=== PATIENT | male | born 1950 ===

== ENCOUNTER 2023-09-23 15:45 | Outpatient (REF) | payer MEDICARE, SELFPAY ==
--- NOTE | ~2023-09-23 | XR_ITS ---
EXAMINATION: XR ANKLE, LEFT CLINICAL INFORMATION: Deformity of left ankle joint. COMPARISON: None available. TECHNIQUE: AP, lateral, and mortise views of the left ankle. FINDINGS: Alignment is anatomic. There is infiltrative appearance of the marrow with irregular lucencies. Ankle mortise is maintained. The talar dome is intact. Small plantar calcaneal spur. XR/XR ankle LT min 3V IMPRESSION: Infiltrative appearance of the marrow with irregular lucencies and overlying cortical thinning. MRI is recommended for further characterization.
== END 2023-09-23 15:46 | disposition home or self-care (01) ==
LOC: HO.HHCX 15:45
PROVIDERS: Visit Provider General Practice
DX: M21.962 Unspecified acquired deformity of left lower leg (principal)
CPT/HCPCS: 73610

== ENCOUNTER 2023-09-23 16:13 | Outpatient (REF) | payer MEDICARE, SELFPAY ==
[2023-09-23 17:40] LABS: Anion Gap 15 (12-20); Blood Urea Nitrogen 37 mg/dL (9-16); Calcium 9.8 mg/dL (8.4-10.2); Carbon Dioxide 24 mmol/L (22-29); Chloride 105 mmol/L (96-108); Estimated Glomerular Filt Rate 40; Glucose Random 116 mg/dL (60-115); Potassium 4.9 mmol/L (3.3-5.1); Sodium 139 mmol/L (135-145)
[2023-09-23 18:06] LABS: Appearance Urine Clear; Color Urine Yellow; Glucose Urine UA Negative (Negative); Leukocyte Esterase Urine Trace (Negative); Nitrite Urine Negative (Negative); PH 5.5 (5.0-9.0); Specific Gravity - Urine 1.025 (1.005-1.025); UMIC TRIGGER UACC YES; Urine Blood Negative (Negative); Urine Ketones Negative (Negative); Urine Protein 30 (1+) mg/dL (Neg-Trace)
[2023-09-23 18:13] LABS: Bacteria Urine None Seen (None Seen); RBC Urine 0-2 /HPF (0-2); Squamous Epithelial Cell Urine 0-2 /HPF (0-2); WBC Urine 0-5 /HPF (0-5)
== END 2023-09-23 16:14 | disposition home or self-care (01) ==
LOC: HO.HHCL 16:13
PROVIDERS: Visit Provider General Practice
DX: E11.9 Type 2 diabetes mellitus without complications (principal); Z79.4 Long term (current) use of insulin
CPT/HCPCS: 36415; 80048; 81001

== ENCOUNTER 2023-09-29 09:21 | Outpatient (REF) | payer MEDICARE, SELFPAY ==
[2023-10-05 21:28] LABS: PES - Abn Protein Band 1 0.2 g/dL (NONE DETECTED); Prot Elec - Albumin 4.1 g/dL (3.8-4.8); Prot Elec - Alpha1 0.3 g/dL (0.2-0.3); Prot Elec - Alpha2 0.8 g/dL (0.5-0.9); Prot Elec - Beta 1 0.4 g/dL (0.4-0.6); Prot Elec - Beta 2 0.3 g/dL (0.2-0.5); Prot Elec - Gamma 0.6 g/dL (0.8-1.7); Prot Elec - Total Protein 6.5 g/dL (6.1-8.1)
== END 2023-09-29 09:22 | disposition home or self-care (01) ==
LOC: HO.LAB 09:21
PROVIDERS: PCP General Practice; Visit Provider General Practice
DX: R93.6 Abnormal findings on diagnostic imaging of limbs (principal)
CPT/HCPCS: 36415; 84165

== ENCOUNTER 2023-10-01 10:52 | Outpatient (REF) | payer MEDICARE, SELFPAY | END 2023-10-01 10:53 | disposition home or self-care (01) | LOC: HO.LNP 10:52 | PROVIDERS: Visit Provider General Practice | DX: R93.6 Abnormal findings on diagnostic imaging of limbs (principal) | CPT/HCPCS: 82570; 84156; 84166 ==

== ENCOUNTER 2023-10-06 16:25 | Outpatient (REF) | payer MEDICARE, OTHER, SELFPAY ==
--- NOTE | ~2023-10-06 | CT_ITS ---
CT HEAD WITHOUT IV CONTRAST INDICATION: Dizziness and presyncope with neck extension. COMPARISON: None available. TECHNIQUE: Multidetector CT acquisitions of the head was obtained without IV contrast. This CT examination was performed using dose optimization techniques as appropriate, variously including the following: *Automated exposure control *Adjustment of mA and/or kV according to patient size (this includes techniques or standardized protocols for targeted exams where dose is matched to indication/reason for exam; i.e. extremities or head) *Use of iterative reconstruction technique FINDINGS: There is no intracranial hemorrhage, hydrocephalus, extra-axial surface collection, midline shift, or other herniation pattern. Torres to white matter differentiation is diffusely maintained without evidence of an evolved acute territorial infarct. The basilar cisterns are preserved. Right parietal scalp swelling that can be clinically correlated. CT/CT head/brain wo IV con IMPRESSION: No acute intracranial abnormality. There is global cerebral volume loss and there is moderate chronic microangiopathy. Right parietal scalp swelling that can be clinically correlated.
== END 2023-10-06 16:26 | disposition home or self-care (01) ==
LOC: HO.CT 16:25
PROVIDERS: PCP General Practice; Visit Provider General Practice
DX: R42 Dizziness and giddiness (principal)
CPT/HCPCS: 70450

== ENCOUNTER 2023-10-14 13:33 | Outpatient (REF) | payer MEDICARE, OTHER, SELFPAY ==
--- NOTE | ~2023-10-14 | MR_ITS ---
EXAMINATION: MR ANKLE WITHOUT CONTRAST, LEFT CLINICAL INFORMATION: Left ankle lucencies on radiographs. COMPARISON: Radiographs 09/23/2023. TECHNIQUE: MRI of the ankle was performed using routine sequences on a high-field scanner. FINDINGS: There are no suspicious bone lesions. Lucencies demonstrated on prior radiographs likely reflect osteopenia. No ankle joint effusion. No talar OCD. Ankle ligaments appear intact. The Achilles tendon, posterior tibialis tendon, peroneal tendons, flexor and extensor tendons appear intact. Mild thickening of the proximal plantar fascia and a small heel spur. No tear. Mild diffuse muscle edema and atrophy. Nonspecific edema throughout Kager's fat pad. Mild midfoot osteoarthritis with small dorsal osteophytes. The sinus tarsi is normal. The Lisfranc ligament is intact. MR/MR ankle LT wo con IMPRESSION: 1. No suspicious bone lesions. The radiographic appearance is likely the result of osteopenia. 2. Mild midfoot osteoarthritis. No talar OCD. 3. Mild chronic plantar fasciitis with a small heel spur.
== END 2023-10-14 13:34 | disposition home or self-care (01) ==
LOC: HO.MRI 13:33
PROVIDERS: PCP General Practice; Visit Provider General Practice
DX: M21.962 Unspecified acquired deformity of left lower leg (principal)
CPT/HCPCS: 73721

== ENCOUNTER 2023-10-22 13:36 | Outpatient (REF) | payer MEDICARE, MEDICAID, SELFPAY ==
[2023-10-26 15:03] LABS: IgA 123 mg/dL (70-320); IgG 679 mg/dL (600-1540); IgM 57 mg/dL (50-300)
== END 2023-10-22 13:37 | disposition home or self-care (01) ==
LOC: HO.HHCL 13:36
PROVIDERS: Visit Provider General Practice
DX: R77.8 Other specified abnormalities of plasma proteins (principal); M21.962 Unspecified acquired deformity of left lower leg
CPT/HCPCS: 36415; 82784; 86334

== ENCOUNTER 2023-12-09 15:46 | Outpatient (REF) | payer MEDICARE, OTHER, SELFPAY ==
--- NOTE | ~2023-12-09 | MR_ITS ---
EXAMINATION: MR ANGIOGRAPHY BRAIN WITHOUT AND WITH CONTRAST CLINICAL INFORMATION: Posterolateral dizziness. COMPARISON: CT head 10/06/2023. TECHNIQUE: MR angiogram of the head was performed without and with contrast. 3D images were processed on an independent workstation under concurrent supervision. Arterial stenoses are measured in accordance with NASCET criteria or similar method if applicable. A total of 7 mL Gadavist was utilized for this examination. FINDINGS: Intracranial internal carotid arteries are patent. The intradural vertebral artery segments and basilar artery are patent. Visualized portions of the anterior, middle, and posterior cerebral artery complexes are normal. No intracranial large vessel occlusion. No identifiable aneurysm or high flow vascular lesion. MR/MR angio head wo/w con IMPRESSION: Normal MR angiogram of the head. Electronically signed by: Pool Spaulding MD 12/31/2023 02:53 PM EDT
[2023-12-09] MEDS: gadobutroL 7.5 ML VIAL IVPUSH (17:03)
== END 2023-12-09 15:47 | disposition home or self-care (01) ==
LOC: HO.MRI 15:46
PROVIDERS: PCP General Practice; Visit Provider General Practice
DX: R42 Dizziness and giddiness (principal); R55 Syncope and collapse
CPT/HCPCS: 70546; A9585

== ENCOUNTER 2024-03-08 14:25 | Outpatient (AMB) | payer MEDICARE, SELFPAY ==
--- OUTSIDE RECORDS SUMMARY | 2024-03-08 14:28 | XMS_ITS ---
Author Organization [facility] Address [address] [place] [address] Care Team Providers Care Environmental Systems Coordinator Name Role Phone Yohana Cifuentes Primary Care Provider Yg Thomson Unavailable [phone] Allergies No Known Allergies REASON FOR VISIT At Risk Footcare, Painful Nail(s) aggravated by shoes and causing difficulty standing/walking, Ingrown Nail, Skin problem(s) Medications Medication SIG (Take, Route, Frequency, Duration) Notes Start Date End Date Status Rosuvastatin Calcium 10 MG Oral for 90 Days Active Ammonium Lactate 12 % 1 application Exte rnally to feet except for between the toes Twice a day for 30 days Active Psyllium Active Vitamin D Active Multi Vitamin Active busPIRone HCl 10 MG 1 tablet Orally Twic e a day 01/27/2023 Active Sertraline HCl 200 MG 1 capsule Orally O nce a day for 30 day(s) 01/27/2023 Active Insulin Active Vitamin C Active Extra Depth Orthopedic Shoes, (1) Pair With (3) Pair Custom Heat Molded Multidensity Innersoles Dx: NIDDM/PVD(E11.51), Hammertoe Foot Deformity(M20.41,M20.42), Preulcerative Skin Lesion(s)(L85.1) Wear Daily for 365 days 03/03/2023 Active Aspirin 81 MG 1 tablet Orally Once a day for 30 day(s) 01/27/2023 Active metFORMIN HCl 1000 MG 1 tablet with a me al Orally Once a day for 90 days Active glipiZIDE 5 MG Oral for 90 Days Active Social History Tobacco Use: Social History Observation Description Date Details (start date - stop date) Current Smoker NA - NA Tobacco Use/Smoking Question Answer Notes Are you a: current smoker Tobacco use other than smoking: Question Answer Notes Are you an other tobacco user? Yes V ape Vital Signs Height 5ft11.5in in 11/17/2023 Weight 165 lbs 11/17/2023 BMI 22.69 kg/m2 11/17/2023 Procedures Procedure Date Ordered Date Performed Result Body Sit e 76684-UHQISUI NAIL, 6 OR MORE 11/17/2023 N/A 63524-Wreizqck Plate 11/17/2023 N/A 35200-ZMAF SKIN LESIONS, OVER 4 11/17/2023 N/A Encounters Encounter Location Date Provider Diagnosis [facility] [place] [address] [place] [address] 11/17/2023 Yg Soto Type 2 diabetes mellitus with diabetic peripheral angiopathy without gangrene E11.51 ; Tinea unguium B35.1 ; Pain in right toe(s) M79.674 ; Pain in left toe(s) M79.675 ; Ingrown nail L60.0 and Xerosis of skin L85.3 Assessments Encounter Date Diagnosis (ICD Code) Assessment Notes Treatment Notes Treatment Clinical Notes Section Notes 11/17/2023 Type 2 diabetes mellitus with diabetic peripheral angiopathy without gangrene (ICD-10 - E11.51) 11/17/2023 Tinea unguium (ICD-10 - B35.1) 11/17/2023 Pain in right toe(s) (ICD-10 - M79.674) 11/17/2023 Pain in left toe(s) (ICD-10 - M79.675) 11/17/2023 Ingrown nail (ICD-10 - L60.0) 11/17/2023 Xerosis of skin (ICD-10 - L85.3) Plan Of Treatment Medication Medication Name Sig Start Date Stop Date Notes Ammonium Lactate 12 % 1 application Exte rnally to feet except for between the toes Twice a day for 30 days Pending Test Test Name Order Date 84455-YALZQWT NAIL, 6 OR MORE 11/17/2023 24659-Vwtsftdn Plate 11/17/2023 30565-SICG SKIN LESIONS, OVER 4 11/17/19 24 Next Appt Details Follow Up: prn, Reason: Provider Name:Yg Soto , 03/11/2024 11:00:00 AM, [address] [place], [address], Procedure Notes * Category Sub-Category Detail Notes Nail Avulsion Procedure A fine sterile e levator was placed between the eponychium, nail fold, and nail plate to separate the structures. A sterile nail splitter, and/or sterile 316 blade, was then used to longitudinally section the nail along its entire length through the eponychium to the area under the nail fold. The offending portion of nail was from the nail bed with a rolling action and then removed with a hemostat. No underlying bone was identified. There was minimal bleeding as hemostasis was achieved through the temporary use of either a digital tourniquet or the aforementioned local with epinephrine. A bacitracin sterile dressing was applied. Local wound aftercare instructions were discussed and dispensed. The patient was informed of both conservative and future surgical procedures to prevent recurrence. Tylenol or Motrin was recommended for pain or discomfort (62375) , DIABETES: Pt was advised as to the risk of delayed or nonhealing due to diabetes. Pt is to call the office with any questions, concerns, or complications Anesthesia 2cc of 1 percent Lid ocaine Plain local anesthesic utilizing aseptic technique Location Lateral nail border , T5 Debride Nail 6-10 Nail debridement Performance o f this nail treatment by a nonprofessional would put this patients foot and overall health at risk. Therefore, nail debridement was performed extensively to reduce/remove overall nail length, girth, thickness, subungual debris, and necrotic tissue, by manual and/or electrical means through the use of a nail nipper and/or dremel-type grinder set up operator gear tool, to a more viable healthy nail plate or bed tissue 6-10. Silver nitrate used for any petechial bleeding as necessary. Definitive antifungal treatment options have been reviewed and discussed with the patient. The patient chooses, no pharmaceutical tx (92899) Keratoma Treatment Parring or Cutting o f Benign Hyperkeratotic Lesion(s) 09693 ( More than 4 Lesions ) - The Benign hyperkeratotic lesions, as described above were pared, and/or cut utilizing a sterile 15 blade, tissue nippers, and/or dremel , Q8 Progress Notes * Boone JAIME JrDOB:1950 (72 yo M)Acc No.[id number]:11/17/2023 Progress Note Patient:Boone Alvarez Provider:?Yg Soto DPM :1950???Age:72 Y???Sex:Male Juvenal e:11/17/2023 Address:[address] [place] [address] [address], [facility] Pcp:Yohana Cifuentes Subjective: * Chief Complaints: * ???At Risk FootcarePainful N ail(s) aggravated by shoes and causing difficulty standing/walkingIngrown NailSkin problem(s) * HPI: ???At Risk footcare:?Pt States Last PCP Visit:?Date?10/26/2023 ???Skin problems:?Nature:?dryness , scaling.?Location:?B/L .?Duration:?several days.?Course:?worse.? * ROS:?General/Constitutional:?Nausea?denies.?Vomiting?denies.?Hunger Thirst?denies.?Loss appetite?denies.?Chills?denies.?Fatigue?denies.?Fever?denies.?Night Sweats?denies.?Unexplained weight loss?denies.?Unexplained weight gain?denies.?HEENTM:?Dentures?denies.?Dizziness?denies.?Glasses/contacts?admits.?Retinopathy?de nies.?Blurred/double vision?denies.?TMJ?denies.?Discharge/drainage?denies.?Implants?denies.?Sore throat?denies.?Dental implants?denies.?Hard of hearing ?denies.?Difficulty chewing/swallowing/speaking?denies.?Nose bleeds?denies.?Sore mouth?denies.?Respiratory:?On Oxygen?denies.?Pneumonia/pleurisy?denies.?Bronchitis?denies.?Emphysema?admits.?C oughing?denies.?Cough blood?denies.?Shortness of breath?denies.?Wheezing?denies.?Cardiovascular:?Pacemaker?denies.?MVP?denies.?WPW?denies.?CHF?denies.?Heart attack?denies.?Septal defect?denies.?Rapid beat?denies.?Chest pain ?denies.?Atrial Fib.?denies.?Murmur/Palpitations?denies.?Gastrointestinal:?Hemorrhoids?denies.?Stomach/Abdominal pain?denies.?Dark blood stool?denies.?Irritable bowel ?denies.?Constipation?denies.?Diarrhea?admits.?Hematology:?Swelling?denies.?Clots?denies.?Varicose Veins?admits.?Bruising?denies.?Bleeding problem?denies.?Genitourinary:?Blood urine?denies.?Frequent/Painfu/urination/bladder control?admits.?Kidney stones?admits.?Infection (UTI)?denies.?Nephropathy?denies.?sex trans dis (STD)?denies.?Prostate?denies.?Musculoskeletal:?Hammertoes?admits.?Bunions?denies.?Back Pain?denies.?Muscle Cramps/ Resting?denies.?Muscle cramps / walking?denies.?Generalized aches and pains?denies.?Weakness?denies.?Integ.:?Gutierrez?denies.?Scars?admits.?Corns/calluses?admits.?Ingrown nails?admits.?Painful nails?admits.?Open Sores?denies.?Rashes?denies.?Neurologic:?Difficulty sleeping?admits.?Brain disorder?denies.?Numbness?denies.?Balance trouble?admits.?Confusion?denies.?Fainting/blackouts?admits.?Tingling?denies.?Tr emors?denies.? * Medical History:? * Surgical History:?hernia 201 3 * Hospitalization/Major Diagno stic Procedure:?Denies Past Hospitalization * Family History:?Mother: dece ased, diagnosed with Diabetic - NIDDM.?Father: , diagnosed with Other malignant neoplasm of unspecified site.?Paternal Grand Mother: unknown, diagnosed with Family history of arthritis.?Maternal aunt: unknown, diagnosed with Diabetic - NIDDM.?Siblings: unknown, diagnosed with Diabetic - NIDDM.? Uncle from Paternal Father had history of cancer. * Social History:?Tobacco Use:?Tobacco Use/Smoking?Are you a:?current smoker ?Tobacco use other than smoking?Are you an other tobacco user??Yes Vape ???Miscellaneous:?Caffeine: yes, 2 cups. ?Children: yes. ?no Exercise. ?Marital status: . ?Occupation: Retired [employer]. * Medications:?TakingVitamin C Insulin Vitamin D Psyllium Multi Vitamin Rosuvastatin Calcium 10 MG Tablet Oral Aspirin 81 MG Tablet Chewable 1 tablet Orally Once a dayglipiZIDE 5 MG Tablet Oral metFORMIN HCl 1000 MG Tablet 1 tablet with a meal Orally Once a daySertraline HCl 200 MG Capsule 1 capsule Orally Once a daybusPIRone HCl 10 MG Tablet 1 tablet Orally Twice a dayExtra Depth Orthopedic Shoes, (1) Pair With (3) Pair Custom Heat Molded Multidensity Innersoles . Dx: NIDDM/PVD(E11.51), Hammertoe Foot Deformity(M20.41,M20.42), Preulcerative Skin Lesion(s)(L85.1) Wear DailyMedication List reviewed and reconciled with the patientTaking Vitamin C Taking Insulin Taking Vitamin D Taking Psyllium Taking Multi Vitamin Taking Rosuvastatin Calcium 10 MG Tablet Oral Taking Aspirin 81 MG Tablet Chewable 1 tablet Orally Once a dayTaking glipiZIDE 5 MG Tablet Oral Taking metFORMIN HCl 1000 MG Tablet 1 tablet with a meal Orally Once a dayTaking Sertraline HCl 200 MG Capsule 1 capsule Orally Once a dayTaking busPIRone HCl 10 MG Tablet 1 tablet Orally Twice a dayTaking Extra Depth Orthopedic Shoes, (1) Pair With (3) Pair Custom Heat Molded Multidensity Innersoles . Dx: NIDDM/PVD(E11.51), Hammertoe Foot Deformity(M20.41,M20.42), Preulcerative Skin Lesion(s)(L85.1) Wear DailyMedication List reviewed and reconciled with the patient * Allergies:?N.K.D.A.yes[Aller gies Verified] Objective: * Vitals:?Ht: 5ft11.5in, Wt:16 5, BMI:22.69, Shoe size: 11, BS: not taken, Ht-cm: 181.61 cm, Wt-k.84 kg. * ???Past Orders: ???Lab:HEMOGLOBIN A1C (GLYCO HEMOGLOBIN) (Order Date - 03/03/2023) (Collection Date - 03/24/2022) ? Value Reference Range ?HEMOGLOBIN A1C (HH) 5.5 * Examination: ???Vascular: ?DP PULSES:? 0/4, B/L.?PT PULSES:?0/4 , LEFT , 1/4 , RIGHT.?CAPILLARY FILL TIME:? delayed, all digits, B/L.?SKIN TEMPERTURE GRADIENT OF THE LOWER EXTERMITIES:? decreased, cool to cool, proximal to distal, B/L.?HAIR GROWTH/TEXTURE/ELASTICITY/TURGOR:? decreased, B/L.?PIGMENTATION:?mottled, B/L.?EDEMA:?absent, B/L.?CLAUDICATION:?denies, B/L.?REST PAIN:?denies, B/L.?Nails: ?NAILS are:?Elongated, overgrown, dystrophic, lytic, greater than 3mm thick, discolored and friable with crumbly malodorous subungual debris, with pain on palpation , 1-5 B/L.?Dermatologic: ?SKIN FINDINGS:?Skin exam reveals Keratotic lesion(s) located at , Medial plantar , IPJ , TA , Medial plantar , IPJ , T5 , SUB MTH (s) , 1 , B/L , SUB MTH (s) , 5 , B/L , SUB 5th MTBase , B/L , Heel(s) , B/L , Skin shows sign(s) of, dryness, scaling, in a stocking fashion, no fissure(s) present, B/L.?Ingrown Nail: ?INSPECTION:?Reveals nail incurvation, pain on palpation, groove hypertrophy , Lateral nail border , T5.? Assessment: * Assessment: 1.?Type 2 diabetes mellitus with diabetic peripheral angiopathy without gangrene - E11.51?2.?Tinea unguium - B35.1?3.?Pain in right toe(s) - M79.674?4.?Pain in left toe(s) - M79.675?5.?Ingrown nail - L60.0, Lateral nail border , T5?6.?Xerosis of skin - L85.3, Acute problem, Uncomplicated (3),Rx Management (4)? Plan: * Treatment: 2.?Tinea unguium?Procedure: 90165-RTYTASS NAIL, 6 OR MORE 3.?Ingrown nail?Procedure: 78682-Kgmjtmzf Plate 4.?Xerosis of skin? Start Ammonium Lactate Cream, 12 %, 1 application, Externally to feet except for between the toes, Twice a day, 30 days, 60, Refills 2.?? * Procedures:?Debride Nail 6-10:?Nail debridement?Performance of this nail treatment by a nonprofessional would put this patients foot and overall health at risk. Therefore, nail debridement was performed extensively to reduce/remove overall nail length, girth, thickness, subungual debris, and necrotic tissue, by manual and/or electrical means through the use of a nail nipper and/or dremel-type grinder set up operator gear tool, to a more viable healthy nail plate or bed tissue 6-10. Silver nitrate used for any petechial bleeding as necessary. Definitive antifungal treatment options have been reviewed and discussed with the patient. The patient chooses, no pharmaceutical tx (85506).?Keratoma Treatment:?Parring or Cutting of Benign Hyperkeratotic Lesion(s)?86451 ( More than 4 Lesions ) - The Benign hyperkeratotic lesions, as described above were pared, and/or cut utilizing a sterile 15 blade, tissue nippers, and/or dremel , Q8.?Nail Avulsion:?Location?Lateral nail border?,?T5.?Anesthesia?2cc of 1 percent Lidocaine Plain local anesthesic utilizing aseptic technique.?Procedure?A fine sterile elevator was placed between the eponychium, nail fold, and nail plate to separate the structures. A sterile nail splitter, and/or sterile 316 blade, was then used to longitudinally section the nail along its entire length through the eponychium to the area under the nail fold. The offending portion of nail was from the nail bed with a rolling action and then removed with a hemostat. No underlying bone was identified. There was minimal bleeding as hemostasis was achieved through the temporary use of either a digital tourniquet or the aforementioned local with epinephrine. A bacitracin sterile dressing was applied. Local wound aftercare instructions were discussed and dispensed. The patient was informed of both conservative and future surgical procedures to prevent recurrence. Tylenol or Motrin was recommended for pain or discomfort (69372) , DIABETES: Pt was advised as to the risk of delayed or nonhealing due to diabetes. Pt is to call the office with any questions, concerns, or complications.? * Procedure Codes:?44910 DEBRI DE NAIL, 6 OR MORE, Modifiers: XS 09373 Avulsion Plate, Modifiers: XS , [id number] TRIM SKIN LESIONS, OVER 4, Modifiers: XS , Q8 * Preventive Medicine:? ??Counseling:?Discussion:?-13: Office or other outpatient visit for the evaluation and management of an established patient, which required a medically appropriate history and/or examination and LOW level of DECISION MAKING for: 1 STABLE ACUTE UNCOMPLICATED PROBLEM, 2 OR MORE MINOR PROBLEMS, OR 1 STABLE CHRONIC PROBLEM, THAT POSE(S) A LOW RISK FOR MORBIDITY/MORTALITY. The visit on the day of the encounter encompassed interpreting the data and educating the patient as to the nature of their condition, treatment options available according to their individual PMH, meds, allergies, and overall health/living conditions, as well as any potential risks or complications that may occur from a failure to adhere to, and participate in, the recommended course of therapy. The discussion included a complete verbal, and/or written explanation of the examination results, any x-rays taken, the proposed diagnosis, and outline of the treatment plan. A schedule for future care needs was also explained. The patient verbalized an understanding of the instructions at this time and agreed to be an active participant in their treatment. If the patient should think of any questions or concerns after the visit, I have encouraged the patient to call the office.?Xerosis:?The patient was counseled on the diagnosis, potential etiologies, and treatment options for their skin condition. We discussed the risks and benefits of each option from performing no treatment, to utilizing OTC topical skin creams/ointments, to utilizing prescription topical creams/ointments, to utilizing customized compounded topical medications and use of nocturnal occlusion with any/all previously detailed therapies. We discussed the advantages and disadvantages of each possible treatment and importance for adherence to all the recommended therapies for optimum success and avoid potential complications such as open sore/infection/possible hospitalization. We discussed the potential effectiveness of each topical preparation as well as each ones possible side effects and/or patient medication interactions. Patient questions re: use, dosage, successful outcomes, and application consistency were reviewed and the patient verbalized that all answers were clearly understood. The patient has decided to apply Rx skin creams to their feet save the interspaces while paying special attention to the heels. Such was sent to their pharmacy at the time of visit.? * Follow Up:?prn * Images: * Sign off status: Completed true * Provider:Braden Soto DPM Date:?2023 Generated for Brayan curtis/Regina/Mirella on:?03/08/2024 02:27 PM EST History and Physical Notes * HPI (History of Present Illness) Category Sub-Category Detail Notes Category Not es Skin problems Nature: dryness , scaling Location: B/L Duration: several days Course: worse At Risk footcare Pt States Last PCP Visit: Date: 4 Examination Category Sub-Category Detail Notes Category Not es Ingrown Nail INSPECTION: Reveals nail inc urvation, pain on palpation, groove hypertrophy , Lateral nail border , T5 Dermatologic SKIN FINDINGS: Skin exam reveal s Keratotic lesion(s) located at , Medial plantar , IPJ , TA , Medial plantar , IPJ , T5 , SUB MTH (s) , 1 , B/L , SUB MTH (s) , 5 , B/L , SUB 5th MTBase , B/L , Heel(s) , B/L , Skin shows sign(s) of, dryness, scaling, in a stocking fashion, no fissure(s) present, B/L Vascular DP PULSES(B): 0/4, B/L PT PULSES(B): 0/4 , LEFT , 1/4 , R IGHT CAPILLARY FILL TIME: delayed, all digits , B/L TEMPERTURE GRADIENT(C): decreased, cool to cool, proximal to distal, B/L TROPHIC CONDITION-TEXTURE/ELASTICITY/TURGOR/HAIR GROWTH(B): decreased, B/L EDEMA(C): absent, B/L CLAUDICATION(C): denies, B/L REST PAIN: denies, B/L PIGMENTATION: mottled, B/L Nails NAILS are: Elongated, overg rown, dystrophic, lytic, greater than 3mm thick, discolored and friable with crumbly malodorous subungual debris, with pain on palpation , 1-5 B/L
--- OUTSIDE RECORDS SUMMARY | 2024-03-08 14:28 | XMS_ITS ---
Author Organization [facility] Address [address] [place] [address] Care Team Providers Care Polishing Machine Tender Name Role Phone Yohana Cifuentes Primary Care Provider Yg Thomson Unavailable [phone] Allergies No Known Allergies REASON FOR VISIT At Risk Footcare, Painful Nail(s) aggrevated by shoes and causing difficulty standing/walking, Toe Irritation, Ingrown Nail Medications Medication SIG (Take, Route, Frequency, Duration) Notes Start Date End Date Status metFORMIN HCl 1000 MG 1 tablet with a me al Orally Once a day for 90 days Active glipiZIDE 5 MG Oral for 90 Days Active Sertraline HCl 200 MG 1 capsule Orally O nce a day for 30 day(s) 01/27/2023 Active Aspirin 81 MG 1 tablet Orally Once a day for 30 day(s) 01/27/2023 Active Rosuvastatin Calcium 10 MG Oral for 90 Days Active Insulin Active Vitamin C Active Psyllium Active Vitamin D Active Multi Vitamin Active busPIRone HCl 10 MG 1 tablet Orally Twic e a day 01/27/2023 Active Extra Depth Orthopedic Shoes, (1) Pair With (3) Pair Custom Heat Molded Multidensity Innersoles Dx: NIDDM/PVD(E11.51), Hammertoe Foot Deformity(M20.41,M20.42), Preulcerative Skin Lesion(s)(L85.1) Wear Daily for 365 days 03/03/2023 Active Social History Tobacco Use: Social History Observation Description Date Details (start date - stop date) Current Smoker NA - NA Tobacco Use/Smoking Question Answer Notes Are you a: current smoker Alcohol Screen Question Answer Notes Did you have a drink containing alcohol in the p ast year? No Points 0 Interpretation Negative Tobacco use other than smoking: Question Answer Notes Are you an other tobacco user? Yes V ape Vital Signs Height 6ft 1in in 07/21/2023 Weight 165 lbs 07/21/2023 BMI 21.77 kg/m2 07/21/2023 Procedures Procedure Date Ordered Date Performed Result Body Sit e 54337-RWTTGPI NAIL, 6 OR MORE 07/21/2023 N/A 68019-Ttwvilaz Plate 07/21/2023 N/A 01448-KIVB SKIN LESIONS, OVER 4 07/21/2023 N/A Encounters Encounter Location Date Provider Diagnosis [facility] [place] [address] [place] [address] 07/21/2023 Yg Soto Type 2 diabetes mellitus with diabetic peripheral angiopathy without gangrene E11.51 ; Tinea unguium B35.1 ; Pain in right toe(s) M79.674 ; Pain in left toe(s) M79.675 ; Other hammer toe(s) (acquired), right foot M20.41 ; Other hammer toe(s) (acquired), left foot M20.42 and Ingrown nail L60.0 Assessments Encounter Date Diagnosis (ICD Code) Assessment Notes Treatment Notes Treatment Clinical Notes Section Notes 07/21/2023 Type 2 diabetes mellitus with diabetic peripheral angiopathy without gangrene (ICD-10 - E11.51) 07/21/2023 Tinea unguium (ICD-10 - B35.1) 07/21/2023 Pain in right toe(s) (ICD-10 - M79.674) 07/21/2023 Pain in left toe(s) (ICD-10 - M79.675) 07/21/2023 Other hammer toe(s) (acquired), right foot (ICD-10 - M20.41) Response to treatment,Impro vement 07/21/2023 Other hammer toe(s) (acquired), left foot (ICD-10 - M20.42) Response to treatment,Impro vement 07/21/2023 Ingrown nail (ICD-10 - L60.0) Plan Of Treatment Pending Test Test Name Order Date 16968-BZCKDHU NAIL, 6 OR MORE 07/21/2023 92629-Bfafyrxi Plate 07/21/2023 40184-VHWB SKIN LESIONS, OVER 4 07/21/19 24 Next Appt Details Follow Up: prn, Reason: Provider Name:Yg Soto , 03/11/2024 11:00:00 AM, [address] [place] [address], [id number], Procedure Notes * Category Sub-Category Detail Notes [...] Motrin was recommended for pain or discomfort (04887) , DIABETES: Pt was advised as to the risk of delayed or nonhealing due to diabetes. Pt is to call the office with any questions, concerns, or complications Anesthesia 2cc of 1 percent Lid ocaine Plain local anesthesic utilizing aseptic technique Location Lateral nail border , TA Debride Nail 6-10 Nail debridement Nail debridem ent performed extensively to reduce/remove overall nail length, girth, thickness, subungual debris, and necrotic tissue, by manual and electrical means through the use of a nail nipper and/or dremel, to more viable healthy nail plate or bed tissue 1-5. Silver nitrate used for any petechial bleeding as necessary. Patient chooses, no pharmaceutical tx (20937) Keratoma Treatment Parring or Cutting o f Benign Hyperkeratotic Lesion(s) 54236 ( More than 4 Lesions ) - The Benign hyperkeratotic lesions, as described above were pared, and/or cut utilizing a sterile 15 blade, tissue nippers, and/or audrey , Q8 Progress Notes * Boone JAIME JrDOB:1950 (72 yo M)Acc No.[id number]:07/21/2023 Progress Note Patient:Boone Alvarez Provider:?Yg Soto DPM :1950???Age:72 Y???Sex:Male Juvenal e:07/21/2023 Address:[address] [place] [address] [address], [facility] Pcp:Aida Fabian Subjective: * Chief Complaints: * ???At Risk FootcarePainful N ail(s) aggrevated by shoes and causing difficulty standing/walkingToe IrritationIngrown Nail * HPI: ???At Risk footcare:?Pt States Last PCP Visit:?Date?03/09/2023 ???Toe pain:?Treatments:?Rx shoes .? * ROS:?General/Constitutional:?Nausea?denies.?Vomiting?denies.?Hunger Thirst?denies.?Loss appetite?denies.?Chills?denies.?Fatigue?denies.?Fever?denies.?Night Sweats?denies.?Unexplained weight loss?denies.?Unexplained [...] smoking?Are you an other tobacco user??Yes Vape ???Drugs/Alcohol:?Drugs?Have you used drugs other than those for medical reasons in the past 12 months??Yes ?Alcohol Screen?Did you have a drink containing alcohol in the past year??No ?Points?0 ?Interpretation?Negative ???Miscellaneous:?Caffeine: yes, 2 cups. ?Marital status: . ?Occupation: Retired [employer]. * Medications:?TakingVitamin C Insulin Vitamin D Psyllium [...] * Allergies:?N.K.D.A.yes[Aller gies Verified] Objective: * Vitals:?Ht: 6ft 1in, Wt:165, BMI:21.77, Shoe size:11. * ???Past Orders: ???Lab:HEMOGLOBIN A1C (GLYCO HEMOGLOBIN) [...] 5th MTBase , B/L , Heel(s) , B/L.?Orthopedic: ?DIGITAL DEFORMITIES:?Digital contracture, PIPJ, 2-5 B/L, incompl-reducible to push-up test, no over, nor underlapping.?FOOTWEAR:?good condition, exhibit proper fit and accommodation for pedal deformities. OT were inspected and noted to be worn, but in good condition giving proper support at the present time.?Ingrown Nail: ?INSPECTION:?Reveals nail incurvation, pain on palpation, groove hypertrophy , Lateral nail border , TA.? Assessment: * Assessment: 1.?Type 2 diabetes mellitus with diabetic peripheral angiopathy without gangrene - E11.51?2.?Tinea unguium - B35.1?3.?Pain in right toe(s) - M79.674?4.?Pain in left toe(s) - M79.675?5.?Other hammer toe(s) (acquired), right foot - M20.41, Chronic problem, Stable (1=3,2=4), Response to treatment,Improvement?6.?Other hammer toe(s) (acquired), left foot - M20.42, Chronic problem, Stable (1=3,2=4), Response to treatment,Improvement?7.?Ingrown nail - L60.0, Lateral nail border , TA? Plan: * Treatment: 2.?Tinea unguium?Procedure: 48566-FUBIWXH NAIL, 6 OR MORE 3.?Ingrown nail?Procedure: 16704-Nyfylwgj Plate * Procedures:?Debride Nail 6-10:?Nail debridement?Nail debridement performed extensively to reduce/remove overall nail length, girth, thickness, subungual debris, and necrotic tissue, by manual and electrical means through the use of a nail nipper and/or dremel, to more viable healthy nail plate or bed tissue 1-5. Silver nitrate used for any petechial bleeding as necessary. Patient chooses, no pharmaceutical tx (53682).?Keratoma Treatment:?Parring or Cutting of Benign Hyperkeratotic Lesion(s)?68782 ( More than 4 Lesions ) - The Benign hyperkeratotic lesions, as described above were pared, and/or cut utilizing a sterile 15 blade, tissue nippers, and/or dremel , Q8.?Nail Avulsion:?Location?Lateral nail border?,?TA.?Anesthesia?2cc of 1 percent Lidocaine Plain local anesthesic [...] Motrin was recommended for pain or discomfort (36038) , DIABETES: Pt was advised as to the risk of delayed or nonhealing due to diabetes. Pt is to call the office with any questions, concerns, or complications.? * Procedure Codes:?80099 Avuls ion Plate, Modifiers: XS , [id number] DEBRIDE NAIL, 6 OR MORE, Modifiers: XS 92865 TRIM SKIN LESIONS, OVER 4, Modifiers: XS [...] have encouraged the patient to call the office.?Shoe Gear Counseling:?A thorough inspection of the patients Rxed shoegear and inserts was performed and findings communicated. We reviewed the many important medical advantages for adhering to regularly wearing these shoe and insert accomidative devices daily as well as reviewed the fact that a failure in accepting these recommedations may be deleterious, unable to prevent, and disadvantagely result in, many pedal complications such as skin irritation, skin ulceration, infection, and even loss of toe/foot/leg/or even their life. Time was also spent reviewing the proper footcare techniques including daily skin moisturization, daily foot inspection for any interruption in skin integrity, open lesions, or sign of infection such as redness/malodor/drainage/swelling as well as daily shoe inspection for the presence of internal foreign bodies and shoe as well as insert wear. Patient questions re: shoes, inserts, and self foot inspections were answered to their satisfaction as the patient verbally confirmed a full understanding of the above information.? * Follow Up:?prn * Images: * Sign off status: Completed Addendum: * ? true * Provider:?Yg Soto DPM Date:?2023 Generated for Brayan curtis/Regina/Brittnyitting on:?03/08/2024 02:27 PM EST History and Physical Notes * HPI (History of Present Illness) Category Sub-Category Detail Notes Category Not es Toe pain Treatments: Rx shoes At Risk footcare Pt States Last PCP Visit: Date: 3 Examination Category Sub-Category Detail Notes Category Not es Ingrown Nail INSPECTION: Reveals nail inc urvation, pain on palpation, groove hypertrophy , Lateral nail border , TA Dermatologic SKIN FINDINGS: Skin exam reveal s Keratotic lesion(s) located at , Medial plantar , IPJ , TA , Medial plantar , IPJ , T5 , SUB MTH (s) , 1 , B/L , SUB MTH (s) , 5 , B/L , SUB 5th MTBase , B/L , Heel(s) , B/L Orthopedic FOOTWEAR: good condition, exhibit proper fit and accommodation for pedal deformities. OT were inspected and noted to be worn, but in good condition giving proper support at the present time DIGITAL DEFORMITIES: Digital contracture , PIPJ, 2-5 B/L, incompl-reducible to push-up test, no over, nor underlapping Vascular DP PULSES(B): 0/4, B/L PT PULSES(B): [...]
--- OUTSIDE RECORDS SUMMARY | 2024-03-08 14:28 | XMS_ITS | Patient Health Record ---
Author Organization [facility] Address [address] [facility] [address] Care Team Providers Care Mold Dumper Name Role Phone Yohana Cifuentes Primary Care Provider Yg Thomson Unavailable [phone] Allergies No Known Allergies Reason For Referral No Information Medications Medication SIG (Take, Route, Frequency, Duration) Notes Start Date End Date Status Psyllium Active Vitamin D Active Aspirin 81 MG 1 tablet Orally Once a day for 30 day(s) 01/27/2023 Active Rosuvastatin Calcium 10 MG Oral for 90 Days Active metFORMIN HCl 1000 MG 1 tablet with a me al Orally Once a day for 90 days Active glipiZIDE 5 MG Oral for 90 Days Active busPIRone HCl 10 MG 1 tablet Orally Twic e a day 01/27/2023 Active Ammonium Lactate 12 % 1 application Exte rnally to feet except for between the toes Twice a day for 30 days Active Sertraline HCl 200 MG 1 capsule Orally O nce a day for 30 day(s) 01/27/2023 Active Insulin Active Vitamin C Active Extra Depth Orthopedic Shoes, (1) Pair With (3) Pair Custom Heat Molded Multidensity Innersoles Dx: NIDDM/PVD(E11.51), Hammertoe Foot Deformity(M20.41,M20.42), Preulcerative Skin Lesion(s)(L85.1) Wear Daily for 365 days 03/03/2023 Active Multi Vitamin Active Immunizations Vaccine Route Administration Date Status Comme nts Influenza Unknown 11/21/2022 Administered Social History Tobacco Use: Social History Observation [...] an other tobacco user? Yes V ape Problems Problem Type SNOMED Code ICD Code Onset Dates Problem Status W/U Status Risk Notes Problem Acquired hammer toe of right foot (9181182135382 105) Other hammer toe(s) (acquired), right foot (M20.41) Active confirmed Response to treatment,I mprovement Problem Type 2 diabetes mellitus with peripheral angiopathy (731267655) Type 2 diabetes mellitus with diabetic peripheral angiopathy without gangrene (E11.51) Active confirmed Problem Acquired hammer toe of left foot (7449745753093 103) Other hammer toe(s) (acquired), left foot (M20.42) Active confirmed Response to treatment,I mprovement Vital Signs Height 5ft11.5in in 11/17/2023 Weight 165 lbs 11/17/2023 BMI 22.69 kg/m2 11/17/2023 Procedures Procedure Date Ordered Date Performed Result Body Sit e 37012-FFPHRJW NAIL, 6 OR MORE 07/21/2023 N/A 62693-Pvdixrzk Plate 07/21/2023 N/A 04318-IVMX SKIN LESIONS, OVER 4 07/21/2023 N/A 45985-PUULSZV NAIL, 6 OR MORE 11/17/2023 N/A 73809-Gulqfnhy Plate 11/17/2023 N/A 95032-NUYA SKIN LESIONS, OVER 4 11/17/2023 N/A Encounters Encounter Location Date Provider Diagnosis [facility] [place] [address] [place] [address] 07/21/2023 Yg Soto Type 2 diabetes mellitus with diabetic peripheral angiopathy without gangrene E11.51 ; Tinea unguium B35.1 ; Pain in right toe(s) M79.674 ; Pain in left toe(s) M79.675 ; Other hammer toe(s) (acquired), right foot M20.41 ; Other hammer toe(s) (acquired), left foot M20.42 and Ingrown nail L60.[address] [address] 11/17/2023 Yg Mossunier Type 2 diabetes mellitus with diabetic peripheral angiopathy without gangrene E11.51 ; Tinea unguium B35.1 ; Pain in right toe(s) M79.674 ; Pain in left toe(s) M79.675 ; Ingrown nail L60.0 and Xerosis of skin L85.[address] [address] 05/13/2023 Yg Soto Assessments Encounter Date Diagnosis (ICD Code) Assessment Notes Treatment Notes Treatment Clinical Notes Section Notes 07/21/2023 Type 2 diabetes mellitus with diabetic peripheral angiopathy without gangrene (ICD-10 - E11.51) 07/21/2023 Tinea unguium (ICD-10 - B35.1) 11/17/2023 Type 2 diabetes mellitus with diabetic peripheral angiopathy without gangrene (ICD-10 - E11.51) 11/17/2023 Tinea unguium (ICD-10 - B35.1) 11/17/2023 Pain in right toe(s) (ICD-10 - M79.674) 07/21/2023 Pain in right toe(s) (ICD-10 - M79.674) 07/21/2023 Pain in left toe(s) (ICD-10 - M79.675) 11/17/2023 Pain in left toe(s) (ICD-10 - M79.675) 11/17/2023 Ingrown nail (ICD-10 - L60.0) 07/21/2023 Other hammer toe(s) (acquired), right foot (ICD-10 - M20.41) Response to treatment,Impro vement 07/21/2023 Other hammer toe(s) (acquired), left foot (ICD-10 - M20.42) Response to treatment,Impro vement 11/17/2023 Xerosis of skin (ICD-10 - L85.3) 07/21/2023 Ingrown nail (ICD-10 - L60.0) Plan Of Treatment Pending Test Test Name Order Date NAIL, 6 OR MORE 03/03/2023 92462-UFBTDPO NAIL, 6 OR MORE 07/21/2023 53873-HIFIREZ NAIL, 6 OR MORE 11/17/2023 46127-Hwqnbysh Plate 07/21/2023 28296-Ctzlebiw Plate 11/17/2023 73016-AURU SKIN LESIONS, OVER 4 11/17/19 24 70577-OHAT SKIN LESIONS, OVER 4 07/21/19 24 53426-PCWS SKIN LESIONS, OVER 4 03/03/20 23 Next Appt Details Provider Name:Yg Soto , 03/11/2024 11:00:00 AM, [address] [facility], [place], [address], Insurance Providers Payer Name Payer Address Payer Phone Subscriber Number Group Number Insured Name Patient Relationship to Insured Coverage Start Date Coverage End Date [employer] Medicare Complete [address] [address] [place] [address] [id number] Boone Newby Self - patient is the insured Medical (General) History Medical History History ICD Code Back,Hip,and Knee pain Broken bones CAD (Cholesterol) Diabetic High blood pressure Lung disease Surgical History Surgery Date(Month/Year) hernia 2013
--- OUTSIDE RECORDS SUMMARY | 2024-03-08 14:28 | XMS_ITS ---
Author Organization [facility] Address [address] [place] [address] Care Team Providers Care Clinical Research Analyst Name Role Phone Yohana Cifuentes Primary Care Provider UnavailYg Lopez Unavailable [phone] Encounters Encounter Location Date Provider Diagnosis [address] [address] 05/26/2023 Yg Soto Plan Of Treatment Next Appt Details Provider Name:Yg Soto , 03/11/2024 11:00:00 AM, [address] [place] [address], [phone], Progress Notes * ADDISON Boone JrDOB:1950 (73 yo M)Acc No.[id number]:05/26/2023 Progress Note Patient:?Boone JAIME Provider:?Yg Soto DPM :1950???Age:72 Y???Sex:Male Juvenal e:05/26/2023 Address:[address] [place] [address], [facility] [address], [place], [place] Pcp:Yohana Cifuentes Subjective: * Chief Complaints: * ??? * Medical History:? Objective: * Vitals:? Assessment: Plan: * Treatment: * Images: * The named appointment provid er may or may not be the originator of this progress note, and it is not deemed complete until electronically signed by the appointment provider. Sign off status: Pending * Provider:Braden Soto DPM Date:?2023 Generated for Brayan curtis/Regina/Mirella on:?03/08/2024 02:28 PM EST
--- NOTE | 2024-03-08 14:29 | MHC.OFFVIS ---
Vital Signs 03/08/24 14:33 Height 5 ft 11.5 in Weight 160 lb BMI 22.0 Intake Visit Reasons: [employer]/C faxed for carotid stenosis Intake Note: [employer] referred for carotid stenosis w/ hx of testing and dizziness. Pt states he gets dizziness when looking up while standing. Was being seen in [place], [place] by . Pt had last carotid US 02/11/2022 @ [facility] Accompanied by: Daughter Allergies No Known Allergies Allergy (Verified 03/08/24 14:37) HPI HPI [employer]/[facility] faxed for carotid stenosis: Details: Pleasant 73-year-old gentleman presents for evaluation regarding carotid stenosis. He was originally seen back in 2021 where there was concerns about his is carotids. He noted that he had difficulty when he got up from a sitting position or raised his neck and had a dizzy spell. He was subsequently worked up and underwent a carotid ultrasound at [facility] on 02/11/2022. This demonstrated bilateral less than 50% carotid stenosis. The concern was that they had an incidental finding of left IJ vein filling defect. He was seen and worked up at that time and it was found to be essentially negative. He was subsequently moved over and now presents to us for vascular evaluation. Upon discussion with him he smokes about a half a pack per day and has been a diabetic for over 10 years. He presents with daughter at bedside. He is being maintained on aspirin and statin. [facility] Medical History (Updated 03/08/24 @ 15:06 by Marcin Hendrickson MD) Diabetes Social History (Updated 03/08/24 @ 14:40 by Kalie Rowe [facility]) Cigarettes Per Day: 5 Years Smoked: 63 Review of Systems Const All systems reviewed & are unremarkable except as noted in HPI and below Reports no additional complaints ENT Reports Normal hearing present Card Denies chest pain, Denies chest pain at rest, Denies chest pain with activity and Denies pedal edema Resp Denies cough GI Denies abdominal pain Musc Denies abnormal gait, Denies muscle cramps and Denies radiating pain into limb Skin/Breast Denies skin ulcer and Denies wounds Neuro Reports Normal hearing present and Denies abnormal gait Psych Reports no additional complaints Physical Exam Vital Signs: BMI result Body Mass Index 22.0 Const General: cooperative, healthy appearing and comfortable Orientation/consciousness: oriented to person, oriented to place and oriented to time HEENT Head: Yes normal to inspection Neck Neck: Yes normal visual inspection Carotids: no bruits Chest Chest palpation & inspection: normal inspection of the chest Resp Effort & Inspection: normal respiratory effort and able to speak in complete sentences Auscultation: clear to auscultation bilaterally, no crackles, no rales, no rhonchi and no wheezes Cardio Other: Palpable radial and ulnar pulses bilaterally. In addition no carotid bruits appreciated. No evidence of jugular venous distention Jugular venous distension: no JVD Rate: regular rate Rhythm: regular rhythm Heart sounds: S1 normal heart sound present and S2 normal heart sound present Bruits: no carotid bruits Peripheral pulses: Peripheral pulses 2+ throughout GI Inspection: Yes normal to inspection Skin Wounds: no wounds Hair: normal Neuro General: oriented to person, oriented to place and oriented to time Cranial nerves: Yes CN's II-XII intact bilaterally and Yes Normal hearing present Cognition (Neuro): normal cognition Motor exam (neuro): 5/5 motor strength present throughout Extrem Other: venous exam: No significant superficial varicosities or spider telangiectasias, minimal edema General: No clubbing, No cyanosis and No edema Psych Appearance: grossly normal Mental Status: mental status grossly normal Speech and movement: Normal speech and movement present Results Reviewed Results Reviewed: Written report from carotid ultrasound dated 03/13/2022 demonstrates bilateral less than 50% stenosis. This was done at [facility]. Assessment & Plan Assessment & Plan (1) Bilateral carotid artery stenosis: Code(s): I65.23 - Occlusion and stenosis of bilateral carotid arteries Category: Medical Plan: In short patient has questionable filling defect of the left internal jugular carotid. I did do a fair amount of education regarding this. I do not think this may be a true finding. I did differentiate between artery and vein issues. Since it has been over 2 years I have taken the liberty of ordering repeat carotid ultrasound to better elucidate the degree of stenosis and if any jugular vein findings are seen. In addition we did discuss routine risk factor modification in particular smoking cessation and diabetes control. Patient will follow up with us after testing. Thank you for allowing us to participate in his care. If there are any questions or concerns please do not hesitate to contact us. Orders: Orders US carotid duplex BI 1 Week I65.23 - Occlusion and stenosis of bilateral carotid arteries Coding Level of Care Code New Pt Level 4 (39524) Complex EM visit Add On G2211 Diagnoses Bilateral carotid artery stenosis I65.23
[2024-03-08 14:33] VITALS: BMI 22.0
== END 2024-03-08 14:52 | disposition home or self-care (01) ==
PROVIDERS: PCP General Practice; Visit Provider Surgery Vascular Surgery
DX: I65.23 Occlusion and stenosis of bilateral carotid arteries (principal)
CPT/HCPCS: 99204; G2211

== ENCOUNTER → 2024-03-08 14:25 | Outpatient (BNVA) | payer MEDICARE, OTHER, SELFPAY | PROVIDERS: PCP General Practice; Visit Provider Surgery Vascular Surgery | DX: I65.23 Occlusion and stenosis of bilateral carotid arteries (principal) | CPT/HCPCS: 99202 ==

== ENCOUNTER 2024-03-30 12:35 | Outpatient (AMB) | payer MEDICARE, MEDICAID, SELFPAY ==
--- OUTSIDE RECORDS SUMMARY | 2024-03-30 12:37 | XMS_ITS ---
[facility] Organization [facility] Address [address] [place] [address] Care Team Providers Care Cardiac Cath Technologist Name Role Phone Yohana Cifuentes Primary Care Provider Yg Thomson Unavailable [phone] Allergies No Known Allergies REASON FOR VISIT [...] Ordered Date Performed Result Body Sit e 86866-WJPSAIV NAIL, 6 OR MORE 11/17/2023 N/A 65857-Rdcpqyia Plate 11/17/2023 N/A 79607-ZBZF SKIN LESIONS, OVER 4 11/17/2023 N/A Encounters Encounter Location Date Provider Diagnosis [facility] [place] [address] [place] [address] 11/17/2023 Yg Soto Type 2 diabetes mellitus [...] days Pending Test Test Name Order Date 06308-LMJKEIL NAIL, 6 OR MORE 11/17/2023 98998-Dcgcjrct Plate 11/17/2023 54819-BUVX SKIN LESIONS, OVER 4 11/17/19 24 Next Appt Details Follow Up: prn, Reason: Provider Name:Yg Soto , 07/12/2024 01:00:00 PM, [address] [place], [address], Procedure Notes * Category Sub-Category Detail Notes [...] Motrin was recommended for pain or discomfort (39391) , DIABETES: Pt was advised as to [...] use of a nail nipper and/or dremel-type eyeglass lens grinder, to a more viable healthy nail plate or bed tissue 6-10. Silver nitrate used for any petechial bleeding as necessary. Definitive antifungal treatment options have been reviewed and discussed with the patient. The patient chooses, no pharmaceutical tx (30541) Keratoma Treatment Parring or Cutting o f Benign Hyperkeratotic Lesion(s) 02044 ( More than 4 Lesions ) - The Benign hyperkeratotic lesions, as described above were pared, and/or cut utilizing a sterile 15 blade, tissue nippers, and/or dremel , Q8 Progress Notes * Boone JAIME JrDOB:1950 (73 yo M)Acc No.[id number]:11/17/2023 Progress Note Patient:?Boone JAIME Jr Provider:?Yg Soto DPM :1950???Age:72 Y???Sex:Male Juvenal e:11/17/2023 Address:[address] [place] [address] [address], [facility] Pcp:Yohana Cifuentes Subjective: * Chief Complaints: * ???At Risk FootcarePainful N ail(s) aggravated by shoes and causing difficulty standing/walkingIngrown NailSkin problem(s) * HPI: ???At Risk footcare:?Pt States Last PCP Visit:?Date?10/26/2023 ???Skin problems:?Nature:?dryness , scaling.?Location:?B/L .?Duration:?several days.?Course:?worse.? * ROS:?General/Constitutional:?Nausea?denies.?Vomiting?denies.?Hunger Thirst?denies.?Loss appetite?denies.?Chills?denies.?Fatigue?denies.?Fever?denies.?Night Sweats?denies.?Unexplained weight loss?denies.?Unexplained weight gain?denies.?HEENTM:?Dentures?denies.?Dizziness?denies.?Glasses/contacts?admits.?Retinopathy?den ies.?Blurred/double vision?denies.?TMJ?denies.?Discharge/drainage?denies.?Implants?denies.?Sore throat?denies.?Dental implants?denies.?Hard of hearing ?denies.?Difficulty chewing/swallowing/speaking?denies.?Nose bleeds?denies.?Sore mouth?denies.?Respiratory:?On O xygen?denies.?Pneumonia/pleurisy?denies.?Bronchitis?denies.?Emphysema?admits.?Co ughing?denies.?Cough blood?denies.?Shortness of breath?denies.?Wheezing?denies.?Cardiovascular:?Pacemaker?denies.?MVP?denies.?WPW?denies.?CHF?denies.?Heart attack?denies.?Septal defect?denies.?Rapid beat?denies.?Chest pain ?denies.?Atrial Fib.?denies.?Murmur/Palpitations?denies.?Gastrointestinal:?Hemorrhoids?denies.?Stomach/Abdominal pain?denies.?Dark blood stool?denies.?Irritable bowel ?denies.?Constipation?denies.?Diarrhea?admits.?Hematology:?Swelling?denies.?Clots?denies.?Varicose Veins?admits.?Bruising?denies.?Bleeding problem?denies.?Genitourinary:?Blood urine?denies.?Frequent/Painfu/urination/bladder control?admits.?Kidney stones?admits.?Infection (UTI)?denies.?Nephropathy?denies.?sex trans dis (STD)?denies.?Prostate?denies.?Musculoskeletal:?Hammertoes?admits.?Bunions?denies.?Back Pain?denies.?Muscle Cramps/ Resting?denies.?Muscle cramps / walking?denies.?Generalized aches and pains?denies.?Weakness?denies.?Integ.:?Gutierrez?denies.?Scars?admits.?Corns/calluses?admits.?Ingrown nails?admits.?Painful nails?admits.?Open Sores?denies.?Rashes?denies.?Neurologic:?Difficulty sleeping?admits.?Brain disorder?denies.?Numbness?denies.?Balance t rouble?admits.?Confusion?denies.?Fainting/blackouts?admits.?Tingling?denies.?Albino mors?denies.? * Medical History:? * Surgical History:?hernia 201 [...] Vape ???Miscellaneous:?Caffeine: yes, 2 cups. ?Children: yes. ?Exercise: no. ?Marital status: . ?Occupation: Retired [employer]. * Medications:?TakingVitamin C Insulin Vitamin D Psyllium Multi Vitamin Rosuvastatin Calcium 10 MG Tablet Oral Aspirin 81 MG Tablet Chewable 1 tablet Orally Once a day glipiZIDE 5 MG Tablet Oral metFORMIN HCl 1000 MG Tablet 1 tablet with a meal Orally Once a day Sertraline HCl 200 MG Capsule 1 capsule Orally Once a day busPIRone HCl 10 MG Tablet 1 tablet Orally Twice a day Extra Depth Orthopedic Shoes, (1) Pair With (3) Pair Custom Heat Molded Multidensity Innersoles . Dx: NIDDM/PVD(E11.51), Hammertoe Foot Deformity(M20.41,M20.42), Preulcerative Skin Lesion(s)(L85.1) Wear Daily Medication List reviewed and reconciled with the patientTaking Vitamin C Taking Insulin Taking Vitamin D Taking Psyllium Taking Multi Vitamin Taking Rosuvastatin Calcium 10 MG Tablet Oral Taking Aspirin 81 MG Tablet Chewable 1 tablet Orally Once a day Taking glipiZIDE 5 MG Tablet Oral Taking metFORMIN HCl 1000 MG Tablet 1 tablet with a meal Orally Once a day Taking Sertraline HCl 200 MG Capsule 1 capsule Orally Once a day Taking busPIRone HCl 10 MG Tablet 1 tablet Orally Twice a day Taking Extra Depth Orthopedic Shoes, (1) Pair With (3) Pair Custom Heat Molded Multidensity Innersoles . Dx: NIDDM/PVD(E11.51), Hammertoe Foot Deformity(M20.41,M20.42), Preulcerative Skin Lesion(s)(L85.1) Wear Daily Medication List reviewed and reconciled with the patient * Allergies:?N.K.D.A.yes[Aller kalia Verified] Objective: * Vitals:?Ht: 5ft11.5in, Wt:16 5, BMI:22.69, Shoe size: 11, BS: not taken, Ht-cm: 181.61 cm, Wt-k.84 kg. * ???Past Orders: ???Lab:HEMOGLOBIN A1C (GLYCO HEMOGLOBIN) (Order Date - 03/03/2023) (Collection Date & Time - 03/24/2022) ? Value Reference Range ?HEMOGLOBIN A1C (HH) 5.5 * Examination: ???Ophthalmology Referral: ?DIABETES EYE EXAM?Vascular: ?DP PULSES (B):? 0/4, B/L.?PT PULSES (B):?0/4 , LEFT , 1/4 , RIGHT.?CAPILLARY FILL TIME:? delayed, all digits, B/L.?TROPHIC CONDITION-TEXTURE/ELASTICITY/TURGOR/HAIR GROWTH (B):? decreased, B/L.?TEMPERTURE GRADIENT (C):? decreased, cool to cool, proximal to distal, B/L.?PIGMENTATION:?mottled, B/L.?EDEMA (C):?absent, B/L.?CLAUDICATION (C):?denies, B/L.?REST PAIN:?denies, B/L.?Nails: ?NAILS are:?Elongated, overgrown, dystrophic, [...] with diabetic peripheral angiopathy without gangrene - E11.51???2.?Tinea unguium - B35.1???3.?Pain in right toe(s) - M79.674???4.?Pain in left toe(s) - M79.675???5.?Ingrown nail - L60.0???Specify :Lateral nail border , T5???6.?Xerosis of skin - L85.3???Specify :Acute problem, Uncomplicated (3),Rx Management (4)??? Plan: * Treatment: 2.?Tinea unguium?Procedure: 34355-SCGEVYK NAIL, 6 OR MORE 3.?Ingrown nail?Procedure: 88194-Ttnemafa Plate 4.?Xerosis of skin? Start Ammonium Lactate [...] use of a nail nipper and/or dremel-type eyeglass lens grinder, to a more viable healthy nail plate or bed tissue 6-10. Silver nitrate used for any petechial bleeding as necessary. Definitive antifungal treatment options have been reviewed and discussed with the patient. The patient chooses, no pharmaceutical tx (73888).?Keratoma Treatment:?Parring or Cutting of Benign Hyperkeratotic Lesion(s)?17434 ( More than 4 Lesions ) - [...] Motrin was recommended for pain or discomfort (73108) , DIABETES: Pt was advised as to the risk of delayed or nonhealing due to diabetes. Pt is to call the office with any questions, concerns, or complications.? * Procedure Codes:?40776 DEBRI DE NAIL, 6 OR MORE, Modifiers: XS 33812 Avulsion Plate, Modifiers: XS , [id number] TRIM SKIN LESIONS, OVER 4, Modifiers: XS , Q8 * Preventive Medicine:? ??Counseling:?Tobacco use:?Type of Tobacco Use Cessation Counseling provided?Smoking effects education ?Patient counseled on the dangers of smoking and urged to quit:?11/17/2023 ?Discussion:?-13: Office or other outpatient visit for the [...] their pharmacy at the time of visit.? ??Screening/Special Tests:?Fall Risk?Screening:?No falls in the past year ?FALLS: Screening for Future Fall Risk?Have you had any falls with injury in the past year??No * Follow Up:?prn * Images: * Sign off status: Completed true * Provider:?Yg Soto DPM Date:?2023 Generated for Brayan curtis/Regina/Mirella on:?03/30/2024 12:37 PM EST History and Physical Notes * HPI (History of Present Illness) Category Sub-Category Detail Notes Category Not es Skin problems Nature: dryness , scaling Location: B/L Duration: several days Course: worse At Risk footcare Pt States Last PCP Visit: Date: Examination Category Sub-Category Detail Notes Category Not [...] a stocking fashion, no fissure(s) present, B/L Ophthalmology Referral DIABETES EYE EXAM Procedu re Performed:: Yes ?Date of Exam Performed: 04/02/2023 Vascular DP PULSES (B): 0/4, B/L PT PULSES (B): 0/4 , LEFT , 1/4 , R IGHT CAPILLARY FILL TIME: delayed, all digits , B/L TEMPERTURE GRADIENT (C): decreased, cool to cool, proximal to distal, B/L TROPHIC CONDITION-TEXTURE/ELASTICITY/TURGOR/HAIR GROWTH (B): decreased, B/L EDEMA (C): absent, B/L CLAUDICATION (C): denies, B/L REST PAIN: denies, B/L PIGMENTATION: mottled, B/L Nails NAILS are: Elongated, overg rown, dystrophic, lytic, greater than 3mm thick, discolored and friable with crumbly malodorous subungual debris, with pain on palpation , 1-5 B/L
--- OUTSIDE RECORDS SUMMARY | 2024-03-30 12:37 | XMS_ITS | Patient Health Record ---
[facility] Address [address] [place] [address] Care Team Providers Care Machine Puller And Laster Name Role Phone Yohana Cifuentes Primary Care Provider Yg Thomson Unavailable [phone] Allergies No Known Allergies Reason For Referral No Information Medications Medication SIG (Take, Route, Frequency, Duration) Notes Start Date End Date Status Aspirin 81 MG 1 tablet Orally Once a day for 30 day(s) 01/27/2023 Active Rosuvastatin Calcium 10 MG Oral for 90 Days Active metFORMIN HCl 1000 MG 1 tablet with a me al Orally Once a day for 90 days Active glipiZIDE 5 MG Oral for 90 Days Active Ammonium Lactate 12 % 1 application Exte rnally to feet except for between the toes Twice a day for 30 days Active Vitamin D Active Insulin Active Multi Vitamin Active Psyllium Active Sertraline HCl 200 MG 1 capsule Orally O nce a day for 30 day(s) 01/27/2023 Active Vitamin C Active Extra Depth Orthopedic Shoes, (1) Pair With (3) Pair Custom Heat Molded Multidensity Innersoles Dx: NIDDM/PVD(E11.51), Hammertoe Foot Deformity(M20.41,M20.42), Preulcerative Skin Lesion(s)(L85.1) Wear Daily for 365 days 03/03/2023 Active busPIRone HCl 10 MG 1 tablet Orally Twic e a day 01/27/2023 Active Immunizations Vaccine Route Administration Date Status [...] Problem Acquired hammer toe of right foot (82228524675562 05) Other hammer toe(s) (acquired), right foot (M20.41) Active confirmed Response to treatment,I mprovement Problem Type 2 diabetes mellitus with peripheral angiopathy (819430665) Type 2 diabetes mellitus with diabetic peripheral angiopathy without gangrene (E11.51) Active confirmed Problem Acquired hammer toe of left foot (65597888607372 03) Other hammer toe(s) (acquired), left foot (M20.42) Active confirmed Response to treatment,I mprovement Problem Essential hypertension (64360631) Essential hypertension (I10) Active confirmed Vital Signs Blood pressure diastolic 80 mm Hg 03/11/2024 Height 5ft11.5in in 03/11/2024 Blood pressure systolic 120 mm Hg 03/11/2024 Weight 165 lbs 03/11/2024 BMI 22.69 kg/m2 03/11/2024 Procedures Procedure Date Ordered Date Performed Result Body Sit e 25329-QNPGSYH NAIL, 6 OR MORE 07/21/2023 N/A 92765-Wckkpdkt Plate 07/21/2023 N/A 57276-YIWL SKIN LESIONS, OVER 4 07/21/2023 N/A 97478-NBWEAAI NAIL, 6 OR MORE 11/17/2023 N/A 92455-Birwvscp Plate 11/17/2023 N/A 98408-MTHS SKIN LESIONS, OVER 4 11/17/2023 N/A 89711-ALRUNGV NAIL, 6 OR MORE 03/11/2024 N/A 29659-JBMK SKIN LESIONS, OVER 4 03/11/2024 N/A Encounters Encounter Location Date [facility] [address] [place] [address] 07/21/2023 Yg Soto Type 2 diabetes mellitus with diabetic peripheral angiopathy without gangrene E11.51 ; Tinea unguium B35.1 ; Pain in right toe(s) M79.674 ; Pain in left toe(s) M79.675 ; Other hammer toe(s) (acquired), right foot M20.41 ; Other hammer toe(s) (acquired), left foot M20.42 and [facility] L60.[facility] [address] 11/17/2023 Yg Soto Type 2 diabetes mellitus with diabetic peripheral angiopathy without gangrene E11.51 ; Tinea unguium B35.1 ; Pain in right toe(s) M79.674 ; Pain in left toe(s) M79.675 ; Ingrown nail L60.0 and Xerosis of skin L85.[address] [address] 03/11/2024 Yg Soto Type 2 diabetes mellitus with diabetic peripheral angiopathy without gangrene E11.51 ; Tinea unguium B35.1 ; Pain in right toe(s) M79.674 ; Pain in left toe(s) M79.675 and Xerosis of skin L85.[address] [address] 05/13/2023 Yg Soto Assessments Encounter Date Diagnosis (ICD Code) Assessment Notes Treatment Notes Treatment Clinical Notes Section Notes 07/21/2023 Type 2 diabetes mellitus with diabetic peripheral angiopathy without gangrene (ICD-10 - E11.51) 07/21/2023 Tinea unguium (ICD-10 - B35.1) 11/17/2023 Type 2 diabetes mellitus with diabetic peripheral angiopathy without gangrene (ICD-10 - E11.51) 11/17/2023 Tinea unguium (ICD-10 - B35.1) 03/11/2024 Type 2 diabetes mellitus with diabetic peripheral angiopathy without gangrene (ICD-10 - E11.51) 03/11/2024 Tinea unguium (ICD-10 - B35.1) 03/11/2024 Pain in right toe(s) (ICD-10 - M79.674) 11/17/2023 Pain in right toe(s) (ICD-10 - M79.674) 07/21/2023 Pain in right toe(s) (ICD-10 - M79.674) 07/21/2023 Pain in left toe(s) (ICD-10 - M79.675) 11/17/2023 Pain in left toe(s) (ICD-10 - M79.675) 03/11/2024 Pain in left toe(s) (ICD-10 - M79.675) 03/11/2024 Xerosis of skin (ICD-10 - L85.3) 11/17/2023 Ingrown nail (ICD-10 - L60.0) 07/21/2023 Other hammer toe(s) (acquired), right foot (ICD-10 - M20.41) Response to treatment,Impro vement 07/21/2023 Other hammer toe(s) (acquired), left foot (ICD-10 - M20.42) Response to treatment,Impro vement 11/17/2023 Xerosis of skin (ICD-10 - L85.3) 07/21/2023 Ingrown nail (ICD-10 - L60.0) Plan Of Treatment Pending Test Test Name Order Date 52554-MXYPTRF NAIL, 6 OR MORE 03/03/2023 37276-MWIUHQW NAIL, 6 OR MORE 07/21/2023 71690-SHAJCFU NAIL, 6 OR MORE 11/17/2023 88787-DEEJENS NAIL, 6 OR MORE 03/11/2024 14664-Npnmsazm Plate 07/21/2023 09223-Vpyplepc Plate 11/17/2023 49446-KALR SKIN LESIONS, OVER 4 11/17/19 24 18691-OTST SKIN LESIONS, OVER 4 07/21/19 24 32270-UPKQ SKIN LESIONS, OVER 4 03/03/20 23 62700-SQYB SKIN LESIONS, OVER 4 03/11/20 24 Next Appt Details Provider Name:Yg Soto , 07/12/2024 01:00:00 PM, [address] [place] [address], [place], [address], Insurance Providers Payer Name Payer Address Payer Phone Subscriber Number Group Number Insured Name Patient Relationship to Insured Coverage Start Date Coverage End Date [employer] Medicare Complete [address] [address] [place] [address] [phone] [id number] Boone Newby Self - patient is the insured Medical (General) History Medical History History ICD Code Back,Hip,and Knee pain Broken bones CAD (Cholesterol) Diabetic High blood pressure Lung disease Surgical History Surgery Date(Month/Year) hernia 2013
--- OUTSIDE RECORDS SUMMARY | 2024-03-30 12:37 | XMS_ITS ---
Author Organization [facility] Address [address] [place] [address] Care Team Providers Care Sterilization Tech Name Role Phone Yohana Cifuentes Primary Care Provider Yg Thomson Unavailable [phone] Allergies No Known Allergies REASON FOR VISIT [...] Ordered Date Performed Result Body Sit e 73142-BQBWIUK NAIL, 6 OR MORE 07/21/2023 N/A 98475-Smaxzcio Plate 07/21/2023 N/A 51520-OVSP SKIN LESIONS, OVER 4 07/21/2023 N/A Encounters Encounter Location Date Provider Diagnosis [facility] [place] [address] [place] [address] 07/21/2023 Yg Soto Type 2 diabetes mellitus [...] Treatment Pending Test Test Name Order Date 00965-FIHLEBZ NAIL, 6 OR MORE 07/21/2023 51279-Yzuskxag Plate 07/21/2023 16131-SSOU SKIN LESIONS, OVER 4 07/21/19 24 Next Appt Details Follow Up: prn, Reason: Provider Name:Yg Soto , 07/12/2024 01:00:00 PM, [address] [place] [address], [phone], Procedure Notes * Category Sub-Category Detail Notes [...] Motrin was recommended for pain or discomfort (90891) , DIABETES: Pt was advised as to [...] as necessary. Patient chooses, no pharmaceutical tx (86200) Keratoma Treatment Parring or Cutting o f Benign Hyperkeratotic Lesion(s) 34036 ( More than 4 Lesions ) - The Benign hyperkeratotic lesions, as described above were pared, and/or cut utilizing a sterile 15 blade, tissue nippers, and/or clarencemel , Q8 Progress Notes * Boone JAIME JrDOB:1950 (73 yo M)Acc No.[id number]:07/21/2023 Progress Note Patient:?Boone JAIME Jr Provider:?Yg Soto DPM :1950???Age:72 Y???Sex:Male Juvenal e:07/21/2023 Address:[address] [place] [address] [address], [facility] Pcp:Yohana Cifuentes Subjective: * Chief Complaints: * [...] 2 cups. ?Marital status: . ?Occupation: Retired [employer]. * Medications:?TakingVitamin C Insulin Vitamin D Psyllium [...] toe(s) - M79.674???4.?Pain in left toe(s) - M79.675???5.?Other hammer toe(s) (acquired), right foot - M20.41???Specify :Chronic problem, Stable (1=3,2=4)???Notes :Response to treatment,Improvement???6.?Other hammer toe(s) (acquired), left foot - M20.42???Specify :Chronic problem, Stable (1=3,2=4)???Notes :Response to treatment,Improvement???7.?Ingrown nail - L60.0???Specify :Lateral nail border , TA??? Plan: * Treatment: 2.?Tinea unguium?Procedure: 00728-UAUMYHS NAIL, 6 OR MORE 3.?Ingrown nail?Procedure: 88697-Gcvwlivc Plate * Procedures:?Debride Nail 6-10:?Nail debridement?Nail debridement performed extensively to reduce/remove overall nail length, girth, thickness, subungual debris, and necrotic tissue, by manual and electrical means through the use of a nail nipper and/or dremel, to more viable healthy nail plate or bed tissue 1-5. Silver nitrate used for any petechial bleeding as necessary. Patient chooses, no pharmaceutical tx (16385).?Keratoma Treatment:?Parring or Cutting of Benign Hyperkeratotic Lesion(s)?72013 ( More than 4 Lesions ) - [...] Motrin was recommended for pain or discomfort (95986) , DIABETES: Pt was advised as to the risk of delayed or nonhealing due to diabetes. Pt is to call the office with any questions, concerns, or complications.? * Procedure Codes:?78821 Avuls ion Plate, Modifiers: XS , BS13567 DEBRIDE NAIL, 6 OR MORE, Modifiers: XS 21439 TRIM SKIN LESIONS, OVER 4, Modifiers: XS , Q8 * Preventive Medicine:? ??Counseling:?Tobacco use:?Type of Tobacco Use Cessation Counseling provided?Smoking effects education ?Patient counseled on the dangers of smoking and urged to quit:?07/21/2023 ?Discussion:?-13: Office or other outpatient visit for [...] a full understanding of the above information.? ??Screening/Special Tests:?Fall Risk?Screening:?No falls in the past [...] to push-up test, no over, nor underlapping Ophthalmology Referral DIABETES EYE EXAM Procedure Perform ed:: Yes ?Date of Exam Performed: 04/02/2023 Vascular [...]
[2024-03-30 12:39] VITALS: BP 125/65; PULSE 78; BMI 23.5
--- NOTE | 2024-03-30 12:39 | MHC.OFFVIS ---
Vital Signs 03/30/24 12:39 Height 5 ft 11.5 in Weight 171 lb BMI 23.5 BP 125/65 Blood Pressure Location Lt brachial Position Sitting Pulse 78 Intake Visit Reasons: colonoscopy screening & Iron Deficiency Intake Note: New patient in office today for colonoscopy screening. CC: Patient had his last colonoscopy about 5 years ago. Patient reports diarrhea his whole life . Denies other GI symptoms today. Fish Trapper Required: No Accompanied by: Daughter Allergies codeine Adverse Reaction (Unknown, Verified 03/30/24 12:46) upset stomach HPI HPI colonoscopy screening & Iron Deficiency: Details: 73-year-old male here for initial evaluation of iron-deficiency anemia and for screening colonoscopy. He is referred by [facility]. PMX COPD Monoclonal gammopathy Smoker Presyncope Carotid stenosis Diabetes Hypertension - pt denies High cholesterol Depression with anxiety/insomnia Anemia Varicose veins Hard of hearing internal hemorrhoids chronic kidney disease stage 3 * SURGICAL HISTORY INtestina surgery in infancy Rx rt elbow with correction Inguinal hernia repair * ALLERGIES: NKDA * [email or web address] LABS: 02/2024 labs from [facility] CBC is unremarkable, renal panel shows a decreased GFR 53, hepatic panel is unremarkable. TODAY'S VISIT He is here today with a female family member He says he had a colonoscopy about 5-8 years ago in [facility] and he had polyps. He clears better with PEG than with Miralax prep - the Miralax did not clear him. He says he had recent labs at [facility] and they want to order this. His COPD is controlled and he denies cardiac problems. NO anes or sed problems. NO ID poblems He has a HX of TA. [facility] Medical History Diabetes Surgical History History of intestinal surgery H/O colonoscopy Social History Alcohol intake: former Cigarettes Per Day: 3 Years Smoked: 63 Use of substances other than those prescribed or required for medical reasons: No Review of Systems Const Denies fatigue, Denies fever(s), Denies night sweats, Denies poor appetite and Denies weight loss Eyes Reports requires corrective lenses ENT Reports Normal hearing present, Denies dental pain, Denies dysphagia, Denies hearing loss, Denies mouth pain, Denies odynophagia, Denies throat swelling, Denies tongue swelling and Reports other (Dentition adequate) Card Reports no additional complaints Resp Reports no additional complaints GI Details: Denies abdominal pain, Denies melena, Denies bloating, Denies hematochezia, Denies constipation, Denies GI cramping, Denies dysphagia, Denies excessive flatus, Denies early satiety, Denies heartburn, Denies diarrhea, Denies nausea, Denies odynophagia, Denies vomiting and Denies hematemesis Skin/Breast Denies pruritus, Denies lesions, Denies rash and Denies jaundice Neuro Reports Normal hearing present and Denies Abnormal speech present Endo Denies fatigue Aller/Immun Denies throat swelling and Denies tongue swelling Physical Exam Vital Signs: Last Vital Signs Pulse 78 03/30/24 12:39 BP 125/65 03/30/24 12:39 BMI result Body Mass Index 23.5 Const General: cooperative, no acute distress, well developed and well groomed Nutritional Appearance: average body habitus and well nourished Orientation/consciousness: oriented to person, oriented to place and oriented to time Limitations: No language barrier HEENT Head: Yes normocephalic and Yes atraumatic Eyes General: appearance normal, both eyes and all related structures Pupils: Equal, round and reactive pupils present Neck Neck: Yes normal visual inspection and Yes no lymphadenopathy Thyroid: Thyroid normal Resp Effort & Inspection: normal respiratory effort and able to speak in complete sentences Auscultation: clear to auscultation bilaterally Cardio Rate: regular rate Rhythm: regular rhythm Heart sounds: Normal, physiologic split S2 sound present Peripheral pulses: radial pulses present and posterior tibial pulses present GI Inspection: No distended and No Abdominal panniculus present Palpation (GI): Soft to palpation, nontender, no guarding, not rigid and No hepatosplenomegaly present Percussion: Yes normal to percussion Auscultation: normal bowel sounds Rectal Exam - Male: Yes deferred Abdomen image: 1. surgical scar Skin General skin exam: no rashes or lesions noted, turgor normal, skin not dry, no jaundice, No spider nevi and no striae Rashes: no rashes Nails: normal Neuro General: oriented to person, oriented to place and oriented to time Cranial nerves: Yes Equal, round and reactive pupils present and Yes Normal hearing present Speech: No Abnormal speech present Extrem General: Yes normal to inspection, No clubbing, No cyanosis and No edema Psych Appearance: grossly normal and well kempt Mental Status: mental status grossly normal Speech and movement: Normal speech and movement present Affect: normal affect Attitude: cooperative Thought process: Normal thought process present and not confabulating Thought content: Normal thought content present Insight: Fair insight present (Psych) Judgement: Fair judgement present (Psych) Assessment & Plan Assessment & Plan (1) Pre-op examination: Code(s): Z01.818 - Encounter for other preprocedural examination Category: Medical (2) Tubular adenoma of colon: Comment: 5-8 yrs ago in [place], [place] Code(s): D12.6 - Benign neoplasm of colon, unspecified Category: Medical (3) COPD (chronic obstructive pulmonary disease): Code(s): J44.9 - Chronic obstructive pulmonary disease, unspecified Category: Medical (4) Chronic kidney disease, stage III (moderate): Code(s): N18.30 - Chronic kidney disease, stage 3 unspecified Category: Medical (5) Anemia: Code(s): D64.9 - Anemia, unspecified Category: Medical Plan He is here today with a female family member He says he had a colonoscopy about 5-8 years ago in [facility] and he had polyps. He clears better with PEG than with Miralax prep - the Miralax did not clear him. He says he had recent labs at [facility] and they want to order this. His COPD is controlled and he denies cardiac problems. NO anes or sed problems. NO ID poblems He has a HX of TA. Orders: Orders Comprehensive Met. Panel Today Z01.818 - Encounter for other preprocedural examination EGD/[place] Combo - GI Use Only Today Z01.818 - Encounter for other preprocedural examination Complete Blood Count Auto Diff Today D64.9 - Anemia, unspecified, Z01.818 - Encounter for other preprocedural examination Medications: New bisacodyl (Dulcolax (bisacodyl)) 10 mg (2 x 5 mg) PO BEDTIME 4 tabs 0RF 2 days peg 3350-electrolytes 236-22.74-6.74 -5.86 gram (Golytely) until fecal effluent is clear; do not exceed a total volume of 2,000 mL 240 mL PO Q10M 4,000 mL 0RF 1 day Z12.11 - Encounter for screening for malignant neoplasm of colon Coding Level of Care Code New Pt Level 3 (55036) Diagnoses Pre-op examination Z01.818 Tubular adenoma of colon D12.6 COPD (chronic obstructive pulmonary disease) J44.9 Chronic kidney disease, stage III (moderate) N18.30 Anemia D64.9
== END 2024-03-30 13:38 | disposition home or self-care (01) ==
PROVIDERS: PCP General Practice; Visit Provider Nurse Practitioner
DX: Z01.818 Encounter for other preprocedural examination (principal); Z12.11 Encounter for screening for malignant neoplasm of colon; Z86.0100 Personal history of colon polyps, unspecified; D64.9 Anemia, unspecified; N18.30 Chronic kidney disease, stage 3 unspecified
CPT/HCPCS: 99024

== ENCOUNTER → 2024-03-30 12:35 | Outpatient (BNVA) | payer MEDICARE, SELFPAY | PROVIDERS: PCP General Practice; Visit Provider Nurse Practitioner | DX: Z01.818 Encounter for other preprocedural examination (principal); D12.6 Benign neoplasm of colon, unspecified; D50.9 Iron deficiency anemia, unspecified; J44.9 Chronic obstructive pulmonary disease, unspecified; N18.30 Chronic kidney disease, stage 3 unspecified | CPT/HCPCS: 99212 ==

== ENCOUNTER 2024-04-05 10:19 | Outpatient (REF) | payer MEDICARE, MEDICAID, SELFPAY ==
--- NOTE | ~2024-04-05 | US_ITS ---
CLINICAL HISTORY: I65.23 - Occlusion and stenosis of bilateral carotid arteries US bilateral carotid duplex Comparison: None Findings: No significant plaque within the common carotid arteries. No significant plaque within the carotid bulbs. No significant plaque within the internal carotid arteries . Waveforms are normal morphology. Peak systolic and end-diastolic velocities: Right CCA: 76.4 cm/s Right ICA: 77.0 cm/s Right ICA EDV: 17.4 cm/sec Right systolic ICA/CCA ratio: 1.0 Right ECA: Unremarkable Right vertebral artery flow antegrade. Left CCA: 77.7 cm/s Left ICA: 118.0 cm/s Left ICA EDV: 27.3 cm/sec Left systolic ICA/CCA ratio: 1.5 Left ECA: Unremarkable Left vertebral artery flow antegrade. Criteria for grading carotid stenosis Stenosis % ICA PSV cm/s ICA/CCA PSV ratio ICA EDV 0-50% <125 <2.0 <40 50-69% 125-230 2.0-4.0 40-100 70% + > 230 >4.0 >100 Impression: 1. Normal carotid velocities, no significant stenosis (0-49% stenosis) This document has been electronically signed by: Vance Coles MD on 04/06/2024 11:31:01
--- OUTSIDE RECORDS SUMMARY | 2024-04-05 11:52 | XMS_ITS ---
Author Organization [facility] Address [address] [place] [address] Care Team Providers Care Prospecting Observer Name Role Phone Yohana Cifuentes Primary Care Provider Yg Thomson Unavailable [phone] Allergies No Known Allergies REASON FOR VISIT [...] Ordered Date Performed Result Body Sit e 90958-YGXIGIS NAIL, 6 OR MORE 07/21/2023 N/A 82079-Qsiyoexm Plate 07/21/2023 N/A 10958-ABIE SKIN LESIONS, OVER 4 07/21/2023 N/A Encounters Encounter Location Date Provider Diagnosis [facility] [address] [place] [address] 07/21/2023 Yg Soto Type 2 diabetes mellitus [...] Treatment Pending Test Test Name Order Date 71045-TAJNVAO NAIL, 6 OR MORE 07/21/2023 98857-Alymhtqi Plate 07/21/2023 48225-VXZP SKIN LESIONS, OVER 4 07/21/19 24 Next Appt Details Follow Up: prn, Reason: Provider Name:Yg Soto , 07/12/2024 01:00:00 PM, [address] [place] [address], [address], Procedure Notes * Category Sub-Category Detail Notes [...] Motrin was recommended for pain or discomfort (34031) , DIABETES: Pt was advised as to [...] as necessary. Patient chooses, no pharmaceutical tx (10439) Keratoma Treatment Parring or Cutting o f Benign Hyperkeratotic Lesion(s) 06761 ( More than 4 Lesions ) - The Benign hyperkeratotic lesions, as described above were pared, and/or cut utilizing a sterile 15 blade, tissue nippers, and/or clarencemel , Q8 Progress Notes * Boone JAIME JrDOB:1950 (73 yo M)Acc No.[id number]:07/21/2023 Progress Note Patient:?Boone JAIME Jr Provider:?Yg Soto DPM :1950???Age:72 Y???Sex:Male Juvenal e:07/21/2023 Address:[address] [place] [address] [address], [facility] Pcp:Yohana Cifuentes Subjective: * Chief Complaints: * [...] 2 cups. ?Marital status: . ?Occupation: Retired [employer]. * Medications:?TakingVitamin C Insulin Vitamin D Psyllium [...] , TA??? Plan: * Treatment: 2.?Tinea unguium?Procedure: 16171-KMCFBKR NAIL, 6 OR MORE 3.?Ingrown nail?Procedure: 61721-Cvirddgn Plate * Procedures:?Debride Nail 6-10:?Nail debridement?Nail debridement performed extensively to reduce/remove overall nail length, girth, thickness, subungual debris, and necrotic tissue, by manual and electrical means through the use of a nail nipper and/or dremel, to more viable healthy nail plate or bed tissue 1-5. Silver nitrate used for any petechial bleeding as necessary. Patient chooses, no pharmaceutical tx (38976).?Keratoma Treatment:?Parring or Cutting of Benign Hyperkeratotic Lesion(s)?24494 ( More than 4 Lesions ) - [...] Motrin was recommended for pain or discomfort (88318) , DIABETES: Pt was advised as to the risk of delayed or nonhealing due to diabetes. Pt is to call the office with any questions, concerns, or complications.? * Procedure Codes:?03556 Avuls ion Plate, Modifiers: XS , VI86353 DEBRIDE NAIL, 6 OR MORE, Modifiers: XS 94033 TRIM SKIN LESIONS, OVER 4, Modifiers: XS [...] Soto DPM Date:?2023 Generated for Brayan curtis/Regina/Mirella on:?04/05/2024 09:03 AM EST History and Physical Notes * HPI [...]
--- OUTSIDE RECORDS SUMMARY | 2024-04-05 11:52 | XMS_ITS | Patient Health Record ---
Author Organization [facility] Address [address] [facility] [place] [address] Care Team Providers Care Logging Operations Inspector Name Role Phone Yohana Cifuentes Primary Care Provider Yg Thomson Unavailable [phone] Allergies No Known Allergies Reason For Referral [...] Problem Acquired hammer toe of right foot (61646652832932 05) Other hammer toe(s) (acquired), right foot (M20.41) Active confirmed Response to treatment,I mprovement Problem Type 2 diabetes mellitus with peripheral angiopathy (256183148) Type 2 diabetes mellitus with diabetic peripheral angiopathy without gangrene (E11.51) Active confirmed Problem Acquired hammer toe of left foot (87262499571363 03) Other hammer toe(s) (acquired), left foot (M20.42) Active confirmed Response to treatment,I mprovement Problem Essential hypertension (21606765) Essential hypertension (I10) Active confirmed Vital Signs Blood pressure diastolic 80 mm Hg 03/11/2024 Height 5ft11.5in in 03/11/2024 Blood pressure systolic 120 mm Hg 03/11/2024 Weight 165 lbs 03/11/2024 BMI 22.69 kg/m2 03/11/2024 Procedures Procedure Date Ordered Date Performed Result Body Sit e 69779-OWEALFV NAIL, 6 OR MORE 11/17/2023 N/A 33450-Lbscwojj Plate 11/17/2023 N/A 14065-FHLP SKIN LESIONS, OVER 4 11/17/2023 N/A 32376-AHBNDLR NAIL, 6 OR MORE 03/11/2024 N/A 76301-IUVV SKIN LESIONS, OVER 4 03/11/2024 N/A 04856-XIAU SKIN LESIONS, OVER 4 07/21/2023 N/A 45526-Bvnnbiii Plate 07/21/2023 N/A 98194-IJRCQTY NAIL, 6 OR MORE 07/21/2023 N/A Encounters Encounter Location Date Provider [facility] [address] [place] [address] 07/21/2023 Yg Soto Type 2 diabetes mellitus with diabetic peripheral angiopathy without gangrene E11.51 ; Tinea unguium B35.1 ; Pain in right toe(s) M79.674 ; Pain in left toe(s) M79.675 ; Other hammer toe(s) (acquired), right foot M20.41 ; Other hammer toe(s) (acquired), left foot M20.42 and [facility] L60.[facility] [address] 11/17/2023 Yg Soto Type 2 diabetes mellitus with diabetic peripheral angiopathy without gangrene E11.51 ; Tinea unguium B35.1 ; Pain in right toe(s) M79.674 ; Pain in left toe(s) M79.675 ; Ingrown nail L60.0 and Xerosis of skin L85.[address] [address] 03/11/2024 Yg Soto Type 2 diabetes mellitus with diabetic peripheral angiopathy without gangrene E11.51 ; Tinea unguium B35.1 ; Pain in right toe(s) M79.674 ; Pain in left toe(s) M79.675 and Xerosis of skin L85.[address] [address] 05/13/2023 Yg Soto Assessments Encounter Date Diagnosis [...] Treatment Pending Test Test Name Order Date 08810-MUCKIWN NAIL, 6 OR MORE 03/03/2023 33439-STTNXXA NAIL, 6 OR MORE 07/21/2023 02545-GWJFTPY NAIL, 6 OR MORE 11/17/2023 15501-HLGRJBC NAIL, 6 OR MORE 03/11/2024 36131-Tepkhomj Plate 07/21/2023 50221-Keepwxsn Plate 11/17/2023 27358-HOXL SKIN LESIONS, OVER 4 11/17/19 24 97551-VTNQ SKIN LESIONS, OVER 4 07/21/19 24 02268-RBYG SKIN LESIONS, OVER 4 03/03/20 23 95806-KLNO SKIN LESIONS, OVER 4 03/11/20 24 Next Appt Details Provider Name:Yg Soto , 07/12/2024 01:00:00 PM, [address] [place] [address], [place], [address], Insurance Providers Payer Name Payer Address Payer Phone Subscriber Number Group Number Insured Name Patient Relationship to Insured Coverage Start Date Coverage End Date A[employer] Medicare Complete [address] [address] [place] [address] [id number] Boone Newby Self - patient is the insured Medical (General) History Medical History History ICD Code Back,Hip,and Knee pain Broken bones CAD (Cholesterol) Diabetic High blood pressure Lung disease Surgical History Surgery Date(Month/Year) hernia 2013
--- OUTSIDE RECORDS SUMMARY | 2024-04-05 11:52 | XMS_ITS ---
Author Organization [facility] Address [address] [place] [address] Care Team Providers Care Biofuels Plant Construction Worker Name Role Phone Yohana Cifuentes Primary Care Provider Yg Thomson Unavailable [phone] Allergies No Known Allergies REASON FOR VISIT [...] Ordered Date Performed Result Body Sit e 40596-PCCMQCE NAIL, 6 OR MORE 11/17/2023 N/A 75389-Fjzrzfwk Plate 11/17/2023 N/A 33604-BCIE SKIN LESIONS, OVER 4 11/17/2023 N/A Encounters Encounter Location Date Provider Diagnosis [facility] [address] [place] [address] 11/17/2023 Yg Soto Type 2 diabetes mellitus [...] days Pending Test Test Name Order Date 29737-OMGBYJV NAIL, 6 OR MORE 11/17/2023 08610-Ekuijbcb Plate 11/17/2023 34031-JNYW SKIN LESIONS, OVER 4 11/17/19 24 Next Appt Details Follow Up: prn, Reason: Provider Name:Yg Soto , 07/12/2024 01:00:00 PM, [address] [place], [address], Procedure Notes * Category Sub-Category Detail Notes [...] Motrin was recommended for pain or discomfort (56330) , DIABETES: Pt was advised as to [...] use of a nail nipper and/or dremel-type feed grinder, to a more viable healthy nail plate or bed tissue 6-10. Silver nitrate used for any petechial bleeding as necessary. Definitive antifungal treatment options have been reviewed and discussed with the patient. The patient chooses, no pharmaceutical tx (72683) Keratoma Treatment Parring or Cutting o f Benign Hyperkeratotic Lesion(s) 72434 ( More than 4 Lesions ) - The Benign hyperkeratotic lesions, as described above were pared, and/or cut utilizing a sterile 15 blade, tissue nippers, and/or dremel , Q8 Progress Notes * Boone JAIME JrDOB:1950 (73 yo M)Acc No.[id number]:11/17/2023 Progress Note Patient:?Boone JAIME Jr Provider:?Yg Soto DPM :1950???Age:72 Y???Sex:Male Juvenal e:11/17/2023 Address:[address] [place] [address] [address], [facility] Pcp:Yohana Cifuentes Subjective: * Chief Complaints: * [...] Management (4)??? Plan: * Treatment: 2.?Tinea unguium?Procedure: 29206-UPHGIVB NAIL, 6 OR MORE 3.?Ingrown nail?Procedure: 95006-Ofxmrdkf Plate 4.?Xerosis of skin? Start Ammonium Lactate [...] use of a nail nipper and/or dremel-type feed grinder, to a more viable healthy nail plate or bed tissue 6-10. Silver nitrate used for any petechial bleeding as necessary. Definitive antifungal treatment options have been reviewed and discussed with the patient. The patient chooses, no pharmaceutical tx (39425).?Keratoma Treatment:?Parring or Cutting of Benign Hyperkeratotic Lesion(s)?88777 ( More than 4 Lesions ) - [...] Motrin was recommended for pain or discomfort (94850) , DIABETES: Pt was advised as to the risk of delayed or nonhealing due to diabetes. Pt is to call the office with any questions, concerns, or complications.? * Procedure Codes:?48912 DEBRI DE NAIL, 6 OR MORE, Modifiers: XS 15910 Avulsion Plate, Modifiers: XS , [id number] TRIM SKIN LESIONS, OVER 4, Modifiers: XS [...]
== END 2024-04-05 10:20 | disposition home or self-care (01) ==
LOC: HO.US 10:19
PROVIDERS: PCP General Practice; Visit Provider Surgery Vascular Surgery
DX: I65.23 Occlusion and stenosis of bilateral carotid arteries (principal)
CPT/HCPCS: 93880

== ENCOUNTER → 2024-04-05 10:22 | Outpatient (BNV) | payer MEDICARE, MEDICAID, SELFPAY | PROVIDERS: PCP General Practice; Visit Provider Radiology Diagnostic Radiology | DX: I65.23 Occlusion and stenosis of bilateral carotid arteries (principal) | CPT/HCPCS: 93880 ==

== ENCOUNTER → 2024-04-23 10:45 | Outpatient (BNV) | payer MEDICARE, MEDICAID, SELFPAY | PROVIDERS: PCP General Practice; Visit Provider Radiology Diagnostic Radiology | DX: J44.9 Chronic obstructive pulmonary disease, unspecified (principal) | CPT/HCPCS: 71046 ==

== ENCOUNTER 2024-05-03 18:35 | Inpatient (IN) | payer MEDICARE, MEDICAID, SELFPAY ==
--- NOTE | ~2024-05-03 | XR_ITS ---
EXAMINATION: XR BILATERAL HIPS WITH AP PELVIS CLINICAL INFORMATION: Fall at home, r/o hip fracture COMPARISON: None available. TECHNIQUE: AP and frog-leg lateral views of each hip and an AP view of the pelvis. FINDINGS: There are no fractures of the pelvis or hips. The sacrum appears intact. Moderate degenerative arthrosis of both SI joints with partial fusion suspected. Mild degenerative changes in both hip joints. Soft tissues appear normal aside from vascular calcification. XR/XR hip BI w PEL1V IMPRESSION: No definite evidence of acute fracture or dislocation of the pelvis or bilateral hips. Electronically signed by: Simeon Pollock MD 05/04/2024 01:25 PM [facility]
--- NOTE | ~2024-05-03 | CT_ITS ---
CLINICAL HISTORY: fall, +HS, pain CT cervical spine without contrast Comparison: None Findings: The visualized portions of the bilateral lung apices appear clear. There is minimal grade 1 anterolisthesis of C6 on C7. Mild degenerative endplate changes are present at C5-C6 with moderate to severe loss of intervertebral disc space height at this level. Multilevel bilateral degenerative facet arthropathy present at the cervical spine. No acute fractures or dislocations. Impression: 1. No acute fracture or dislocation injury identified at the cervical spine. This document has been electronically signed by: Josesito Rogers MD on 05/03/2024 22:24:56
--- NOTE | ~2024-05-03 | CT_ITS ---
CLINICAL HISTORY: L orbital lafteration, pain CT maxillofacial without contrast Comparison: None Findings: Subtle fracture identified of the anterior wall of the right maxillary sinus on axial image number 35 of series 21. This finding is age indeterminate. No other acute fracture or dislocation injuries of the facial bones are identified. The bilateral temporomandibular joints appear intact. Minimal mucosal thickening identified at the left frontal sinus and right anterior ethmoid air cells. The remainder of the paranasal sinuses and bilateral mastoid air cells appear clear. The patient is edentulous. Mild right periorbital soft tissue swelling present. The bilateral globes appear intact. No retrobulbar hematoma or edema. Impression: 1. Age-indeterminate fracture present at the anterior wall of the right maxillary sinus. No other fracture or dislocation injuries of the facial bones are identified. 2. Mild right periorbital soft tissue swelling. This document has been electronically signed by: Josesito Rogers MD on 05/03/2024 22:18:30
--- NOTE | ~2024-05-03 | CT_ITS ---
CLINICAL HISTORY: fall, +HS CT head without contrast Comparison: CT/SR - CT HEAD/BRAIN WO IV CON - 10/06/23 16:48 EDT Findings: No intracranial mass, midline shift, hydrocephalus, or acute hemorrhage. There is generalized cerebral volume loss. [id number] nonspecific periventricular and subcortical white matter changes are identified, which may be seen in the setting of chronic small vessel ischemic disease. Minimal mucosal thickening identified within the ethmoid air cells and left frontal sinus. The bilateral mastoid air cells appear clear. No acute skull fracture. Mild right periorbital soft tissue swelling. Small right parietal scalp hematoma. Impression: 1. No acute intracranial abnormality. No acute intracranial hemorrhage. 2. Mild right periorbital soft tissue swelling with a small right posterior parietal scalp hematoma. No acute calvarial fracture. This document has been electronically signed by: Josesito Rogers MD on 05/03/2024 22:22:33
--- NOTE | ~2024-05-03 | XR_ITS ---
CLINICAL HISTORY: weakness, fall 1 view chest x-ray. Comparison: CR/SR - XR CHEST 2V - 04/23/24 11:17 EST Findings: Minimal linear opacities are present at the left lung base. No focal consolidation identified within the right lung. No pneumothorax or pleural effusion. The lungs are hyperexpanded with flattening of the bilateral hemidiaphragms. Heart size normal. Impression: 1. Findings suggesting pulmonary emphysema with minimal linear subsegmental atelectasis versus scarring at the left lung base. This document has been electronically signed by: Josesito Rogers MD on 05/03/2024 23:20:53
--- NOTE | ~2024-05-03 | XR_ITS ---
CLINICAL HISTORY: fall, pain 4 view left knee Comparison: None Findings: Nondisplaced fracture of the left patella present. Small suprapatellar enthesophyte at the site of the quadriceps tendon insertion. Moderate right suprapatellar effusion. Vascular calcifications are present. No radiopaque foreign body. IMPRESSION: 1. Nondisplaced fracture present at the left patella. 2. Moderate left suprapatellar effusion. This document has been electronically signed by: Josesito Rogers MD on 05/04/2024 03:35:16
--- NOTE | ~2024-05-03 | XR_ITS ---
CLINICAL HISTORY: fall, pain 3 view right shoulder Comparison: None Findings: Nondisplaced fracture present at the proximal right humerus with extension of the fracture line into the greater tuberosity. The right humeral head is appropriately positioned with respect to the right glenoid. The right acromioclavicular and coracoclavicular distances are within normal limits for appearance. The visualized portion of the right lung appears clear. No radiopaque foreign body. IMPRESSION: 1. Nondisplaced fracture present at the proximal right humerus with involvement of the greater tuberosity This document has been electronically signed by: Josesito Rogers MD on 05/03/2024 23:23:25
--- NOTE | 2024-05-03 18:47 | ED_ITS ---
HPI - Fall General Chief Complaint: Fall Stated Complaint: [facility] fall, -HS, -LOC, r shoulder pain, sm lac Time Seen by Provider: 05/03/24 18:38 Source: patient and EMS Mode of arrival: EMS Limitations: no limitations History of Present Illness ED Provider: pj vela NP HPI Narrative: Patient is a 73-year-old male past medical history of COPD, monoclonal gammopathy, carotid stenosis, diabetes, hypertension, hypercholesterolemia, depression, anxiety, anemia, varicose veins, CKD stage 3 who presents emergency department for evaluation after an unwitnessed fall. He arrives via EMS. He states that he was outside of his home, suddenly his legs began to feel weak and he felt himself leaning forward unintentionally, He fell forward, He endorses head strike no loss of consciousness. Adamant that there was no dizziness or lightheadedness prior to this. Reports a low-dose aspirin daily otherwise denies anticoagulants. He sustained a laceration to his right lower eye in the right naris without bleeding. His primary concern is pain to his right shoulder since the fall. EMS placed him in a hard cervical spine collar. Daughter is present at bedside he states that he has been having issues with ?ongoing lightheadedness? of unknown etiology for which he has been followed by his primary care doctor at [facility] as well as vascular here at [facility]. Currently he denies headache, dizziness, lightheadedness, vision changes, numbness or tingling of the extremities, bladder bowel dysfunction. Denies any recent ill like symptoms. Related Data Home Medications ?Medication ?Instructions ?Recorded ?Confirmed buspirone 10 mg tablet 10 mg PO TID 03/08/24 05/04/24 ferrous sulfate 325 mg (65 mg 325 mg PO QAM 03/08/24 05/04/24 iron) tablet (FeroSul) glipizide 5 mg tablet 5 mg PO BID 03/08/24 05/04/24 lisinopril 2.5 mg tablet 2.5 mg PO DAILY 03/08/24 05/04/24 metformin 500 mg tablet 1,000 mg PO BID 03/08/24 05/04/24 rosuvastatin 20 mg tablet 20 mg PO BEDTIME 03/08/24 05/04/24 sertraline 100 mg tablet 100 mg PO BID 03/08/24 05/04/24 aspirin 81 mg tablet,delayed 81 mg PO DAILY 03/30/24 05/04/24 release insulin glargine 100 unit/mL (3 16 unit subcut DAILY 03/30/24 05/04/24 mL) subcutaneous pen (Lantus Solostar U-100 Insulin) Allergies Allergy/AdvReac Type Severity Reaction Status Date / Time codeine AdvReac Unknown upset Verified 05/03/24 18:51 stomach Review of Systems 2 Review of Systems: Yes all other systems are reviewed and are negative REPLACED BY [facility] Past Medical History Attestation statement: The following information was validated with the patient. Source: old records reviewed Medical History Diabetes Surgical History History of intestinal surgery H/O colonoscopy Social History Social History Household Members: None Housing: Apartment Do you presently have visiting nurse or other home services: No Alcohol intake: former Comment: nwb left leg, 2 max assist with transfer Patient Tobacco Use Status: Current everyday Tobacco user Tobacco use type: Cigarette Cigarette Packs Per Day: 0.5 Cigarettes Per Day: 10.0 Years Smoked: 63 Second Hand Smoke Exposure: No Advance Directives Date on File: 05/05/24 service: No Physical Exam 2 Vital Signs: Vital Signs: Last Vital Signs Temp 98.1 F 05/06/24 07:16 Pulse 76 05/06/24 11:14 Resp 16 05/06/24 07:16 BP 134/62 05/06/24 11:14 Pulse Ox 93 05/06/24 07:16 O2 Del Method Room Air 05/06/24 07:16 BMI result Body Mass Index 26.1 Appearance: Alert.?Oriented to person, place and time. No acute distress.?Normal affect. Head: Normocephalic atraumatic. Eyes: Pupils equal, round and reactive to light. EOMI. Conjunctiva and sclera normal? No Zhong sign noted. No raccoon eyes noted ENT: No septal hematoma, nares patent bilaterally. External auditory canal normal tympanic membrane pearly bajwa and intact bilaterally. Dentition normal, no fractured teeth. No lesions or lacerations of oropharynx. Uvula midline. Moist mucous membranes. Neck: Normal inspection.? Neck supple.? Palpable midline tenderness along C3-C5, no palpable step-off or deformities. Hard cervical spine collar intact CVS: Heart sounds normal. Normal heart rate and rhythm.? Pulses normal.?? Respiratory: No respiratory distress.? Lung sounds clear to auscultation bilaterally?? Abdomen: Soft and non-tender. Normoactive bowel sounds. ?? Skin: Skin warm and dry.? Normal skin color.?? Extremities: Diffuse pain upon palpation of the right anterior shoulder and proximal humerus no apparent deformity. 2+ radial. Able to move the wrist and digits without complication. Neuro: Moves all extremities spontaneously. Sensation intact bilaterally. CN II- XII intact. No focal neuro deficits. Course Reevaluation(s) Reevaluation #1: After lying flat for CT scan pain to the right shoulder was increasingly more severe, amenable to trialing tramadol at this time. CT head cervical spine are pending at this time, my interpretation no evidence of ICH. Serum labs revealing a mild leukocytosis 12,500, normocytic anemia not meeting transfusion criteria, no thrombocytopenia. Renal function consistent with baseline, no NEVILLE. Non-anion gap hyperglycemia 404, for which he will receive insulin lispro 5 units subQ. Mild hypokalemia 5.5, provide dose of Lokelma, EKG with peaked T- waves no ST elevation or T-wave inversion, high sensitive troponin within normal range. Reevaluation #2: 00:39 05/04/2024 - CT head and cervical spine without acute pathology. Hard cervical spine collar was cleared. CT facial bones revealing age indeterminate fracture of the anterior wall of the right maxillary sinus, acute tenderness upon palpation, suspect this is likely secondary to the injury today, for which he will require antibiotic coverage, outpatient maxillofacial follow-up. There is a nondisplaced proximal humerus fracture, otherwise no acute pathology on shoulder XR or CXR. He has been placed in a sling, reviewed outpatient follow- up with orthopedics. Orthostatic vital signs are positive, he will receive 1 L normal saline IV fluid, I suspect orthostatic hypotension as well as hyperkalemia secondary to his lisinopril. He would like to try to be discharged home today if possible. At this time he will be placed in physician observation pending IVF, re-evaluation, and ambulation trial. Reevaluation #3: Remains orthostatic after receiving 1 L normal saline IV fluid, symptomatic with lightheadedness dizziness. I placed orders for an additional L at this time. No signs of fluid volume overload. No anemia. No rales. He states that this time that he is noticing increasing pain to the left knee with a repetitive motion standing. No obvious deformity. Mild localized swelling, will obtain XR. Patient signed out to Dr. Morris Additional Reevaluation(s): 91105/04/24 --ROSA Crockett Physician observation continued, left knee xray notable for nondisplaced fracture of left patella. CM spoke with his daughter who reports that he was recently treated for a COPD exacerbation on 04/23 with prednisone, which could possibly explain his leukocytosis. Repeat orthostatic VS this am still notable for orthostatic intolerance despite IV fluids and midodrine. Will discussed admission with hospitalist. Dr. Salguero accepts admission to medicine. Medications Administered Generic Name Dose Route Start Last Admin Trade Name Freq PRN Reason Stop Dose Admin Acetaminophen 650 mg 05/04/24 12:32 05/05/24 20:54 Acetaminophen 325 Mg Tablet PO 650 mg Q6H PRN Administration Pain, Mild 1-3,fever,headache Aspirin 81 mg 05/04/24 09:30 05/06/24 09:00 Aspirin Enteric Coated 81 Mg Tablet. PO 81 mg DAILY PHIL Administration Atorvastatin Calcium 80 mg 05/04/24 10:00 05/06/24 09:00 Atorvastatin Calcium 80 Mg Tablet PO 80 mg DAILY PHIL Administration Buspirone HCl 10 mg 05/04/24 09:30 05/06/24 09:00 Buspirone Hcl 10 Mg Tablet PO 10 mg TID PHIL Administration Enoxaparin Sodium 40 mg 05/04/24 12:45 05/05/24 12:49 Enoxaparin Sodium 40 Mg/0.4 Ml Syringe SUBCUT 40 mg Q24H PHIL Administration Ferrous Sulfate 324 mg 05/04/24 10:00 05/06/24 09:00 Ferrous Sulfate 324 Mg Tablet. PO 324 mg DAILY PHIL Administration Glipizide 5 mg 05/04/24 09:30 05/06/24 09:00 Glipizide 5 Mg Tablet PO 5 mg BID PHIL Administration Insulin Glargine 16 unit 05/05/24 09:00 05/06/24 08:59 Insulin Glargine,Hum.Rec.Anlog 100 Unit/Ml 10 Ml Vial SUBCUT 16 unit DAILY PHIL Administration Insulin Human Lispro 0 unit 05/04/24 16:30 05/06/24 08:22 Insulin Lispro 100 Unit/Ml 3 Ml Vial SUBCUT Not Given QIDACHS [facility] Protocol Sertraline HCl 100 mg 05/04/24 09:30 05/06/24 09:00 Sertraline Hcl 100 Mg Tablet PO 100 mg BID PHIL Administration Sodium Chloride 3 ml 05/04/24 16:00 05/06/24 09:00 0.9 % Sodium Chloride Flush 3 Ml Syringe IVFLUSH 3 ml QSHIFT PHIL Administration Discontinued Medications Generic Name Dose Route Start Last Admin Trade Name Freq PRN Reason Stop Dose Admin Acetaminophen 975 mg 05/03/24 19:26 05/03/24 20:30 Acetaminophen 325 Mg Tablet PO 05/03/24 19:27 975 mg ONCE ONE Administration Sodium Chloride 1,000 mls @ 999 mls/hr 05/04/24 00:45 05/04/24 01:40 Ns IV 05/04/24 01:45 Infused .Q1H1M PHIL Infusion Sodium Chloride 1,000 mls @ 999 mls/hr 05/04/24 02:15 05/04/24 03:30 Ns IV 05/04/24 03:15 Infused .Q1H1M PHIL Infusion Sodium Chloride 1,000 mls @ 999 mls/hr 05/04/24 12:45 05/04/24 17:27 Ns IV 05/04/24 13:45 Infused .Q1H1M PHIL Infusion Insulin Human Lispro 5 unit 05/03/24 20:32 05/03/24 21:10 Insulin Lispro 100 Unit/Ml 3 Ml Vial SUBCUT 05/03/24 20:33 5 unit ONCE ONE Administration Insulin Human Lispro 10 unit 05/04/24 12:31 05/04/24 12:42 Insulin Lispro 100 Unit/Ml 3 Ml Vial SUBCUT 05/04/24 12:32 10 unit ONCE ONE Administration Lisinopril 2.5 mg 05/04/24 09:30 05/04/24 11:49 Lisinopril 2.5 Mg Tablet PO 2.5 mg DAILY PHIL Administration Protocol Metformin HCl 1,000 mg 05/04/24 09:30 05/04/24 20:42 Metformin Hcl 1,000 Mg Tablet PO 1,000 mg BID PHIL Administration Midodrine 5 mg 05/04/24 04:39 05/04/24 05:47 Midodrine Hcl 5 Mg Tablet PO 05/04/24 04:40 5 mg ONCE ONE Administration Sodium Zirconium Cyclosilicate 10 gm 05/03/24 22:21 05/03/24 23:18 Sodium Zirconium Cyclosilicate 10 Gm Powd.Pack PO 05/03/24 22:22 10 gm ONCE ONE Administration Tramadol HCl 50 mg 05/03/24 21:03 05/03/24 21:10 Tramadol Hcl 50 Mg Tablet PO 05/03/24 21:04 50 mg ONCE ONE Administration Tramadol HCl 50 mg 05/04/24 11:30 05/04/24 11:50 Tramadol Hcl 50 Mg Tablet PO 05/04/24 11:31 50 mg ONCE ONE Administration Tramadol HCl 50 mg 05/04/24 12:32 05/06/24 09:05 Tramadol Hcl 50 Mg Tablet PO 50 mg Q4H PRN Administration Pain, Moderate(Pain Scale 4-6) Medical Decision Making Medical Decision Making MDM Narrative: Patient is a 73-year-old male past medical history of COPD, monoclonal gammopathy, carotid stenosis, diabetes, hypertension, hypercholesterolemia, depression, anxiety, anemia, varicose veins, CKD stage 3 who presents emergency department for evaluation after an unwitnessed fall with head strike, preceding weakness of the bilateral lower extremities feeling off balanced. On evaluation he has no focal neurological deficits. Has superficial abrasion to the right inferior periorbital region without active bleeding EOMI, no nystagmus, without signs of entrapment/globe rupture, superficial abrasion to the right nostril externally without active bleeding, No septal hematoma. Given age and mechanism of injury obtaining CT of the head and cervical spine to exclude ICH, SDH skull fracture, cervical spine fracture subluxation. XR of the right shoulder to be obtained to exclude fracture/dislocation. With preceding symptoms Will obtain CBC to evaluate for leukocytosis/ anemia, CMP and lipase to evaluate for abnormal electrolytes /abnormal renal function/ abnormal hepatic/biliary function, EKG and troponin to evaluate for ischemia/ACS. Chest x-ray to evaluate for consolidation/ infiltrate/ mass/ pulmonary congestion and Urinalysis. He is amenable to trialing acetaminophen for analgesia Patient's right knee x-ray showed patellar fracture will apply knee brace plan for placement in rehab Differential Diagnosis Differential Diagnoses: The differential diagnosis associated with the presentation includes (See narrative above) Admission/Observation Consideration of admission/observation: Escalation of care including admission/observation considered (See narrative above) Lab Data 05/06/24 10:47 05/05/24 05:30 Labs: Lab Results 05/03/24 05/03/24 05/04/24 Range/Units 19:35 22:16 00:51 WBC 12.5 H (4.8-10.8) X10*3/uL RBC 3.98 L (4.60-5.80) X10*6/uL Hgb 12.9 L (14.0-18.0) g/dl Hct 38.8 L (42.0-52.0) % MCV 97.5 (80.0-98.0) fL MCH 32.4 (27.0-33.0) pg MCHC 33.2 (31.0-36.0) g/dl RDW 11.8 (11.0-16.0) % Plt Count 215 (160-400) X10*3/uL MPV 11.9 (9.4-12.4) fL Immature Gran % (Auto) 0.8 H (0.0-0.4) % Neut % (Auto) 76.7 H (45-73) % Lymph % (Auto) 12.3 L (20-40) % [place] % (Auto) 7.5 (2-11) % Eos % (Auto) 2.3 (0-4) % Baso % (Auto) 0.4 (0-2) % Lymph # (Auto) 1.5 (1.2-4.9) X10*3/uL [place] # (Auto) 0.9 (0.1-1.2) X10*3/uL Eos # (Auto) 0.3 (0.0-0.4) X10*3/uL Baso # (Auto) 0.1 (0.0-0.2) X10*3/uL Abs Immat Gran (auto) 0.10 H (0.00-0.03) X10*3/uL Absolute Neuts (auto) 9.6 H (2.0-8.3) x10*3/uL Absolute Nucleated RBC 0.000 (0.0-0.012) X10*3/uL Nucleated RBC % (auto) 0.0 (0.0-0.2) /100WBC PT 10.4 L (10.9-12.4) SEC INR 0.9 (0.9-1.1) Sodium 137 (135-145) mmol/L Potassium 5.5 H 4.8 (3.3-5.1) mmol/L Chloride 101 (96-108) mmol/L Carbon Dioxide 24 (22-29) mmol/L Anion Gap 18 (12-20) BUN 54 H (9-16) mg/dL Creatinine 1.56 H (0.5-1.4) mg/dL Estim Creat Clear Calc 44.9 Estimated GFR 44 POC Glucose 332 H (60-115) mg/dL Random Glucose 404 H* (60-115) mg/dL Calcium 9.0 D (8.4-10.2) mg/dL Magnesium 2.3 (1.6-2.6) mg/dL Total Bilirubin 0.4 (0.0-1.0) mg/dL Direct Bilirubin 0.1 (0.0-0.5) mg/dL AST 36 (5-37) U/L ALT 48 H (0-40) U/L Alkaline Phosphatase 57 (39-117) U/L Troponin I High Sens 3.4 (<3.5-35.0) ng/L Total Protein 6.9 (6.5-8.0) g/dL Albumin 3.9 (3.5-5.0) g/dL Urine Color Urine Appearance Urine pH (5.0-9.0) Ur Specific [place] (1.005-1.025) Urine Protein (Neg-Trace) mg/dL Urine Glucose (UA) (Negative) mg/dL Urine Ketones (Negative) mg/dL Urine Blood (Negative) Urine Nitrite (Negative) Ur Leukocyte Esterase (Negative) Influenza Type A (PCR) (Negative) Influenza Type B (PCR) (Negative) RSV RNA Qual (PCR) (Negative) SARS-CoV-2 RNA (RT-PCR) (Negative) 05/04/24 05/04/24 05/04/24 Range/Units 09:07 09:25 12:20 WBC (4.8-10.8) X10*3/uL RBC (4.60-5.80) X10*6/uL Hgb (14.0-18.0) g/dl Hct (42.0-52.0) % MCV (80.0-98.0) fL MCH (27.0-33.0) pg MCHC (31.0-36.0) g/dl RDW (11.0-16.0) % Plt Count (160-400) X10*3/uL MPV (9.4-12.4) fL Immature Gran % (Auto) (0.0-0.4) % Neut % (Auto) (45-73) % Lymph % (Auto) (20-40) % [place] % (Auto) (2-11) % Eos % (Auto) (0-4) % Baso % (Auto) (0-2) % Lymph # (Auto) (1.2-4.9) X10*3/uL [place] # (Auto) (0.1-1.2) X10*3/uL Eos # (Auto) (0.0-0.4) X10*3/uL Baso # (Auto) (0.0-0.2) X10*3/uL Abs Immat Gran (auto) (0.00-0.03) X10*3/uL Absolute Neuts (auto) (2.0-8.3) x10*3/uL Absolute Nucleated RBC (0.0-0.012) X10*3/uL Nucleated RBC % (auto) (0.0-0.2) /100WBC PT (10.9-12.4) SEC INR (0.9-1.1) Sodium (135-145) mmol/L Potassium (3.3-5.1) mmol/L Chloride (96-108) mmol/L Carbon Dioxide (22-29) mmol/L Anion Gap (12-20) BUN (9-16) mg/dL Creatinine (0.5-1.4) mg/dL Estim Creat Clear Calc Estimated GFR POC Glucose 398 H* (60-115) mg/dL Random Glucose (60-115) mg/dL Calcium (8.4-10.2) mg/dL Magnesium (1.6-2.6) mg/dL Total Bilirubin (0.0-1.0) mg/dL Direct Bilirubin (0.0-0.5) mg/dL AST (5-37) U/L ALT (0-40) U/L Alkaline Phosphatase (39-117) U/L Troponin I High Sens (<3.5-35.0) ng/L Total Protein (6.5-8.0) g/dL Albumin (3.5-5.0) g/dL Urine Color Yellow Urine Appearance Clear Urine pH 5.5 (5.0-9.0) Ur Specific [place] 1.020 (1.005-1.025) Urine Protein Trace (Neg-Trace) mg/dL Urine Glucose (UA) 500 H (Negative) mg/dL Urine Ketones Negative (Negative) mg/dL Urine Blood Negative (Negative) Urine Nitrite Negative (Negative) Ur Leukocyte Esterase Negative (Negative) Influenza Type A (PCR) NEGATIVE (Negative) Influenza Type B (PCR) NEGATIVE (Negative) RSV RNA Qual (PCR) NEGATIVE (Negative) SARS-CoV-2 RNA (RT-PCR) NEGATIVE (Negative) Independent Interpretation I performed an independent interpretation of an: Plain X-Ray (Proximal humerus fracture) Radiology Impression Discussion of test interpretation with radiology: I have reviewed the radiologist's reading. Radiologist Impression: Impression: CT head 1. No acute intracranial abnormality. No acute intracranial hemorrhage. 2. Mild right periorbital soft tissue swelling with a small right posterior parietal scalp hematoma. No acute calvarial fracture. Impression: CT facial bones 1. Age-indeterminate fracture present at the anterior wall of the right maxillary sinus. No other fracture or dislocation injuries of the facial bones are identified. 2. Mild right periorbital soft tissue swelling. Impression: CT cervical spine 1. No acute fracture or dislocation injury identified at the cervical spine. Impression: CXR 1V 1. Findings suggesting pulmonary emphysema with minimal linear subsegmental atelectasis versus scarring at the left lung base. IMPRESSION: XR 3 view shoulder 1. Nondisplaced fracture present at the proximal right humerus with involvement of the greater tuberosity Discharge Plan Discharge Clinical Impression: Orthostatic hypotension, Fracture of proximal humerus, Hyperkalemia, Maxillary sinus fracture, Closed patellar sleeve fracture of right knee Patient Disposition: Admitted As Inpatient Interventions: Admission Worksheet (ED) Last Done: 05/05/24 12:12 Discharge Date/Time: 05/05/24 14:16
[2024-05-03 18:51] VITALS: BP 131/73; PULSE 72; O2SAT 95; BMI 26.1
--- NOTE | 2024-05-03 19:10 | ECG_ITS ---
Test Reason : FALL Blood Pressure : */* mmHG Vent. Rate : 73 BPM Atrial Rate : 73 BPM P-R Int : 178 ms QRS Dur : 78 ms QT Int : 362 ms P-R-T Axes : 70 57 65 degrees QTcB Int : 398 ms Normal sinus rhythm Normal ECG No previous ECGs available Referred By: Niru Campa Electronically Signed By: MASSIMO HERNANDEZ MD
[2024-05-03 19:38] VITALS: BP 128/61; PULSE 70; RESP 20; TEMP 36.9; O2SAT 97
[2024-05-03 19:39] LABS: MANUAL DIFF FLAG NO
[2024-05-03 19:40] LABS: Basophils Absolute Auto 0.1 X10*3/uL (0.0-0.2); Basophils Percent Auto 0.4 % (0-2); Eosinophils Absolute Auto 0.3 X10*3/uL (0.0-0.4); Eosinophils Percent Auto 2.3 % (0-4); Hematocrit 38.8 % (42.0-52.0); Hemoglobin 12.9 g/dl (14.0-18.0); Imm Gran Pct Auto 0.8 % (0.0-0.4); Lymphocytes Absolute Auto 1.5 X10*3/uL (1.2-4.9); Lymphocytes Percent Auto 12.3 % (20-40); Mean Corpuscular HGB Conc 33.2 g/dl (31.0-36.0); Mean Corpuscular Hemoglobin 32.4 pg (27.0-33.0); Mean Corpuscular Volume 97.5 fL (80.0-98.0); Mean Platelet Volume 11.9 fL (9.4-12.4); Monocytes Absolute Auto 0.9 X10*3/uL (0.1-1.2); Monocytes Percent Auto 7.5 % (2-11); Neutrophils Absolute Auto 9.6 x10*3/uL (2.0-8.3); Neutrophils Percent Auto 76.7 % (45-73); Platelet Count 215 X10*3/uL (160-400); Red Blood Count 3.98 X10*6/uL (4.60-5.80); Red Cell Distribution Width 11.8 % (11.0-16.0); White Blood Count 12.5 X10*3/uL (4.8-10.8)
[2024-05-03 19:45] LABS: INTERNATIONAL NORM RATIO 0.9 (0.9-1.1); Prothrombin Time 10.4 SEC (10.9-12.4)
[2024-05-03 20:01] LABS: Alanine Aminotransferase 48 U/L (0-40); Albumin Level 3.9 g/dL (3.5-5.0); Alkaline Phosphatase 57 U/L (39-117); Anion Gap 18 (12-20); Aspartate Amino Transferase 36 U/L (5-37); Bilirubin Total 0.4 mg/dL (0.0-1.0); Blood Urea Nitrogen 54 mg/dL (9-16); Carbon Dioxide 24 mmol/L (22-29); Chloride 101 mmol/L (96-108); Creatinine Clr Calc Pharmacy 44.9; Estimated Glomerular Filt Rate 44; Glucose Random 404 mg/dL (60-115); Magnesium 2.3 mg/dL (1.6-2.6); Potassium 5.5 mmol/L (3.3-5.1); Sodium 137 mmol/L (135-145); Total Protein 6.9 g/dL (6.5-8.0)
[2024-05-03 20:04] LABS: Troponin-I High Sensitivity 3.4 ng/L (<3.5-35.0)
[2024-05-03] MEDS: Acetaminophen 325 MG TABLET 975 MG PO (20:30)
--- NOTE | 2024-05-03 21:04 | PC.NURSE ---
pt reports after being moved onto the ct scan bed/back to stretcher, pain aggravated reporting 8/10 R. shoulder pain. refused repositioning/support with pillow. icepack placed on shoulder per request. Tino Horne made aware of pain level.
[2024-05-03] MEDS: traMADoL HCL 50 MG TABLET PO (21:10)
[2024-05-03] MEDS: Insulin Lispro 100 UNIT/ML 3 ML VIAL SUBCUT (21:10)
[2024-05-03 22:12] VITALS: BP 136/50; PULSE 76; RESP 16; TEMP 36.7; O2SAT 97
[2024-05-03 22:20] LABS: Glucose, Whole Blood 332 mg/dL (60-115)
--- NOTE | 2024-05-03 22:20 | PC.NURSE ---
Tino DERAS aware of poc.
[2024-05-03] MEDS: Sodium Zirconium Cyclosilicate 10 GM POWD.PACK PO (23:18)
[2024-05-04] VITALS (16 sets, daily range): BP systolic 69–130; BP diastolic 39–61; PULSE 61–117; RESP 12–18; TEMP 36.8–37.2; O2SAT 95–98
--- NOTE | 2024-05-04 00:50 | PC.NURSE ---
orthostatic vitals obtained and positive. pt states felt lightheaded upon standing. Tino DERAS notified. IV established. fluids infusing per mar. call cintron within reach.
[2024-05-04] MEDS: 0.9 % Sodium Chloride 1,000 ML 999 ML IV ×3 (00:51→14:32)
[2024-05-04 01:04] LABS: Potassium 4.8 mmol/L (3.3-5.1)
[2024-05-04 01:34] LABS: Bilirubin Direct 0.1 mg/dL (0.0-0.5)
--- NOTE | 2024-05-04 04:21 | PC.NURSE ---
MD altamirano aware of orthos.
--- NOTE | 2024-05-04 05:09 | PC.NURSE ---
MD azeb archuleta rec completed with pt and daughter.
[2024-05-04] MEDS: Midodrine HCl 5 MG TABLET PO (05:47)
--- NOTE | 2024-05-04 07:29 | PC.NURSE ---
Dietary called for meal tray.
[2024-05-04 09:17] LABS: Appearance Urine Clear; Color Urine Yellow; Glucose Urine UA 500 mg/dL (Negative); Leukocyte Esterase Urine Negative (Negative); Nitrite Urine Negative (Negative); PH 5.5 (5.0-9.0); Urine Blood Negative (Negative); Urine Ketones Negative (Negative); Urine Protein Trace mg/dL (Neg-Trace)
--- NOTE | 2024-05-04 09:24 | PC.NURSE ---
Kitchen called again for pt's missing breakfast tray.
--- NOTE | 2024-05-04 09:33 | MHC.CM.ED ---
Addendum entered by Maida Elmore 05/04/24 10:18: Copy of HCP reqeusted from [facility]. Waiting for it to be faxed. Received notification from Kristy LEE that patient will be admitted to the hospital. Patient's daughter, Leonardo, made aware via telephone at [phone]. Original Note: Received case management consult from Dr Morris. Patient came to the ER due to a fall. Work up indicated humerus and petellar frecture. Patient was orthostatic overnight. IVF was given was orthos weren't rechecked. Physical therapy eval is ordered and pending. Kristy LEE aware and ordered labs and repeat orthos. Received telephone call from patient's daughter, Leonardo. Leonardo can be reached via telephone at [phone]. Leonardo reports patient has a history of COPD and was treated for COPD exacerbation on 04/23 with a 5 day course of prednisone and is still on Doxycycline. Leonardo believe's PCP's office has a copy of his HCP. T/W will update Leonardo and patient about d/c plan once work up is completed. Continue to monitor for d//c needs.
--- NOTE | 2024-05-04 09:54 | PHA.MEDREC ---
Pharmacy Consult ? Medication Reconciliation Pharmacy has reviewed the medication reconciliation completed by nursing. Claims match.
[2024-05-04 10:29] LABS: Influenza A PCR NEGATIVE (Negative); Influenza B PCR NEGATIVE (Negative); Resp Syncy Virus RNA Qual PCR NEGATIVE (Negative); SARS COV2 PCR INHOUSE NEGATIVE (Negative)
--- NOTE | 2024-05-04 10:48 | PC.NURSE ---
Pt requesting something for pain, Kristy CARMONA made aware.
--- NOTE | 2024-05-04 11:21 | PM.IMHP ---
History of Present Illness Date of Service: 05/04/24 Attending physician on admission: [facility] Chief Complaint: Fall at home The pt is a 73-year-old male with a PMH significant for COPD, insulin-dependent type 2 diabetes, HTN, HLD, monoclonal gammopathy carotid stenosis CKD 3, depression anxiety who initially presented to the emergency department yesterday on 05/03 after unwitnessed fall while walking in the streets. Pt reports he was walking outside of his home when his legs felt weak and he fell forward, striking head, right shoulder, and left knee on the ground, but without LOC. Denied lightheadedness or dizziness prior to fall. No recent illness. Pt reports has chronic diarrhea since childhood with 1 episode of liquid/loose stool each morning, at baseline. States has been eating and drinking normally. Does report has had lightheadedness and dizziness for the past few months especially at the grocery store when he looks up to the top shelf. Workup for this has so far been negative. Currently, pt reports pain is well-controlled on current analgesic regimen. Today, workup in the ED was significant for right maxillary sinus fracture, nondisplaced proximal right humerus fracture, and nondisplaced left patella fracture, as well as hyperglycemia of random glucose 404, and mild hyperkalemia of 5.5. Pt also noted to be orthostatic and given 2 L of IVF as well as midodrine. Was initially placed in physician observation and seen by both case management and physical therapy with plan for short-term rehab placement. However, pt continued to be orthostatic this morning and will be admitted to the hospital for treatment and further evaluation of persistent orthostatic hypotension in the setting of fall at home with multiple fractures. Review of Systems Review of Systems: Negative except for that which is stated in the HPI. [facility] Medical History Diabetes Surgical History History of intestinal surgery H/O colonoscopy Social History Alcohol intake: former Cigarettes Per Day: 3 Years Smoked: 63 Smoked in Last 30 Days: No Use of substances other than those prescribed or required for medical reasons: No Advance Directives: No Advance Directives Information Provided: No Do you have a plan to hurt others: No Plan Meds Allergies Allergy/AdvReac Type Severity Reaction Status Date / Time codeine AdvReac Unknown upset Verified 05/03/24 18:51 stomach Active Medications: Current Medications Aspirin (Aspirin Enteric Coated 81 Mg Tablet.) 81 mg PO DAILY [facility] Atorvastatin Calcium (Atorvastatin Calcium 80 Mg Tablet) 80 mg PO DAILY [facility] Buspirone HCl (Buspirone Hcl 10 Mg Tablet) 10 mg PO TID [facility] Ferrous Sulfate (Ferrous Sulfate 324 Mg Tablet.) 324 mg PO DAILY [facility] Glipizide (Glipizide 5 Mg Tablet) 5 mg PO BID [facility] Insulin Glargine (Insulin Glargine,Hum.Rec.Anlog 100 Unit/Ml 10 Ml Vial) 16 unit SUBCUT DAILY [facility] Lisinopril (Lisinopril 2.5 Mg Tablet) 2.5 mg PO DAILY [facility]; Protocol Metformin HCl (Metformin Hcl 1,000 Mg Tablet) 1,000 mg PO BID [facility] Sertraline HCl (Sertraline Hcl 100 Mg Tablet) 100 mg PO BID [facility] Home Medications ?Medication ?Instructions ?Recorded ?Confirmed ?Last Taken ?Type buspirone 10 mg tablet 10 mg PO TID 03/08/24 05/04/24 05/02/24 21:00 History ferrous sulfate 325 mg (65 mg 325 mg PO QAM 03/08/24 05/04/24 05/02/24 21:00 History iron) tablet (FeroSul) glipizide 5 mg tablet 5 mg PO BID 03/08/24 05/04/24 05/02/24 21:00 History lisinopril 2.5 mg tablet 2.5 mg PO DAILY 03/08/24 05/04/24 05/02/24 21:00 History metformin 500 mg tablet 1,000 mg PO BID 03/08/24 05/04/24 05/02/24 21:00 History rosuvastatin 20 mg tablet 20 mg PO BEDTIME 03/08/24 05/04/24 05/02/24 21:00 History sertraline 100 mg tablet 100 mg PO BID 03/08/24 05/04/24 05/02/24 21:00 History aspirin 81 mg tablet,delayed 81 mg PO DAILY 03/30/24 05/04/24 05/02/24 21:00 History release insulin glargine 100 unit/mL (3 16 unit subcut DAILY 03/30/24 05/04/24 05/02/24 21:00 History mL) subcutaneous pen (Lantus Solostar U-100 Insulin) Physical Exam Vital Signs and Narrative: Vital Signs: Last Vital Signs Temp 98.7 F 05/04/24 09:05 Pulse 117 H 05/04/24 09:11 Resp 16 05/04/24 09:05 BP 101/59 L 05/04/24 09:11 Pulse Ox 96 05/04/24 09:05 O2 Del Method Room Air 05/04/24 07:06 BMI result Body Mass Index 26.1 General: AOx3, no acute distress Face: Right maxillary contusion, tender to the touch Resp: Mild expiratory wheezing especially in left upper lobe CVS: S1, S2, RRR GI: +BS, NT, no distention Skin: Warm, dry Neuro: Cranial nerves II-XII grossly intact bilaterally. Motor grossly intact bilaterally Extremities: Right shoulder tenderness, shoulder in sling. Left knee in brace, patella with tenderness. Psych: Appropriate affect Results Labs 05/05/24 05:30 05/05/24 05:30 Labs: Laboratory Results - last 24 hr 05/03/24 05/03/24 05/04/24 19:35 22:16 09:07 MCV 97.5 MCH 32.4 MCHC 33.2 RDW 11.8 Plt Count 215 MPV 11.9 Immature Gran % (Auto) 0.8 H Neut % (Auto) 76.7 H Lymph % (Auto) 12.3 L [place] % (Auto) 7.5 Eos % (Auto) 2.3 Baso % (Auto) 0.4 Lymph # (Auto) 1.5 [place] # (Auto) 0.9 Eos # (Auto) 0.3 Baso # (Auto) 0.1 Abs Immat Gran (auto) 0.10 H Absolute Neuts (auto) 9.6 H Absolute Nucleated RBC 0.000 Nucleated RBC % (auto) 0.0 PT 10.4 L INR 0.9 Anion Gap 18 Estim Creat Clear Calc 44.9 Estimated GFR 44 POC Glucose 332 H Random Glucose 404 H* Calcium 9.0 D Magnesium 2.3 Total Bilirubin 0.4 Direct Bilirubin 0.1 AST 36 ALT 48 H Alkaline Phosphatase 57 Total Protein 6.9 Albumin 3.9 Urine Color Yellow Urine Appearance Clear Urine pH 5.5 Ur Specific [place] 1.020 Urine Protein Trace Urine Glucose (UA) 500 H Urine Ketones Negative Urine Blood Negative Urine Nitrite Negative Ur Leukocyte Esterase Negative Influenza Type A (PCR) Influenza Type B (PCR) RSV RNA Qual (PCR) SARS-CoV-2 RNA (RT-PCR) 05/04/24 09:25 MCV MCH MCHC RDW Plt Count MPV Immature Gran % (Auto) Neut % (Auto) Lymph % (Auto) [place] % (Auto) Eos % (Auto) Baso % (Auto) Lymph # (Auto) [place] # (Auto) Eos # (Auto) Baso # (Auto) Abs Immat Gran (auto) Absolute Neuts (auto) Absolute Nucleated RBC Nucleated RBC % (auto) PT INR Anion Gap Estim Creat Clear Calc Estimated GFR POC Glucose Random Glucose Calcium Magnesium Total Bilirubin Direct Bilirubin AST ALT Alkaline Phosphatase Total Protein Albumin Urine Color Urine Appearance Urine pH Ur Specific [place] Urine Protein Urine Glucose (UA) Urine Ketones Urine Blood Urine Nitrite Ur Leukocyte Esterase Influenza Type A (PCR) NEGATIVE Influenza Type B (PCR) NEGATIVE RSV RNA Qual (PCR) NEGATIVE SARS-CoV-2 RNA (RT-PCR) NEGATIVE Assessment and Plan (1) Orthostatic hypotension: Status: Acute Plan The pt is a 73-year-old male with a PMH significant for COPD, insulin-dependent type 2 diabetes, HTN, HLD, monoclonal gammopathy carotid stenosis CKD 3, depression anxiety who initially presented to the emergency department yesterday on 05/03 after unwitnessed fall while walking in the streets. However, pt continued to be orthostatic this morning and will be admitted to the hospital for treatment and further evaluation of persistent orthostatic hypotension in the setting of fall at home with multiple fractures. Orthostatic hypotension Pt with positive orthostatics x2 Received 2 L IVF and midodrine in the ED We will give additional 1 L IVF Recheck orthostatics Fall at home Pt with right maxillary, right humerus, and left patellar fractures Right arm in sling, left knee in brace, pt nonweightbearing Pt denies lightheadedness/dizziness prior to fall, but endorses chronic lightheadedness for the past few months with negative workup by PCP Treat as above Analgesics for pain management Will check bilateral hip x-ray PT consult Pt waning STR Hyperkalemia, resolved Initial potassium 5.5 Pt given Lokelma in the ED, repeat 4.8 Follow up potassium Insulin-dependent type 2 diabetes Pt hyperglycemic with random glucose 404 at time of presentation Will place on sliding scale insulin, Lantus Diabetic diet CKD 3 Initial creatinine 1.68 with repeat 1.56 after IVF Baseline unknown Follow up BNP Insulin-dependent type 2 diabetes Sliding-scale insulin, Lantus Continue glipizide Hold metformin Diabetic diet HLD Continue statin HTN BP has been soft, pt orthostatic Hold lisinopril Mood disorder Continue sertraline Full Code Attending:?Dr. Gaxiola DVT Prophylaxis: Lovenox Pt will require a hospitalization of at least two nights for treatment of?persistent orthostatic hypotension in the setting of fall at home with multiple fractures. Pt will require hospital level care for administration of IVF, close monitoring of vitals and labs, and STR placement. Quality Stroke Does the patient have a stroke diagnosis?: No VTE Prior VTE?: No VTE Risk Level:: Medical - moderate - high VTE Device Contraindication: Treatment Not Indicated VTE Drug Contraindication: N/A - Med Ordered
[2024-05-04] MEDS: Ferrous Sulfate 324 MG TABLET.DR PO (11:49)
[2024-05-04] MEDS: Atorvastatin Calcium 80 MG TABLET PO (11:49)
[2024-05-04] MEDS: Sertraline HCL 100 MG TABLET PO ×2 (11:49→20:43)
[2024-05-04] MEDS: lisinopriL 2.5 MG TABLET PO (11:49)
[2024-05-04] MEDS: Aspirin Enteric Coated 81 MG TABLET.DR PO (11:49)
[2024-05-04] MEDS: metFORMIN HCl 1,000 MG TABLET 1000 MG PO ×2 (11:49→20:42)
[2024-05-04] MEDS: glipiZIDE 5 MG TABLET PO ×2 (11:50→20:43)
[2024-05-04] MEDS: traMADoL HCL 50 MG TABLET PO ×3 (11:50→22:24)
[2024-05-04] MEDS: busPIRone HCl 10 MG TABLET PO ×3 (11:51→20:43)
--- NOTE | 2024-05-04 11:55 | PC.NURSE ---
Assumed care of this patient at 1100, home meds ordered and given. Patient complaining of pain in L knee, pain meds requested to provider and given. Patient changed in hospital attire by MARQUIS Escalante, resting quietly on stretcher at this time.
[2024-05-04 12:28] LABS: Glucose, Whole Blood 398 mg/dL (60-115)
[2024-05-04] MEDS: Insulin Lispro 100 UNIT/ML 3 ML VIAL 10 UNIT SUBCUT (12:42)
[2024-05-04] MEDS: Enoxaparin Sodium 40 MG/0.4 ML SYRINGE SUBCUT (14:32)
--- NOTE | 2024-05-04 14:54 | PC.NURSE ---
Patient and daughter requesting to review code status w/ provider. Mehreen DERAS made aware, will stop by to speak w/ patient shortly.
[2024-05-04 17:09] LABS: Glucose, Whole Blood 298 mg/dL (60-115)
[2024-05-04] MEDS: Insulin Lispro 100 UNIT/ML 3 ML VIAL SUBCUT ×2 (17:21→20:39)
[2024-05-04] MEDS: 0.9 % Sodium Chloride Flush 3 ML SYRINGE IVFLUSH (17:22)
--- NOTE | 2024-05-04 19:32 | MHC.EDTECH ---
checked patients vitals. Patient stated he was comfortable and not in pain at this time. Patient asked for the lights to be dim.
[2024-05-04 20:33] LABS: Glucose, Whole Blood 242 mg/dL (60-115)
[2024-05-04] MEDS: Acetaminophen 325 MG TABLET 650 MG PO (20:43)
[2024-05-05] VITALS (7 sets, daily range): BP systolic 113–123; BP diastolic 54–65; PULSE 67–85; RESP 15–20; TEMP 36.3–36.9; O2SAT 92–96
[2024-05-05] MEDS: 0.9 % Sodium Chloride Flush 3 ML SYRINGE IVFLUSH ×4 (01:38→20:39)
[2024-05-05] MEDS: traMADoL HCL 50 MG TABLET PO ×5 (04:25→23:59)
[2024-05-05 06:01] LABS: Anion Gap 13 (12-20); Blood Urea Nitrogen 41 mg/dL (9-16); Calcium 8.3 mg/dL (8.4-10.2); Carbon Dioxide 19 mmol/L (22-29); Chloride 110 mmol/L (96-108); Creatinine Clr Calc Pharmacy 54.7; Estimated Glomerular Filt Rate 55; Glucose Random 170 mg/dL (60-115); Potassium 4.1 mmol/L (3.3-5.1); Sodium 138 mmol/L (135-145)
[2024-05-05 06:20] LABS: Hematocrit 28.8 % (42.0-52.0); Hemoglobin 9.6 g/dl (14.0-18.0); Mean Corpuscular HGB Conc 33.3 g/dl (31.0-36.0); Mean Corpuscular Hemoglobin 32.5 pg (27.0-33.0); Mean Corpuscular Volume 97.6 fL (80.0-98.0); Mean Platelet Volume 12.2 fL (9.4-12.4); Platelet Count 161 X10*3/uL (160-400); Red Blood Count 2.95 X10*6/uL (4.60-5.80); White Blood Count 10.3 X10*3/uL (4.8-10.8)
[2024-05-05 07:27] LABS: Glucose, Whole Blood 206 mg/dL (60-115)
[2024-05-05] MEDS: Insulin Lispro 100 UNIT/ML 3 ML VIAL SUBCUT ×3 (07:31→20:38)
--- NOTE | 2024-05-05 07:40 | PC.NURSE ---
pt is alert and oriented, skin pwd, respirations even and unlabored. pt is currently in a right arm sling and left knee immobilizer, pt is reporting that his pain is 7/10 at this time, pt has abrasions to his nose and the right eye. pt states he fell over outside on the street while bending over. vs stable and breakfast daryn set up
--- NOTE | 2024-05-05 07:59 | HO.PM.IMPN ---
Subjective Subjective Date of Service: 05/05/24 Interval History: f/u on weknesss, fall and orthostatic hypotension no new complaint Physical Exam Vital Signs: Vital Signs: Last Vital Signs Temp 97.9 F 05/05/24 07:22 Pulse 78 05/05/24 07:22 Resp 20 05/05/24 07:22 BP 119/54 L 05/05/24 07:22 Pulse Ox 95 05/05/24 07:22 O2 Del Method Room Air 05/05/24 07:22 BMI result Body Mass Index 26.1 Const: Other: General: AO X 3, no acute distress Resp: CTA bilateral CVS: S1,S2,RRR GI: +BS, NT, no distention Skin: No rash msk: right arm sling, and left leg imobilizer Neuro: motor grossly intact Psych: appropriate affect Objective Data Active Medications Acetaminophen (Acetaminophen 325 Mg Tablet) 650 mg PO Q6H PRN PRN Reason: Pain, Mild 1-3,fever,headache Last Admin: 05/04/24 20:43 Dose: 650 mg Documented By: REBA Aspirin (Aspirin Enteric Coated 81 Mg Tablet.) 81 mg PO DAILY [facility] Last Admin: 05/04/24 11:49 Dose: 81 mg Documented By: ACE Atorvastatin Calcium (Atorvastatin Calcium 80 Mg Tablet) 80 mg PO DAILY [facility] Last Admin: 05/04/24 11:49 Dose: 80 mg Documented By: ACE Buspirone HCl (Buspirone Hcl 10 Mg Tablet) 10 mg PO TID [facility] Last Admin: 05/04/24 20:43 Dose: 10 mg Documented By: REBA Calcium Carbonate (Calcium Carbonate 750 Mg Tab.Chew) 750 mg PO Q4H PRN PRN Reason: Heartburn Dextrose (Dextrose 50 % 25 Gm/50 Ml Syringe) 25 gm IVPUSH Q15M PRN; Protocol PRN Reason: per Hypoglycemia Standing Ord. Enoxaparin Sodium (Enoxaparin Sodium 40 Mg/0.4 Ml Syringe) 40 mg SUBCUT Q24H [facility] Last Admin: 05/04/24 14:32 Dose: 40 mg Documented By: ACE Ferrous Sulfate (Ferrous Sulfate 324 Mg Tablet.) 324 mg PO DAILY [facility] Last Admin: 05/04/24 11:49 Dose: 324 mg Documented By: ACE Glipizide (Glipizide 5 Mg Tablet) 5 mg PO BID [facility] Last Admin: 05/04/24 20:43 Dose: 5 mg Documented By: REBA Glucose (Glucose Gel 15 Gm Gel..Gram.) 15 gm PO Q15M PRN; Protocol PRN Reason: per Hypoglycemia Standing Ord. Insulin Glargine (Insulin Glargine,Hum.Rec.Anlog 100 Unit/Ml 10 Ml Vial) 16 unit SUBCUT DAILY [facility] Insulin Human Lispro (Insulin Lispro 100 Unit/Ml 3 Ml Vial) 0 unit SUBCUT QIDACHS [facility]; Protocol Last Admin: 05/05/24 07:31 Dose: 4 unit Documented By: AGATHA Lisinopril (Lisinopril 2.5 Mg Tablet) 2.5 mg PO DAILY [facility]; Protocol Last Admin: 05/04/24 11:49 Dose: 2.5 mg Documented By: ACE Magnesium Hydroxide (Milk Of Magnesia 30 Ml Oral.Susp) 30 ml PO DAILY PRN PRN Reason: Constipation Melatonin (Melatonin 3 Mg Tablet) 6 mg PO BEDTIME PRN PRN Reason: Insomnia Metformin HCl (Metformin Hcl 1,000 Mg Tablet) 1,000 mg PO BID [facility] Last Admin: 05/04/24 20:42 Dose: 1,000 mg Documented By: REBA Ondansetron HCl (Ondansetron Hcl 4 Mg/2 Ml Vial) 4 mg IVPUSH Q8H PRN PRN Reason: Nausea and Vomiting Sertraline HCl (Sertraline Hcl 100 Mg Tablet) 100 mg PO BID [facility] Last Admin: 05/04/24 20:43 Dose: 100 mg Documented By: REBA Sodium Chloride (0.9 % Sodium Chloride Flush 3 Ml Syringe) 3 ml IVFLUSH QSHIFT [facility] Last Admin: 05/05/24 07:31 Dose: 3 ml Documented By: AGATHA Tramadol HCl (Tramadol Hcl 50 Mg Tablet) 50 mg PO Q4H PRN PRN Reason: Pain, Moderate(Pain Scale 4-6) Last Admin: 05/05/24 04:25 Dose: 50 mg Documented By: REBA Labs 05/05/24 05:30 05/05/24 05:30 Labs: Laboratory Results - last 24 hr 05/04/24 05/04/24 05/04/24 09:07 09:25 12:20 MCV MCH MCHC RDW Plt Count MPV Absolute Nucleated RBC Nucleated RBC % (auto) Anion Gap Estim Creat Clear Calc Estimated GFR POC Glucose 398 H* Random Glucose Calcium Urine Color Yellow Urine Appearance Clear Urine pH 5.5 Ur Specific [place] 1.020 Urine Protein Trace Urine Glucose (UA) 500 H Urine Ketones Negative Urine Blood Negative Urine Nitrite Negative Ur Leukocyte Esterase Negative Influenza Type A (PCR) NEGATIVE Influenza Type B (PCR) NEGATIVE RSV RNA Qual (PCR) NEGATIVE SARS-CoV-2 RNA (RT-PCR) NEGATIVE 05/04/24 05/04/24 05/05/24 17:01 20:27 05:30 MCV 97.6 MCH 32.5 MCHC 33.3 RDW 12.0 Plt Count 161 D MPV 12.2 Absolute Nucleated RBC 0.000 Nucleated RBC % (auto) 0.0 Anion Gap 13 Estim Creat Clear Calc 54.7 Estimated GFR 55 POC Glucose 298 H 242 H Random Glucose 170 H Calcium 8.3 L D Urine Color Urine Appearance Urine pH Ur Specific [place] Urine Protein Urine Glucose (UA) Urine Ketones Urine Blood Urine Nitrite Ur Leukocyte Esterase Influenza Type A (PCR) Influenza Type B (PCR) RSV RNA Qual (PCR) SARS-CoV-2 RNA (RT-PCR) 05/05/24 07:19 MCV MCH MCHC RDW Plt Count MPV Absolute Nucleated RBC Nucleated RBC % (auto) Anion Gap Estim Creat Clear Calc Estimated GFR POC Glucose 206 H Random Glucose Calcium Urine Color Urine Appearance Urine pH Ur Specific [place] Urine Protein Urine Glucose (UA) Urine Ketones Urine Blood Urine Nitrite Ur Leukocyte Esterase Influenza Type A (PCR) Influenza Type B (PCR) RSV RNA Qual (PCR) SARS-CoV-2 RNA (RT-PCR) Assessment and Plan (1) Orthostatic hypotension: Status: Acute (2) Fall: Status: Acute Plan The pt is a 73-year-old male with a PMH significant for COPD, insulin-dependent type 2 diabetes, HTN, HLD, monoclonal gammopathy carotid stenosis CKD 3, depression anxiety who initially presented to the emergency department yesterday on 05/03 after unwitnessed fall while walking in the streets. However, pt continued to be orthostatic this morning and will be admitted to the hospital for treatment and further evaluation of persistent orthostatic hypotension resulting in falls with multiple fractures. Orthostatic hypotension IVF, midodrine and recheck dc lisinopril Fall at home resulting in right maxillary, right humerus, and left patellar fractures, no hip fx Right arm in sling, left knee in brace, pt nonweightbearing Pt denies lightheadedness/dizziness prior to fall, but endorses chronic lightheadedness for the past few months with negative workup by PCP Analgesics for pain management PT rec STR Hyperkalemia, resolved after lokelma Insulin-dependent type 2 diabetes, with hyperglycemia continue Lantus, glipizide, SSI and diabetic diet. hold metformin for renal failure CKD 3, stable HLD Continue statin HTN, soft bp, dc lisinopril BP has been soft, pt orthostatic Mood disorder Continue sertraline Full Code DVT Prophylaxis: Lovenox need for inpatient: awaiting placement Quality Stroke Does the patient have a stroke diagnosis?: No VTE Prior VTE?: No VTE Risk Level:: Medical - moderate - high VTE Device Contraindication: Treatment Not Indicated VTE Drug Contraindication: N/A - Med Ordered
[2024-05-05] MEDS: Sertraline HCL 100 MG TABLET PO ×2 (08:46→20:37)
[2024-05-05] MEDS: Aspirin Enteric Coated 81 MG TABLET.DR PO (08:46)
[2024-05-05] MEDS: glipiZIDE 5 MG TABLET PO ×2 (08:46→20:37)
[2024-05-05] MEDS: Atorvastatin Calcium 80 MG TABLET PO (08:46)
[2024-05-05] MEDS: busPIRone HCl 10 MG TABLET PO ×3 (08:46→20:37)
[2024-05-05] MEDS: Insulin Glargine,Hum.rec.anlog 100 UNIT/ML 10 ML VIAL 16 UNIT SUBCUT (08:47)
[2024-05-05] MEDS: Ferrous Sulfate 324 MG TABLET.DR PO (08:47)
[2024-05-05 08:48] LABS: Glucose, Whole Blood 280 mg/dL (60-115)
[2024-05-05] MEDS: Enoxaparin Sodium 40 MG/0.4 ML SYRINGE SUBCUT (12:49)
[2024-05-05 13:39] LABS: Glucose, Whole Blood 207 mg/dL (60-115)
--- NOTE | 2024-05-05 14:28 | MHC.CM.PN ---
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 BUT DOES NOT USE THEM AT BASELINE HCP ON FILE PCP: ZAIRA WHITE [facility]MM DELIVERED DCP: PT WILL NEED STR PER PTS DAUGHTER/HCP, THEY WOULD PREFER SOMETHING NEARBY SO SHE CAN VISIT PER DISCUSSION, BROAD REFERRAL MADE TO CONTRACTED SNFS AND SHE AND PT WILL DISCUSS BED OFFERS ONCE RECEIVED PT WILL NEED BLS TRANSPORT
[2024-05-05 15:52] LABS: Glucose, Whole Blood 130 mg/dL (60-115)
[2024-05-05 20:21] LABS: Glucose, Whole Blood 233 mg/dL (60-115)
[2024-05-05] MEDS: Acetaminophen 325 MG TABLET 650 MG PO (20:54)
[2024-05-06] VITALS (10 sets, daily range): BP systolic 96–152; BP diastolic 56–71; PULSE 76–142; RESP 16–18; TEMP 36–36.7; O2SAT 93–95
[2024-05-06] MEDS: traMADoL HCL 50 MG TABLET PO ×2 (03:59→09:05)
[2024-05-06 07:03] LABS: Glucose, Whole Blood 147 mg/dL (60-115)
[2024-05-06] MEDS: Insulin Glargine,Hum.rec.anlog 100 UNIT/ML 10 ML VIAL 16 UNIT SUBCUT (08:59)
[2024-05-06] MEDS: Ferrous Sulfate 324 MG TABLET.DR PO (09:00)
[2024-05-06] MEDS: busPIRone HCl 10 MG TABLET PO ×3 (09:00→21:08)
[2024-05-06] MEDS: Atorvastatin Calcium 80 MG TABLET PO (09:00)
[2024-05-06] MEDS: Sertraline HCL 100 MG TABLET PO ×2 (09:00→21:08)
[2024-05-06] MEDS: glipiZIDE 5 MG TABLET PO ×2 (09:00→21:08)
[2024-05-06] MEDS: Aspirin Enteric Coated 81 MG TABLET.DR PO (09:00)
[2024-05-06] MEDS: 0.9 % Sodium Chloride Flush 3 ML SYRINGE IVFLUSH (09:00)
--- NOTE | 2024-05-06 09:24 | P.PNIM_ITS ---
Subjective Subjective Date of Service: 05/06/24 Interval History: No new issues, feels well Physical Exam 2 Vital Signs: Vital Signs: Last Vital Signs Temp 98.1 F 05/06/24 07:16 Pulse 78 05/06/24 07:16 Resp 16 05/06/24 07:16 BP 132/62 05/06/24 07:16 Pulse Ox 93 05/06/24 07:16 O2 Del Method Room Air 05/06/24 07:16 BMI result Body Mass Index 26.1 Const: Other: General: AO X 3, no acute distress Resp: CTA bilateral CVS: S1,S2,RRR GI: +BS, NT, no distention Skin: No rash msk: right arm sling, and left leg imobilizer Neuro: motor grossly intact Psych: appropriate affect Objective Data Active Medications Acetaminophen (Acetaminophen 325 Mg Tablet) 650 mg PO Q6H PRN PRN Reason: Pain, Mild 1-3,fever,headache Last Admin: 05/05/24 20:54 Dose: 650 mg Documented By: CHANDU Aspirin (Aspirin Enteric Coated 81 Mg Tablet.) 81 mg PO DAILY [facility] Last Admin: 05/06/24 09:00 Dose: 81 mg Documented By: RIK Atorvastatin Calcium (Atorvastatin Calcium 80 Mg Tablet) 80 mg PO DAILY [facility] Last Admin: 05/06/24 09:00 Dose: 80 mg Documented By: RIK Buspirone HCl (Buspirone Hcl 10 Mg Tablet) 10 mg PO TID [facility] Last Admin: 05/06/24 09:00 Dose: 10 mg Documented By: RIK Calcium Carbonate (Calcium Carbonate 750 Mg Tab.Chew) 750 mg PO Q4H PRN PRN Reason: Heartburn Dextrose (Dextrose 50 % 25 Gm/50 Ml Syringe) 25 gm IVPUSH Q15M PRN; Protocol PRN Reason: per Hypoglycemia Standing Ord. Enoxaparin Sodium (Enoxaparin Sodium 40 Mg/0.4 Ml Syringe) 40 mg SUBCUT Q24H [facility] Last Admin: 05/05/24 12:49 Dose: 40 mg Documented By: AGATHA Ferrous Sulfate (Ferrous Sulfate 324 Mg Tablet.) 324 mg PO DAILY [facility] Last Admin: 05/06/24 09:00 Dose: 324 mg Documented By: RIK Glipizide (Glipizide 5 Mg Tablet) 5 mg PO BID [facility] Last Admin: 05/06/24 09:00 Dose: 5 mg Documented By: RIK Glucose (Glucose Gel 15 Gm Gel..Gram.) 15 gm PO Q15M PRN; Protocol PRN Reason: per Hypoglycemia Standing Ord. Insulin Glargine (Insulin Glargine,Hum.Rec.Anlog 100 Unit/Ml 10 Ml Vial) 16 unit SUBCUT DAILY [facility] Last Admin: 05/06/24 08:59 Dose: 16 unit Documented By: RIK Insulin Human Lispro (Insulin Lispro 100 Unit/Ml 3 Ml Vial) 0 unit SUBCUT QIDACHS [facility]; Protocol Last Admin: 05/06/24 08:22 Dose: Not Given Documented By: RIK Non-Admin Reason: No Insulin Coverage Magnesium Hydroxide (Milk Of Magnesia 30 Ml Oral.Susp) 30 ml PO DAILY PRN PRN Reason: Constipation Melatonin (Melatonin 3 Mg Tablet) 6 mg PO BEDTIME PRN PRN Reason: Insomnia Ondansetron HCl (Ondansetron Hcl 4 Mg/2 Ml Vial) 4 mg IVPUSH Q8H PRN PRN Reason: Nausea and Vomiting Sertraline HCl (Sertraline Hcl 100 Mg Tablet) 100 mg PO BID [facility] Last Admin: 05/06/24 09:00 Dose: 100 mg Documented By: RIK Sodium Chloride (0.9 % Sodium Chloride Flush 3 Ml Syringe) [facility] Last Admin: 05/06/24 09:00 Dose: 3 ml Documented By: RIK Tramadol HCl (Tramadol Hcl 50 Mg Tablet) 50 mg PO Q4H PRN PRN Reason: Pain, Moderate(Pain Scale 4-6) Last Admin: 05/06/24 09:05 Dose: 50 mg Documented By: RIK Labs 05/05/24 05:30 05/05/24 05:30 Labs: Laboratory Results - last 24 hr 05/05/24 05/05/24 05/05/24 13:34 15:44 20:09 POC Glucose 207 H 130 H 233 H 05/06/24 06:56 POC Glucose 147 H Assessment and Plan (1) Closed patellar sleeve fracture of right knee: Status: Acute (2) Fall: Status: Acute Plan The patient is a 73-year-old male with a PMH significant for COPD, insulin- dependent type 2 diabetes, HTN, HLD, monoclonal gammopathy, carotid stenosis, CKD 3, depression, and anxiety. He initially presented to the emergency department yesterday, 05/03, after an unwitnessed fall while walking in the street. He was found to have orthostatic hypotension. Imaging showed a right maxillary sinus fracture, a nondisplaced proximal right humerus fracture, and a nondisplaced left patella fracture. He was initially considered for discharge to rehab from the ED; however, due to persistent orthostatic hypotension and hyperglycemia, he was admitted for further management. Orthostatic hypotension is likely related to dehydration, as evidenced by NEVILLE, and his BP medications. He was given midodrine and IVF. Lisinopril has been stopped, and he is clinically doing much better at this point. I will encourage oral fluid intake and stopping all BP meds. The fall resulted in right maxillary, right humerus, and left patellar fractures (no hip fracture). This is related to the above. The right arm is in a sling, and the left knee is in a brace; the patient is non-weightbearing. The patient denies lightheadedness/dizziness prior to the fall but endorses chronic lightheadedness for the past few months with a negative workup by his PCP. PT recommends STR. Hyperkalemia, resolved after Lokelma; lisinopril was stopped. CKD3/ NEVILLE: Prerenal due to dehydration, resolved with IVF. Insulin-dependent type 2 diabetes, with hyperglycemia, now resolved. He was restarted on Lantus and Glipizide and a diabetic diet. Metformin has been on hold due to renal failure. HLD: Continue statin. Anemia--Hgb 12 gio dmission dropped to 8, no evidence of acute loss, ? dilutional vs fracture related loss. Recheck today HTN: Soft BP; lisinopril discontinued. BP has been soft, and the patient is orthostatic. Mood disorder: Continue sertraline. dvt prophylaxis: lovenox diet: diabetic diet DNR/DNI--confirmed with daughter, and patient. STR rec by PT Quality Stroke Does the patient have a stroke diagnosis?: No VTE Prior VTE?: No VTE Risk Level:: Medical - moderate - high VTE Device Contraindication: Treatment Not Indicated VTE Drug Contraindication: N/A - Med Ordered
[2024-05-06 11:10] LABS: Hematocrit 28.2 % (42.0-52.0); Hemoglobin 9.5 g/dl (14.0-18.0); Mean Corpuscular HGB Conc 33.7 g/dl (31.0-36.0); Mean Corpuscular Hemoglobin 32.9 pg (27.0-33.0); Mean Corpuscular Volume 97.6 fL (80.0-98.0); Mean Platelet Volume 12.2 fL (9.4-12.4); Platelet Count 170 X10*3/uL (160-400); Red Blood Count 2.89 X10*6/uL (4.60-5.80); Red Cell Distribution Width 12.1 % (11.0-16.0); White Blood Count 8.9 X10*3/uL (4.8-10.8)
[2024-05-06 11:14] LABS: Glucose, Whole Blood 323 mg/dL (60-115)
[2024-05-06 11:28] LABS: Anion Gap 11 (12-20); Blood Urea Nitrogen 32 mg/dL (9-16); Carbon Dioxide 22 mmol/L (22-29); Chloride 105 mmol/L (96-108); Creatinine Clr Calc Pharmacy 47.6; Estimated Glomerular Filt Rate 47; Potassium 4.4 mmol/L (3.3-5.1); Sodium 134 mmol/L (135-145)
[2024-05-06 11:30] LABS: Glucose Random 350 mg/dL (60-115)
[2024-05-06] MEDS: oxyCODONE HCl Immed Release 5 MG TABLET PO ×2 (11:30→18:11)
[2024-05-06] MEDS: Enoxaparin Sodium 40 MG/0.4 ML SYRINGE SUBCUT (11:31)
[2024-05-06] MEDS: Insulin Lispro 100 UNIT/ML 3 ML VIAL SUBCUT ×3 (12:01→21:08)
[2024-05-06] MEDS: Nicotine Polacrilex 2 MG GUM BUCCAL ×2 (13:28→17:12)
--- NOTE | 2024-05-06 13:58 | P.PNIM_ITS ---
Subjective Subjective Date of Service: 05/06/24 Interval History: generalized pain from fractures Physical Exam 2 Vital Signs: Vital Signs: Last Vital Signs Temp 98.1 F 05/06/24 07:16 Pulse 142 H 05/06/24 11:20 Resp 16 05/06/24 07:16 BP 96/62 05/06/24 11:20 Pulse Ox 93 05/06/24 07:16 O2 Del Method Room Air 05/06/24 07:16 BMI result Body Mass Index 26.1 Const: Other: General: AO X 3, no acute distress Resp: CTA bilateral CVS: S1,S2,RRR GI: +BS, NT, no distention Skin: No rash msk: right arm sling, and left leg imobilizer Neuro: motor grossly intact Psych: appropriate affect Objective Data Active Medications Acetaminophen (Acetaminophen 325 Mg Tablet) 650 mg PO Q6H PRN PRN Reason: Pain, Mild 1-3,fever,headache Last Admin: 05/05/24 20:54 Dose: 650 mg Documented By: CHANDU Aspirin (Aspirin Enteric Coated 81 Mg Tablet.) 81 mg PO DAILY [facility] Last Admin: 05/06/24 09:00 Dose: 81 mg Documented By: RIK Atorvastatin Calcium (Atorvastatin Calcium 80 Mg Tablet) 80 mg PO DAILY [facility] Last Admin: 05/06/24 09:00 Dose: 80 mg Documented By: RIK Buspirone HCl (Buspirone Hcl 10 Mg Tablet) 10 mg PO TID [facility] Last Admin: 05/06/24 09:00 Dose: 10 mg Documented By: RIK Calcium Carbonate (Calcium Carbonate 750 Mg Tab.Chew) 750 mg PO Q4H PRN PRN Reason: Heartburn Dextrose (Dextrose 50 % 25 Gm/50 Ml Syringe) 25 gm IVPUSH Q15M PRN; Protocol PRN Reason: per Hypoglycemia Standing Ord. Enoxaparin Sodium (Enoxaparin Sodium 40 Mg/0.4 Ml Syringe) 40 mg SUBCUT Q24H [facility] Last Admin: 05/06/24 11:31 Dose: 40 mg Documented By: RIK Ferrous Sulfate (Ferrous Sulfate 324 Mg Tablet.) 324 mg PO DAILY [facility] Last Admin: 05/06/24 09:00 Dose: 324 mg Documented By: RIK Glipizide (Glipizide 5 Mg Tablet) 5 mg PO BID [facility] Last Admin: 05/06/24 09:00 Dose: 5 mg Documented By: RIK Glucose (Glucose Gel 15 Gm Gel..Gram.) 15 gm PO Q15M PRN; Protocol PRN Reason: per Hypoglycemia Standing Ord. Insulin Glargine (Insulin Glargine,Hum.Rec.Anlog 100 Unit/Ml 10 Ml Vial) 16 unit SUBCUT DAILY [facility] Last Admin: 05/06/24 08:59 Dose: 16 unit Documented By: RIK Insulin Human Lispro (Insulin Lispro 100 Unit/Ml 3 Ml Vial) 0 unit SUBCUT QIDACHS [facility]; Protocol Last Admin: 05/06/24 12:01 Dose: 8 unit Documented By: RIK Magnesium Hydroxide (Milk Of Magnesia 30 Ml Oral.Susp) 30 ml PO DAILY PRN PRN Reason: Constipation Melatonin (Melatonin 3 Mg Tablet) 6 mg PO BEDTIME PRN PRN Reason: Insomnia Nicotine Polacrilex (Nicotine Polacrilex 2 Mg Gum) 2 mg BUCCAL Q2H PRN PRN Reason: Nicotine Cravings Last Admin: 05/06/24 13:28 Dose: 2 mg Documented By: TK Ondansetron HCl (Ondansetron Hcl 4 Mg/2 Ml Vial) 4 mg IVPUSH Q8H PRN PRN Reason: Nausea and Vomiting Oxycodone HCl (Oxycodone Hcl Immed Release 5 Mg Tablet) 5 mg PO Q6H PRN PRN Reason: Pain, Severe (Pain Scale 7-10) Last Admin: 05/06/24 11:30 Dose: 5 mg Documented By: RIK Sertraline HCl (Sertraline Hcl 100 Mg Tablet) 100 mg PO BID [facility] Last Admin: 05/06/24 09:00 Dose: 100 mg Documented By: RIK Sodium Chloride (0.9 % Sodium Chloride Flush 3 Ml Syringe) [facility] Last Admin: 05/06/24 09:00 Dose: 3 ml Documented By: RIK Labs 05/06/24 10:47 05/06/24 10:47 Labs: Laboratory Results - last 24 hr 05/05/24 05/05/24 05/06/24 15:44 20:09 06:56 MCV MCH MCHC RDW Plt Count MPV Absolute Nucleated RBC Nucleated RBC % (auto) Anion Gap Estim Creat Clear Calc Estimated GFR POC Glucose 130 H 233 H 147 H Random Glucose Calcium 05/06/24 05/06/24 10:47 11:10 MCV 97.6 MCH 32.9 MCHC 33.7 RDW 12.1 Plt Count 170 MPV 12.2 Absolute Nucleated RBC 0.000 Nucleated RBC % (auto) 0.0 Anion Gap 11 L Estim Creat Clear Calc 47.6 Estimated GFR 47 POC Glucose 323 H Random Glucose 350 H* Calcium 9.0 D Assessment and Plan (1) Orthostatic hypotension: Status: Acute Plan The patient is a 73-year-old male with a PMH significant for COPD, insulin- dependent type 2 diabetes, HTN, HLD, monoclonal gammopathy, carotid stenosis, CKD 3, depression, and anxiety. He initially presented to the emergency department yesterday, 05/03, after an unwitnessed fall while walking in the street. He was found to have orthostatic hypotension. Imaging showed a right maxillary sinus fracture, a nondisplaced proximal right humerus fracture, and a nondisplaced left patella fracture. He was initially considered for discharge to rehab from the ED; however, due to persistent orthostatic hypotension and hyperglycemia, he was admitted for further management. Orthostatic hypotension is likely related to dehydration, as evidenced by NEVILLE, and his BP medications. He was given midodrine and IVF. Lisinopril has been stopped, and he is clinically doing much better at this point. I will encourage oral fluid intake and stopping all BP meds. The fall resulted in right maxillary, right humerus, and left patellar fractures (no hip fracture). This is related to the above. The right arm is in a sling, and the left knee is in a brace; the patient is non-weightbearing. The patient denies lightheadedness/dizziness prior to the fall but endorses chronic lightheadedness for the past few months with a negative workup by his PCP. PT recommends STR. Hyperkalemia, resolved after Lokelma; lisinopril was stopped. NEVILLE: Prerenal due to dehydration, resolved with IVF. Insulin-dependent type 2 diabetes, with hyperglycemia, now resolved. He was restarted on Lantus and Glipizide and a diabetic diet. Metformin has been on hold due to renal failure. CKD 3: Stable. HLD: Continue statin. HTN: Soft BP; lisinopril discontinued. BP has been soft, and the patient is orthostatic. Mood disorder: Continue sertraline. Quality Stroke Does the patient have a stroke diagnosis?: No VTE Prior VTE?: No VTE Risk Level:: Medical - moderate - high VTE Device Contraindication: Treatment Not Indicated VTE Drug Contraindication: N/A - Med Ordered
--- NOTE | 2024-05-06 14:02 | PC.NURSE ---
Orthostatic vitals : lying - 90, 120/59 Sitting - 94, 127/62 standing - 127, 107/58
[2024-05-06] MEDS: Lactated Ringers 1,000 ML 100 ML IVCONT ×2 (14:58→23:37)
[2024-05-06 16:09] LABS: Glucose, Whole Blood 166 mg/dL (60-115)
[2024-05-06 19:48] LABS: Glucose, Whole Blood 253 mg/dL (60-115)
[2024-05-07] VITALS (10 sets, daily range): BP systolic 134–162; BP diastolic 63–73; PULSE 72–130; RESP 16–18; TEMP 36.4–37; O2SAT 95–97
[2024-05-07] MEDS: oxyCODONE HCl Immed Release 5 MG TABLET PO ×4 (00:04→21:57)
[2024-05-07 07:25] LABS: Glucose, Whole Blood 171 mg/dL (60-115)
[2024-05-07] MEDS: busPIRone HCl 10 MG TABLET PO ×3 (08:14→21:17)
[2024-05-07] MEDS: Insulin Lispro 100 UNIT/ML 3 ML VIAL SUBCUT ×4 (08:14→21:17)
[2024-05-07] MEDS: Insulin Glargine,Hum.rec.anlog 100 UNIT/ML 10 ML VIAL 16 UNIT SUBCUT (08:14)
[2024-05-07] MEDS: Sertraline HCL 100 MG TABLET PO ×2 (08:14→21:17)
[2024-05-07] MEDS: Ferrous Sulfate 324 MG TABLET.DR PO (08:14)
[2024-05-07] MEDS: Aspirin Enteric Coated 81 MG TABLET.DR PO (08:14)
[2024-05-07] MEDS: glipiZIDE 5 MG TABLET PO ×2 (08:14→21:17)
[2024-05-07] MEDS: Atorvastatin Calcium 80 MG TABLET PO (08:14)
--- NOTE | 2024-05-07 08:31 | HO.PM.IMPN ---
Subjective Subjective Date of Service: 05/07/24 Interval History: No new issues, pain and aches from the fractures. Remains orthostatic but better Physical Exam Vital Signs: Vital Signs: Last Vital Signs Temp 98.6 F 05/07/24 07:43 Pulse 74 05/07/24 07:43 Resp 17 05/07/24 07:43 BP 160/73 H 05/07/24 07:43 Pulse Ox 96 05/07/24 07:43 O2 Del Method Room Air 05/07/24 07:43 BMI result Body Mass Index 26.1 Const: Other: General: AO X 3, no acute distress Resp: CTA bilateral CVS: S1,S2,RRR GI: +BS, NT, no distention Skin: No rash msk: right arm sling, and left leg imobilizer Neuro: motor grossly intact Psych: appropriate affect Objective Data Active Medications Acetaminophen (Acetaminophen 325 Mg Tablet) 650 mg PO Q6H PRN PRN Reason: Pain, Mild 1-3,fever,headache Last Admin: 05/05/24 20:54 Dose: 650 mg Documented By: CHANDU Aspirin (Aspirin Enteric Coated 81 Mg Tablet.) 81 mg PO DAILY [facility] Last Admin: 05/07/24 08:14 Dose: 81 mg Documented By: ANTONIO Atorvastatin Calcium (Atorvastatin Calcium 80 Mg Tablet) 80 mg PO DAILY [facility] Last Admin: 05/07/24 08:14 Dose: 80 mg Documented By: ANTONIO Buspirone HCl (Buspirone Hcl 10 Mg Tablet) 10 mg PO TID [facility] Last Admin: 05/07/24 08:14 Dose: 10 mg Documented By: ANTONIO Calcium Carbonate (Calcium Carbonate 750 Mg Tab.Chew) 750 mg PO Q4H PRN PRN Reason: Heartburn Dextrose (Dextrose 50 % 25 Gm/50 Ml Syringe) 25 gm IVPUSH Q15M PRN; Protocol PRN Reason: per Hypoglycemia Standing Ord. Enoxaparin Sodium (Enoxaparin Sodium 40 Mg/0.4 Ml Syringe) 40 mg SUBCUT Q24H [facility] Last Admin: 05/06/24 11:31 Dose: 40 mg Documented By: RIK Ferrous Sulfate (Ferrous Sulfate 324 Mg Tablet.) 324 mg PO DAILY [facility] Last Admin: 05/07/24 08:14 Dose: 324 mg Documented By: ANTONIO Glipizide (Glipizide 5 Mg Tablet) 5 mg PO BID [facility] Last Admin: 05/07/24 08:14 Dose: 5 mg Documented By: ANTONIO Glucose (Glucose Gel 15 Gm Gel..Gram.) 15 gm PO Q15M PRN; Protocol PRN Reason: per Hypoglycemia Standing Ord. Lactated Ringer's (Lr) 1,000 mls @ 100 mls/hr IVCONT .Q10H [facility] Last Admin: 05/06/24 23:37 Dose: 100 mls/hr Documented By: SHIRLEY Insulin Glargine (Insulin Glargine,Hum.Rec.Anlog 100 Unit/Ml 10 Ml Vial) 16 unit SUBCUT DAILY [facility] Last Admin: 05/07/24 08:14 Dose: 16 unit Documented By: ANTONIO Insulin Human Lispro (Insulin Lispro 100 Unit/Ml 3 Ml Vial) 0 unit SUBCUT QIDACHS [facility]; Protocol Last Admin: 05/07/24 08:14 Dose: 2 unit Documented By: ANTONIO Magnesium Hydroxide (Milk Of Magnesia 30 Ml Oral.Susp) 30 ml PO DAILY PRN PRN Reason: Constipation Melatonin (Melatonin 3 Mg Tablet) 6 mg PO BEDTIME PRN PRN Reason: Insomnia Nicotine Polacrilex (Nicotine Polacrilex 2 Mg Gum) 2 mg BUCCAL Q2H PRN PRN Reason: Nicotine Cravings Last Admin: 05/06/24 17:12 Dose: 2 mg Documented By: RIK Ondansetron HCl (Ondansetron Hcl 4 Mg/2 Ml Vial) 4 mg IVPUSH Q8H PRN PRN Reason: Nausea and Vomiting Oxycodone HCl (Oxycodone Hcl Immed Release 5 Mg Tablet) 5 mg PO Q6H PRN PRN Reason: Pain, Severe (Pain Scale 7-10) Last Admin: 05/07/24 00:04 Dose: 5 mg Documented By: SHIRLEY Sertraline HCl (Sertraline Hcl 100 Mg Tablet) 100 mg PO BID [facility] Last Admin: 05/07/24 08:14 Dose: 100 mg Documented By: ANTONIO Sodium Chloride (0.9 % Sodium Chloride Flush 3 Ml Syringe) 3 ml IVFLUSH QSHIFT [facility] Last Admin: 05/07/24 08:16 Dose: Not Given Documented By: ANTONIO Non-Admin Reason: IV Running Labs 05/06/24 10:47 05/06/24 10:47 Labs: Laboratory Results - last 24 hr 05/06/24 05/06/24 05/06/24 10:47 11:10 16:06 MCV 97.6 MCH 32.9 MCHC 33.7 RDW 12.1 Plt Count 170 MPV 12.2 Absolute Nucleated RBC 0.000 Nucleated RBC % (auto) 0.0 Anion Gap 11 L Estim Creat Clear Calc 47.6 Estimated GFR 47 POC Glucose 323 H 166 H Random Glucose 350 H* Calcium 9.0 D 05/06/24 05/07/24 19:45 07:21 MCV MCH MCHC RDW Plt Count MPV Absolute Nucleated RBC Nucleated RBC % (auto) Anion Gap Estim Creat Clear Calc Estimated GFR POC Glucose 253 H 171 H Random Glucose Calcium Assessment and Plan (1) Closed patellar sleeve fracture of right knee: Status: Acute (2) Fall: Status: Acute Plan The patient is a 73-year-old male with a PMH significant for COPD, insulin-dependent type 2 diabetes, HTN, HLD, monoclonal gammopathy, carotid stenosis, CKD 3, depression, and anxiety. He initially presented to the emergency department yesterday, 05/03, after an unwitnessed fall while walking in the street. He was found to have orthostatic hypotension. Imaging showed a right maxillary sinus fracture, a nondisplaced proximal right humerus fracture, and a nondisplaced left patella fracture. He was initially considered for discharge to rehab from the ED; however, due to persistent orthostatic hypotension and hyperglycemia, he was admitted for further management. Orthostatic hypotension is likely related to dehydration, as evidenced by NEVILLE, and his BP medications. He was given midodrine and IVF. Lisinopril has been stopped, and he is clinically doing much better at this point. I will encourage oral fluid intake and stopping all BP meds. Repeat orthostatic bp The fall resulted in right maxillary, right humerus, and left patellar fractures (no hip fracture). This is related to the above. The right arm is in a sling, and the left knee is in a brace; the patient is non-weightbearing. The patient denies lightheadedness/dizziness prior to the fall but endorses chronic lightheadedness for the past few months with a negative workup by his PCP. PT recommends STR. Hyperkalemia, resolved after Lokelma; lisinopril was stopped. CKD3/ NEVILLE: Prerenal due to dehydration, resolved with IVF. Insulin-dependent type 2 diabetes, with hyperglycemia, now resolved. He was restarted on Lantus and Glipizide and a diabetic diet. Metformin has been on hold due to renal failure. HLD: Continue statin. Anemia--Hgb 12 gio dmission dropped to 8, no evidence of acute loss, ? dilutional vs fracture related loss. most recent HTN: Soft BP; lisinopril discontinued. BP has been soft, and the patient is orthostatic. Mood disorder: Continue sertraline. dvt prophylaxis: lovenox diet: diabetic diet DNR/DNI--confirmed with daughter, and patient. STR rec by PT Quality Stroke Does the patient have a stroke diagnosis?: No VTE Prior VTE?: No VTE Risk Level:: Medical - moderate - high VTE Device Contraindication: Treatment Not Indicated VTE Drug Contraindication: N/A - Med Ordered
[2024-05-07] MEDS: Lactated Ringers 1,000 ML 100 ML IVCONT ×2 (09:38→19:15)
[2024-05-07 11:16] LABS: Glucose, Whole Blood 291 mg/dL (60-115)
[2024-05-07] MEDS: Enoxaparin Sodium 40 MG/0.4 ML SYRINGE SUBCUT (12:10)
[2024-05-07 12:42] LABS: Anion Gap 13 (12-20); Blood Urea Nitrogen 29 mg/dL (9-16); Calcium 8.9 mg/dL (8.4-10.2); Carbon Dioxide 23 mmol/L (22-29); Chloride 106 mmol/L (96-108); Creatinine Clr Calc Pharmacy 48.6; Estimated Glomerular Filt Rate 48; Glucose Random 257 mg/dL (60-115); Potassium 4.4 mmol/L (3.3-5.1); Sodium 138 mmol/L (135-145)
[2024-05-07 16:13] LABS: Glucose, Whole Blood 234 mg/dL (60-115)
[2024-05-07 19:57] LABS: Glucose, Whole Blood 234 mg/dL (60-115)
[2024-05-08 01:58] VITALS: BP 170/74; PULSE 84; RESP 17; TEMP 36.4; O2SAT 96
[2024-05-08] MEDS: Acetaminophen 325 MG TABLET 650 MG PO ×2 (02:06→23:38)
[2024-05-08] MEDS: oxyCODONE HCl Immed Release 5 MG TABLET PO ×3 (04:04→19:23)
[2024-05-08] MEDS: Lactated Ringers 1,000 ML 100 ML IVCONT (04:09)
[2024-05-08 07:42] LABS: Glucose, Whole Blood 131 mg/dL (60-115)
[2024-05-08 08:00] VITALS: BP 134/60; PULSE 71; RESP 17; TEMP 36.7; O2SAT 94
[2024-05-08] MEDS: Sertraline HCL 100 MG TABLET PO ×2 (09:17→20:26)
[2024-05-08] MEDS: Aspirin Enteric Coated 81 MG TABLET.DR PO (09:17)
[2024-05-08] MEDS: glipiZIDE 5 MG TABLET PO ×2 (09:17→20:26)
[2024-05-08] MEDS: Atorvastatin Calcium 80 MG TABLET PO (09:17)
[2024-05-08] MEDS: busPIRone HCl 10 MG TABLET PO ×3 (09:17→20:26)
[2024-05-08] MEDS: Ferrous Sulfate 324 MG TABLET.DR PO (09:17)
[2024-05-08] MEDS: Insulin Glargine,Hum.rec.anlog 100 UNIT/ML 10 ML VIAL 16 UNIT SUBCUT (09:17)
[2024-05-08 11:05] LABS: Glucose, Whole Blood 349 mg/dL (60-115)
[2024-05-08 11:08] VITALS: BP 143/70; PULSE 69
[2024-05-08 11:54] VITALS: BP 127/66; BP 137/73; PULSE 114; PULSE 81
[2024-05-08] MEDS: Insulin Lispro 100 UNIT/ML 3 ML VIAL SUBCUT ×3 (12:05→20:26)
[2024-05-08] MEDS: Enoxaparin Sodium 40 MG/0.4 ML SYRINGE SUBCUT (12:05)
--- NOTE | 2024-05-08 12:15 | HO.PM.IMPN ---
Subjective Subjective Date of Service: 05/08/24 Interval History: No new issues, pain and aches from the fractures. Orthosatic bp is better Physical Exam Vital Signs: Vital Signs: Last Vital Signs Temp 98.1 F 05/08/24 08:00 Pulse 114 H 05/08/24 11:54 Resp 17 05/08/24 08:00 BP 137/73 05/08/24 11:54 Pulse Ox 94 05/08/24 08:00 O2 Del Method Room Air 05/08/24 08:00 BMI result Body Mass Index 26.1 Const: Other: General: AO X 3, no acute distress Resp: CTA bilateral CVS: S1,S2,RRR GI: +BS, NT, no distention Skin: No rash msk: right arm sling, and left leg imobilizer Neuro: motor grossly intact Psych: appropriate affect Objective Data Active Medications Acetaminophen (Acetaminophen 325 Mg Tablet) 650 mg PO Q6H PRN PRN Reason: Pain, Mild 1-3,fever,headache Last Admin: 05/08/24 02:06 Dose: 650 mg Documented By: SHIRLEY Aspirin (Aspirin Enteric Coated 81 Mg Tablet.) 81 mg PO DAILY [facility] Last Admin: 05/08/24 09:17 Dose: 81 mg Documented By: ANTONIO Atorvastatin Calcium (Atorvastatin Calcium 80 Mg Tablet) 80 mg PO DAILY [facility] Last Admin: 05/08/24 09:17 Dose: 80 mg Documented By: ANTONIO Buspirone HCl (Buspirone Hcl 10 Mg Tablet) 10 mg PO TID [facility] Last Admin: 05/08/24 09:17 Dose: 10 mg Documented By: ANTONIO Calcium Carbonate (Calcium Carbonate 750 Mg Tab.Chew) 750 mg PO Q4H PRN PRN Reason: Heartburn Dextrose (Dextrose 50 % 25 Gm/50 Ml Syringe) 25 gm IVPUSH Q15M PRN; Protocol PRN Reason: per Hypoglycemia Standing Ord. Enoxaparin Sodium (Enoxaparin Sodium 40 Mg/0.4 Ml Syringe) 40 mg SUBCUT Q24H [facility] Last Admin: 05/08/24 12:05 Dose: 40 mg Documented By: ANTONIO Ferrous Sulfate (Ferrous Sulfate 324 Mg Tablet.) 324 mg PO DAILY [facility] Last Admin: 05/08/24 09:17 Dose: 324 mg Documented By: ANTONIO Glipizide (Glipizide 5 Mg Tablet) 5 mg PO BID [facility] Last Admin: 05/08/24 09:17 Dose: 5 mg Documented By: ANTONIO Glucose (Glucose Gel 15 Gm Gel..Gram.) 15 gm PO Q15M PRN; Protocol PRN Reason: per Hypoglycemia Standing Ord. Insulin Glargine (Insulin Glargine,Hum.Rec.Anlog 100 Unit/Ml 10 Ml Vial) 16 unit SUBCUT DAILY [facility] Last Admin: 05/08/24 09:17 Dose: 16 unit Documented By: ANTONIO Insulin Human Lispro (Insulin Lispro 100 Unit/Ml 3 Ml Vial) 0 unit SUBCUT QIDACHS [facility]; Protocol Last Admin: 05/08/24 12:05 Dose: 8 unit Documented By: ANTONIO Magnesium Hydroxide (Milk Of Magnesia 30 Ml Oral.Susp) 30 ml PO DAILY PRN PRN Reason: Constipation Melatonin (Melatonin 3 Mg Tablet) 6 mg PO BEDTIME PRN PRN Reason: Insomnia Nicotine Polacrilex (Nicotine Polacrilex 2 Mg Gum) 2 mg BUCCAL Q2H PRN PRN Reason: Nicotine Cravings Last Admin: 05/06/24 17:12 Dose: 2 mg Documented By: RIK Ondansetron HCl (Ondansetron Hcl 4 Mg/2 Ml Vial) 4 mg IVPUSH Q8H PRN PRN Reason: Nausea and Vomiting Oxycodone HCl (Oxycodone Hcl Immed Release 5 Mg Tablet) 5 mg PO Q6H PRN PRN Reason: Pain, Severe (Pain Scale 7-10) Last Admin: 05/08/24 11:05 Dose: 5 mg Documented By: ANTONIO Sertraline HCl (Sertraline Hcl 100 Mg Tablet) 100 mg PO BID [facility] Last Admin: 05/08/24 09:17 Dose: 100 mg Documented By: ANTONIO Sodium Chloride (0.9 % Sodium Chloride Flush 3 Ml Syringe) [facility] Last Admin: 05/08/24 09:17 Dose: Not Given Documented By: ANTONIO Non-Admin Reason: IV Running Labs 05/06/24 10:47 05/07/24 12:24 Labs: Laboratory Results - last 24 hr 05/07/24 05/07/24 05/07/24 12:24 16:10 19:52 Anion Gap 13 Estim Creat Clear Calc 48.6 Estimated GFR 48 POC Glucose 234 H 234 H Random Glucose 257 H Calcium 8.9 05/08/24 05/08/24 07:39 11:00 Anion Gap Estim Creat Clear Calc Estimated GFR POC Glucose 131 H 349 H Random Glucose Calcium Assessment and Plan (1) Closed patellar sleeve fracture of right knee: Status: Acute (2) Fall: Status: Acute Plan The patient is a 73-year-old male with a PMH significant for COPD, insulin-dependent type 2 diabetes, HTN, HLD, monoclonal gammopathy, carotid stenosis, CKD 3, depression, and anxiety. He initially presented to the emergency department yesterday, 05/03, after an unwitnessed fall while walking in the street. He was found to have orthostatic hypotension. Imaging showed a right maxillary sinus fracture, a nondisplaced proximal right humerus fracture, and a nondisplaced left patella fracture. He was initially considered for discharge to rehab from the ED; however, due to persistent orthostatic hypotension and hyperglycemia, he was admitted for further management. Orthostatic hypotension is likely related to dehydration, as evidenced by NEVILLE, and his BP medications. He was given midodrine and IVF. Lisinopril has been stopped, and he is clinically doing much better at this point. I will encourage oral fluid intake and stopping all BP meds. Repeat orthostatic bp The fall resulted in right maxillary, right humerus, and left patellar fractures (no hip fracture). This is related to the above. The right arm is in a sling, and the left knee is in a brace; the patient is non-weightbearing. The patient denies lightheadedness/dizziness prior to the fall but endorses chronic lightheadedness for the past few months with a negative workup by his PCP. PT recommends STR. Hyperkalemia, resolved after Lokelma; lisinopril was stopped. CKD3/ NEVILLE: Prerenal due to dehydration, resolved with IVF. Insulin-dependent type 2 diabetes, with hyperglycemia, now resolved. He was restarted on Lantus and Glipizide and a diabetic diet. Metformin has been on hold due to renal failure. HLD: Continue statin. Anemia--Hgb 12 gio dmission dropped to 8, no evidence of acute loss, ? dilutional vs fracture related loss. most recent HTN: Soft BP; lisinopril discontinued. BP has been soft, and the patient is orthostatic. Mood disorder: Continue sertraline. dvt prophylaxis: lovenox diet: diabetic diet DNR/DNI--confirmed with daughter, and patient. STR rec by PT Quality Stroke Does the patient have a stroke diagnosis?: No VTE Prior VTE?: No VTE Risk Level:: Medical - moderate - high VTE Device Contraindication: Treatment Not Indicated VTE Drug Contraindication: N/A - Med Ordered
[2024-05-08 15:26] VITALS: BP 130/61; PULSE 71; RESP 17; TEMP 36.9; O2SAT 94
--- NOTE | 2024-05-08 15:51 | PM.EVENT ---
Event Note Date of Service: 05/08/24 Event Note: 73 yo male admitted to medical service after fall resulting in left patella sleeve fx and right prox hum fx -spoke with dr garcia patient is in sling and brace -continue brace PWB LLE-f/u with orthopedics in 4 weeks for xrays -continue sling RUE-may come out for elbow and wrist ROM-f/u ortho 4 weeks for xrays Time Spent With Patient Time: Total time managing care of this patient today ____ minutes.
[2024-05-08 16:14] LABS: Glucose, Whole Blood 210 mg/dL (60-115)
[2024-05-08] MEDS: 0.9 % Sodium Chloride Flush 3 ML SYRINGE IVFLUSH ×2 (17:17→20:26)
[2024-05-08 19:51] VITALS: BP 172/75; PULSE 78; RESP 17; TEMP 36.4; O2SAT 96
[2024-05-08 20:17] LABS: Glucose, Whole Blood 214 mg/dL (60-115)
[2024-05-09 04:00] VITALS: BP 156/70; PULSE 75; RESP 16; TEMP 36.3; O2SAT 93
[2024-05-09] MEDS: oxyCODONE HCl Immed Release 5 MG TABLET PO ×4 (04:10→21:50)
[2024-05-09 07:38] LABS: Glucose, Whole Blood 152 mg/dL (60-115)
[2024-05-09 08:00] VITALS: BP 151/66; PULSE 77; RESP 17; TEMP 36.3; O2SAT 95
[2024-05-09] MEDS: Insulin Lispro 100 UNIT/ML 3 ML VIAL SUBCUT ×4 (08:19→20:36)
[2024-05-09] MEDS: Insulin Glargine,Hum.rec.anlog 100 UNIT/ML 10 ML VIAL 16 UNIT SUBCUT (08:19)
[2024-05-09] MEDS: busPIRone HCl 10 MG TABLET PO ×3 (08:20→20:36)
[2024-05-09] MEDS: Ferrous Sulfate 324 MG TABLET.DR PO (08:20)
[2024-05-09] MEDS: glipiZIDE 5 MG TABLET PO ×2 (08:20→20:36)
[2024-05-09] MEDS: Atorvastatin Calcium 80 MG TABLET PO (08:20)
[2024-05-09] MEDS: Aspirin Enteric Coated 81 MG TABLET.DR PO (08:20)
[2024-05-09] MEDS: Sertraline HCL 100 MG TABLET PO ×2 (08:20→20:35)
[2024-05-09] MEDS: 0.9 % Sodium Chloride Flush 3 ML SYRINGE IVFLUSH ×3 (08:30→20:35)
[2024-05-09 08:43] LABS: Anion Gap 12 (12-20); Blood Urea Nitrogen 26 mg/dL (9-16); Calcium 9.1 mg/dL (8.4-10.2); Carbon Dioxide 27 mmol/L (22-29); Chloride 105 mmol/L (96-108); Estimated Glomerular Filt Rate 48; Glucose Random 156 mg/dL (60-115); Potassium 4.8 mmol/L (3.3-5.1); Sodium 139 mmol/L (135-145)
--- NOTE | 2024-05-09 09:13 | HO.PM.IMPN ---
Subjective Subjective Date of Service: 05/09/24 Interval History: No new issues, pain and aches from the fractures. Orthosatic bp is better Physical Exam Vital Signs: Vital Signs: Last Vital Signs Temp 97.4 F 05/09/24 08:00 Pulse 77 05/09/24 08:00 Resp 17 05/09/24 08:00 BP 151/66 H 05/09/24 08:00 Pulse Ox 95 05/09/24 08:00 O2 Del Method Room Air 05/09/24 08:00 BMI result Body Mass Index 26.1 Const: Other: General: AO X 3, no acute distress Resp: CTA bilateral CVS: S1,S2,RRR GI: +BS, NT, no distention Skin: No rash msk: right arm sling, and left leg imobilizer Neuro: motor grossly intact Psych: appropriate affect Objective Data Active Medications Acetaminophen (Acetaminophen 325 Mg Tablet) 650 mg PO Q6H PRN PRN Reason: Pain, Mild 1-3,fever,headache Last Admin: 05/08/24 23:38 Dose: 650 mg Documented By: SHIRLEY Aspirin (Aspirin Enteric Coated 81 Mg Tablet.) 81 mg PO DAILY [facility] Last Admin: 05/09/24 08:20 Dose: 81 mg Documented By: SHRUTHI Atorvastatin Calcium (Atorvastatin Calcium 80 Mg Tablet) 80 mg PO DAILY [facility] Last Admin: 05/09/24 08:20 Dose: 80 mg Documented By: SHRUTHI Buspirone HCl (Buspirone Hcl 10 Mg Tablet) 10 mg PO TID [facility] Last Admin: 05/09/24 08:20 Dose: 10 mg Documented By: SHRUTHI Calcium Carbonate (Calcium Carbonate 750 Mg Tab.Chew) 750 mg PO Q4H PRN PRN Reason: Heartburn Dextrose (Dextrose 50 % 25 Gm/50 Ml Syringe) 25 gm IVPUSH Q15M PRN; Protocol PRN Reason: per Hypoglycemia Standing Ord. Enoxaparin Sodium (Enoxaparin Sodium 40 Mg/0.4 Ml Syringe) 40 mg SUBCUT Q24H [facility] Last Admin: 05/08/24 12:05 Dose: 40 mg Documented By: ANTONIO Ferrous Sulfate (Ferrous Sulfate 324 Mg Tablet.) 324 mg PO DAILY [facility] Last Admin: 05/09/24 08:20 Dose: 324 mg Documented By: SHRUTHI Glipizide (Glipizide 5 Mg Tablet) 5 mg PO BID [facility] Last Admin: 05/09/24 08:20 Dose: 5 mg Documented By: SHRUTHI Glucose (Glucose Gel 15 Gm Gel..Gram.) 15 gm PO Q15M PRN; Protocol PRN Reason: per Hypoglycemia Standing Ord. Insulin Glargine (Insulin Glargine,Hum.Rec.Anlog 100 Unit/Ml 10 Ml Vial) 16 unit SUBCUT DAILY [facility] Last Admin: 05/09/24 08:19 Dose: 16 unit Documented By: SHRUTHI Insulin Human Lispro (Insulin Lispro 100 Unit/Ml 3 Ml Vial) 0 unit SUBCUT QIDACHS [facility]; Protocol Last Admin: 05/09/24 08:19 Dose: 2 unit Documented By: SHRUTHI Comments: Magnesium Hydroxide (Milk Of Magnesia 30 Ml Oral.Susp) 30 ml PO DAILY PRN PRN Reason: Constipation Melatonin (Melatonin 3 Mg Tablet) 6 mg PO BEDTIME PRN PRN Reason: Insomnia Nicotine Polacrilex (Nicotine Polacrilex 2 Mg Gum) 2 mg BUCCAL Q2H PRN PRN Reason: Nicotine Cravings Last Admin: 05/06/24 17:12 Dose: 2 mg Documented By: RIK Ondansetron HCl (Ondansetron Hcl 4 Mg/2 Ml Vial) 4 mg IVPUSH Q8H PRN PRN Reason: Nausea and Vomiting Oxycodone HCl (Oxycodone Hcl Immed Release 5 Mg Tablet) 5 mg PO Q6H PRN PRN Reason: Pain, Severe (Pain Scale 7-10) Last Admin: 05/09/24 04:10 Dose: 5 mg Documented By: SHIRLEY Sertraline HCl (Sertraline Hcl 100 Mg Tablet) 100 mg PO BID [facility] Last Admin: 05/09/24 08:20 Dose: 100 mg Documented By: SHRTUHI Sodium Chloride (0.9 % Sodium Chloride Flush 3 Ml Syringe) [facility] Last Admin: 05/09/24 08:30 Dose: 3 ml Documented By: SHRUTHI Labs 05/06/24 10:47 05/09/24 08:15 Labs: Laboratory Results - last 24 hr 05/08/24 05/08/24 05/08/24 11:00 16:10 20:05 Anion Gap Estim Creat Clear Calc Estimated GFR POC Glucose 349 H 210 H 214 H Random Glucose Calcium 05/09/24 05/09/24 07:34 08:15 Anion Gap 12 Estim Creat Clear Calc 49.0 Estimated GFR 48 POC Glucose 152 H Random Glucose 156 H Calcium 9.1 Assessment and Plan (1) Closed patellar sleeve fracture of right knee: Status: Acute (2) Fall: Status: Acute Plan The patient is a 73-year-old male with a PMH significant for COPD, insulin-dependent type 2 diabetes, HTN, HLD, monoclonal gammopathy, carotid stenosis, CKD 3, depression, and anxiety. He initially presented to the emergency department yesterday, 05/03, after an unwitnessed fall while walking in the street. He was found to have orthostatic hypotension. Imaging showed a right maxillary sinus fracture, a nondisplaced proximal right humerus fracture, and a nondisplaced left patella fracture. He was initially considered for discharge to rehab from the ED; however, due to persistent orthostatic hypotension and hyperglycemia, he was admitted for further management. Orthostatic hypotension is likely related to dehydration, as evidenced by NEVILLE, and his BP medications. He was given midodrine and IVF. Lisinopril has been stopped, and he is clinically doing much better at this point. The fall resulted in right maxillary, right humerus, and left patellar fractures (no hip fracture). This is related to the above. The right arm is in a sling, and the left knee is in a brace; the patient is non-weightbearing. The patient denies lightheadedness/dizziness prior to the fall but endorses chronic lightheadedness for the past few months with a negative workup by his PCP. PT recommends STR. Ortho recommend outpatient follow up Hyperkalemia, resolved after Lokelma; lisinopril was stopped. CKD3/ NEVILLE: Prerenal due to dehydration, resolved with IVF. Insulin-dependent type 2 diabetes, with hyperglycemia, now resolved. He was restarted on Lantus and Glipizide and a diabetic diet. Metformin has been on hold due to renal failure. HLD: Continue statin. Anemia--Hgb 12 gio dmission dropped to 8, no evidence of acute loss, ? dilutional vs fracture related loss. most recent HTN: Soft BP; lisinopril discontinued. BP has been soft, and the patient is orthostatic. Mood disorder: Continue sertraline. dvt prophylaxis: lovenox diet: diabetic diet DNR/DNI--confirmed with daughter, and patient. STR rec by PT Quality Stroke Does the patient have a stroke diagnosis?: No VTE Prior VTE?: No VTE Risk Level:: Medical - moderate - high VTE Device Contraindication: Treatment Not Indicated VTE Drug Contraindication: N/A - Med Ordered
[2024-05-09 11:02] LABS: Glucose, Whole Blood 295 mg/dL (60-115)
[2024-05-09 11:51] VITALS: BP 133/67; BP 134/52; PULSE 75; PULSE 82
[2024-05-09 11:52] VITALS: BP 128/66; PULSE 102
[2024-05-09] MEDS: Enoxaparin Sodium 40 MG/0.4 ML SYRINGE SUBCUT (12:00)
[2024-05-09 15:25] VITALS: BP 138/69; PULSE 81; RESP 17; TEMP 36.6; O2SAT 95
[2024-05-09 16:08] LABS: Glucose, Whole Blood 228 mg/dL (60-115)
[2024-05-09 19:17] VITALS: BP 140/65; PULSE 77; RESP 18; TEMP 36.6; O2SAT 96
[2024-05-09 19:31] LABS: Glucose, Whole Blood 245 mg/dL (60-115)
[2024-05-10] MEDS: oxyCODONE HCl Immed Release 5 MG TABLET PO ×3 (04:43→16:46)
[2024-05-10 07:07] VITALS: BP 136/66; PULSE 87; RESP 16; TEMP 36.8; O2SAT 92
[2024-05-10 07:11] LABS: Glucose, Whole Blood 161 mg/dL (60-115)
[2024-05-10] MEDS: Insulin Lispro 100 UNIT/ML 3 ML VIAL SUBCUT ×3 (08:08→16:46)
[2024-05-10] MEDS: Insulin Glargine,Hum.rec.anlog 100 UNIT/ML 10 ML VIAL 16 UNIT SUBCUT (08:09)
[2024-05-10] MEDS: Atorvastatin Calcium 80 MG TABLET PO (08:09)
[2024-05-10] MEDS: Aspirin Enteric Coated 81 MG TABLET.DR PO (08:09)
[2024-05-10] MEDS: Ferrous Sulfate 324 MG TABLET.DR PO (08:10)
[2024-05-10] MEDS: busPIRone HCl 10 MG TABLET PO ×2 (08:10→15:07)
[2024-05-10] MEDS: glipiZIDE 5 MG TABLET PO (08:10)
[2024-05-10] MEDS: 0.9 % Sodium Chloride Flush 3 ML SYRINGE IVFLUSH (08:10)
[2024-05-10] MEDS: Sertraline HCL 100 MG TABLET PO (08:10)
--- NOTE | 2024-05-10 08:34 | HO.PM.IMPN ---
Subjective Subjective Date of Service: 05/10/24 Interval History: Overall feels better Physical Exam Vital Signs: Vital Signs: Last Vital Signs Temp 98.2 F 05/10/24 07:07 Pulse 87 05/10/24 07:07 Resp 16 05/10/24 07:07 BP 136/66 05/10/24 07:07 Pulse Ox 92 05/10/24 07:07 O2 Del Method Room Air 05/10/24 07:07 BMI result Body Mass Index 26.1 Const: Other: General: AO X 3, no acute distress Resp: CTA bilateral CVS: S1,S2,RRR GI: +BS, NT, no distention Skin: No rash msk: right arm sling, and left leg imobilizer Neuro: motor grossly intact Psych: appropriate affect Objective Data Active Medications Acetaminophen (Acetaminophen 325 Mg Tablet) 650 mg PO Q6H PRN PRN Reason: Pain, Mild 1-3,fever,headache Last Admin: 05/08/24 23:38 Dose: 650 mg Documented By: SHIRLEY Aspirin (Aspirin Enteric Coated 81 Mg Tablet.) 81 mg PO DAILY [facility] Last Admin: 05/10/24 08:09 Dose: 81 mg Documented By: SHRUTHI Atorvastatin Calcium (Atorvastatin Calcium 80 Mg Tablet) 80 mg PO DAILY [facility] Last Admin: 05/10/24 08:09 Dose: 80 mg Documented By: SHRUTHI Buspirone HCl (Buspirone Hcl 10 Mg Tablet) 10 mg PO TID [facility] Last Admin: 05/10/24 08:10 Dose: 10 mg Documented By: SHRUTHI Calcium Carbonate (Calcium Carbonate 750 Mg Tab.Chew) 750 mg PO Q4H PRN PRN Reason: Heartburn Dextrose (Dextrose 50 % 25 Gm/50 Ml Syringe) 25 gm IVPUSH Q15M PRN; Protocol PRN Reason: per Hypoglycemia Standing Ord. Enoxaparin Sodium (Enoxaparin Sodium 40 Mg/0.4 Ml Syringe) 40 mg SUBCUT Q24H [facility] Last Admin: 05/09/24 12:00 Dose: 40 mg Documented By: SHRUTHI Ferrous Sulfate (Ferrous Sulfate 324 Mg Tablet.) 324 mg PO DAILY [facility] Last Admin: 05/10/24 08:10 Dose: 324 mg Documented By: SHRUTHI Glipizide (Glipizide 5 Mg Tablet) 5 mg PO BID [facility] Last Admin: 05/10/24 08:10 Dose: 5 mg Documented By: SHRUTHI Glucose (Glucose Gel 15 Gm Gel..Gram.) 15 gm PO Q15M PRN; Protocol PRN Reason: per Hypoglycemia Standing Ord. Insulin Glargine (Insulin Glargine,Hum.Rec.Anlog 100 Unit/Ml 10 Ml Vial) 16 unit SUBCUT DAILY [facility] Last Admin: 05/10/24 08:09 Dose: 16 unit Documented By: SHRUTHI Insulin Human Lispro (Insulin Lispro 100 Unit/Ml 3 Ml Vial) 0 unit SUBCUT QIDACHS [facility]; Protocol Last Admin: 05/10/24 08:08 Dose: 2 unit Documented By: SHRUTHI Magnesium Hydroxide (Milk Of Magnesia 30 Ml Oral.Susp) 30 ml PO DAILY PRN PRN Reason: Constipation Melatonin (Melatonin 3 Mg Tablet) 6 mg PO BEDTIME PRN PRN Reason: Insomnia Nicotine Polacrilex (Nicotine Polacrilex 2 Mg Gum) 2 mg BUCCAL Q2H PRN PRN Reason: Nicotine Cravings Last Admin: 05/06/24 17:12 Dose: 2 mg Documented By: RIK Ondansetron HCl (Ondansetron Hcl 4 Mg/2 Ml Vial) 4 mg IVPUSH Q8H PRN PRN Reason: Nausea and Vomiting Oxycodone HCl (Oxycodone Hcl Immed Release 5 Mg Tablet) 5 mg PO Q6H PRN PRN Reason: Pain, Severe (Pain Scale 7-10) Last Admin: 05/10/24 04:43 Dose: 5 mg Documented By: MARINA Sertraline HCl (Sertraline Hcl 100 Mg Tablet) 100 mg PO BID [facility] Last Admin: 05/10/24 08:10 Dose: 100 mg Documented By: SHRUTHI Sodium Chloride (0.9 % Sodium Chloride Flush 3 Ml Syringe) [facility] Last Admin: 05/10/24 08:10 Dose: 3 ml Documented By: SHRUTHI Labs 05/06/24 10:47 05/09/24 08:15 Labs: Laboratory Results - last 24 hr 05/09/24 05/09/24 05/09/24 08:15 10:58 16:03 Anion Gap 12 Estim Creat Clear Calc 49.0 Estimated GFR 48 POC Glucose 295 H 228 H Random Glucose 156 H Calcium 9.1 05/09/24 05/10/24 19:20 07:05 Anion Gap Estim Creat Clear Calc Estimated GFR POC Glucose 245 H 161 H Random Glucose Calcium Assessment and Plan (1) Closed patellar sleeve fracture of right knee: Status: Acute (2) Fall: Status: Acute Plan The patient is a 73-year-old male with a PMH significant for COPD, insulin-dependent type 2 diabetes, HTN, HLD, monoclonal gammopathy, carotid stenosis, CKD 3, depression, and anxiety. He initially presented to the emergency department yesterday, 05/03, after an unwitnessed fall while walking in the street. He was found to have orthostatic hypotension. Imaging showed a right maxillary sinus fracture, a nondisplaced proximal right humerus fracture, and a nondisplaced left patella fracture. He was initially considered for discharge to rehab from the ED; however, due to persistent orthostatic hypotension and hyperglycemia, he was admitted for further management. Orthostatic hypotension is likely related to dehydration, as evidenced by NEVILLE, and his BP medications. He was given midodrine and IVF. Lisinopril has been stopped, and he is clinically doing much better at this point. The fall resulted in right maxillary, right humerus, and left patellar fractures (no hip fracture). This is related to the above. The right arm is in a sling, and the left knee is in a brace; the patient is non-weightbearing. The patient denies lightheadedness/dizziness prior to the fall but endorses chronic lightheadedness for the past few months with a negative workup by his PCP. PT recommends STR. Ortho recommend outpatient follow up Hyperkalemia, resolved after Lokelma; lisinopril was stopped and resolved CKD3/ NEVILLE: Prerenal due to dehydration, resolved with IVF. Insulin-dependent type 2 diabetes, with hyperglycemia, now resolved. He was restarted on Lantus and Glipizide and a diabetic diet. Metformin has been on hold due to renal failure. HLD: Continue statin. Anemia--Hgb 12 gio dmission dropped to 8, no evidence of acute loss, ? dilutional vs fracture related loss. most recent HTN: Soft BP; lisinopril discontinued. BP has been soft, and the patient is orthostatic. Mood disorder: Continue sertraline. dvt prophylaxis: lovenox diet: diabetic diet DNR/DNI--confirmed with daughter, and patient. STR rec by PT Quality Stroke Does the patient have a stroke diagnosis?: No VTE Prior VTE?: No VTE Risk Level:: Medical - moderate - high VTE Device Contraindication: Treatment Not Indicated VTE Drug Contraindication: N/A - Med Ordered
--- NOTE | 2024-05-10 08:46 | P.DS_ITS ---
DS: Providers Provider Date of Service: 05/10/24 Date of admission: 05/04/24 12:32 Date of discharge: 05/10/24 Primary care physician: Kath Bose MD DS: Diagnosis Discharge Diagnosis (1) Orthostatic hypotension: Status: Acute (2) Fall: Status: Acute DS: Summary Hospital Course Hospital Course: admission hpi Chief Complaint: Fall at home The pt is a 73-year-old male with a PMH significant for COPD, insulin-dependent type 2 diabetes, HTN, HLD, monoclonal gammopathy carotid stenosis CKD 3, depression anxiety who initially presented to the emergency department yesterday on 05/03 after unwitnessed fall while walking in the streets. Pt reports he was walking outside of his home when his legs felt weak and he fell forward, striking head, right shoulder, and left knee on the ground, but without LOC. Denied lightheadedness or dizziness prior to fall. No recent illness. Pt reports has chronic diarrhea since childhood with 1 episode of liquid/loose stool each morning, at baseline. States has been eating and drinking normally. Does report has had lightheadedness and dizziness for the past few months especially at the grocery store when he looks up to the top shelf. Workup for this has so far been negative. Currently, pt reports pain is well-controlled on current analgesic regimen. Today, workup in the ED was significant for right maxillary sinus fracture, nondisplaced proximal right humerus fracture, and nondisplaced left patella fracture, as well as hyperglycemia of random glucose 404, and mild hyperkalemia of 5.5. Pt also noted to be orthostatic and given 2 L of IVF as well as midodrine. Was initially placed in physician observation and seen by both case management and physical therapy with plan for short-term rehab placement. However, pt continued to be orthostatic this morning and will be admitted to the hospital for treatment and further evaluation of persistent orthostatic hypotension in the setting of fall at home with multiple fractures. Hospital course: The patient is a 73-year-old male with a PMH significant for COPD, insulin- dependent type 2 diabetes, HTN, HLD, monoclonal gammopathy, carotid stenosis, CKD 3, depression, and anxiety. He initially presented to the emergency department yesterday, 05/03, after an unwitnessed fall while walking in the street. He was found to have orthostatic hypotension. Imaging showed a right maxillary sinus fracture, a nondisplaced proximal right humerus fracture, and a nondisplaced left patella fracture. He was initially considered for discharge to rehab from the ED; however, due to persistent orthostatic hypotension and hyperglycemia, he was admitted for further management. Orthostatic hypotension is likely related to dehydration, as evidenced by NEVILLE, and his BP medications. He was given midodrine and IVF. Lisinopril has been stopped, and he is clinically doing much better at this point. I will encourage oral fluid intake and stopping all BP meds. The fall resulted in right maxillary, right humerus, and left patellar fractures (no hip fracture). This is related to the above. The right arm is in a sling, and the left knee is in a brace; the patient is non-weightbearing. The patient denies lightheadedness/dizziness prior to the fall but endorses chronic lightheadedness for the past few months with a negative workup by his PCP. PT recommends STR. Hyperkalemia, resolved after Lokelma; lisinopril was stopped. NEVILLE: Prerenal due to dehydration, resolved with IVF. Insulin-dependent type 2 diabetes, with hyperglycemia, now resolved. He was restarted on Lantus and Glipizide and a diabetic diet. Metformin has been on hold due to renal failure. CKD 3: Stable. HLD: Continue statin. HTN: Soft BP; lisinopril discontinued. BP has been soft, and the patient is orthostatic. Mood disorder: Continue sertraline. To short term rehab for less than 30 days Time Attestation Discharge Coordination Time (in mins): 45 Quality: Safe Use of Opioids Does Pt have an Active Cancer Diagnosis on the Problem List?: No Quality: Stroke Does the patient have a stroke diagnosis?: No Physical Exam Vital Signs: Vital Signs: Selected Entries 05/10/24 07:07 Temperature 98.2 F Pulse Rate 87 Respiratory Rate 16 Blood Pressure 136/66 Pulse Oximetry 92 Oxygen Delivery Me thod Room Air Const: Other: General: AO X 3, no acute distress Resp: CTA bilateral CVS: S1,S2,RRR GI: +BS, NT, no distention Skin: No rash msk: right arm sling, and left leg imobilizer Neuro: motor grossly intact Psych: appropriate affect DS: Data Data Completed and Pending Labs on day of discharge: Laboratory Results - last 24 hr 05/05/24 05/05/24 05/05/24 13:34 15:44 20:09 POC Glucose 207 H 130 H 233 H 05/06/24 06:56 POC Glucose 147 H Discharge Plan Discharge Anticipated Discharge Date/Time: 05/10/24 10:40 Patient Disposition: Xfer SNF Discharge Diagnosis: Fall, multiple fractures, orthostatic Hypotension, [facility]Other] - 1 Week Kath Bose MD [Primary Care Provider] - 1 Week Discharge Medications: New magnesium hydroxide [Milk of Magnesia] 400 mg/5 mL Suspension 30 ml PO DAILY PRN (Reason: Constipation) Qty: 355 0RF oxycodone 5 mg Tablet 5 mg PO Q6H PRN (Reason: Pain, Severe (Pain Scale 7-10)) Qty: 20 0RF Rx Instructions: Partial Fill upon patient request. insulin lispro [Admelog U-100 Insulin lispro] 100 unit/mL Solution See Protocol subcut QIDACHS Qty: 10 0RF Protocol: Insulin Correction Scale Less than or equal to 110 ---- Give (units): 0 111 to 150 Give (units): 0 151 to 200 Give (units): 2 201 to 250 Give (units): 4 251 to 300 Give (units): 6 301 to 350 Give (units): 8 Greater than 350 Give (units): 10 Call if Blood Glucose > : 350 melatonin 3 mg Tablet 6 mg PO BEDTIME PRN (Reason: Insomnia) Qty: 30 0RF Spiriva Respimat 1.25 mcg/actuation mist 2 inh inhalation DAILY Qty: 4 0RF Continued aspirin 81 mg tablet,delayed release (DR/EC) 81 mg PO DAILY ferrous sulfate [FeroSul] 325 mg (65 mg iron) tablet 325 mg PO QAM rosuvastatin 20 mg tablet 20 mg PO BEDTIME buspirone 10 mg tablet 10 mg PO TID glipizide 5 mg tablet 5 mg PO BID sertraline 100 mg tablet 100 mg PO BID insulin glargine [Lantus Solostar U-100 Insulin] 100 unit/mL (3 mL) insulin pen 16 unit subcut DAILY Discontinued metformin 500 mg tablet 1,000 mg PO BID lisinopril 2.5 mg tablet 2.5 mg PO DAILY Discharge Orders: Discharge Order (Routine); Ordered 05/10/24 Ordered By: Gian Gaxiola Diet: Diabetic diet Activity on Discharge: As tolerated Stand Alone Forms: Patient Portal Discharge page Print Language: Czech Care Plan Goals: recovery fromfall and multiple fractures Health Concerns: falls, orthostatic hypotension Plan of Treatment: To short term rehab for less than 30 days stop taking lisinopril and metformin Assessment: see above
[2024-05-10 11:26] LABS: Glucose, Whole Blood 282 mg/dL (60-115)
[2024-05-10 11:57] VITALS: BP 129/84; PULSE 88; RESP 16; TEMP 36.7; O2SAT 94
[2024-05-10] MEDS: Enoxaparin Sodium 40 MG/0.4 ML SYRINGE SUBCUT (12:02)
--- NOTE | 2024-05-10 13:28 | MHC.CM.PN ---
pt will be dcd shani to [facility] at 3;30 DGTER NOTIFIED
[2024-05-10] MEDS: Acetaminophen 325 MG TABLET 650 MG PO (15:07)
[2024-05-10 15:08] VITALS: BP 125/66; PULSE 75; RESP 20; TEMP 36.2; O2SAT 95
[2024-05-10 16:38] LABS: Glucose, Whole Blood 205 mg/dL (60-115)
== END 2024-05-10 17:42 | disposition skilled nursing facility (03) | DRG 312 ==
LOC: HO.ED 05-04 10:01 → HO.EDOVER 05-04 12:42 → HO.S3 05-05 11:44
PROVIDERS: Internal Medicine; Nurse Practitioner Family; Registered Nurse Emergency; Admitting Provider Student in an Organized Health Care Education/Training Program; Emergency Provider Emergency Medicine Emergency Medical Services; PCP General Practice; Visit Provider Internal Medicine
DX: I95.1 Orthostatic hypotension (principal); S02.40CA Maxillary fracture, right side, initial encounter for closed fracture; S42.201A Unspecified fracture of upper end of right humerus, initial encounter for closed fracture; S82.002A Unspecified fracture of left patella, initial encounter for closed fracture; N17.9 Acute kidney failure, unspecified; F17.210 Nicotine dependence, cigarettes, uncomplicated; D47.2 Monoclonal gammopathy; Z71.6 Tobacco abuse counseling; E78.5 Hyperlipidemia, unspecified; N18.30 Chronic kidney disease, stage 3 unspecified; Z66 Do not resuscitate; E11.65 Type 2 diabetes mellitus with hyperglycemia; E11.22 Type 2 diabetes mellitus with diabetic chronic kidney disease; D63.1 Anemia in chronic kidney disease; I12.9 Hypertensive chronic kidney disease with stage 1 through stage 4 chronic kidney disease, or unspecified chronic kidney disease; E87.5 Hyperkalemia; J44.9 Chronic obstructive pulmonary disease, unspecified; W19.XXXA Unspecified fall, initial encounter; D50.0 Iron deficiency anemia secondary to blood loss (chronic); Z20.822 Contact with and (suspected) exposure to COVID-19; Z79.82 Long term (current) use of aspirin; Z79.85 Long-term (current) use of injectable non-insulin antidiabetic drugs; Z79.899 Other long term (current) drug therapy
CPT/HCPCS: 0241U; 36415; 70450; 70486; 71045; 72125; 73030; 73521; 73564; 80048; 80053; 81003; 82248; 82947; 83735; 84132; 84484; 85025; 85027; 85610; 93005; 97110; 97162; 97530; 97535; 99285; J1650; J7120

== ENCOUNTER → 2024-05-03 19:09 | Outpatient (BNV) | payer MEDICARE, MEDICAID, SELFPAY | PROVIDERS: Emergency Provider Emergency Medicine Emergency Medical Services; Visit Provider Radiology Diagnostic Radiology | DX: M25.511 Pain in right shoulder (principal); J43.9 Emphysema, unspecified | CPT/HCPCS: 70450; 70486; 71045; 72125; 73030 ==

== ENCOUNTER → 2024-05-03 19:10 | Outpatient (BNV) | payer MEDICARE, MEDICAID, SELFPAY | PROVIDERS: Emergency Provider Emergency Medicine Emergency Medical Services; Visit Provider Internal Medicine Cardiovascular Disease | DX: I95.1 Orthostatic hypotension (principal); I10 Essential (primary) hypertension; E78.00 Pure hypercholesterolemia, unspecified | CPT/HCPCS: 93010 ==

== ENCOUNTER → 2024-05-04 02:32 | Outpatient (BNV) | payer MEDICARE, MEDICAID, SELFPAY | PROVIDERS: Emergency Provider Emergency Medicine Emergency Medical Services; Visit Provider Radiology Diagnostic Radiology | DX: S82.092A Other fracture of left patella, initial encounter for closed fracture (principal); M16.0 Bilateral primary osteoarthritis of hip | CPT/HCPCS: 73521; 73564 ==

== ENCOUNTER → 2024-05-04 12:32 | Outpatient (BNV) | payer MEDICARE, MEDICAID, SELFPAY | PROVIDERS: Admitting Provider Student in an Organized Health Care Education/Training Program; Emergency Provider Emergency Medicine Emergency Medical Services; PCP General Practice; Visit Provider Student in an Organized Health Care Education/Training Program | DX: I95.1 Orthostatic hypotension (principal); E11.65 Type 2 diabetes mellitus with hyperglycemia; W19.XXXA Unspecified fall, initial encounter | CPT/HCPCS: 99222; 99232 ==

== ENCOUNTER 2024-05-20 07:06 | Outpatient (REF) | payer MEDICARE, MEDICAID, SELFPAY ==
--- NOTE | ~2024-05-20 | XR_ITS ---
EXAMINATION: XR SHOULDER, RIGHT CLINICAL INFORMATION: M25.519 - Pain in unspecified shoulder COMPARISON: May 03, 2024. TECHNIQUE: Two views of the right shoulder. FINDINGS: There is no periosteal bone reaction or callus formation in the comminuted fracture right humeral neck. There is worsening malalignment. Degenerative changes in the acromioclavicular joint. Osteopenia versus osteoporosis. XR/XR shoulder RT min 2V IMPRESSION: No healing comminuted displaced fracture, right humeral neck. Electronically signed by: Steven Hurley MD 05/20/2024 10:57 AM [facility]
--- NOTE | ~2024-05-20 | XR_ITS ---
EXAMINATION: XR KNEE, LEFT CLINICAL INFORMATION: M25.569 - Pain in unspecified knee COMPARISON: May 04, 2024. TECHNIQUE: Two views of the left knee. FINDINGS: There is no callus formation in the patella fracture. No gross malalignment. Osteopenia versus osteoporosis. No suprapatellar bursa joint effusion. Vascular calcifications. XR/XR knee LT 2V IMPRESSION: No healing patella fracture. Electronically signed by: Steven Hurley MD 05/20/2024 10:55 AM [facility]
--- OUTSIDE RECORDS SUMMARY | 2024-05-21 07:09 | XMS_ITS | Encounter Summary ---
Author Organization [employer] Address [address] [place] [address] Care Team Providers Care Drafter Refrigeration Name Role Phone Kath Bose MD Primary Care Provider Encounter Details Date Type Department Care Team ([facility] Contact Info) Description 04/25/2024 Telephone [facility] MEDICINE [address] [place] [address] Yessenia Ramirez, LIAM Social History Tobacco Use [...] understanding, reports they sent a message through [employer] requesting a follow up appointment within the [...] documented in this encounter Plan of Treatment Not on file documented as of this encounter Visit Diagnoses Not on filedocumented in this encounter Additional Health Concerns Assessment Noted Time PHQ-9 Depression Total Score: 12 024 2:19 PM EDT documented as of this encounter Care Teams Drafter Refrigeration Relationship Specialty Start Date End Date Kath Bose MD [address] [place] [address] PCP - General Family Medicine 09/23/23 documented as of this encounter
--- OUTSIDE RECORDS SUMMARY | 2024-05-21 07:09 | XMS_ITS ---
Author Organization [facility] Address Unknown Allergies, Adverse Reactions, Alerts Substance Reaction Status Noted Date Resolved Date Codeine active 05/10/2024 Medications Medication Dose Frequency Directions Start Date End Juvenal e Magnesium Hydroxide Oral Suspension 400 MG/5ML 30 mL 24 h Give 30 ml by mouth one time a day for constipation 05/11/2024 05/16/2024 Spiriva Respimat Inhalation Aerosol Solution 1.25 MCG/ACT 2 24 h 2 inhalation inhal e orally one time a day for SOB 05/11/2024 Insulin Lispro Injection Solution 100 UNIT/ML Inject as per letty g scale: if 151 - 200 = 2; 201 - 250 = 4; 251 - 300 = 6; 301 - 350 = 8; 351 - 400 = 10 > 350 call MD if blood sugar is > 350, subcutaneously before meals for diabetes Mellitus type 2 05/11/2024 glipiZIDE Oral Tablet 5 MG 5 mg 12 h Give 5 mg by mouth t wo times a day for DM 05/11/2024 Rosuvastatin Calcium Oral Tablet 20 MG 1 {tbl} Give 1 tablet by monisha th at bedtime for Treat cholesterol and triglyceride 05/11/2024 Melatonin Oral Tablet 1 {tbl} Give 1 tablet by mouth every 24 hours as needed for insomnia 05/10/2024 05/10/2024 busPIRone HCl Oral Tablet 10 MG 10 mg 8 h Give 10 mg by mouth three times a day for mood 05/11/2024 oxyCODONE HCl Oral Tablet 5 MG 1 {tbl} Give 1 tablet by monisha th every 06 hours as needed for pain 05/10/2024 Sertraline HCl Oral Tablet 100 MG 100 mg 12 h Give 100 mg by mouth two times a day for depression 05/11/2024 Aspirin Oral Tablet Delayed Release 81 MG 1 {tbl} 24 h Give 1 tablet by m out one time a day for pain 05/11/2024 Insulin Glargine Max SoloStar Subcutaneous Solution Pen-injector 300 UNIT/ML 16 24 h Inject 16 unit subcutaneously one time a day for DM 05/11/2024 05/11/2024 Ferrous Sulfate Oral Tablet 325 mg Give 325 mg by mouth in the morning for anemia 05/11/2024 Melatonin Oral Tablet 6 mg Give 6 mg by mouth every 24 hours as needed for insomnia 05/11/2024 Fleet Enema Enema 7-19 GM/118ML 1 {Dose} Insert 1 dose rectal ly as needed for Constipation (Step 3) as needed if no bowel movement for 8 hours after bisacodyl suppository. 05/11/2024 Milk of Magnesia Suspension 400 MG/5ML 30 mL Give 30 ml by mout h as needed for Constipation (Step 1) As needed if no bowel movement for three days. (Do not use for Hemodialysis patients). 05/11/2024 Acetaminophen Tablet 325 MG 2 {tbl} Give 2 tablet by monisha th every 6 hours as needed for Pain Pain Total dosage for acetaminophen and medications that contain acetaminophen should not exceed 3 grams / 24 hours. 05/11/2024 Acetaminophen Tablet 325 MG 2 {tbl} Give 2 tablet by monisha th every 6 hours as needed for Fever greater than 100.0F Total dosage for acetaminophen and medications that contain acetaminophen should not exceed 3 grams / 24 hours. 05/11/2024 Bisacodyl Suppository 10 MG 1 Insert 1 suppository rectally as needed for If no bowel movement for 8 hours after Milk of Magnesia 05/11/2024 Insulin Glargine Subcutaneous Solution 100 UNIT/ML 16 Inject 16 unit subcutaneously in the morning related to TYPE 2 DIABETES MELLITUS WITH HYPERGLYCEMIA (E11.65) 05/12/2024 Lovenox Injection Solution Prefilled Syringe 40 MG/0.4ML 40 mg Inject 40 mg subcutaneously in the morning related to UNSPECIFIED FRACTURE OF LEFT PATELLA, SUBSEQUENT ENCOUNTER FOR CLOSED FRACTURE WITH ROUTINE HEALING (S82.002D) 05/12/2024 Nicotine Transdermal Patch 24 Hour 14 MG/24HR 14 mg Apply 14 mg transdermally one time only for nicotine sensation until 05/11/2024 16:59 05/11/2024 05/11/2024 Nicotine Step 2 Transdermal Patch 24 Hour 14 MG/24HR 14 mg Apply 14 mg transdermally in the morning for smoking sensation and remove per schedule 05/12/2024 Glutose 45 Gel 40 % 1 {Dose} Give 1 d ose by mouth as needed for hypoglycemic protocol Give one tube PO/SL if FSBS <50 and able to swallow PRN. Recheck FSBS 10 minutes after administration and call provider. 05/12/2024 GlucaGen HypoKit Solution Reconstituted 1 MG 1 mg Inject 1 mg subcutaneously as needed for hypoglycemic protocol Special instructions: Glucagen 1 mg hypokit subcutaneous if FSBS below 60 and unable to swallow.Recheck FSBS in 10 minutes and update provider. 05/12/2024 Insulin Lispro Injection Solution 100 UNIT/ML 4 Inject 4 unit subcutaneously one time only for x 1 with additional 10 units for a total of 14 units for 1 Day for blood sugar of 512 05/15/2024 05/16/2024 Medications Administered Medication Dose Frequency Status Start Date End Date Magnesium Hydroxide Oral Suspension 400 MG/5ML 30 mL 24 h Drug Refused 05/16/2024 Spiriva Respimat Inhalation Aerosol Solution 1.25 MCG/ACT 2 24 h 05/20/2024 Insulin Lispro Injection Solution 100 UNIT/ML Other / See Progres s Notes?? 05/20/2024 glipiZIDE Oral Tablet 5 MG 5 mg 12 h O ther / See Progress Notes?? 05/20/2024 Rosuvastatin Calcium Oral Tablet 20 MG 1 {tbl} 05/20/2024 Melatonin Oral Tablet 1 {tbl} 05/10/19 25 busPIRone HCl Oral Tablet 10 MG 10 mg 8 h Other / See Progress Notes?? 05/20/2024 oxyCODONE HCl Oral Tablet 5 MG 1 {tbl} 05/20/2024 Sertraline HCl Oral Tablet 100 MG 100 mg 12 h 05/20/2024 Aspirin Oral Tablet Delayed Release 81 MG 1 {tbl} 24 h 05/20/2024 Insulin Glargine Max SoloStar Subcutaneous Solution Pen-injector 300 UNIT/ML 16 24 h 05/11/2024 Ferrous Sulfate Oral Tablet 325 mg 05/20/2024 Melatonin Oral Tablet 6 mg 05/11/19 25 Fleet Enema Enema 7-19 GM/118ML 1 {Dose} 05/11/2024 Milk of Magnesia Suspension 400 MG/5ML 30 mL 05/11/2024 Acetaminophen Tablet 325 MG 2 {tbl} 05/14/2024 Acetaminophen Tablet 325 MG 2 {tbl} 05/11/2024 Bisacodyl Suppository 10 MG 1 05/11/2024 Insulin Glargine Subcutaneous Solution 100 UNIT/ML 16 05/20/2024 Lovenox Injection Solution Prefilled Syringe 40 MG/0.4ML 40 mg 05/20/2024 Nicotine Transdermal Patch 24 Hour 14 MG/24HR 14 mg 05/11/2024 Nicotine Step 2 Transdermal Patch 24 Hour 14 MG/24HR 14 mg 05/20/2024 Glutose 45 Gel 40 % 1 {Dose} 05/12/2024 GlucaGen HypoKit Solution Reconstituted 1 MG 1 mg 05/12/2024 Insulin Lispro Injection Solution 100 UNIT/ML 4 05/15/2024 Problems Problem Status Start Date End Date ORTHOSTATIC HYPOTENSION (Primary) (I95.1 - ICD-10-CM) ACTIVE 05/10/2024 TYPE 2 DIABETES MELLITUS WIT H HYPERGLYCEMIA (E11.65 - ICD-10-CM) ACTIVE 05/10/2024 UNSPECIFIED FRACTURE OF LEFT PATELLA, SUBSEQUENT ENCOUNTER FOR CLOSED FRACTURE WITH ROUTINE HEALING (S82.002D - ICD-10-CM) ACTIVE 05/10/2024 UNSPECIFIED FRACTURE OF SHAF T OF HUMERUS, RIGHT ARM, SUBSEQUENT ENCOUNTER FOR FRACTURE WITH ROUTINE HEALING (S42.301D - ICD-10-CM) ACTIVE 05/10/2024 MAXILLARY FRACTURE, RIGHT SI DE, SUBSEQUENT ENCOUNTER FOR FRACTURE WITH ROUTINE HEALING (S02.40CD - ICD-10-CM) ACTIVE 05/10/2024 UNSPECIFIED FALL, SUBSEQUENT ENCOUNTER (W19.XXXD - ICD-10-CM) ACTIVE 05/10/2024 CHRONIC OBSTRUCTIVE PULMONAR Y DISEASE, UNSPECIFIED (J44.9 - ICD-10-CM) ACTIVE 05/10/2024 OTHER ABNORMALITIES OF GAIT AND MOBILITY (R26.89 - ICD-10-CM) ACTIVE 05/10/2024 MUSCLE WEAKNESS (GENERALIZED) (M62.81 - ICD-10-CM) ACT MARKEL 05/10/2024 UNSTEADINESS ON FEET (R26.81 - ICD-10-CM) ACTIVE 05/10/2024 ABNORMAL POSTURE (R29.3 - ICD-10-CM) ACTIVE 04/23 DYSPHAGIA, ORAL PHASE (R13.11 - ICD-10-CM) ACTIVE 05/10/2024 HISTORY OF FALLING (Z91.81 - ICD-10-CM) ACTIVE 0 05/10/2024 PRISON (CURRENT) USE OF INSULIN (Z79.4 - ICD-10-CM) ACTIVE 05/10/2024 HYPERLIPIDEMIA, UNSPECIFIED (E78.5 - ICD-10-CM) ACTIVE 05/10/2024 MONOCLONAL GAMMOPATHY (D47.2 - ICD-10-CM) ACTIVE 05/10/2024 OCCLUSION AND STENOSIS OF UN SPECIFIED CAROTID ARTERY (I65.29 - ICD-10-CM) ACTIVE 05/10/2024 CHRONIC KIDNEY DISEASE, STAG E 3 UNSPECIFIED (N18.30 - ICD-10-CM) ACTIVE 05/10/2024 HYPERTENSIVE HEART AND CHRON IC KIDNEY DISEASE WITH HEART FAILURE AND STAGE 1 THROUGH STAGE 4 CHRONIC KIDNEY DISEASE, OR UNSPECIFIED CHRONIC KIDNEY DISEASE (I13.0 - ICD-10-CM) ACTIVE 05/10/2024 DEPRESSION, UNSPECIFIED (F32.A - ICD-10-CM) ACTIVE 05/10/2024 ANXIETY DISORDER, UNSPECIFIED (F41.9 - ICD-10-CM) ACTI VE 05/10/2024 ESSENTIAL (PRIMARY) HYPERTENSION (I10 - ICD-10-CM) RES OLVED 05/10/2024 05/11/2024 TYPE 2 DIABETES MELLITUS WIT HOUT COMPLICATIONS (E11.9 - ICD-10-CM) RESOLVED 05/10/2024 05/11/2024 ANEMIA, UNSPECIFIED (D64.9 - ICD-10-CM) ACTIVE 0 05/10/2024 UNSPECIFIED MOOD [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 - ICD-10-CM) ACTIVE 05/10/2024 Encounters Encounter Performer Performer Role Encounter Diagnoses Location Date Discharge - [facility] 05/10/2024 06:06 pm EST - 05/20/2024 12:00 pm EST Immunizations Vaccine Date PVC20 12/25/2023 12:00 am EDT Pneumococcal conjugate PCV 13 05/27/2016 12:00 am EST Social History Vital Signs Vital Sign Reading Time Taken painLevel 0 {score} 05/20/2024 04:59 pm EST painLevel 6 {score} 05/20/2024 07:14 am EST painLevel 0 {score} 05/20/2024 07:09 am EST painLevel 0 {score} 05/19/2024 11:44 pm EST painLevel 0 {score} 05/19/2024 03:50 pm EST painLevel 1 {score} 05/19/2024 01:43 pm EST painLevel 0 {score} 05/19/2024 12:00 am EST painLevel 0 {score} 05/18/2024 03:53 pm EST painLevel 1 {score} 05/18/2024 10:11 am EST painLevel 2 {score} 05/18/2024 06:10 am EST painLevel 6 {score} 05/18/2024 03:28 am EST painLevel 1 {score} 05/17/2024 11:43 pm EST painLevel 0 {score} 05/17/2024 03:57 pm EST painLevel 0 {score} 05/17/2024 11:39 am EST painLevel 1 {score} 05/17/2024 06:13 am EST painLevel 6 {score} 05/17/2024 05:41 am EST painLevel 1 {score} 05/16/2024 11:13 pm EST painLevel 3 {score} 05/16/2024 08:29 pm EST painLevel 7 {score} 05/16/2024 07:46 pm EST bloodSugar 192 mg/dL 05/20/2024 07:16 am EST bloodSugar 192 mg/dL 05/20/2024 07:15 am EST bloodSugar 190 mg/dL 05/19/2024 04:34 pm EST bloodSugar 381 mg/dL 05/19/2024 11:57 am EST bloodSugar 251 mg/dL 05/19/2024 08:42 am EST bloodSugar 251 mg/dL 05/19/2024 07:46 am EST bloodSugar 274 mg/dL 05/18/2024 05:11 pm EST bloodSugar 400 mg/dL 05/18/2024 12:20 pm EST bloodSugar 283 mg/dL 05/18/2024 08:39 am EST bloodSugar 283 mg/dL 05/18/2024 08:37 am EST bloodSugar 345 mg/dL 05/17/2024 05:27 pm EST bloodSugar 363 mg/dL 05/17/2024 11:39 am EST bloodSugar 246 mg/dL 05/17/2024 08:34 am EST bloodSugar 246 mg/dL 05/17/2024 08:26 am EST oxygenSaturation 95 % 05/17/2024 02:1 7 pm EST heartrate 88 /min 05/17/2024 02:17 pm EST temperature 97.6 [degF] 05/17/2024 02:17 pm EST systolicValue 135 mm[Hg] 05/17/2024 02:17 pm EST diastolicValue 78 mm[Hg] 05/17/2024 02:17 pm EST respirations 16 /min 05/17/2024 02:17 pm EST
--- OUTSIDE RECORDS SUMMARY | 2024-05-21 07:09 | XMS_ITS | Patient Health Record ---
Author Organization [facility] Address [address] [facility] [place] [address] Care Team Providers Care Manager Women Name Role Phone Yohana Cifuentes Primary Care Provider Yg Thomson Unavailable [phone] Allergies No Known Allergies Reason For Referral [...] Problem Acquired hammer toe of right foot (35398788854353 05) Other hammer toe(s) (acquired), right foot (M20.41) Active confirmed Response to treatment,I mprovement Problem Type 2 diabetes mellitus with peripheral angiopathy (567970416) Type 2 diabetes mellitus with diabetic peripheral angiopathy without gangrene (E11.51) Active confirmed Problem Acquired hammer toe of left foot (79914699004391 03) Other hammer toe(s) (acquired), left foot (M20.42) Active confirmed Response to treatment,I mprovement Problem Essential hypertension (73694779) Essential hypertension (I10) Active confirmed Vital Signs Blood pressure diastolic 80 mm Hg 03/11/2024 Height 5ft11.5in in 03/11/2024 Blood pressure systolic 120 mm Hg 03/11/2024 Weight 165 lbs 03/11/2024 BMI 22.69 kg/m2 03/11/2024 Procedures Procedure Date Ordered Date Performed Result Body Sit e 47378-ZJKFZPD NAIL, 6 OR MORE 07/21/2023 N/A 22638-Frxmyajl Plate 07/21/2023 N/A 62903-JWRX SKIN LESIONS, OVER 4 07/21/2023 N/A 06959-CFEDLZL NAIL, 6 OR MORE 11/17/2023 N/A 97009-Fbvwoblv Plate 11/17/2023 N/A 29541-WKBW SKIN LESIONS, OVER 4 11/17/2023 N/A 03918-YKVGHNW NAIL, 6 OR MORE 03/11/2024 N/A 87454-LYBL SKIN LESIONS, OVER 4 03/11/2024 N/A Encounters Encounter Location Date Provider Diagnosis [facility] [address] [place] [address] 07/21/2023 Yg Soto Type 2 diabetes mellitus with diabetic peripheral angiopathy without gangrene E11.51 ; Tinea unguium B35.1 ; Pain in right toe(s) M79.674 ; Pain in left toe(s) M79.675 ; Other hammer toe(s) (acquired), right foot M20.41 ; Other hammer toe(s) (acquired), left foot M20.42 and Ingrown nail L60.[address] [address] 11/17/2023 Yg Soto Type 2 diabetes mellitus with diabetic peripheral angiopathy without gangrene E11.51 ; Tinea unguium B35.1 ; Pain in right toe(s) M79.674 ; Pain in left toe(s) M79.675 ; Ingrown nail L60.0 and Xerosis of skin L85.[address] [address] 03/11/2024 Yg Soto Type 2 diabetes mellitus [...] Treatment Pending Test Test Name Order Date 87579-ZIYWDQJ NAIL, 6 OR MORE 03/03/2023 43271-CLHXCPI NAIL, 6 OR MORE 07/21/2023 78086-ZYBLHHC NAIL, 6 OR MORE 11/17/2023 14735-DFYEWHK NAIL, 6 OR MORE 03/11/2024 49467-Kdmrtqbu Plate 07/21/2023 67396-Kjpowswl Plate 11/17/2023 44511-TGCO SKIN LESIONS, OVER 4 11/17/19 24 25884-TFXX SKIN LESIONS, OVER 4 07/21/19 24 09179-EKNC SKIN LESIONS, OVER 4 03/03/20 23 11317-EMXW SKIN LESIONS, OVER 4 03/11/20 24 Next Appt Details Provider Name:Yg Soto , 07/12/2024 01:00:00 PM, [address] [place], [address], Insurance Providers Payer Name Payer Address Payer Phone Subscriber Number Group Number Insured Name Patient Relationship to Insured Coverage Start Date Coverage End Date A[employer] Medicare Complete [address] [address] [place] [address] [id number] Boone Newby Self - patient is the insured Medical (General) History Medical History History ICD Code Back,Hip,and Knee pain Broken bones CAD (Cholesterol) Diabetic High blood pressure Lung disease Surgical History Surgery Date(Month/Year) hernia 2013
--- OUTSIDE RECORDS SUMMARY | 2024-05-21 07:09 | XMS_ITS | Encounter Summary ---
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 EFFECTIVE SINCE 11/05/2022 documented in this encounter Plan of Treatment Not on file documented as of this encounter Visit Diagnoses Not on filedocumented in this encounter Care Teams Manufacturing Systems Engineer Relationship Specialty Start Date End Date Kath Bose MD [address] [place] [address] PCP - General Family Medicine 09/23/23 documented as of this encounter
--- OUTSIDE RECORDS SUMMARY | 2024-05-21 07:09 | XMS_ITS | Encounter Summary ---
Author Organization [employer] Address [address] [facility] [address]t [place] [address] Care Team Providers Care Hand Candy Molder Name Role Phone Kath Bose MD Primary Care Provider [phone] Encounter Details Date Type Department Care Team [...] as of this encounter Plan of Treatment Not on file documented as of this encounter Visit Diagnoses Not on filedocumented in this encounter Additional Health Concerns Assessment Noted Time PHQ-9 Depression Total Score: 12 024 2:19 PM EDT documented as of this encounter Care Teams Hand Candy Molder Relationship Specialty Start Date End Date Kath Bose MD [address] [place] [address] PCP - General Family Medicine 09/23/23 documented as of this encounter
--- OUTSIDE RECORDS SUMMARY | 2024-05-21 07:09 | XMS_ITS | Encounter Summary ---
Author Organization [employer] Address [address] [facility] [address], [place] [address] Care Team Providers Care Adzing And Boring Machine Helper Name Role Phone Kath Bose MD Primary Care Provider [phone] Reason for Referral * Consultation (Routine) - Closed Specialty Diagnoses / Procedures Referred By [employer] chase Referred To Contact Hematology and Oncology Diagnoses Deformity of left ankle joint Kath Bose MD [address] [place] [address] Phone: tel: fax: [facility] [address] [place], [place] Phone: tel: fax: Referral ID Status Reason Start Date Expiration Date V isits Requested Visits Authorized [id number] Closed Specialty Services Required 10/14/2023 10/13/2024 1 1 Encounter Details Date Type Department Care Team (Late st Contact Info) Description 10/14/2023 Orders Only [facility] MEDICINE [address] [place] [address] Kath Bose MD [address] [place] [address] Abnormal serum protein electrophoresis (Primary Dx); Deformity [...] as of this encounter Plan of Treatment Scheduled Referrals Name Type Priority Associated Diagnoses [...] Serum (10/22/2023 1:38 PM EDT) IMMUNOGLOBULIN G 596 563 - 7120 mg/dL [facility] IMMUNOGLOBULIN A 123 70 - 320 mg/dL [facility] Immunoglobulin M 57 50 - 300 mg/dL [facility] Comment:THIS TEST WAS PERFOR MED AT:[employer] [place] [phone] CAVAZOS MD Immunofixation Result SEE NOTE [facility] Comment:Faint IgG kappa mono clonal band present. Blood Venous blood specimen / Unknown 10/22/2023 1:38 PM EDT 10/22/2023 3:55 PM EDT us Kath Bose MD LAB BLOOD ORDERABLES Final Res ult [facility] [address] [place] [address] [phone] documented in this encounter Visit Diagnoses Diagnosis Abnormal serum protein electrophoresis- Primary Deformity of left ankle joint documented in this encounter Additional Health Concerns Assessment Noted Time PHQ-9 Depression Total Score: 12 024 2:19 PM EDT documented as of this encounter Care Teams Adzing And Boring Machine Helper Relationship Specialty Start Date End Date Kath Bose MD [address] [place] [address] PCP - General Family Medicine 09/23/23 documented as of this encounter
--- OUTSIDE RECORDS SUMMARY | 2024-05-21 07:09 | XMS_ITS ---
Author Organization [facility] Address [address] [place] [address] Care Team Providers Care Auto Mechanic Name Role Phone Yohana Cifuentes Primary Care Provider Yg Thomson Unavailable [phone] Allergies No Known Allergies REASON FOR VISIT [...] Ordered Date Performed Result Body Sit e 83472-ZTIAFIS NAIL, 6 OR MORE 07/21/2023 N/A 52003-Ypuciyky Plate 07/21/2023 N/A 68589-QJGS SKIN LESIONS, OVER 4 07/21/2023 N/A Encounters Encounter Location Date Provider Diagnosis [facility] [address] [place] [address] 07/21/2023 Yg Soto Type 2 diabetes mellitus [...] Treatment Pending Test Test Name Order Date 87880-CVSZVXF NAIL, 6 OR MORE 07/21/2023 97218-Qcsrzhaz Plate 07/21/2023 73349-HDNZ SKIN LESIONS, OVER 4 07/21/19 24 Next Appt Details Follow Up: prn, Reason: Provider Name:Yg Soto , 07/12/2024 01:00:00 PM, [address] [place] [address], [address], Procedure Notes * Category Sub-Category Detail Notes [...] Motrin was recommended for pain or discomfort (90293) , DIABETES: Pt was advised as to [...] as necessary. Patient chooses, no pharmaceutical tx (42692) Keratoma Treatment Parring or Cutting o f Benign Hyperkeratotic Lesion(s) 71044 ( More than 4 Lesions ) - The Benign hyperkeratotic lesions, as described above were pared, and/or cut utilizing a sterile 15 blade, tissue nippers, and/or clarencemel , Q8 Progress Notes * Boone JAIME JrDOB:1950 (73 yo M)Acc No.[id number]:07/21/2023 Progress Note Patient:?Boone JAIME Jr Provider:?Yg Soto DPM :1950???Age:72 Y???Sex:Male Juvenal e:07/21/2023 Address:[address] [place] [address] [address], [facility] Pcp:Yohana Cifuentes Subjective: * Chief Complaints: * [...] 2 cups. ?Marital status: . ?Occupation: Retired [employer]. * Medications:?TakingVitamin C Insulin Vitamin D Psyllium [...] , TA??? Plan: * Treatment: 2.?Tinea unguium?Procedure: 56189-JYMESYY NAIL, 6 OR MORE 3.?Ingrown nail?Procedure: 04850-Hidsabfi Plate * Procedures:?Debride Nail 6-10:?Nail debridement?Nail debridement performed extensively to reduce/remove overall nail length, girth, thickness, subungual debris, and necrotic tissue, by manual and electrical means through the use of a nail nipper and/or dremel, to more viable healthy nail plate or bed tissue 1-5. Silver nitrate used for any petechial bleeding as necessary. Patient chooses, no pharmaceutical tx (03937).?Keratoma Treatment:?Parring or Cutting of Benign Hyperkeratotic Lesion(s)?30629 ( More than 4 Lesions ) - [...] Motrin was recommended for pain or discomfort (37444) , DIABETES: Pt was advised as to the risk of delayed or nonhealing due to diabetes. Pt is to call the office with any questions, concerns, or complications.? * Procedure Codes:?96154 Avuls ion Plate, Modifiers: XS , [id number] DEBRIDE NAIL, 6 OR MORE, Modifiers: XS 55861 TRIM SKIN LESIONS, OVER 4, Modifiers: XS [...] Soto DPM Date:?2023 Generated for Brayan curtis/Regina/Mirella on:?05/21/2024 07:09 AM EST History and Physical Notes * [...]
--- OUTSIDE RECORDS SUMMARY | 2024-05-21 07:09 | XMS_ITS | Encounter Summary ---
Author Organization [employer] Address [address] [facility] 7t [place] [address] Care Team Providers Care Crtts Name Role Phone Kath Bose MD Primary Care Provider [phone] Reason for Visit * Reason Comments Cough Encounter Details Date Type Department Care Team ([facility] Contact Info) Description 04/23/2024 9:40 AM EST Office Visit [facility] [address] [place] [address] Name, MD Kwasi [address] [place] [address] Cough, unspecified type (Primary Dx); Wheezing; COPD [...] Negative, Indeterminate Negative QC Media Lot # [id number] Rapid COVID Ag Negative Assessment/Plan Diagnoses and [...] 0.083% nebulizer solution 2.5 mg COPD exacerbation ([facility]) - albuterol 108 (90 Base) MCG/ACT [...] on file documented as of this encounter Procedures Procedure [...] EST Narrative 04/25/2024 7:38 AM EST ? [facility] ?[address] ?[place] [address] ?XRay Report ? Signed ? Patient: Keyonna,Boone ?MR#: [id number] ?? 76 ? : 1950 ?Acct:[id number] ? Age/Sex: 73 / M ?ADM Date: 02/01/25 ? Loc: HO.XRAY ? Attending Dr: Kwasi Gu MD ? Ordering Physician: Kwasi Gu MD ?? Date of Service: 04/23/24 ?? Procedure(s): XR chest 2V ?? Accession Number(s): [id number] ? cc: Kath Bose; Kwasi Gu MD [...] DD/ 1115 ? TD/TT: 04/23/24 1120 ? Manager User Experience: MSM ? Procedure Note Donotuseinterpreter, Image - 04/25/2024 [place] [address] XRay Report Signed Patient: Boone NewbyMR#: [id number] 76 : 1950cct:[id number] Age/Sex: 73 / MADM Date: 04/23/24 Loc: [facility]BEY Attending Dr: Kwasi Gu MD Ordering Physician: Kwasi Gu MD Date of Service: 04/23/24 Procedure(s): XR chest 2V Accession Number(s): [id number] cc: Kath Bose; Kwasi Gu MD EXAMINATION: [...] 04/25/24 0735 DD/ 1115 TD/TT: 04/23/24 1120 Manager User Experience: MARTÍN us Kwasi Gu MD IMG XR PROCEDURES Final Result * POCT Rapid Influenza B SAENZ ID NOW (04/23/2024 9:56 AM EST) Influenza B Negative Negative, Indeterminate [facility] QC Media Lot # [id number] [facility] Lot# Expiration Date [facility] Swab 04/23/2024 9:56 AM EST us Kwasi Gu MD POINT OF CARE TEST ENTER/EDIT OR DERABLES Final Result Performing Organization Address [facility] Co de Phone Number [facility] [address] [place] [phone] * POCT Rapid Influenza A SAENZ ID NOW (04/23/2024 9:56 AM EST) Influenza A Negative Negative, Indeterminate [facility] QC Media Lot # [id number] [facility] Lot# Expiration Date [facility] Swab 04/23/2024 9:56 AM EST us Kwasi Gu MD POINT OF CARE TEST ENTER/EDIT OR DERABLES Final Result Performing Organization Address [facility]/ZIP Co de Phone Number [facility] [address] [place] [phone] * POCT Rapid Strep A SAENZ ID NOW (04/23/2024 9:55 AM EST) Rapid Strep A Screen Negative Negative, None Detected QC Media Lot # [id number] Lot# Expiration Date Swab 04/23/2024 9:55 AM EST us Kwasi Gu MD POINT OF CARE TEST ENTER/EDIT OR DERABLES Final Result * POCT Rapid Covid-19 BinaxNOW (04/23/2024 9:55 AM EST) Rapid COVID Ag Negative QC Media Lot # [id number] Lot# Expiration Date [id number] Swab 04/23/2024 9:55 AM EST us Kwasi Name POINT OF CARE TEST ENTER/EDIT OR [...] documented as of this encounter Care Teams Crtts Relationship Specialty Start Date End Date Kath Bose MD [address] [place] [address] PCP - General Family Medicine 09/23/23 documented as of this encounter
--- OUTSIDE RECORDS SUMMARY | 2024-05-21 07:09 | XMS_ITS ---
Author Organization [facility] Address [address] [place] [address] Care Team Providers Care Sole Polisher Name Role Phone Yohana Cifuentes Primary Care Provider Yg Thomson Unavailable [phone] Allergies No Known Allergies REASON FOR VISIT [...] W/U Status Risk Notes Problem Essential hypertension (78086051) Essential hypertension (I10) Active confirmed Vital Signs Height 5ft11.5in in 03/11/2024 Weight 165 lbs 03/11/2024 BMI 22.69 kg/m2 03/11/2024 Blood pressure systolic 120 mm Hg 03/11/20 24 Blood pressure diastolic 80 mm Hg 024 Procedures Procedure Date Ordered Date Performed Result Body Sit e 47138-PFGOFZC NAIL, 6 OR MORE 03/11/2024 N/A 58397-ANFO SKIN LESIONS, OVER 4 03/11/2024 N/A Encounters Encounter Location Date [facility] [address] [place] [address] 03/11/2024 Yg Soto Type 2 diabetes mellitus [...] days Pending Test Test Name Order Date 79783-FWGFTJI NAIL, 6 OR MORE 03/11/2024 67152-CZQQ SKIN LESIONS, OVER 4 03/11/20 24 Next Appt Details Follow Up: prn, Reason: Provider Name:Yg Soto , 07/12/2024 01:00:00 PM, [address] [place] [address], [address], Procedure Notes * Category Sub-Category Detail Notes [...] use of a nail nipper and/or dremel-type glaze grinder, to a more viable healthy nail [...] to maintain effectiveness in symptomatic relief - 71804 Keratoma Treatment Parring or Cutting o f [...] instrumentation by the physician of record - 19970, Q8 Progress Notes * Boone JAIME JrDOB:1950 (73 yo M)Acc No.[id number]:03/11/2024 Progress Note Patient:?Boone JAIME Jr Provider:?Yg Soto DPM :1950???Age:73 Y???Sex:Male Juvenal e:03/11/2024 Address:[address] [place] [address] [address], [facility] Pcp:Yohana Cifuentes Subjective: * Chief Complaints: * [...] to recommendations??? Plan: * Treatment: 2.?Tinea unguium?Procedure: 87077-UXFZKDZ NAIL, 6 OR MORE 3.?Xerosis of skin? [...] use of a nail nipper and/or dremel-type glaze grinder, to a more viable healthy nail [...] to maintain effectiveness in symptomatic relief - 01779.?Keratoma Treatment:?Parring or Cutting of Benign Hyperkeratotic Lesion(s)?(-57) [...] instrumentation by the physician of record - 20278, Q8.? * Procedure Codes:?20404 DEBRI DE NAIL, 6 OR MORE, Modifiers: XS 46556 TRIM SKIN LESIONS, OVER 4, Modifiers: XS [...] DPM Date:?2023 Generated for Brayan curtis/Regina/Mirella on:?05/21/2024 07:08 AM EST History and Physical Notes * [...]
--- OUTSIDE RECORDS SUMMARY | 2024-05-21 07:09 | XMS_ITS ---
Author Organization [facility] Address [address] [place] [address] Care Team Providers Care Napping Machine Operator Name Role Phone Yohana Cifuentes Primary Care Provider Yg Thomson Unavailable [phone] Allergies No Known Allergies REASON FOR VISIT [...] Ordered Date Performed Result Body Sit e 94668-WRGOEHG NAIL, 6 OR MORE 11/17/2023 N/A 97224-Uddrwygm Plate 11/17/2023 N/A 21375-GJRC SKIN LESIONS, OVER 4 11/17/2023 N/A Encounters Encounter Location Date Provider Diagnosis [facility] [place] [address] [place] [address] 11/17/2023 Yg Soto Type 2 diabetes mellitus [...] days Pending Test Test Name Order Date 45314-RBFORFA NAIL, 6 OR MORE 11/17/2023 68002-Jhgefgch Plate 11/17/2023 17002-JCDP SKIN LESIONS, OVER 4 11/17/19 24 Next Appt Details Follow Up: prn, Reason: Provider Name:Yg Soto , 07/12/2024 01:00:00 PM, [address] [place], [address], Procedure Notes * Category Sub-Category Detail Notes [...] Motrin was recommended for pain or discomfort (05579) , DIABETES: Pt was advised as to [...] use of a nail nipper and/or dremel-type graphite grinder, to a more viable healthy nail plate or bed tissue 6-10. Silver nitrate used for any petechial bleeding as necessary. Definitive antifungal treatment options have been reviewed and discussed with the patient. The patient chooses, no pharmaceutical tx (83236) Keratoma Treatment Parring or Cutting o f Benign Hyperkeratotic Lesion(s) 87270 ( More than 4 Lesions ) - The Benign hyperkeratotic lesions, as described above were pared, and/or cut utilizing a sterile 15 blade, tissue nippers, and/or dremel , Q8 Progress Notes * Boone JAIME JrDOB:1950 (73 yo M)Acc No.[id number]:11/17/2023 Progress Note Patient:?Boone JAIME Jr Provider:?Yg Soto DPM :1950???Age:72 Y???Sex:Male Juvenal e:11/17/2023 Address:[address] [place] [address] [address], [facility] Pcp:Yohana Cifuentes Subjective: * Chief Complaints: * [...] Management (4)??? Plan: * Treatment: 2.?Tinea unguium?Procedure: 68141-DOUIUBP NAIL, 6 OR MORE 3.?Ingrown nail?Procedure: 81378-Mjdbwawb Plate 4.?Xerosis of skin? Start Ammonium Lactate [...] use of a nail nipper and/or dremel-type graphite grinder, to a more viable healthy nail plate or bed tissue 6-10. Silver nitrate used for any petechial bleeding as necessary. Definitive antifungal treatment options have been reviewed and discussed with the patient. The patient chooses, no pharmaceutical tx (39909).?Keratoma Treatment:?Parring or Cutting of Benign Hyperkeratotic Lesion(s)?44033 ( More than 4 Lesions ) - [...] Motrin was recommended for pain or discomfort (61863) , DIABETES: Pt was advised as to the risk of delayed or nonhealing due to diabetes. Pt is to call the office with any questions, concerns, or complications.? * Procedure Codes:?16931 DEBRI DE NAIL, 6 OR MORE, Modifiers: XS 66417 Avulsion Plate, Modifiers: XS , [id number] TRIM SKIN LESIONS, OVER 4, Modifiers: XS [...]
--- OUTSIDE RECORDS SUMMARY | 2024-05-21 07:09 | XMS_ITS | Encounter Summary ---
Author Organization [employer] Address [address] [facility] 7t [place] [address] Care Team Providers Care Informatica Mdm Architect Name Role Phone Kath Bose MD Primary Care Provider [phone] Encounter Details Date Type Department Care Team ([facility] Contact Info) Description 05/09/2024 Orders Only [facility] MEDICINE [address] [place], [place] [phone] Kath Bose MD [address] [place] [address] Social History Tobacco Use Types Packs/Day Years [...] documented as of this encounter Care Teams Informatica Mdm Architect Relationship Specialty Start Date End Date Kath Bose MD [address] [place] [address] PCP - General Family Medicine 09/23/23 documented as of this encounter
--- OUTSIDE RECORDS SUMMARY | 2024-05-21 07:09 | XMS_ITS | Clinical Summary ---
Author Organization [employer] Address [address] [facility] 7[address] [place] [address] Care Team Providers Care Jack Tamp Operator Name Role Phone Kath Bose MD Primary Care Provider [phone] Allergies No known active allergies Medications acetaminophen [...] test strip Use to check blood sugars. 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 F/u every 6 months with [facility] oncology CKD (chronic kidney disease) stage 3, [...] Department Care Team Description 05/09/2024 Orders Only [facility] [address] [place] [address] Kath Bose MD 04/25/2024 Telephone [facility] [address] [place] [phone] Yessenia Ramirez RN 04/23/2024 9:40 AM EST Office Visit [facility] [address] [place] [address] Name, MD Kwasi Cough, unspecified type (Primary Dx); Wheezing; COPD exacerbation ([facility]) 04/23/2024 Travel 04/05/2024 Orders Only [facility] External Provider, [facility] 04/05/2024 Refill [facility] [address] [place] [address] Kath Bose MD 04/05/2024 Refill [facility] [address] [place] [address] Kath Bose MD from Last 3 Months [...] 12/25/2023 11:07 AM EDT Plan of Treatment Health Maintenance Due Date Last Done Comments [...] Type 2 diabetes mellitus treated with insulin ([facility]) from Last 3 Months or Most Recently Relevant to Health Maintenance Results * XR Chest 2 Views (04/23/2024 11:15 AM EST) Anatomical Region Laterality Modality Chest Radiographic Terri ging 04/23/2024 11:1 5 AM EST Narrative 04/25/2024 7:38 AM EST ? [facility] ?[address] ?[place] [address] ?XRay Report ? Signed ? Patient: Boone Newby ?MR#: [id number] ?? 76 ? : 1950 ?Acct:[id number] ? Age/Sex: 73 / M ?ADM Date: 04/23/24 ? Loc: HO.XRAY ? Attending Dr: Kwasi Gu MD ? Ordering Physician: Kwasi Gu MD ?? Date of Service: 04/23/24 ?? Procedure(s): XR chest 2V ?? Accession Number(s): [id number] ? cc: Kath Bose; Kwasi Gu MD [...] 07:35 AM EST RP ? Dictated By: ?Yessi,Hero S MD ? Signed By: ?<Electronically signed by Hero S MD Yessi in OV> ?04/25/24 0735 ? DD/ 1115 ? TD/TT: 04/23/24 1120 ? Front Office Attendant: MSM ? Procedure Note Donlesia, Image - 04/25/[address] [address] XRay Report Signed Patient: Boone NewbyMR#: [id number] 76 : 1950cct:[id number] Age/Sex: 73 / MADM Date: 04/23/24 Loc: HO.XRAY Attending Dr: Kwasi Gu MD Ordering Physician: Kwasi Gu MD Date of Service: 04/23/24 Procedure(s): XR chest 2V Accession Number(s): [id number] cc: Kath Bose; Name,Kwasi ROGERS EXAMINATION: XR CHEST CLINICAL INFORMATION: COPD. One [...] 04/25/24 0735 DD/ 1115 TD/TT: 04/23/24 1120 Front Office Attendant: [facility] us Kwasi Gu MD IMG XR PROCEDURES Final Result * POCT Rapid Influenza B SAENZ ID NOW (04/23/2024 9:56 AM EST) Influenza B Negative Negative, Indeterminate [facility] QC Media Lot # [id number] [facility] Lot# Expiration Date [id number] [facility] Swab 04/23/2024 9:56 AM EST us Kwasi Gu MD POINT OF CARE TEST ENTER/EDIT OR DERABLES Final Result Performing Organization Address City/[facility]/ZIP Co de Phone Number [facility] [address] [place] [phone] * POCT Rapid Influenza A SAENZ ID NOW (04/23/2024 9:56 AM EST) Influenza A Negative Negative, Indeterminate [facility] QC Media Lot # [id number] [facility] Lot# Expiration Date [facility] Swab 04/23/2024 9:56 AM EST Kwasi Gu MD POINT OF CARE TEST ENTER/EDIT OR DERABLES Final Result Performing Organization Address [facility] Co de Phone Number [facility] [address] [place] [phone] * POCT Rapid Strep A SAENZ ID NOW (04/23/2024 9:55 AM EST) Rapid Strep A Screen Negative Negative, None Detected QC Media Lot # [id number] Lot# Expiration Date 4,026 Swab 04/23/2024 9:55 AM EST Kwasi Gu MD POINT OF CARE TEST ENTER/EDIT OR DERABLES Final Result * POCT Rapid Covid-19 BinaxNOW (04/23/2024 9:55 AM EST) Rapid COVID Ag Negative QC Media Lot # [id number] Lot# Expiration Date 7,026 Swab 04/23/2024 9:55 AM EST Kwasi Gu MD POINT OF CARE TEST ENTER/EDIT OR DERABLES Final Result * VASC US Carotid Artery Duplex Bilateral (04/06/2024 11:31 AM EST) 04/06/2024 11:3 1 AM EST Narrative [facility] - 04/06/2024 11:32 AM EST ? [facility] ?[address] ?[place] [address] ? Ultrasound Report ? Signed ? Patient: Keyonna,Boone ?MR#: [id number] ?? 76 ? : 1950 ?Acct:[id number] ? Age/Sex: 73 / M ?ADM Date: 04/05/24 ? Loc: HO.US ? Attending Dr: Marcin Hendrickson MD ? Ordering Physician: Marcin Hendrickson MD ?? Date of Service: 04/05/24 ?? Procedure(s): US carotid duplex BI ?? Accession Number(s): [id number] ? cc: Kath Bose; Marcin Hendrickson MD [...] signed by Vance Coles MD in OV> ?04/06/241131 ? DD/ 30 ? TD/TT: 04/06/24 1131 ? Front Office Attendant: ? Procedure Note Donotalexater, Image - 04/06/2024 [place] [address] Ultrasound Report Signed Patient: Boone NewbyMR#: [id number] 76 : 1950cct:[id number] Age/Sex: 73 / MADM Date: 04/05/24 Loc: HO.US Attending Dr: Marcin Hendrickson MD Ordering Physician: Marcin Hendrickson MD Date of Service: 04/05/24 Procedure(s): US carotid duplex BI Accession Number(s): [id number] cc: Kath Bose; Marcin Hendrickson MD CLINICAL [...] 04/06/24 1132 DD/ 1131 TD/TT: 04/06/24 1131 Front Office Attendant: [facility] External Provider CV VASC ULAR PROCEDURES Final Result [facility] [address] [place] [phone] * (ABNORMAL) POCT glycosylated hemoglobin (Hgb A1c) (12/25/2023 11:10 AM EDT) Hemoglobin A1C 6.8(A) 4.0 - 6.0 % QC Media Lot # [id number] Lot# Expiration Date 70,426 Blood Capillary blood specimen / Unknown 12/25/2023 11:10 AM EDT Kath Bose MD POINT OF CARE TEST ENTER/EDIT ORDERABLES Final Result from Last 3 Months or Most Recently Relevant to Health Maintenance Insurance [facility] MEDICARE REPLACEMENT Advance Directives Documents on File Type Date Recorded Patient Inward Toll Operator Expl anation Advance Directives and Living Will 09/23/2023 Health Care Proxy 09/23/23 HealthCare Proxy 09/23/2023 Care Teams Jack Tamp Operator Relationship Specialty Start Date End Date Kath Bose MD [address] [place] [phone] PCP - General Family Medicine 09/23/23
== END 2024-05-20 07:07 | disposition home or self-care (01) ==
LOC: HO.HOSX 07:06
PROVIDERS: Visit Provider Physician Assistant
DX: M25.562 Pain in left knee (principal); M25.511 Pain in right shoulder; S82.092A Other fracture of left patella, initial encounter for closed fracture; S42.201A Unspecified fracture of upper end of right humerus, initial encounter for closed fracture
CPT/HCPCS: 73030; 73560; 99202

== ENCOUNTER 2024-05-20 08:31 | Outpatient (AMB) | payer MEDICARE, MEDICAID, SELFPAY ==
--- OUTSIDE RECORDS SUMMARY | 2024-05-20 08:43 | XMS_ITS ---
Author Organization [facility] Address [address] [place] [address] Care Team Providers Care Embossograph Operator Name Role Phone Yohana Cifuentes Primary Care Provider Yg Thomson Unavailable [phone] Allergies No Known Allergies REASON FOR VISIT At Risk Footcare, Painful Nail(s) aggravated by shoes and causing difficulty standing/walking, Skinproblem(s) Medications Medication SIG (Take, Route, Frequency, Duration) Notes Start Date End Date Status metFORMIN HCl 1000 MG 1 tablet with a me al Orally Once a day for 90 days Active glipiZIDE 5 MG Oral for 90 Days Active Sertraline HCl 200 MG 1 capsule Orally O nce a day for 30 day(s) 01/27/2023 Active Extra Depth Orthopedic Shoes, (1) Pair With (3) Pair Custom Heat Molded Multidensity Innersoles Dx: NIDDM/PVD(E11.51), Hammertoe Foot Deformity(M20.41,M20.42), Preulcerative Skin Lesion(s)(L85.1) Wear Daily for 365 days 03/03/2023 Active busPIRone HCl 10 MG 1 tablet Orally Twic e a day 01/27/2023 Active Aspirin 81 MG 1 tablet Orally Once a day for 30 day(s) 01/27/2023 Active Rosuvastatin Calcium 10 MG Oral for 90 Days Active Ammonium Lactate 12 % 1 application Exte rnally to feet except for between the toes Twice a day for 30 days Active Multi Vitamin Active Psyllium Active Vitamin D Active Insulin Active Vitamin C Active Social History Tobacco Use: Social History [...] Problem Status W/U Status Risk Notes Problem Essential hypertension (24613460) Essential hypertension (I10) Active confirmed Vital Signs Height 5ft11.5in in 03/11/2024 Weight 165 lbs 03/11/2024 BMI 22.69 kg/m2 03/11/2024 Blood pressure systolic 120 mm Hg 03/11/20 24 Blood pressure diastolic 80 mm Hg 024 Procedures Procedure Date Ordered Date Performed Result Body Sit e 28736-FUTIHBP NAIL, 6 OR MORE 03/11/2024 N/A 79504-NGEG SKIN LESIONS, OVER 4 03/11/2024 N/A Encounters Encounter Location Date Provider [facility] [address] [place] [address] 03/11/2024 Yg Soto Type 2 diabetes mellitus with diabetic peripheral angiopathy without gangrene E11.51 ; Tinea unguium B35.1 ; Pain in right toe(s) M79.674 ; Pain in left toe(s) M79.675 and Xerosis of skin L85.3 Assessments Encounter Date Diagnosis (ICD Code) Assessment Notes Treatment Notes Treatment Clinical Notes Section Notes 03/11/2024 Type 2 diabetes mellitus with diabetic peripheral angiopathy without gangrene (ICD-10 - E11.51) 03/11/2024 Tinea unguium (ICD-10 - B35.1) 03/11/2024 Pain in right toe(s) (ICD-10 - M79.674) 03/11/2024 Pain in left toe(s) (ICD-10 - M79.675) 03/11/2024 Xerosis of skin (ICD-10 - L85.3) Plan Of Treatment Medication Medication Name Sig Start Date Stop Date Notes Ammonium Lactate 12 % 1 application Exte rnally to feet except for between the toes Twice a day for 30 days Pending Test Test Name Order Date 83550-DHNDRZS NAIL, 6 OR MORE 03/11/2024 47114-HZBX SKIN LESIONS, OVER 4 03/11/20 24 Next Appt Details Follow Up: prn, Reason: Provider Name:Yg Soto , 07/12/2024 01:00:00 PM, [address] [place] [address], [phone], Procedure Notes * Category Sub-Category Detail Notes Debride Nail 6-10 Nail debridement Due to the cl inical pathology outlined in the exam findings, performance of this nail treatment is medically necessary as its management by an unskilled/untrained nonprofessional would put this patients foot and overall health at risk. Therefore, debridement to affected nail(s), as described in exam ( TA, T1, T2, T3, T4, T5, T6, T7, T8, T9), was performed exclusively by the physician of record to reduce/remove overall nail length, girth, thickness, subungual debris, and necrotic tissue, by manual and/or electrical means through the use of a nail nipper and/or dremel-type lens shaper grinder, to a more viable healthy nail plate or bed tissue 6-10 nails in total. Silver nitrate was used for any petechial bleeding as necessary. Definitive antifungal treatment options, both pharmaceutical and surgical, have been reviewed and discussed with the patient. The patient solely prefers the use of intermittent/as needed professional debridement services for their nail condition and understands the need for additional periodic treatments to maintain effectiveness in symptomatic relief - 84124 Keratoma Treatment Parring or Cutting o f Benign Hyperkeratotic Lesion(s) (-57) More than 4 Lesions - Due to the at risk nature of the patients medical condition as documented in the exam findings, performance of this keratoderma treatment is medically necessary as its management by an unskilled/untrained nonprofessional would put this patients foot and overall health at risk. Therefore, the benign hyperkeratotic lesions, ( 10) in total, locations as stated and described in the exam ( Medial plantar , IPJ , TA , Medial plantar , IPJ , T5 , SUB MTH (s) , 1 , B/L , SUB MTH (s) , 5 , B/L , SUB 5th MTBase , B/L , Plantar, Heel(s) , B/L), were pared, and/or cut utilizing a sterile 15 blade, tissue nippers, and/or power dremel instrumentation by the physician of record - 69307, Q8 Progress Notes * Boone JAIME JrDOB:1950 (73 yo M)Acc No.[id number]:03/11/2024 Progress Note Patient:?Boone JAIME Jr Provider:?Yg Soto DPM :1950???Age:73 Y???Sex:Male Juvenal e:03/11/2024 Address:[address] [place] [address] [address], [facility] Pcp:Yohana Cifuentes Subjective: * Chief Complaints: * ???At Risk FootcarePainful N ail(s) aggravated by shoes and causing difficulty standing/walkingSkin problem(s) * HPI: ???At Risk footcare:?Pt States Last PCP Visit:?Date?10/26/2023 ???Skin problems:?Nature:?dryness , scaling.?Location:?B/L .?Treatments:?medication ( AM Lactin ), admits intermittent adherence to recommended application for no reason.? * ROS:?General/Constitutional:?Nausea?denies.?Vomiting?denies.?Hunger Thirst?denies.?Loss appetite?denies.?Chills?denies.?Fatigue?denies.?Fever?denies.?Night Sweats?denies.?Unexplained weight loss?denies.?Unexplained [...] year??No ?Points?0 ?Interpretation?Negative ???Miscellaneous:?Caffeine: yes, 2 cups. ?Children: yes. ?Exercise: [...] Foot Deformity(M20.41,M20.42), Preulcerative Skin Lesion(s)(L85.1) Wear Daily Ammonium Lactate 12 % Cream 1 application Externally to feet except for between the toes Twice a day Medication List reviewed and reconciled with the [...] Foot Deformity(M20.41,M20.42), Preulcerative Skin Lesion(s)(L85.1) Wear Daily Taking Ammonium Lactate 12 % Cream 1 application Externally to feet except for between the toes Twice a day Medication List reviewed and reconciled with the patient * Allergies:?N.K.D.A.yes[Makayla motta Verified] Objective: * Vitals:?Ht:5ft11.5in, Wt:165 , BMI:22.69, Shoe size:11, BP:120/80mm Hg, BS:not taken, Ht-cm: 181.61 cm, Wt-k.84 kg. * ???Past Orders: ???Lab:HEMOGLOBIN A1C (GLYCO HEMOGLOBIN) (Order Date - 03/03/2023) (Collection Date & Time - 03/24/2022) ? Value Reference Range ?HEMOGLOBIN A1C (HH) 5.5 * Examination: ???Ophthalmology Referral: ?DIABETES EYE EXAM?Procedure Performed:?Yes ?Date of Exam Performed?04/02/2023?Vascular: ?DP PULSES (B):? 0/4, B/L.?PT PULSES (B):?0/4 , LEFT , 1/4 , RIGHT.?CAPILLARY FILL TIME:? delayed, all digits, B/L.?TROPHIC CONDITION-TEXTURE/ELASTICITY/TURGOR/HAIR GROWTH (B):? decreased,?with sparse to absent hair growth, B/L.?TEMPERTURE GRADIENT (C):? decreased, cool to cool, proximal to distal, B/L.?PIGMENTATION:?mottled, B/L.?EDEMA (C):?absent, B/L.?CLAUDICATION (C):?denies, B/L.?REST PAIN:?denies, B/L.?Nails: ?NAILS are:?Elongated, overgrown, dystrophic, lytic, greater than 3mm thick, discolored and friable with crumbly malodorous subungual debris, with pain on palpation, TA, T1, T2, T3, T4, T5, T6, T7, T8, T9.?Dermatologic: ?SKIN FINDINGS:?Skin exam reveals Keratotic lesion(s) located at , Medial plantar , IPJ , TA , Medial plantar , IPJ , T5 , SUB MTH (s) , 1 , B/L , SUB MTH (s) , 5 , B/L , SUB 5th MTBase , B/L , Plantar, Heel(s) , B/L , Skin STILL, shows sign(s) of, dryness, scaling, in a stocking fashion, no fissure(s) present, B/L.? Assessment: * Assessment: 1.?Type 2 diabetes mellitus with diabetic peripheral angiopathy without gangrene - E11.51 (Primary)???2.?Tinea unguium - B35.1???3.?Pain in right toe(s) - M79.674???4.?Pain in left toe(s) - M79.675???5.?Xerosis of skin - L85.3???Specify :Acute problem, Uncomplicated (3),Rx Management (4) Response to treatment - Unchanged Nonadherent to recommendations??? Plan: * Treatment: 2.?Tinea unguium?Procedure: 10731-ZSILZPI NAIL, 6 OR MORE 3.?Xerosis of skin? Start Ammonium Lactate Cream, 12 %, 1 application, Externally to feet except for between the toes, Twice a day, 30 days, 60, Refills 2.?? * Procedures:?Debride Nail 6-10:?Nail debridement?Due to the clinical pathology outlined in the exam findings, performance of this nail treatment is medically necessary as its management by an unskilled/untrained nonprofessional would put this patients foot and overall health at risk. Therefore, debridement to affected nail(s), as described in exam ( TA, T1, T2, T3, T4, T5, T6, T7, T8, T9), was performed exclusively by the physician of record to reduce/remove overall nail length, girth, thickness, subungual debris, and necrotic tissue, by manual and/or electrical means through the use of a nail nipper and/or dremel-type lens shaper grinder, to a more viable healthy nail plate or bed tissue 6- 10 nails in total. Silver nitrate was used for any petechial bleeding as necessary. Definitive antifungal treatment options, both pharmaceutical and surgical, have been reviewed and discussed with the patient. The patient solely prefers the use of intermittent/as needed professional debridement services for their nail condition and understands the need for additional periodic treatments to maintain effectiveness in symptomatic relief - 34867.?Keratoma Treatment:?Parring or Cutting of Benign Hyperkeratotic Lesion(s)?(-57) More than 4 Lesions - Due to the at risk nature of the patients medical condition as documented in the exam findings, performance of this keratoderma treatment is medically necessary as its management by an unskilled/untrained nonprofessional would put this patients foot and overall health at risk. Therefore, the benign hyperkeratotic lesions, ( 10) in total, locations as stated and described in the exam (?Medial plantar?,?IPJ?,?TA?,?Medial plantar?,?IPJ?,?T5?,?SUB MTH (s)?,?1?,?B/L?,?SUB MTH (s)?,?5?,?B/L?,?SUB 5th MTBase?,?B/L?,?Plantar,?Heel(s)?,?B/L), were pared, and/or cut utilizing a sterile 15 blade, tissue nippers, and/or power dremel instrumentation by the physician of record - 92595, Q8.? * Procedure Codes:?10927 DEBRI DE NAIL, 6 OR MORE, Modifiers: XS 94935 TRIM SKIN LESIONS, OVER 4, Modifiers: XS , Q8 * Preventive Medicine:? ??Counseling:?Tobacco use:?Type of Tobacco Use Cessation Counseling provided?Smoking effects education ?Patient counseled on the dangers of smoking and urged to quit:?03/11/2024 ?Discussion:?-13: Office or other outpatient visit for [...] patient to call the office.?Xerosis:?The patient was again counseled on the diagnosis, potential etiologies, and [...] Soto DPM Date:?2023 Generated for Brayan curtis/Regina/Mirella on:?05/20/2024 08:43 AM EST History and Physical Notes * HPI (History of Present Illness) Category Sub-Category Detail Notes Category Not es Skin problems Nature: dryness , scaling Location: B/L Treatments: medication ( AM Lact in ), admits intermittent adherence to recommended application for no reason At Risk footcare Pt States Last PCP Visit: Date: Examination Category Sub-Category Detail Notes Category Not es Dermatologic SKIN FINDINGS: Skin exam reveal s Keratotic lesion(s) located at , Medial plantar , IPJ , TA , Medial plantar , IPJ , T5 , SUB MTH (s) , 1 , B/L , SUB MTH (s) , 5 , B/L , SUB 5th MTBase , B/L , Plantar, Heel(s) , B/L , Skin STILL, shows sign(s) of, dryness, scaling, in a [...] distal, B/L TROPHIC CONDITION-TEXTURE/ELASTICITY/TURGOR/HAIR GROWTH (B): decreased, with sparse to absent hair gr owth, B/L EDEMA (C): absent, B/L CLAUDICATION (C): denies, B/L REST PAIN: denies, B/L PIGMENTATION: mottled, B/L Nails NAILS are: Elongated, overg rown, dystrophic, lytic, greater than 3mm thick, discolored and friable with crumbly malodorous subungual debris, with pain on palpation, TA, T1, T2, T3, T4, T5, T6, T7, T8, T9
--- OUTSIDE RECORDS SUMMARY | 2024-05-20 08:43 | XMS_ITS | Encounter Summary ---
Author Organization [employer] Address [address] [place] [address] Care Team Providers Care Coupler Name Role Phone Kath Bose MD Primary Care Provider [phone] Encounter Details Date Type Department Care Team ([facility] Contact Info) Description 04/25/2024 Telephone [facility] [address] [place] [address] Yessenia Ramirez, LIAM Social History Tobacco Use Types Packs/Day Years Used Date Smoking Tobacco: Every Day Cigarettes Smokeless Tobacco: Never Alcohol Use Standard Drinks/Week Comments Never 0 (1 standard drink = 0.6 oz pur e alcohol) Depression Answer Date Recorded Patient Health Questionnaire-9 Score 12 09/23/2023 Patient Health Questionnaire-9 Score 12 09/23/2023 Last PHQ-9: Questionnaire Data Not on file 0 09/23/2023 Housing Stability Answer Date Recorded What is your housing situation today? I have halle belle 09/14/[address] you li ve. Do you have problems with any of the following? None of the above 09/14/2023 Food Insecurity Answer Date Recorded Within the past 12 months, y ou worried that your food would run out before you got money to buy more: Never True 09/14/2023 Within the past 12 months,th e food you bought just didn't last and you didn't have enough money to get more: Never True Transportation Answer Date Recorded In the past 12 months, has l ack of transportation kept you from medical appts, meetings, work or from getting things needed for daily living? Yes, it has kept me from medical appointments or getting medications. 09/23/2023 Utilities Answer Date Recorded In the past 12 months, has t he electric, gas, oil or water company threatened to shut off services in your home? No 09/14/2023 Depression Answer Date Recorded Patient Health Questionnaire-2 Score 6 09/23/2023 Internet Access Answer Date Recorded Internet Access Q1 Yes 11/20/2023 Internet Access Q2 Not on file 11/20/2023 Sex and Gender Information Value Date Recorded Sex Assigned at Male 09/23/2023 1:47 PM EDT Legal Sex Male 4:00 PM EDT Gender Identity Male 09/23/2023 1:47 PM EDT Sexual Orientation Don't know 09/23/2023 1: 47 PM EDT documented as of this encounter Miscellaneous Notes * Telephone Encounter - Yessenia Ramirez RN - 04/25/2024 9:26 AM EST Tc to pt via bls id: to le them know per covering provider Please call the patient or his daughter and let them know the X-ray of the chest is normal, there is no pneumonia . Daughter verbalized understanding, reports they sent a message through [employer] requesting a follow up appointment within the next two weeks to make sure pt does not have pneumonia and lungs are free of any abnormalities. Daughter informed there is no follow up a appointment available in the next two weeks, offered wi hours to dtr and encouraged to bring pt to be evaluated by another provider if pt becomes symptomatic.Daughter verbalized understanding and follow up appt on 05/27/24 scheduled with PCP. * Telephone Encounter - Yessenia Ramirez RN - 04/25/2024 9:20 AM EST ----- Message from Kwasi Gu MD sent at 04/25/2024 8:50 AM EST ----- Please call the patient or his daughter and let them know the X-ray of the chest is normal, there is no pneumonia documented in this encounter Plan of Treatment Upcoming Encounters Date Type Department Care Team (Late st Contact Info) Description 05/27/2024 2:15 PM EST Office Visit [facility] [address] [place] [address] Kath Bose MD [address] [place] [address] documented as of this encounter Visit Diagnoses Not on filedocumented in this encounter Additional Health Concerns Assessment Noted Time PHQ-9 Depression Total Score: 12 024 2:19 PM EDT documented as of this encounter Care Teams Coupler Relationship Specialty Start Date End Date Kath Bose MD [address] [place] [address] PCP - General Family Medicine 09/23/23 documented as of this encounter
--- OUTSIDE RECORDS SUMMARY | 2024-05-20 08:43 | XMS_ITS | Encounter Summary ---
Author Organization [employer] Address [address] [facility] 7t [place] [address] Care Team Providers Care Pull Over Machine Operator Name Role Phone Kath Bose MD Primary Care Provider [phone] Encounter Details Date Type Department Care Team ([facility] Contact Info) Description 05/09/2024 Orders Only [facility] [address] [place], [place] [phone] Kath Bose MD [address] [place] [address] Social History Tobacco Use Types Packs/Day Years [...] PM EDT documented as of this encounter Plan of Treatment Upcoming Encounters Date Type Department Care Team (Late st Contact Info) Description 05/27/2024 2:15 PM EST Office Visit [facility] [address] [place] [address] Kath Bose MD [address] [place] [address] documented as of this encounter Visit Diagnoses Not on filedocumented in this encounter Additional Health Concerns Assessment Noted Time PHQ-9 Depression Total Score: 12 024 2:19 PM EDT documented as of this encounter Care Teams Pull Over Machine Operator Relationship Specialty Start Date End Date Kath Bose MD [address] [place] [address] [phone] PCP - General Family Medicine 09/23/23 documented as of this encounter
--- OUTSIDE RECORDS SUMMARY | 2024-05-20 08:43 | XMS_ITS ---
Author Organization [facility] Address [address] [place] [address] Care Team Providers Care Hammer Runner Name Role Phone Yohana Cifuentes Primary Care Provider Yg Thomson Unavailable [phone] Allergies No Known Allergies REASON FOR VISIT [...] Ordered Date Performed Result Body Sit e 05632-NUICDYT NAIL, 6 OR MORE 11/17/2023 N/A 39394-Zygjkyuy Plate 11/17/2023 N/A 98433-LFPQ SKIN LESIONS, OVER 4 11/17/2023 N/A Encounters Encounter Location Date Provider Diagnosis [facility] [address] [place] [address] 11/17/2023 Yg Soto Type 2 diabetes mellitus [...] days Pending Test Test Name Order Date 89954-CFNPKOP NAIL, 6 OR MORE 11/17/2023 34694-Afiyhaog Plate 11/17/2023 61979-MEVN SKIN LESIONS, OVER 4 11/17/19 24 Next Appt Details Follow Up: prn, Reason: Provider Name:Yg Soto , 07/12/2024 01:00:00 PM, [address] [place], [address], Procedure Notes * Category Sub-Category Detail Notes [...] Motrin was recommended for pain or discomfort (44127) , DIABETES: Pt was advised as to [...] use of a nail nipper and/or dremel-type double end production grinder, to a more viable healthy nail plate or bed tissue 6-10. Silver nitrate used for any petechial bleeding as necessary. Definitive antifungal treatment options have been reviewed and discussed with the patient. The patient chooses, no pharmaceutical tx (71086) Keratoma Treatment Parring or Cutting o f Benign Hyperkeratotic Lesion(s) 28597 ( More than 4 Lesions ) - The Benign hyperkeratotic lesions, as described above were pared, and/or cut utilizing a sterile 15 blade, tissue nippers, and/or dremel , Q8 Progress Notes * Boone JAIME JrDOB:1950 (73 yo M)Acc No.[id number]:11/17/2023 Progress Note Patient:?Boone JAIME Jr Provider:?Yg Soto DPM :1950???Age:72 Y???Sex:Male Juvenal e:11/17/2023 Address:[address] [place] [address] [address], [facility] Pcp:Yohana Cifuentes Subjective: * Chief Complaints: * [...] patient * Allergies:?N.K.D.A.yes[Makayla motta Verified] Objective: * Vitals:?Ht: 5ft11.5in, Wt:16 5, [...] Management (4)??? Plan: * Treatment: 2.?Tinea unguium?Procedure: 71195-JHDBIBI NAIL, 6 OR MORE 3.?Ingrown nail?Procedure: 58350-Ipxgodgl Plate 4.?Xerosis of skin? Start Ammonium Lactate [...] use of a nail nipper and/or dremel-type double end production grinder, to a more viable healthy nail plate or bed tissue 6-10. Silver nitrate used for any petechial bleeding as necessary. Definitive antifungal treatment options have been reviewed and discussed with the patient. The patient chooses, no pharmaceutical tx (52752).?Keratoma Treatment:?Parring or Cutting of Benign Hyperkeratotic Lesion(s)?99063 ( More than 4 Lesions ) - [...] Motrin was recommended for pain or discomfort (06600) , DIABETES: Pt was advised as to the risk of delayed or nonhealing due to diabetes. Pt is to call the office with any questions, concerns, or complications.? * Procedure Codes:?95095 DEBRI DE NAIL, 6 OR MORE, Modifiers: XS 70802 Avulsion Plate, Modifiers: XS , [id number] TRIM SKIN LESIONS, OVER 4, Modifiers: XS [...]
--- OUTSIDE RECORDS SUMMARY | 2024-05-20 08:43 | XMS_ITS | Encounter Summary ---
Author Organization [employer] Address [address] [facility] 7[address] [place] [address] Care Team Providers Care Debug Technician Name Role Phone Kath Bose MD Primary Care Provider [phone] Reason for Visit * Reason Comments Cough Encounter Details Date Type Department Care Team ([facility] Contact Info) Description 04/23/2024 9:40 AM EST Office Visit [facility] [address] [place] [address] Name, MD Kwasi [address] [place] [address] Cough, unspecified type (Primary Dx); Wheezing; COPD exacerbation (CMS/HCC) Social History Tobacco Use Types Packs/Day Years [...] PM EDT documented as of this encounter Last Filed Vital Signs Vital Sign Reading Time Taken Comments Blood Pressure 144/87 04/23/2024 9:31 AM EST Pulse 97 04/23/2024 9:31 AM EST Temperature 36.9 ??C (98.4 ??F) 04/23/2024 9:31 AM ES T Respiratory Rate 20 04/23/2024 9:31 AM EST Oxygen Saturation 97% 04/23/2024 9:31 AM EST Inhaled Oxygen Concentration - - Weight 77.6 kg (171 lb) 04/23/2024 9:31 AM EST Height - - Body Mass Index 23.52 12/25/2023 11:07 AM EDT documented in this encounter Progress Notes * Kwasi Gu MD - 04/23/2024 9:40 AM EST Subjective Patient ID: Boone Newby is a 73 y.o. male who presents for Cough. Patient comes with his daughter for a week of cough, wheezing and SOB. No fevers or chills. He has chest discomfort associated with the cough. Patient is a smoker with COPD. He has inhalers at home that are . He does not use inhalers often. Review of Systems Constitutional: Negative for chills and fatigue. HENT: Negative for sore throat. Respiratory: Positive for cough, shortness of breath and wheezing. Cardiovascular: Negative for palpitations and leg swelling. Visit Vitals BP (!) 144/87 Pulse 97 Temp 98.4 ??F (36.9 ??C) (Oral) Resp 20 Wt 171 lb (77.6 kg) SpO2 97% BMI 23.52 kg/m?? Smoking Status Every Day BSA 1.98 m?? Objective Physical Exam Constitutional: General: He is not in acute distress. Cardiovascular: Rate and Rhythm: Normal rate and regular rhythm. Heart sounds: No murmur heard. Pulmonary: Effort: Pulmonary effort is normal. Breath sounds: Wheezing and rhonchi present. Latest Reference Range & Units 04/23/24 09:55 04/23/24 09:56 Rapid Strep A Screen Negative, None Detected Negative Influenza A Negative, Indeterminate Negative Influenza B Negative, Indeterminate Negative QC Media Lot # [id number] Rapid COVID Ag Negative Assessment/Plan Diagnoses and all orders for this visit: Cough, unspecified type Comments: Patient had one updraft treatment and felt better but he was still wheezing a lot. I prescribed himalbuterol, prednisone and course of doxy for home use. I will send him for chest X-ray. He is recommended to call or come back if not better by next week. I will contact him with the results of the X-ray. Orders: - POCT Rapid Covid-19 BinaxNOW - POCT Rapid Influenza A SAENZ ID NOW - POCT Rapid Influenza B SAENZ ID NOW - POCT Rapid Strep A SAENZ ID NOW - XR Chest 2 Views; Future - albuterol (2.5 MG/3ML) 0.083% nebulizer solution 2.5 mg Wheezing - XR Chest 2 Views; Future - albuterol (2.5 MG/3ML) 0.083% nebulizer solution 2.5 mg COPD exacerbation ([facility]) - albuterol 108 (90 Base) MCG/ACT inhaler; Inhale 2 puffs every 6 (six) hours if needed for wheezing. - predniSONE (Deltasone) 20 MG tablet; Take 2 tablets (40 mg) by mouth Once per day for 5 days. - doxycycline (Vibra-Tabs) 100 MG tablet; Take 1 tablet (100 mg) by mouth 2 times daily for 10 days. Take with a full glass of water and do not lie down for at least 30 minutes after. - albuterol (2.5 MG/3ML) 0.083% nebulizer solution 2.5 mg documented in this encounter Plan of Treatment Upcoming Encounters Date Type Department Care Team (Late st Contact Info) Description 05/27/2024 2:15 PM EST Office Visit [facility] MEDICINE [address] [place] [address] Kath oBse MD [address] [place] [address] documented as of this encounter Procedures Procedure Name Priority Date/Time Associated Diagnosis Comments XR CHEST 2 VIEWS Routine 04/23/2024 11:1 5 AM EST Cough, unspecified type Wheezing POCT INFLUENZA B (ID NOW RAPID MOLECULAR) Routine 04/23/2024 9:56 AM EST Cough, unspecified type POCT INFLUENZA A (ID NOW RAPID MOLECULAR) Routine 04/23/2024 9:56 AM EST Cough, unspecified type POC SAENZ ID NOW STREP A Routine 04/23/2024 9:55 AM EST Cough, unspecified type POCT RAPID COVID ANTIGEN Routine 04/23/2024 9:55 AM EST Cough, unspecified type documented in this encounter Results * XR Chest 2 Views (04/23/2024 11:15 AM EST) Anatomical Region Laterality Modality Chest Radiographic Terri ging 04/23/2024 11:1 5 AM EST Narrative 04/25/2024 7:38 AM EST ? [facility] ?[address] ?[place] [address] ?XRay Report ? Signed ? Patient: Keyonna,Boone ?MR#: [id number] ?? 76 ? : 1950 ?Acct:[id number] ? Age/Sex: 73 / M ?ADM Date: 02/01/25 ? Loc: HO.XRAY ? Attending Dr: Kwasi Gu MD ? Ordering Physician: Kwasi Gu MD ?? Date of Service: 04/23/24 ?? Procedure(s): XR chest 2V ?? Accession Number(s): [id number] ? cc: Kath Bose; Kwasi Gu MD ? EXAMINATION: ?? XR CHEST ? CLINICAL INFORMATION: ?? COPD. One week ??of cough, wheezing and SOB ? COMPARISON: ?? None available. ? TECHNIQUE: ?? 2 views of the chest were obtained. ? FINDINGS: ?? The lungs are hyperinflated but clear. Heart size and pulmonary ?? vascularity is normal. No gross bony abnormality seen. ? XR/XR chest 2V ?? IMPRESSION: ?? Unremarkable chest examination. ? Electronically signed by: ??Hero Dickson MD ??04/25/2024 07:35 AM EST RP ? Dictated By: ?Hero Dickson MD ? Signed By: ?<Electronically signed by Hero Dickson MD in OV> ?04/25/24 0735 ? DD/ 1115 ? TD/TT: 04/23/24 1120 ? Tobacco Sampler: MSM ? Procedure Note Yuridia Lennon - 04/25/2024 [place] [address] XRay Report Signed Patient: Boone NewbyMR#: [id number] 76 : 1950cct:[id number] Age/Sex: 73 / MADM Date: 04/23/24 Loc: HO.TERRIE Attending Dr: Kwasi Gu MD Ordering Physician: Kwasi Gu MD Date of Service: 04/23/24 Procedure(s): XR chest 2V Accession Number(s): [id number] cc: Kath Bose; Kwasi Gu MD EXAMINATION: XR CHEST CLINICAL INFORMATION: COPD. One week of cough, wheezing and SOB COMPARISON: None available. TECHNIQUE: 2 views of the chest were obtained. FINDINGS: The lungs are hyperinflated but clear. Heart size and pulmonary vascularity is normal. No gross bony abnormality seen. XR/XR chest 2V IMPRESSION: Unremarkable chest examination. Electronically signed by: Hero Dickson MD 04/25/2024 07:35 AM EST Dictated By: Hero Dickson MD Signed By: <Electronically signed by Hero Dickson MD in OV> 04/25/24 0735 DD/ 1115 TD/TT: 04/23/24 1120 Tobacco Sampler: [facility] us Kwasi Gu MD IMG XR PROCEDURES Final Result * POCT Rapid Influenza B SAENZ ID NOW (04/23/2024 9:56 AM EST) Influenza B Negative Negative, Indeterminate [facility] QC Media Lot # [id number] [facility] Lot# Expiration Date [facility] Swab 04/23/2024 9:56 AM EST us Kwasi Gu MD POINT OF CARE TEST ENTER/EDIT OR DERABLES Final Result Performing Organization Address [facility] Co de Phone Number [facility] [address] [place] [phone] * POCT Rapid Influenza A SAENZ ID NOW (04/23/2024 9:56 AM EST) Influenza A Negative Negative, Indeterminate [facility] QC Media Lot # [id number] [facility] Lot# Expiration Date [facility] Swab 04/23/2024 9:56 AM EST us Kwasi Gu MD POINT OF CARE TEST ENTER/EDIT OR DERABLES Final Result Performing Organization Address [facility] Co de Phone Number [facility] [address] [place] [address] [phone] * POCT Rapid Strep A SAENZ ID NOW (04/23/2024 9:55 AM EST) Rapid Strep A Screen Negative Negative, None Detected QC Media Lot # [id number] Lot# Expiration Date [id number] Swab 04/23/2024 9:55 AM EST us Kwasi Gu MD POINT OF CARE TEST ENTER/EDIT OR DERABLES Final Result * POCT Rapid Covid-19 BinaxNOW (04/23/2024 9:55 AM EST) Rapid COVID Ag Negative QC Media Lot # [id number] Lot# Expiration Date [id number] Swab 04/23/2024 9:55 AM EST us Kwasi Gu MD POINT OF CARE TEST ENTER/EDIT OR DERABLES Final Result documented in this encounter Visit Diagnoses Diagnosis Cough, unspecified type- Primary Wheezing COPD exacerbation (CMS/HCC) Obstructive chronic bronchitis with exacerbation documented in this encounter Administered Medications Inactive Administered Medications - up to 3 most recent administrations Medication Order MAR Action Action Date Dose Rate Site albuterol (2.5 MG/3ML) 0.083% nebulizer solution 2.5 mg 2.5 mg, Nebulization, Once, On 04/23/24 at 1000, For 1 doseIndications:Cough, unspecified type,Wheezing,COPD exacerbation (CMS/HCC) Given 04/23/2024 10:00 AM EST 2.5 mg documented in this encounter Additional Health Concerns Assessment Noted Time PHQ-9 Depression Total Score: 12 024 2:19 PM EDT documented as of this encounter Care Teams Debug Technician Relationship Specialty Start Date End Date Kath Bose MD [address] [place] [address] PCP - General Family Medicine 09/23/23 documented as of this encounter
--- OUTSIDE RECORDS SUMMARY | 2024-05-20 08:43 | XMS_ITS | Encounter Summary ---
Author Organization [employer] Address [address] [facility] [address]t [place] [address] Care Team Providers Care Letterset Press Set Up Operator Name Role Phone Kath Bose MD Primary Care Provider [phone] Encounter Details Date Type Department Care Team (Latest Contact Info) Description 04/23/2024 Travel Social History Tobacco Use Types Packs/Day Years [...] Description 05/27/2024 2:15 PM EST Office Visit [facility] MEDICINE [address] [place] [address] [phone] Kath Bose MD [address] [place] [phone] documented as of this encounter Visit Diagnoses Not on filedocumented in this encounter Additional Health Concerns Assessment Noted Time PHQ-9 Depression Total Score: 12 024 2:19 PM EDT documented as of this encounter Care Teams Letterset Press Set Up Operator Relationship Specialty Start Date End Date Kath Bose MD [address] [place] [address] [phone] PCP - General Family Medicine 09/23/23 documented as of this encounter
--- OUTSIDE RECORDS SUMMARY | 2024-05-20 08:44 | XMS_ITS | Encounter Summary ---
Author Organization [employer] Address [address] [facility] [address], [place] [address] Care Team Providers Care Account Executive Healthcare Name Role Phone Kath Bose MD Primary Care Provider [phone] Reason for Referral * Consultation (Routine) - Closed Specialty Diagnoses / Procedures Referred By [facility] chsae Referred To Contact Hematology and Oncology Diagnoses Deformity of left ankle joint Kath Bose MD [address] [place] [address] Phone: tel: fax: [facility] [address] [place], [place] Phone: tel: fax: Referral ID Status Reason Start Date Expiration Date V isits Requested Visits Authorized [id number] Closed Specialty Services Required 10/14/2023 10/13/2024 1 1 Encounter Details Date Type Department Care Team (Late st Contact Info) Description 10/14/2023 Orders Only [facility] [address] [place] [address] Kath Bose MD [address] [place] [address] Abnormal serum protein electrophoresis (Primary Dx); Deformity of left ankle joint Social History Tobacco Use Types Packs/Day Years [...] Recorded Patient Health Questionnaire-2 Score 6 09/23/2023 Sex and Gender Information Value Date Recorded Sex Assigned at Male 09/23/2023 1:47 PM EDT Legal Sex Male 4:00 PM EDT Gender Identity Male 09/23/2023 1:47 PM EDT Sexual Orientation Don't know 09/23/2023 1: 47 PM EDT documented as of this encounter Plan of Treatment Upcoming Encounters Date Type Department Care Team (Late st Contact Info) Description 05/27/2024 2:15 PM EST Office Visit [facility] [address] [place] [address] Kath Bose MD [address] [place] [address] Scheduled Referrals Name Type Priority Associated Diagnoses Order Schedule Referral to Hematology / Oncology Outpatient Referral Routine Deformity of left ankle joint Expected: 10/14/2023 (Approximate), Expires: 10/13/2024 documented as of this encounter Procedures Procedure Name Priority Date/Time Associated Diagnosis Comments IMMUNOFIXATION, SERUM Routine 10/22/2023 1:38 PM EDT Deformity of left ankle joint Abnormal serum protein electrophoresis documented in this encounter Results * Immunofixation, Serum (10/22/2023 1:38 PM EDT) IMMUNOGLOBULIN G 679 600 - 1540 mg/dL [facility] IMMUNOGLOBULIN A 123 70 - 320 mg/dL [facility] Immunoglobulin M 57 50 - 300 mg/dL [facility] Comment:THIS TEST WAS PERFOR MED AT:[employer] [place] [phone] CAVAZOS MD Immunofixation Result SEE NOTE [facility] Comment:Faint IgG kappa mono clonal band present. Blood Venous blood specimen / Unknown 10/22/2023 1:38 PM EDT 10/22/2023 3:55 PM EDT us Kath Bose MD LAB BLOOD ORDERABLES Final Res ult [facility] [address] [place] [phone] documented in this encounter Visit Diagnoses Diagnosis Abnormal serum protein electrophoresis- Primary Deformity of left ankle joint documented in this encounter Additional Health Concerns Assessment Noted Time PHQ-9 Depression Total Score: 12 09/22/ 024 2:19 PM EDT documented as of this encounter Care Teams Account Executive Healthcare Relationship Specialty Start Date End Date Kath Bose MD [address] [place] [address] PCP - General Family Medicine 09/23/23 documented as of this encounter
--- OUTSIDE RECORDS SUMMARY | 2024-05-20 08:44 | XMS_ITS | Encounter Summary ---
Author Organization [employer] Address [address] [facility] [address] [address] Care Team Providers Care Fiber Glass Worker Name Role Phone Kath Bose MD Primary Care Provider Reason for Visit * Reason Onset Date Comments New Patient 11/05/2022 Encounter Details Date Type Department Care Team (Late st Contact Info) Description 11/05/2022 Telephone [facility] [address] [place] [phone] Raad Leroy MD [address] [place] [address] New Patient Social History Tobacco Use Types Packs/Day Years Used Date Smoking Tobacco: Never Assessed Sex and Gender Information Value Date Recorded Sex Assigned at Male 09/23/2023 1:47 PM EDT Legal Sex Male 4:00 PM EDT Gender Identity Male 09/23/2023 1:47 PM EDT Sexual Orientation Don't know 09/23/2023 1: 47 PM EDT documented as of this encounter Miscellaneous Notes * Telephone Encounter - Jamilah Mai - 11/05/2022 4:05 PM EDT Pt has been transfer over to wait list for [employer] [facility]. EFFECTIVE SINCE 11/05/2022 documented in this encounter Plan of Treatment Upcoming Encounters Date Type Department Care Team (Late st Contact Info) Description 05/27/2024 2:15 PM EST Office Visit [facility] [address] [place] [address] Kath Bose MD [address] [place] [address] documented as of this encounter Visit Diagnoses Not on filedocumented in this encounter Care Teams Fiber Glass Worker Relationship Specialty Start Date End Date Kath Bose MD [address] [place] [address] PCP - General Family Medicine 09/23/23 documented as of this encounter
--- OUTSIDE RECORDS SUMMARY | 2024-05-20 08:44 | XMS_ITS | Clinical Summary ---
Author Organization [employer] Address [address] [facility] [address] [place] [address] Care Team Providers Care Payroll Examiner Name Role Phone Kath Bose MD Primary Care Provider [phone] Allergies No known active allergies Medications acetaminophen (Tylenol) 500 MG tablet Take 1,000 mg by mouth every 8 (eight) hours if needed. 08/29/19 23 Active ascorbic acid (Vitamin C) 1000 MG tablet Take 1 tablet by mouth Once per day. 02/23/20 13 Active aspirin 81 MG chewable tablet 1 tablet in the morning. 01/28/20 23 Active busPIRone (Buspar) 10 MG tablet Take 10 mg by mouth 3 times daily. 07/13/19 24 Active cholecalciferol (Vitamin D-3) 50 MCG (2000 UT) tablet Take 2,000 Units by mouth Once per day. 02/21/20 22 Active Precision QID Test test strip Use to check blood sugars. DashBurst freedom diagnostic strips Dx# E 11.9 04/23/19 23 Active insulin glargine (Lantus) 100 UNIT/ML pen Inject 16 Units under the skin at bedtime. 08/27/19 24 Active BD Pen Needle Aleena 2nd Gen 32G X 4 MM misc USE ONE EACH BY MISCELLANEOUS ROUTE DAILY 04/03/19 24 Active [facility] Thin Lancets misc 1 each by Other route before breakfast, before lunch, before evening meal, and at bedtime. 04/23/19 23 Active rosuvastatin (Crestor) 20 MG tablet Take 20 mg by mouth Once per day. 09/02/19 24 Active metFORMIN (Glucophage) 500 MG tablet 10/29/19 24 Active triamcinolone (Kenalog) 0.1 % cream Apply topically if needed in the morning and at bedtime for irritation. To your right upper back 30 g 2 12/25/19 24 Active nicotine polacrilex (Nicorette) 4 MG gumIndications:T obacco use Chew 1 each (4 mg) if needed for smoking cessation. 100 each 3 12/28/19 24 Active metFORMIN (Glucophage) 1000 MG tablet Take 1 tablet (1,000 mg) by mouth with breakfast and with evening meal. 180 tablet 3 02/08/20 24 Active lisinopril 2.5 MG tablet TAKE 1 TABLET BY MOUTH EVERY DAY 90 tablet 3 04/05/19 25 Active glipiZIDE (Glucotrol) 5 MG tablet TAKE 1 TABLET BY MOUTH TWICE A DAY 180 tablet 3 04/05/19 25 Active sertraline (Zoloft) 100 MG tablet TAKE 2 TABLETS BY MOUTH EVERY DAY 180 tablet 3 04/05/19 25 Active albuterol 108 (90 Base) MCG/ACT inhalerIndicatio ns:COPD exacerbation (CMS/HCC) Inhale 2 puffs every 6 (six) hours if needed for wheezing. 18 g 11 04/23/19 25 026 Active tiotropium (Spiriva HandiHaler) [address] 1 capsule (18 mcg) into inhaler and inhale in the morning. 30 capsule 05/09/19 026 Active predniSONE (Deltasone) 20 MG tabletIndication s:COPD exacerbation (CMS/HCC) Take 2 tablets (40 mg) by mouth Once per day for 5 days. 10 tablet 04/23/19 25 025 doxycycline (Vibra-Tabs) 100 MG tabletIndication s:COPD exacerbation (CMS/HCC) Take 1 tablet (100 mg) by mouth 2 times daily for 10 days. Take with a full glass of water and do not lie down for at least 30 minutes after. 20 tablet 04/23/19 25 025 Hospital, Clinic, or Other Facility Administered Medication Ordered Dose Route Frequency Start Date End Date Status albuterol (2.5 MG/3ML) 0.083% nebulizer solution 2.5 mgIndications:Cough, unspecified type,Wheezing,COPD exacerbation (CMS/HCC) 2.5 mg NEBULIZATION Once 04/23/2024 04/23/2024 Ended Active Problems Problem Noted Date Diagnosed Date Postural dizziness with presyncope 11/24/2023 Assessment & Plan (01/06/2024 1:12 PM EDT): Addendum 01/06/24, MRA resulted, pt continues with sense of presyncope when he raises his neck in extension. MRA results as follow: FINDINGS: Intracranial internal carotid arteries are patent. The intradural vertebral artery segments and basilar artery are patent. Visualized portions of the anterior, middle, and posterior cerebral artery complexes are normal. No intracranial large vessel occlusion. No identifiable aneurysm or high flow vascular lesion. IMPRESSION: Normal MR angiogram of the head. Consider carotid sinus syncope? Will refer to vascular for further evaluation. Assessment & Plan (11/24/2023 4:17 PM EDT): Will evaluate with MRA to see posterior circulation and rule out impingement or occlusion or narrowing Safety precautions advised Will consult vascular once MRA has been scheduled MGUS (monoclonal gammopathy of unknown significa nce) 11/09/2023 Overview (12/28/2023): MGUS dx 08/2023 due to workup for kenisha lesions on ankle xray that turned out to most likely be osteopenia, but revealed M protein spike on SPEP Assessment & Plan (12/28/2023 1:46 PM EDT): Neg CT abd/pelvis for neoplasia 10/2023 F/u every 6 months with [facility] oncology CKD (chronic kidney disease) stage 3, GFR 30-59 ml/min 09/25/2023 Assessment & Plan (11/24/2023 4:18 PM EDT): May require prehydration prior to contrasted study Assessment & Plan (09/25/2023 6:47 AM EDT): Avoid NSAIDs and other nephrotoxins Increase hydration with clear liquids Deformity of left ankle joint 09/25/2023 Anxiety and depression 05/20/2023 Overview (09/21/2023): Last Assessment & Plan: Patient states Zoloft and buspirone are helping with his anxiety and depression and he denies any symptoms appetite has improved and he gained weight Iron deficiency 05/20/2023 Type 2 diabetes mellitus treated with insulin Assessment & Plan (09/25/2023 6:49 AM EDT): Current A1c: 7.2 BMP: eGFR 40, BUN 37 Microalbumin: 235.8 Foot Exam: with podiatry Eye Exam: Discuss at follow up Lipid panel: ASCVD: Calculate pending updated labs Statin: Yes ASA: Yes JE/ARB: Yes Encouraged regular aerobic exercise for improved glycemic control Encouraged daily foot checks Encouraged lean protein snacks and to avoid foods high in sugar and simple carbohydrates Treatment Goals: A1c goal: <7% FBG goal: <130 2 hour post prandial goal: <180 Hearing loss of both ears due to cerumen impacti on 10/09/2022 Overview (09/21/2023): Last Assessment & Plan: After informed consent , ear canal was flushed with warm water to which hydrogen peroxide is added. Ear(s) were flushed and curette was used till all the cerumen came out . TM visualized after irrigation is completed .TM - clear with normal light reflex. patient tolerated the procedure well. 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 He is experiencing grief and sadness. No SI. I referred the pt to a counselor, but he has not called him back. His dog and guinea pig also have recently Insomnia 11/01/2020 Overview (09/21/2023): Last Assessment & Plan: He may try to take a Buspar tab before sleeping PRN Chronic obstructive pulmonary disease 09/27/2020 Overview (09/21/2023): Mild features of centrilobular emphysema on CT imaging Outpatient pulmonary rehab referral 12/27/2020 There is evidence of moderate fixed distal airways obstruction as well as air trapping and mild reduction in diffusion capacity Findings are consistent with the patient's known diagnosis of emphysema Ref Range & Units 11:39 FEV1 liters 2.27/ 64% FVC liters 3.60/ 75% FEV1/FVC % 63 TLC liters 7.17/ 96% DLCO ml/mmHg sec 19.80/ 64% Last Resulted: 12/27/20 11:39 Last Assessment & Plan: Denies cough and wheezing. He is not on inhalers Abnormal chest CT 09/14/2020 Overview (12/28/2023): Date of Study: 07/17/20 Clinical information: LDCT lung cancer screening - malignant neoplasm - respiratory organs. History of tobacco. Screening visit: Baseline Comparison: Chest radiography dated May 14, 2018. Technique Low dose CT of the chest is performed from the apices through the diaphragms. Dose reduction techniques including automated exposure control and adjustment of the mA and/or kV according to patient size were utilized. Findings Lung Screening Specific (Lung-RADS): Negative. Potentially Significant Incidentals (Lung-RADS category S): Moderate to severe coronary calcifications. Pulmonary Incidentals: The central airways appear patent. No endotracheal, or endobronchial masses. There are some debris identified within the central trachea. Mild diffuse peribronchial thickening. No lobar consolidation. Pulmonary hyperinflation is noted. Right middle lobe and lingular atelectasis. There is a 2 mm groundglass nodule identified within the right lower lobe (image 238/344). Vague areas of patchy peribronchovascular groundglass are identified within the upper lobes, nonspecific. There is a somewhat linear radiodense 2 mm nodule identified within the right upper lobe (image 128/344). No noncalcified nodules. Other Incidentals: The thyroid gland is heterogeneous. No discrete nodules are identified. No pathologic enlargement of supraclavicular, axillary/subpectoral, mediastinal, or hilar lymph nodes. No paraesophageal, or internal mammary lymphadenopathy is identified. No anterior/posterior mediastinal mass. No acute esophageal abnormality is noted. The heart size is normal without pericardial effusion. Moderate to severe coronary calcifications are identified. Limited images of the upper abdomen reveal no acute process. The soft tissues demonstrate bilateral gynecomastia. No masses or collections. Degenerative changes are identified within the spine. Impression Lung-RADS category: 2. Benign. 12-month follow-up evaluation is recommended. Potentially Significant Incidentals (Lung-RADS category S): Yes, moderate to severe coronary calcifications. 10/2023 7mm R lung nodule, repeat in 3-6 months Weight loss 09/09/2019 Overview (09/21/2023): Last Assessment & Plan: Patient continues to lose weight due to poor PO intake. Due for LDCT. May consider nutrition referral. Advised small frequent meals throughout the day. Dyslipidemia 04/27/2018 Overview (09/21/2023): Last Assessment & Plan: He is taking Crestor. Will check LDL Discussed cholesterol goals. I recommend a diet low in fats and cholesterol, and to exercise daily. The main goal of the treatment of high blood cholesterol is to lower the LDL, lower the total cholesterol level to reduce the risk of coronary heart disease, stroke and heart attack. Hypertension 04/27/2018 Assessment & Plan (09/25/2023 6:51 AM EDT): Monitor BP at home and followup in 2 weeks If BP consistently < 120/80, will decrease Lisinopril to 2.5mg daily Iron deficiency anemia 03/24/2018 Overview (09/21/2023): Last Assessment & Plan: Recently restarted on ferrous sulfate, will recheck CBC on next lab work Denies worsening SOB and CP Vitamin B12 deficiency anemi a due to intrinsic factor deficiency 04/11/2015 Overview (09/21/2023): Last Assessment & Plan: Will recheck levels Family history of diabetes mellitus 06/27/2014 Inguinal hernia, left 03/28/2014 Vitamin D deficiency 03/28/2014 Internal hemorrhoids 04/18/2013 Polyp of colon 02/22/2013 Cigarette smoker 02/26/2012 Overview (09/21/2023): Last Assessment & Plan: He is smoking less and trying to quit 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 03/18/2011 Encounters Date Type Department Care Team Description 05/09/2024 Orders Only [facility] [address] [place] [address] Kath Bose MD 04/25/2024 Telephone [facility] [address] [place] [phone] Yessenia Ramirez RN 04/23/2024 9:40 AM EST Office Visit [facility] [address] [place] [address] Name, MD Kwasi Cough, unspecified type (Primary Dx); Wheezing; COPD exacerbation ([facility]) 04/23/2024 Travel 04/05/2024 Orders Only [facility] External Provider, [facility] 04/05/2024 Refill [facility] [address] [place] [address] Kath Bose MD 04/05/2024 Refill [facility] [address] [place] [address] Kath Bose MD from Last 3 Months Immunizations Name Administration Dates Next Due Influenza High-dose Quadriva lent Preservative Free 01/27/2022,12/06/2020 Influenza Quadrivalent Adjuvanted 12/19/2022 Influenza, High Dose Seasona l, Preservative Free 03/19/2018 Influenza, IIV3, injectable 03/28/2014, 2 Influenza, Split (incl. pierre fied surface antigen) 02/08/2008 Mary SARS-CoV-2 Vaccination 09/05/2020 Pneumococcal Conjugate PCV 13 05/27/2016 Pneumococcal Conjugate PCV 20 12/25/2023 Pneumococcal Polysaccharide PPSV23 12/24/2010 RSV Bivalent 02/10/2023 Tdap 12/25/2023,11/03/2012,08/05/2011 Zoster, Recombinant 02/03/2019,03/19/2018 Social History Tobacco Use Types Packs/Day Years Used Date Smoking Tobacco: Every Day Cigarettes Smokeless Tobacco: Never Tobacco Cessation:Ready to Q uit: Not Asked Alcohol Use Standard Drinks/Week Comments Never 0 [...] Don't know 09/23/2023 1: 47 PM EDT Last Filed Vital Signs Vital Sign Reading Time Taken Comments Blood Pressure 144/87 04/23/2024 9:31 AM EST Pulse 97 04/23/2024 9:31 AM EST Temperature 36.9 ??C (98.4 ??F) 04/23/2024 9:31 AM ES T Respiratory Rate 20 04/23/2024 9:31 AM EST Oxygen Saturation 97% 04/23/2024 9:31 AM EST Inhaled Oxygen Concentration - - Weight 77.6 kg (171 lb) 04/23/2024 9:31 AM EST Height 181.6 cm (5' 11.5 ) 12/25/2023 11:07 AM E DT Body Mass Index 23.52 12/25/2023 11:07 AM EDT Plan of Treatment Upcoming Encounters Date Type Department Care Team (Late st Contact Info) Description 05/27/2024 2:15 PM EST Office Visit [facility] [address] [place] [phone] Kath Bose MD [address] [place] [address] Health Maintenance Due Date Last Done Comments CT Colonography 1950 Colonoscopy 1950 Colorectal Cancer Screening 1950 FIT DNA/Cologuard 1950 FIT 1950 FOBT 1950 Lipid Panel 1950 Sigmoidoscopy 1950 Eye Exam 1960 Hepatitis C Screening 1968 Diabetes: Urine Protein Screening 1969 Hepatitis A Vaccines (1 of 2 - Risk 2-dose series) 1969 COVID-19 Vaccine ( season) 2023 01/14/2023, 07/16/2022, 2021, Additional history exists Influenza Vaccine (#1) 2023 , 01/27/2022, 12/06/2020, Additional history exists Depression Monitoring (PHQ-9) 03/25/2024 09/23/2023, 09/23/2023 Diabetes: Hemoglobin A1C 06/24/2024 024, 09/23/2023, 09/02/2023, Additional history exists Alcohol/Substance Use Screening 09/22/2024 09/23/2023 Depression Screening 09/22/2024 09/23/2023, 09/23/19 24 SDOH Screening 09/22/2024 09/23/2023 Diabetes: Foot Exam 09/24/2024 09/25/2023 Tobacco Screening 12/27/2024 12/28/2023 DTaP/Tdap/Td Vaccines (4 - Td or Tdap) 12/24/2033 12/25/2023, 11/03/2012, 08/05/2011 Zoster Vaccines Completed 02/03/2019, 03/19/2018 RSV Patients and Patients Aged 60 years or older Completed 02/10/2023 Pneumococcal Vaccine: 50+ Years Completed 12/25/2023, 05/27/2016, 12/24/2010 HIB Vaccines Aged Out No longer eligi ble based on patient's age to complete this topic HPV Vaccines Aged Out No longer eligi ble based on patient's age to complete this topic Hepatitis B Vaccines Aged Out No long er eligible based on patient's age to complete this topic IPV Vaccines Aged Out No longer eligi ble based on patient's age to complete this topic Meningococcal Vaccine Aged Out No pilo kirit eligible based on patient's age to complete this topic RSV under 20 months Aged Out No longe r eligible based on patient's age to complete this topic Rotavirus Vaccines Aged Out No longer eligible based on patient's age to complete this topic Procedures Procedure Name Priority Date/Time Associated Diagnosis [...] 04/23/2024 9:55 AM EST Cough, unspecified type VASC US CAROTID ARTERY DUPLEX BILATERAL Routine 04/06/2024 11:31 AM EST POCT GLYCOSYLATED HEMOGLOBIN (HGB A1C) Routine 12/25/2023 11:10 AM EDT Type 2 diabetes mellitus treated with insulin ([facility]) from Last 3 Months or Most Recently Relevant to Health Maintenance Results * XR Chest 2 Views (04/23/2024 11:15 AM EST) Anatomical Region Laterality Modality Chest Radiographic Terri ging 04/23/2024 11:1 5 AM EST Narrative 04/25/2024 7:38 AM EST ? [facility] ?[address] ?[place] [address] ?XRay Report ? Signed ? Patient: Keyonna,Boone ?MR#: [id number] ?? 76 ? : 1950 ?Acct:[id number] ? Age/Sex: 73 / M ?ADM Date: 04/23/24 ? Loc: HO.XRAY ? Attending Dr: Kwasi Gu MD ? Ordering Physician: Name,Kwasi ROGERS ?? Date of Service: 04/23/24 ?? Procedure(s): XR chest 2V ?? Accession Number(s): [id number] ? cc: Kath Bose; Kwasi Gu MD [...] DD/ 1115 ? TD/TT: 04/23/24 1120 ? Shipfitter: MSM ? Procedure Note Donnayater, Image - 04/25/[address] [address] XRay Report Signed Patient: Boone NewbyMR#: [id number] 76 : 1950cct:[id number] Age/Sex: 73 / MADM Date: 04/23/24 Loc: ABBEY Attending Dr: Kwasi Gu MD Ordering Physician: Kwasi Gu MD Date of Service: 04/23/24 Procedure(s): XR chest 2V Accession Number(s): [id number] cc: Kath Bose; Kwasi Gu MD EXAMINATION: [...] Dickson MD in OV> 04/25/24 0735 DD/ 14 TD/TT: 04/23/24 1120 Shipfitter: MSM Kwasi Gu MD IMG XR PROCEDURES Final Result * POCT Rapid Influenza B SAENZ ID NOW (04/23/2024 9:56 AM EST) [facility] Influenza B Negative Negative, Indeterminate [facility] QC Media Lot # [id number] [facility] Lot# Expiration Date [facility] Swab 04/23/2024 9:56 AM EST us Villalpando Name POINT OF CARE TEST ENTER/EDIT OR DERABLES Final Result Performing Organization Address City/[facility] Co de Phone Number [facility] [address] [place] [phone] * POCT Rapid Influenza A SAENZ ID NOW (04/23/2024 9:56 AM EST) [facility] Influenza A Negative Negative, Indeterminate [facility] QC Media Lot # [id number] [facility] Lot# Expiration Date [facility] Swab 04/23/2024 9:56 AM EST Kwasi Gu MD POINT OF CARE TEST ENTER/EDIT OR DERABLES Final Result Performing Organization Address [facility] de Phone Number [facility] [address] [place] [phone] * POCT Rapid Strep A SAENZ ID NOW (04/23/2024 9:55 AM EST) [facility] Rapid Strep A Screen Negative Negative, None Detected QC Media Lot # [id number] Lot# Expiration Date Swab 04/23/2024 9:55 AM EST us Kwasi Gu MD POINT OF CARE TEST ENTER/EDIT OR DERABLES Final Result * POCT Rapid Covid-19 BinaxNOW (04/23/2024 9:55 AM EST) [facility] Rapid COVID Ag Negative QC Media Lot # [id number] Lot# Expiration Date Swab 04/23/2024 9:55 AM EST us Kwasi Name MD POINT OF CARE TEST ENTER/EDIT OR DERABLES Final Result * VASC US Carotid Artery Duplex Bilateral (04/06/2024 11:31 AM EST) 04/06/2024 11:3 1 AM EST Narrative [facility] - 04/06/2024 11:32 AM EST ? [facility] ?[address] ?[place], [place] [address] ? Ultrasound Report ? Signed ? Patient: Keyonna,Boone ?MR#: [id number] ?? 76 ? : 1950 ?Acct:[id number] ? Age/Sex: 73 / M ?ADM Date: 04/05/24 ? Loc: HO.US ? Attending Dr: Marcin Hendrickson MD ? Ordering Physician: Marcin Hendrickson MD ?? Date of Service: 04/05/24 ?? Procedure(s): US carotid duplex BI ?? Accession Number(s): [id number] ? cc: Kath Bose; Marcin Hendrickson MD ? CLINICAL HISTORY: I65.23 - Occlusion and stenosis of bilateral carotid arteries ? US bilateral carotid duplex ? Comparison: None ? Findings: ? No significant plaque within the common carotid arteries. ?? No significant plaque within the carotid bulbs. ?? No significant plaque within the internal carotid arteries . ?? Waveforms are normal morphology. ? Peak systolic and end-diastolic velocities: ? Right CCA: 76.4 cm/s ?? Right ICA: 77.0 cm/s ?? Right ICA EDV: 17.4 cm/sec ?? Right systolic ICA/CCA ratio: 1.0 ?? Right ECA: Unremarkable ?? Right vertebral artery flow antegrade. ? Left CCA: 77.7 cm/s ?? Left ICA: 118.0 cm/s ?? Left ICA EDV: 27.3 cm/sec ?? Left systolic ICA/CCA ratio: 1.5 ?? Left ECA: Unremarkable ?? Left vertebral artery flow antegrade. ? Criteria for grading carotid stenosis ?? Stenosis % ICA PSV cm/s ICA/CCA PSV ratio ICA EDV ?? 0-50% <125 <2.0 <40 ?? 50-69% 125-230 2.0-4.0 40-100 ?? 70% + > 230 >4.0 >100 ? Impression: ?? 1. Normal carotid velocities, no significant stenosis (0-49% stenosis) ? This document has been electronically signed by: Vance Coles MD on ?? 04/06/2024 11:31:01 ? Dictated By: ?Vance Coles MD ? Signed By: ?<Electronically signed by Vance Coles MD in OV> ?04/06/24 1132 ? DD/ 1131 ? TD/TT: 04/06/24 1131 ? Shipfitter: ? Procedure Note Saji, Image - 04/06/2024 [place] [address] Ultrasound Report Signed Patient: Boone NewbyMR#: [id number] 76 : 1950cct:[id number] Age/Sex: 73 / MADM Date: 04/05/24 Loc: HO.US Attending Dr: Marcin Hendrickson MD Ordering Physician: Marcin Hendrickson MD Date of Service: 04/05/24 Procedure(s): US carotid duplex BI Accession Number(s): [id number] cc: Kath Bose; Marcin Hendrickson MD CLINICAL HISTORY: I65.23 - Occlusion and stenosis of bilateral carotidarteries US bilateral carotid duplex Comparison: None Findings: No significant plaque within the common carotid arteries. No significant plaque within the carotid bulbs. No significant plaque within the internal carotid arteries . Waveforms are normal morphology. Peak systolic and end-diastolic velocities: Right CCA: 76.4 cm/s Right ICA: 77.0 cm/s Right ICA EDV: 17.4 cm/sec Right systolic ICA/CCA ratio: 1.0 Right ECA: Unremarkable Right vertebral artery flow antegrade. Left CCA: 77.7 cm/s Left ICA: 118.0 cm/s Left ICA EDV: 27.3 cm/sec Left systolic ICA/CCA ratio: 1.5 Left ECA: Unremarkable Left vertebral artery flow antegrade. Criteria for grading carotid stenosis Stenosis % ICA PSV cm/s ICA/CCA PSV ratio ICA EDV 0-50% <125 <2.0 <40 50-69% 125-230 2.0-4.0 40-100 70% + > 230 >4.0 >100 Impression: 1. Normal carotid velocities, no significant stenosis (0-49% stenosis) This document has been electronically signed by: Vance Coles MD on 04/06/2024 11:31:01 Dictated By: Vance Coles MD Signed By: <Electronically signed by Vance Coles MD in OV> 04/06/24 1132 DD/ 1131 TD/TT: 04/06/24 1131 Shipfitter: [facility] External Provider CV VASC ULAR PROCEDURES Final Result [facility] [address] [place] [phone] * (ABNORMAL) POCT glycosylated hemoglobin (Hgb A1c) (12/25/2023 11:10 AM EDT) Hemoglobin A1C 6.8(A) 4.0 - 6.0 % QC Media Lot # [id number] Lot# Expiration Date [id number] Blood Capillary blood specimen / Unknown 12/25/2023 11:10 AM EDT Kath Bose MD POINT OF CARE TEST ENTER/EDIT ORDERABLES Final Result from Last 3 Months or Most Recently Relevant to Health Maintenance Insurance [address] [place], [place] [address]agencyQ [employer] [facility] MEDICARE REPLACEMENT Advance Directives Documents on File Type Date Recorded Patient Regulatory Compliance Specialist Expl anation Advance Directives and Living Will 09/23/2023 Health Care Proxy 09/23/23 HealthCare Proxy 09/23/2023 Care Teams Payroll Examiner Relationship Specialty Start Date End Date Kath Bose MD [address] [place] [address] PCP - General Family Medicine 09/23/23
--- OUTSIDE RECORDS SUMMARY | 2024-05-20 08:44 | XMS_ITS | Patient Health Record ---
Author Organization [facility] Address [address] [facility] [place] [address] Care Team Providers Care General Superintendent Name Role Phone Yohana Cifuentes Primary Care Provider Yg Thomson Unavailable [phone] Allergies No Known Allergies Reason For Referral [...] Problem Acquired hammer toe of right foot ([id number] 05) Other hammer toe(s) (acquired), right foot (M20.41) Active confirmed Response to treatment,I mprovement Problem Type 2 diabetes mellitus with peripheral angiopathy (053285937) Type 2 diabetes mellitus with diabetic peripheral angiopathy without gangrene (E11.51) Active confirmed Problem Acquired hammer toe of left foot ([id number] 03) Other hammer toe(s) (acquired), left foot (M20.42) Active confirmed Response to treatment,I mprovement Problem Essential hypertension (35356370) Essential hypertension (I10) Active confirmed Vital Signs Blood pressure diastolic 80 mm Hg 03/11/2024 Height 5ft11.5in in 03/11/2024 Blood pressure systolic 120 mm Hg 03/11/2024 Weight 165 lbs 03/11/2024 BMI 22.69 kg/m2 03/11/2024 Procedures Procedure Date Ordered Date Performed Result Body Sit e 22564-BHUSHBK NAIL, 6 OR MORE 07/21/2023 N/A 84118-Bxzmlndb Plate 07/21/2023 N/A 61680-SLYL SKIN LESIONS, OVER 4 07/21/2023 N/A 73596-WVGXBMB NAIL, 6 OR MORE 11/17/2023 N/A 78491-Mmxuwirb Plate 11/17/2023 N/A 90505-WPST SKIN LESIONS, OVER 4 11/17/2023 N/A 71981-XPVRNSS NAIL, 6 OR MORE 03/11/2024 N/A 99524-PMIF SKIN LESIONS, OVER 4 03/11/2024 N/A Encounters Encounter Location Date Provider Diagnosis [facility] [address] [place] [address] 07/21/2023 Yg Soto Type 2 diabetes mellitus with diabetic peripheral angiopathy without gangrene E11.51 ; Tinea unguium B35.1 ; Pain in right toe(s) M79.674 ; Pain in left toe(s) M79.675 ; Other hammer toe(s) (acquired), right foot M20.41 ; Other hammer toe(s) (acquired), left foot M20.42 and Ingrown nail L60.[address] [address] 11/17/2023 Yg Soto Type 2 diabetes mellitus with diabetic peripheral angiopathy without gangrene E11.51 ; Tinea unguium B35.1 ; Pain in right toe(s) M79.674 ; Pain in left toe(s) M79.675 ; Ingrown nail L60.0 and Xerosis of skin L85.[address] [address] 03/11/2024 Yg Soto Type 2 diabetes mellitus [...] Treatment Pending Test Test Name Order Date 27259-GAFIDFL NAIL, 6 OR MORE 03/03/2023 67300-FDRTGKE NAIL, 6 OR MORE 07/21/2023 40282-WSIHHGY NAIL, 6 OR MORE 11/17/2023 03559-FWURBXN NAIL, 6 OR MORE 03/11/2024 32092-Owhzrrvx Plate 07/21/2023 31560-Ybqqmulo Plate 11/17/2023 02856-JPFS SKIN LESIONS, OVER 4 11/17/19 24 93163-LTIO SKIN LESIONS, OVER 4 07/21/19 24 39608-SNNR SKIN LESIONS, OVER 4 03/03/20 23 50641-ESEU SKIN LESIONS, OVER 4 03/11/20 24 Next Appt Details Provider Name:Yg Soto , 07/12/2024 01:00:00 PM, [address] [place], [address], Insurance Providers Payer Name Payer Address Payer Phone Subscriber Number Group Number Insured Name Patient Relationship to Insured Coverage Start Date Coverage End Date A[employer] Medicare Complete [address] [address] [place] [address] [id number] Boone Newby Self - patient is the insured Medical (General) History Medical History History ICD Code Back,Hip,and Knee pain Broken bones CAD (Cholesterol) Diabetic High blood pressure Lung disease Surgical History Surgery Date(Month/Year) hernia 2013
--- OUTSIDE RECORDS SUMMARY | 2024-05-20 08:44 | XMS_ITS ---
Author Organization [facility] Address [address] [place] [address] Care Team Providers Care Director Of Special Education Name Role Phone Yohana Cifuentes Primary Care Provider Yg Thomson Unavailable [phone] Allergies No Known Allergies REASON FOR VISIT [...] Ordered Date Performed Result Body Sit e 44721-LFTDKRT NAIL, 6 OR MORE 07/21/2023 N/A 67240-Xbblknfq Plate 07/21/2023 N/A 56145-IDVP SKIN LESIONS, OVER 4 07/21/2023 N/A Encounters Encounter Location Date Provider Diagnosis [facility] [address] [place] [address] 07/21/2023 Yg Soto Type 2 diabetes mellitus [...] Treatment Pending Test Test Name Order Date 67482-LNUXGSP NAIL, 6 OR MORE 07/21/2023 05443-Jzktuwrz Plate 07/21/2023 07579-JQWI SKIN LESIONS, OVER 4 07/21/19 24 Next Appt Details Follow Up: prn, Reason: Provider Name:Yg Soto , 07/12/2024 01:00:00 PM, [address] [place] [address], [phone], Procedure Notes * Category Sub-Category Detail Notes [...] Motrin was recommended for pain or discomfort (99440) , DIABETES: Pt was advised as to [...] as necessary. Patient chooses, no pharmaceutical tx (67459) Keratoma Treatment Parring or Cutting o f Benign Hyperkeratotic Lesion(s) 10714 ( More than 4 Lesions ) - The Benign hyperkeratotic lesions, as described above were pared, and/or cut utilizing a sterile 15 blade, tissue nippers, and/or clarencemel , Q8 Progress Notes * Boone JAIME JrDOB:1950 (73 yo M)Acc No.[id number]:07/21/2023 Progress Note Patient:?Boone JAIME Jr Provider:?Yg Soto DPM :1950???Age:72 Y???Sex:Male Juvenal e:07/21/2023 Address:[address] [place] [address] [address], [facility] Pcp:Yohana Cifuentes Subjective: * Chief Complaints: * [...] 2 cups. ?Marital status: . ?Occupation: Retired [employer]. * Medications:?TakingVitamin C Insulin Vitamin D Psyllium [...] , TA??? Plan: * Treatment: 2.?Tinea unguium?Procedure: 92785-MFCZSCS NAIL, 6 OR MORE 3.?Ingrown nail?Procedure: 95750-Gtkbiufp Plate * Procedures:?Debride Nail 6-10:?Nail debridement?Nail debridement performed extensively to reduce/remove overall nail length, girth, thickness, subungual debris, and necrotic tissue, by manual and electrical means through the use of a nail nipper and/or dremel, to more viable healthy nail plate or bed tissue 1-5. Silver nitrate used for any petechial bleeding as necessary. Patient chooses, no pharmaceutical tx (90386).?Keratoma Treatment:?Parring or Cutting of Benign Hyperkeratotic Lesion(s)?81831 ( More than 4 Lesions ) - [...] Motrin was recommended for pain or discomfort (61563) , DIABETES: Pt was advised as to the risk of delayed or nonhealing due to diabetes. Pt is to call the office with any questions, concerns, or complications.? * Procedure Codes:?77808 Avuls ion Plate, Modifiers: XS , [id number] DEBRIDE NAIL, 6 OR MORE, Modifiers: XS 09251 TRIM SKIN LESIONS, OVER 4, Modifiers: XS [...]
--- NOTE | 2024-05-20 08:50 | MHC.OFFVIS ---
Intake Visit Reasons: ED f/u Lt patella fx/RT humerus fx Intake Note: Boone is a 73 year old male who presents today with his daughter for a evaluation of his left patella and right humerus fx, DOI 05/03/24. Patient reports that he was outside of his home, suddenly his legs began to feel weak and he felt himself leaning forward unintentionally he fell. He mentions that his pain is a 7/10 on the pain scale. Patient has been working with PT. Allergies codeine Adverse Reaction (Unknown, Verified 05/20/24 08:53) upset stomach HPI HPI ED f/u Lt patella fx/RT humerus fx: Details: Mr. Newby is a 73-year-old male who presents today from rehab accompanied by his daughter for a evaluation of a left patellar fracture and right proximal humerus fx. DOI was 05/03/24 when he was walking back from the corner store to buy a pack of cigarettes and his legs felt heavy. He saw a branch that he was going to rest on and unfortunately the patient began to slowly full forward. He lost his balance and fell striking the right shoulder and left knee. [facility] Medical History Diabetes Surgical History History of intestinal surgery H/O colonoscopy Social History Household Members: None Housing: Apartment Do you presently have visiting nurse or other home services: No Alcohol intake: former Comment: nwb left leg, 2 max assist with transfer Patient Tobacco Use Status: Current everyday Tobacco user Tobacco use type: Cigarette Cigarette Packs Per Day: 0.5 Cigarettes Per Day: 10.0 Years Smoked: 63 Second Hand Smoke Exposure: No Advance Directives Date on File: 05/05/24 service: No Review of Systems Const All systems reviewed & are unremarkable except as noted in HPI and below Physical Exam Const General: cooperative, healthy appearing and no acute distress Resp Effort & Inspection: normal respiratory effort and able to speak in complete sentences Cardio Rate: regular rate Peripheral pulses: Peripheral pulses 2+ throughout Skin Lesions: no lesions Rashes: no rashes Extrem Other: Right shoulder: able to flex and extend at the wrist. Able to move all digits. Sensation intact. Left knee: Resolving ecchymosis. No open abrasions. Slight tenderness to palpation over the patella. NVI. Office Procedures AMB Fracture Care Fracture Billing Code: Fracture Billing Code Assessment & Plan Assessment & Plan (1) Fracture of proximal humerus: Code(s): S42.209A - Unspecified fracture of upper end of unspecified humerus, initial encounter for closed fracture Category: Medical Qualifiers: Encounter type: initial encounter Fracture alignment: nondisplaced Fracture type: closed Laterality: right (2) Patellar sleeve fracture of left knee: Code(s): S82.092A - Other fracture of left patella, initial encounter for closed fracture Category: Medical Plan Mr. Newby is a 73-year-old male who presents today from rehab accompanied by his daughter for a evaluation of a left patellar fracture and right proximal humerus fx. DOI was 05/03/24 when he was walking back from the corner store to buy a pack of cigarettes and his legs felt heavy. He saw a branch that he was going to rest on and unfortunately the patient began to slowly full forward. He lost his balance and fell striking the right shoulder and left knee. While the office today, I educated the patient that he should avoid any pushing pulling lifting or weight-bearing in the right upper extremity. Sling for comfort. Encouraged to come out to work on gentle range of motion of the elbow hand and wrist. He is nonweightbearing on the right upper extremity. As far as the left patella fracture he was placed into an ACL brace off the shelf. He may begin to weightbear as tolerated with the brace locked in extension. Brace should be worn at all times. We did discuss the risk of displacement requiring surgery. He understands and accepts. He will follow up in 4 weeks with repeat x-rays of the right shoulder and left knee, sooner if needed. X-rays of the right shoulder which were obtained while in the office today and were reviewed by me, Gayatri Shin PA-C, revealed right proximal humerus fracture with minimal displacement. X-rays of the left knee which were obtained while in the office today and were reviewed by me, Gayatri Shin PA-C, revealed left patellar fracture without displacement. Orders: Orders XR shoulder RT min 2V Today M25.519 - Pain in unspecified shoulder XR knee LT 2V Today M25.569 - Pain in unspecified knee Coding Level of Care Code New Pt Level 4 (21364) Diagnoses Fracture of proximal humerus S42.209A Encounter type: initial encounter Fracture alignment: nondisplaced Fracture type: closed Laterality: right Patellar sleeve fracture of left knee S82.092A CPT Codes Fracture Care - Fracture Billing Code: Fracture Billing Code ([id number])
== END 2024-05-20 09:23 | disposition home or self-care (01) ==
PROVIDERS: PCP General Practice; Visit Provider Physician Assistant
DX: S42.209A Unspecified fracture of upper end of unspecified humerus, initial encounter for closed fracture (principal); S82.092A Other fracture of left patella, initial encounter for closed fracture
CPT/HCPCS: 99204

== ENCOUNTER → 2024-05-20 08:35 | Outpatient (BNV) | payer MEDICARE, MEDICAID, SELFPAY | PROVIDERS: Visit Provider Radiology Diagnostic Radiology | DX: S42.202A Unspecified fracture of upper end of left humerus, initial encounter for closed fracture (principal); M19.011 Primary osteoarthritis, right shoulder; S82.091A Other fracture of right patella, initial encounter for closed fracture | CPT/HCPCS: 73030; 73560 ==

== ENCOUNTER 2024-06-14 11:19 | Outpatient (REF) | payer MEDICARE, MEDICAID, SELFPAY ==
[2024-06-14 13:44] LABS: MANUAL DIFF FLAG NO
[2024-06-14 13:50] LABS: Basophils Absolute Auto 0.1 X10*3/uL (0.0-0.2); Basophils Percent Auto 0.6 % (0-2); Eosinophils Absolute Auto 0.2 X10*3/uL (0.0-0.4); Eosinophils Percent Auto 2.6 % (0-4); Hematocrit 40.9 % (42.0-52.0); Imm Gran Abs Auto 0.04 X10*3/uL (0.00-0.03); Imm Gran Pct Auto 0.5 % (0.0-0.4); Lymphocytes Absolute Auto 1.6 X10*3/uL (1.2-4.9); Lymphocytes Percent Auto 18.3 % (20-40); Mean Corpuscular HGB Conc 31.8 g/dl (31.0-36.0); Mean Corpuscular Hemoglobin 31.2 pg (27.0-33.0); Mean Corpuscular Volume 98.1 fL (80.0-98.0); Mean Platelet Volume 12.5 fL (9.4-12.4); Monocytes Absolute Auto 0.9 X10*3/uL (0.1-1.2); Monocytes Percent Auto 9.8 % (2-11); Neutrophils Percent Auto 68.2 % (45-73); Platelet Count 229 X10*3/uL (160-400); Red Blood Count 4.17 X10*6/uL (4.60-5.80); Red Cell Distribution Width 12.1 % (11.0-16.0); White Blood Count 8.8 X10*3/uL (4.8-10.8)
[2024-06-14 14:06] LABS: Alanine Aminotransferase 16 U/L (0-40); Alkaline Phosphatase 75 U/L (39-117); Anion Gap 14 (12-20); Aspartate Amino Transferase 21 U/L (5-37); Bilirubin Total 0.4 mg/dL (0.0-1.0); Blood Urea Nitrogen 49 mg/dL (9-16); Calcium 9.7 mg/dL (8.4-10.2); Carbon Dioxide 21 mmol/L (22-29); Chloride 108 mmol/L (96-108); Estimated Glomerular Filt Rate 45; Glucose Random 217 mg/dL (60-115); Potassium 4.8 mmol/L (3.3-5.1); Sodium 138 mmol/L (135-145); Total Protein 7.1 g/dL (6.5-8.0)
== END 2024-06-14 11:20 | disposition home or self-care (01) ==
LOC: HO.HHCL 11:19
PROVIDERS: Nurse Practitioner; Visit Provider General Practice
DX: Z01.818 Encounter for other preprocedural examination (principal); D64.9 Anemia, unspecified
CPT/HCPCS: 36415; 80053; 85025

== ENCOUNTER 2024-06-17 08:26 | Outpatient (REF) | payer MEDICARE, MEDICAID, SELFPAY ==
--- NOTE | ~2024-06-17 | XR_ITS ---
EXAMINATION: XR SHOULDER 2 OR MORE VIEWS RIGHT HISTORY: M25.519 - Pain in unspecified shoulder COMPARISON: Comparison is made with the prior examination dated 05/20/2024. FINDINGS: Two views of the right shoulder are submitted. Osseous mineralization is normal. Again seen is a comminuted fracture of the surgical neck of the humerus. Callus formation is seen at the fracture site, consistent with healing. The glenohumeral joint is maintained. 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 The soft tissues are unremarkable. XR/XR shoulder RT min 2V IMPRESSION: Healing comminuted fracture of the surgical neck of the humerus. Electronically signed by: Pool Fonseca MD 06/17/2024 11:53 AM EDT
--- NOTE | ~2024-06-17 | XR_ITS ---
EXAMINATION: XR KNEE, LEFT CLINICAL INFORMATION: M25.569 - Pain in unspecified knee COMPARISON: 05/20/2024. TECHNIQUE: Four views of the left knee. FINDINGS: Mild osteopenia. Redemonstration of oblique nondisplaced patellar fracture, with fracture lines now becoming indistinct indicating healing. No additional fracture, dislocation, or suspicious bone lesion. Subtle chondrocalcinosis noted in the lateral compartment. Mild infiltrative changes noted of Hoffa's fat pad, nonspecific. Minimal arthritis tricompartmentally. Mild patella rafa. No significant joint effusion. There are vascular calcifications in the soft tissues. XR/XR knee LT 2V IMPRESSION: 1. Healing patellar fracture with stable alignment. 2. Minimal arthritis tricompartmentally. 3. Subtle chondrocalcinosis lateral compartment. 4. Mild nonspecific infiltrative changes in Hoffa's fat pad. No significant joint effusion. 5. Vascular calcifications in the soft tissues. Electronically signed by: Simeon Pollock MD 06/17/2024 11:54 AM EDT
== END 2024-06-17 08:27 | disposition home or self-care (01) ==
LOC: HO.HOSX 08:26
PROVIDERS: Visit Provider Physician Assistant
DX: M25.562 Pain in left knee (principal); M25.511 Pain in right shoulder; S42.201A Unspecified fracture of upper end of right humerus, initial encounter for closed fracture; S82.092A Other fracture of left patella, initial encounter for closed fracture
CPT/HCPCS: 73030; 73560; 99212

== ENCOUNTER 2024-06-17 10:24 | Outpatient (AMB) | payer MEDICARE, MEDICAID, SELFPAY ==
--- NOTE | 2024-06-17 10:36 | MHC.OFFVIS ---
Intake Visit Reasons: OV- Left Patella Fx & Right Humerus Fx 05/03/24 Intake Note: Boone is a 73 year old male who presents today for a follow up of his Left Patella Fracture & Right Humerus Fracture 05/03/24. Patient was outside when he felt bilateral leg weakness, collapsed injuring the knee and arm. At his last visit he was placed in a sling and insurcted to remain non weight bearing with no pushing pulling or lifting with the right arm. He was also placed in an ACL brace locked in extension, instructed to weight bear as tolerated and wear the brace at all times. Patient kathleen mentions his pain is minimal today and he ahs been taking Tylenol to help with his pain. Allergies codeine Adverse Reaction (Unknown, Verified 05/20/24 08:53) upset stomach HPI HPI OV- Left Patella Fx & Right Humerus Fx 05/03/24: Details: The patient is a 73-year-old male presenting for a routine follow-up for a right proximal humerus fracture and a left patellar fracture. These injuries occurred on May 03, 2024, and initial evaluation on May 20, 2024, I recommended sling use for comfort of the right humerus fracture and advised initiating elbow, hand, and wrist upmpk-sq-dnsvfm exercises while maintaining the right upper extremity as non-weightbearing. An ACL brace was prescribed for the left patellar fracture, allowing weight-bearing as tolerated with the brace locked in extension and worn continuously. The patient does report minor skin irritation near the patella due to the brace, though there is no infection present. [facility] Medical History Diabetes Surgical History History of intestinal surgery H/O colonoscopy Social History Household Members: None Housing: Apartment Do you presently have visiting nurse or other home services: No Alcohol intake: former Comment: nwb left leg, 2 max assist with transfer Patient Tobacco Use Status: Current everyday Tobacco user Tobacco use type: Cigarette Cigarette Packs Per Day: 0.5 Cigarettes Per Day: 10.0 Years Smoked: 63 Second Hand Smoke Exposure: No Advance Directives Date on File: 02/13/25 service: No Review of Systems Const All systems reviewed & are unremarkable except as noted in HPI and below Physical Exam Const General: cooperative, healthy appearing and no acute distress Resp Effort & Inspection: normal respiratory effort and able to speak in complete sentences Cardio Rate: regular rate Peripheral pulses: Peripheral pulses 2+ throughout Skin Lesions: no lesions Rashes: no rashes Extrem Other: Right shoulder: 45 degrees of forward flexion and abduction. External rotation to neutral. Right wrist able to flex and extend. Able to perform full finger extension, make a closed fist, abduct and adduct all digits, perform thumbs up and okay sign without any deficits. He reports numbness and tingling in the ring and little finger. Capillary refill is brisk. Left knee: Resolving ecchymosis. Two small pea-sized areas of skin irritation covered by eschar tissue along the superior lateral aspect of the patella. No tenderness to palpation over the patella at the fracture site. NVI. Assessment & Plan Assessment & Plan (1) Fracture of proximal humerus: Code(s): S42.209A - Unspecified fracture of upper end of unspecified humerus, initial encounter for closed fracture Category: Medical Qualifiers: Encounter type: initial encounter Fracture alignment: nondisplaced Fracture type: closed Laterality: right (2) Patellar sleeve fracture of left knee: Code(s): S82.092A - Other fracture of left patella, initial encounter for closed fracture Category: Medical Plan I explained to Mr. Newby that the x-rays obtained today show routine healing for both the right humerus and left patellar fractures. We discussed his ability to discontinue sling use and only use for comfort if needed. We also discussed the necessity of continuing jpazq-za-rpfopl exercises for the left shoulder. Physical therapy can work on active and passive range of motion.I did create a physical therapy prescription to outline these recommendations and this was provided to the patient. For the left knee he will continue using the ACL brace. I did unlock to 45 degrees. He will attend physical therapy and unlock the brace by 10 degrees each week as he is able to progress. I did create a physical therapy prescription to outline these recommendations and this was provided to the patient. I discussed her creating a skin barrier between the brace. I provided him with a pink foam dressing over the irritated area as well as a stockinette to be worn underneath the brace. I discussed the risks posed by his diabetes and tobacco use and its affect this may have on healing. Follow-up in six weeks with repeat x-rays, unless sooner attention is required. X-rays of the right shoulder which were obtained while in the office today and were reviewed by me, Gayatri Shin PA-C, revealed proximal humerus fracture with routine healing. X-rays of the left knee which were obtained while in the office today and were reviewed by me, Gayatri Shin PA-C, revealed routine healing left patellar fracture. Orders: Orders PT Evaluation and Treatment Today S82.092A - Other fracture of left patella, initial encounter for closed fracture PT Evaluation and Treatment Today S42.209A - Unspecified fracture of upper end of unspecified humerus, initial encounter for closed fracture XR shoulder RT min 2V Today M25.519 - Pain in unspecified shoulder XR knee LT 2V Today M25.569 - Pain in unspecified knee Coding Level of Care Code Global (85772) Diagnoses Fracture of proximal humerus S42.209A Encounter type: initial encounter Fracture alignment: nondisplaced Fracture type: closed Laterality: right Patellar sleeve fracture of left knee S82.092A
== END 2024-06-17 11:28 | disposition home or self-care (01) ==
LOC: HO.HOS 10:24
PROVIDERS: PCP General Practice; Visit Provider Physician Assistant
DX: S42.209A Unspecified fracture of upper end of unspecified humerus, initial encounter for closed fracture (principal); S82.092A Other fracture of left patella, initial encounter for closed fracture
CPT/HCPCS: 99213

== ENCOUNTER → 2024-06-17 10:26 | Outpatient (BNV) | payer MEDICARE, MEDICAID, SELFPAY | PROVIDERS: Visit Provider Radiology Diagnostic Radiology | DX: M25.511 Pain in right shoulder (principal); S42.201D Unspecified fracture of upper end of right humerus, subsequent encounter for fracture with routine healing; M25.562 Pain in left knee; S82.092A Other fracture of left patella, initial encounter for closed fracture | CPT/HCPCS: 73030; 73560 ==

== ENCOUNTER 2024-07-28 09:26 | Outpatient (REF) | payer MEDICARE, MEDICAID, SELFPAY ==
--- NOTE | ~2024-07-28 | XR_ITS ---
EXAMINATION: XR KNEE, LEFT CLINICAL INFORMATION: M25.569 - Pain in unspecified knee COMPARISON: 06/09/2024, 05/20/2024. TECHNIQUE: AP view bilateral knees standing, lateral and patellofemoral views left knee. FINDINGS: RIGHT KNEE: No fracture or dislocation. No bone lesion. Mild bicompartmental joint space narrowing. Normal alignment. Soft tissues demonstrate vascular calcifications. LEFT KNEE: No acute fracture, dislocation, or suspicious bone lesion. Mild medial and mild patellofemoral compartment osteoarthrosis. There is sparing of the lateral compartment. Minimal spurring of the tibial spines. No abnormal patellar tilt. Patellar fracture appears essentially healed. No significant joint effusion. Normal-appearing soft tissues aside from vascular calcifications. XR/XR knee LT 3V IMPRESSION: 1. LEFT knee demonstrating mild medial and patellofemoral compartment osteoarthritis. No joint effusion. No acute bone abnormality. Patellar fracture appears essentially healed. Electronically signed by: Simeon Pollock MD 07/28/2024 11:26 AM EDT
--- NOTE | ~2024-07-28 | XR_ITS ---
EXAMINATION: XR SHOULDER, RIGHT CLINICAL INFORMATION: M25.519 - Pain in unspecified shoulder COMPARISON: 06/17/2024, 05/20/2024, 05/03/2024. TECHNIQUE: Two views of the right shoulder. FINDINGS: Again seen is a comminuted fracture of the surgical neck of the humerus. Fracture lines are indistinct, sclerotic, and there is some bony callus formation seen along the fracture margins, findings consistent with healing. There is stable alignment with mild impaction and mild angulation. Mild spurring of the undersurface of the AC joint. Mild arthritis in the glenohumeral joint which maintains anatomic alignment. Subacromial space is preserved. Remainder of the soft tissue and bony structures appear normal. XR/XR shoulder RT min 2V IMPRESSION: Continued healing of comminuted fracture of the surgical neck of the right humerus in stable alignment. Electronically signed by: Simeon Pollock MD 07/28/2024 11:20 AM EDT
--- OUTSIDE RECORDS SUMMARY | 2024-08-02 10:02 | XMS_ITS | Data Portability ---
Author Organization [facility], Main Office Address [address] [place] [address] [address] [place] [address] Care Team Providers Care Quality Engineering Manager Name Role Phone CAREONE (NONO UNIT) OTHER Assessment Encounter Date Assessment Date Assessment LastModified by Organization Details LastModified Time 05/26/2024 05/26/202405/23-BUN 32, Glucose 270, albumin 3.7, total protein 5.6, EGFR 58 [email or web address] Not available 05/26/2024 11:54:25 05/27/2024 05/27/202405/23-BUN 32, Glucose 270, albumin 3.7, total protein 5.6, EGFR 58 [email or web address] Not available 05/27/2024 15:43:57 05/30/2024 05/30/202405/23-BUN 32, Glucose 270, albumin 3.7, total protein 5.6, EGFR 58 Labs -WBC-7.74, H/H-35.1, plts-285, BUN/Cr-32/1.3 , GFR-58, Na+139, K+4.6, glu-270, alb-3.7 glord Not available 05/30/2024 09:50:30 06/02/2024 06/02/202405/23-BUN 32, Glucose 270, albumin 3.7, total protein 5.6, EGFR 58 Labs -WBC-7.74, H/H-35.1, plts-285, BUN/Cr-32/1.3 , GFR-58, Na+139, K+4.6, glu-270, alb-3.7 05/31: na 139, k 4.8, bun 29, creat 1.60, wbc 7.00, hgb 11.5, hct 36.9 glord Not available 06/02/2024 10:18:02 06/07/2024 06/07/202405/23-BUN 32, Glucose 270, albumin 3.7, total protein 5.6, EGFR 58 Labs -WBC-7.74, H/H-11/35.1, plts-285, BUN/Cr-32/1.3 , GFR-58, Na+139, K+4.6, glu-270, alb-3.7 05/31: na 139, k 4.8, bun 29, creat 1.60, wbc 7.00, hgb 11.5, hct 36.9 glord Not available 06/07/2024 06:50:10 Plan of Treatment Reminders Order Date Submit Date Provider Last Modified By Organization Details Last Modified Time Details Appointments None record ed. Lab None record ed. Referral None record ed. Procedures None record ed. Surgeries None record ed. Imaging None record ed. Medication Orders None record ed. Patient TargetsNo targets recorded. Patient InstructionsNo instructions recorded. Reason for Referral None Reported. Problems Name Problem SNOMED Code Status Onset Date Resolution Date Notes Provider Name and Address Organization Details Recorded Time Acute kidney injury 36447519 Active 2024 FELISA VERA [address] , [address], [place], [address] , [facility] 5 09:47:17 Orthostatic hypotension 65393109 Active 2024 FELISA VERA [address] , [address], [place], [address] , [facility] 5 09:47:25 Hyperkalemia 06251650 Active 2024 FELISA VERA [address], [address], [place], [address] , [facility] [email or web address] [facility] 5 09:47:34 Fall Active 2024 FELISA VERA [address], [address], [place], [address] , [facility] [email or web address] [facility] 5 09:47:41 Fracture of maxillary alveolar bone 339625256 Active [address], [address], [place], [address] , [facility] 5 09:48:04 Closed fracture of patella 05904801 Active 2024 FELISA VERA [address] [facility], [address], [place], [address] , [facility] 5 09:48:32 Essential hypertension 55136278 Active 2024 FELISA VERA [address] [facility], [address], [place], [address] , [facility] 5 09:54:31 Hyperlipidemi a 72793223 Active 2024 FELISA VERA [address] , [address], [place], [address] , [facility] 5 09:55:46 Type 2 diabetes mellitus 34994634 Active 2024 Katelynn Bhatti MD [address] , [address], [place], [address] , [facility] 5 16:49:45 Mood disorder 97086374 Active 2024 FELISA VERA [address] [facility], [address], [place], [address] , [facility] 5 09:58:22 Fracture of shaft of humerus 21778176 Active 2024 Katelynn Bhatti MD [address] [facility], [address], [place], [address] , [facility] 5 16:49:26 Fracture of maxilla 685381090 Active 2024 Katelynn Bhatti MD [address] [facility], [address], [place], [address] , [facility] 5 16:48:19 Muscle weakness 35585265 Active 2024 Not Available [facility] 5 16:46:48 Oral phase dysphagia 381482433 Active 2024 Not Available [facility] 5 16:47:17 Chronic obstructive pulmonary disease 68038416 Active 2024 Not Available [facility] 5 16:48:16 Monoclonal gammopathy (clinical) 637257353 Active 2024 Katelynn Bhatti MD [address] [facility], [address], [place], [address] , [facility] 5 16:49:39 Congestive heart failure 39129418 Active 2024 Not Available [facility] 5 16:49:17 Anemia 213241906 Active 2024 Not Available [facility] 5 16:50:16 Recurrent major depression 12090093 Active 2024 Not Available [facility] 5 16:52:16 Anxiety disorder 047943514 Active 2024 Not Available [facility] 5 16:51:45 Carotid artery obstruction 84935454 Active 2024 Not Available [facility] 5 16:51:46 Closed fracture of patella 37112570 Active 2024 Katelynn Bhatti MD [address] [facility], [address], [place], [address] , [facility] 5 16:49:01 Fracture of humerus 65901001 Active 2024 Katelynn Bhatti MD [address] [facility], [address], [place], [address] , [facility] 5 16:47:23 Chronic kidney disease stage 3A 720657929 Active 2024 Katelynn Bhatti MD [address] [facility], [address], [place], [address] , [facility] 5 16:26:56 Problem Notes None recorded. Procedures Surgical History Date Name Laterality Status Provider Name and Address Organization Details Recorded Time colonoscopy completed FELISA VERA [address] [facility], [address], [place], [address], [facility] 05/23/2024 07:33:17 Imaging Results None recorded. Procedure Notes None recorded. Medical Equipment None Reported. Allergies Allergen ID Allergen Name Allergen Category Reaction Reaction Severity Criticality Documentation Date Start Date Code Code System Note Provider Name and Address Organization Details Recorded Time 95579 codeine medicatio n Not available Not available Not available 05/20/20242024 2670 RxNorm Not Available [facility] 12:40:24 Medications Name Sig Start Date Stop Date Status Note LastModified by Organization Details LastModified Time BuSpar 10 mg tablet Give 1 tablet by mouth three times a day for mood 2024 active Not Available Not Available Not Avai lable Children's Aspirin 81 mg chewable tablet Give 1 tablet by mouth one time a day for cardiac health 2024 active Not Available Not Available Not Avai lable sertraline 100 mg tablet Give 1 tablet by mouth one time a day for depression 2024 active Not Available Not Available Not Avai lable melatonin 3 mg tablet Give 2 tablet by mouth every 24 hours as needed for insomnia 2024 active Not Available Not Available Not Avai lable Tylenol 325 mg tablet Give 975 mg by mouth three times a day for Pain 2024 active Not Available Not Available Not Avai lable Laxative (sennosides) 8.6 mg tablet Give 1 tablet by mouth every 24 hours as needed for Constipatio n 2024 active Not Available Not Available Not Avai lable Lovenox 40 mg/0.4 mL subcutaneous syringe Inject 40 mg subcutaneou sly one time a day for dvt profelaxis 2024 active Not Available Not Available Not Avai lable glipizide 5 mg tablet Give 1 tablet by mouth two times a day for DM 2024 active Not Available Not Available Not Avai lable oxycodone 5 mg tablet Give 5 mg by mouth at bedtime for Pain 2024 active Not Available Not Available Not Avai lable rosuvastatin 20 mg tablet Give 1 tablet by mouth one time a day 2024 active Not Available Not Available Not Avai lable Lantus Solostar U-100 Insulin 100 unit/mL (3 mL) subcutaneous pen Inject 16 unit subcutaneou sly one time a day for Diabetes Mellitus Refrigerate before opening. Once opened may store at room temp. Date when opened and discard after 28 days. DO not mix with other Insulin 2024 active Not Available Not Available Not Avai lable Humalog KwikPen (U-100) Insulin 100 unit/mL subcutaneous Inject as per sliding scale: if 151 - 200 = 2; 201 - 250 = 4; 251 - 300 = 6; 301 - 350 = 8; 351 - 400 = 10 Call MD > 400, subcutaneou sly before meals for DM 2024 active Not Available Not Available Not Avai lable sodium phosphates 19 gram-7 gram/197 mL enema Insert 1 unit rectally every 24 hours as needed for Constipatio n Use only if Bisacodyl Suppository is ineffective 2024 active Not Available Not Available Not Avai lable Vitals Date Recorded Body weight Body mass index (BMI) Body height Heart rate Respiratory rate Body temperature Oxygen saturation Oxygen saturation in Arterial blood by Pulse oximetry Systolic blood pressure Diastolic blood pressure Provider Name and Address Organization Details Last Updated DateTime 5 90206.9 3 g 23.3 kg/m2 180.34 cm 68 /min 18 /min 97.2 [degF] 95 % 95 % 138 mm[Hg] 69 mm[Hg] Katelynn Bhatti MD [address] [facility], [facility] [address], [place], [address], [facility] 5 14:25:54 Date Recorded Body height Systolic blood pressure Diastolic blood pressure Provider Name and Address Organization Details Last Updated DateTime 05/30/2024 180.34 cm 123 mm[Hg] 54 mm[Hg] ABDIJEN VILLEDA [address] [place] [address], [facility] [address], [place], [address], [facility] 05/30/2024 09:48:01 Date Recorded Body height Systolic blood pressure Diastolic blood pressure Provider Name and Address Organization Details Last Updated DateTime 06/02/2024 180.34 cm 113 mm[Hg] 61 mm[Hg] ABDI LORD [address] [place] [address], [facility] [address], [place], [address], [facility] 06/02/2024 09:46:08 Social History Question Answer Notes LastModified by Organizat ion Details LastModified Time Tobacco Smoking Status Current Every Day Smoker FELISA VERA [address] [facility] [address], [place], [address], [facility] 05/23/2024 07:32:36 Do You Have An Advance Directive? No Information not available 05/23/2024 What Is Your Code Status? Full Code Information not available 05/27/2024 Where Do You Live? Apartment In Elderly Complex With Elevator Information not available 05/27/2024 Legal Guardian? No Informati on not available 05/27/2024 Do You Have A Medical Power Of Track Patrol? Yes Information not available 05/27/2024 What Was The Date Of Your Most Recent Tobacco Screening? 05/27/2024 Information not available 05/27/2024 Do You Have An Out Of Hospital DNR? No Information not available 05/27/2024 What Is Your Relationship Status? Lost 3 Yrs Ago, Very Hard, Had Been Together Since He Was 19 Information not available 05/27/2024 How Much Tobacco Do You Smoke? 0.25 PPD [email or web address] Information not available 05/23/2024 Has Tobacco Cessation Counseling Been Provided? Yes [email or web address] Information not available 05/23/2024 On What Date Was Tobacco Cessation Counseling Provided? 05/27/2024 Plans On Staying Quit, Doesn't Want Patch Or Gum At This Time Information not available 05/27/2024 How Many Years Have You Smoked Tobacco? 68 [email or web address] Information not available 05/23/2024 Sex: Unknown Functional Status Question Answer Note LastModified by Organizat ion Details LastModified Time Do you use any illicit or recreational drugs? No Information not available 05/23/2024 Do you or have you ever used any other forms of tobacco or nicotine? No Information not available 05/23/2024 What is your level of alcohol consumption? None [email or web address] Information not available 05/23/2024 Mental Status None recorded. Family History Nothing Reported. Medical History No medical history recorded. Immunizations Vaccine Type Date Status Note Provider Haroldo dominique and Address Organization Details Recorded Time Respiratory syncytial virus (RSV) MAB, unspecified 3 completed Partha agudelo, [facility] 05/23/2024 14:04:35 Td(adult) unspecified formulation 4 completed Partha Jacks-Whitten null, [facility] 05/23/2024 14:04:46 Pneumococcal conjugate PCV 13 4 completed Partha Jacks-Whitten null, [facility] 05/23/2024 14:05:03 influenza, unspecified formulation 1 completed Partha Jacks-Whitten null, [facility] 05/23/2024 14:05:14 influenza, unspecified formulation 2 completed Partha Jacks-Whitten null, [facility] 05/23/2024 14:05:20 influenza, unspecified formulation 3 completed Partha Jacks-Whitten null, [facility] 05/23/2024 14:05:24 SARS-COV-2 (COVID-19) vaccine, UNSPECIFIED 1 completed Partha Jacks-Whitten null, [facility] 05/23/2024 14:05:37 SARS-COV-2 (COVID-19) vaccine, UNSPECIFIED 1 completed Partha Jacks-Whitten null, [facility] 05/23/2024 14:05:41 SARS-COV-2 (COVID-19) vaccine, UNSPECIFIED 1 completed Partha Jacks-Whitten null, [facility] 05/23/2024 14:05:45 SARS-COV-2 (COVID-19) vaccine, UNSPECIFIED 2 completed Partha Jacks-Whitten null, [facility] 05/23/2024 14:05:49 SARS-COV-2 (COVID-19) vaccine, UNSPECIFIED 2 completed Partha Jacks-Whitten null, [facility] 05/23/2024 14:05:53 SARS-COV-2 (COVID-19) vaccine, UNSPECIFIED 3 completed Partha Jacks-Whitten null, [facility] 05/23/2024 14:05:58 SARS-COV-2 (COVID-19) vaccine, UNSPECIFIED 3 completed Partha Jacks-Whitten null, [facility] 05/23/2024 14:06:02 zoster, unspecified formulation 9 completed Partha Paulson [facility] 05/23/2024 14:06:19 Past Encounters Encounter ID Performer Location Encounter Start Date Encounter Closed Date Diagnosis/Indication Diagnosis SNOMED-CT Code Diagnosis ICD10 Code Diagnosis Note [id number] FELISA VERA at [facility] on [address] [place] [address] 05/21/2024 09:42:09 05/23/2024 10:45:05 Fall 8481761 W19.XXXD fell outside with injuriesli marilee dt orthostasi s with dehydratio nmonitor falls risk Fracture of humerus 6630 8002 S42.301A sp fallright arm in sling Fracture o f maxillary alveolar bone 198743559 S02.42XD sp fallmonito r painno surgical interventi on Closed fra cture of patella 18445737 S82.002A sp fallknee in braceadmit to PT OTnon weight bearingf/u p with ortho ?monitor pain Acute kidney injury 1466 9001 N17.9 [place] on ckdin the setting of dehydratio nimproved with IVFmonitor bmp Hyperkalemia 03935877 E8 7.5 k 5.5resolve d with lokelma inptmonito r bmp Orthostati c hypotension 60391985 I95.1 lisinopril stopped, given IVF and midodrine with improvemen tremains off lisinopril setting of dehydratio nencourage oral hydrationm onitor bp Essential hypertension 10278295 I10 now with low BPsremains off lisinopril monitor bp and labs Hyperlipidemia 51195031 E78.5 on asa and statinlipi ds outpt Type 2 alberto betes mellitus 46639119 E11.9 metformin stopped inptlantus 16 units dailymonit or accuchecks Mood disorder 24372496 F 39 anxiety and depression buspirone 10 mg tidsertral ine 100 mg bid (odd dosing?) Cigarette smoker 2413088 7 F17.210 has nicotine patchstart gum prnproduct matheus loose coughmonit or [id number] [facility] on [address] [place] [address] 05/24/2024 11:23:12 06/10/2024 09:51:22 Fracture of humerus 84896578 S42.301A sp fallright arm in slingc/o pain-will start low dose of Oxycodone 2.5 mg po q 6 hours prn Fracture o f maxillary alveolar bone 694475043 S02.42XD sp fallmonito r painno surgical interventi on Closed fra cture of patella 22175542 S82.002A sp fallknee in braceBrace being removed and monitored dailyConti nue PT OTweight bearing as toleratedf /up with orthomonit or pain Acute kidney injury 1466 9001 N17.9 [place] on ckdin the setting of dehydratio nimproved with IVFmonitor bmp, see above labs Hyperkalemia 35119245 E8 7.5 k 5.5resolve d with lokelma inptmonito r bmp , 4.6 today Essential hypertension 87648953 I10 now with low BPsremains off lisinopril monitor bp and labs Type 2 alberto betes mellitus 99497188 E11.9 metformin stopped inptlantus 16 units dailymonit or accuchecks glucose 270 with lab, monitor Mood disorder 36520688 F 39 anxiety and depression buspirone 10 mg tid [id number] FELISA VERA at [facility] on [address] [facility] [place] [address] 05/26/2024 11:52:46 05/30/2024 10:43:37 Fracture of maxillary alveolar bone 788642551 S02.42XD sp fallmonito r painno surgical interventi on Fracture of humerus 6630 8002 S42.301A uncontroll ed painright arm in slingstart tylenol 975 mg tidstart oxy 5 mg qhs and continue oxy 2.5 mg q6h prnmonitor pain and wean as tolerated Closed fra cture of patella 00228841 S82.002A sp fallknee in braceBrace being removed and monitored dailyConti nue PT OTweight bearing as toleratedf /up with orthomonit or pain Essential hypertension 44908346 I10 now with low BPsremains off lisinopril monitor bp and labs Type 2 alberto betes mellitus 44192992 E11.9 metformin stopped inptlantus 16 units dailymonit or accuchecks tid with ss insulinblo od sugars variable Mood disorder 56603020 F 39 mood stableh/o anxiety and depression continue buspirone 10 mg tid [id number] Katelynn Bhatti MD [facility] on [address] [place] [facility] [place] [address] 05/27/2024 14:01:22 05/30/2024 11:15:45 Fracture of maxillary alveolar bone 307756676 S02.42XD No interventi on needed.Michele n control as above.[place] tor Fracture of humerus 6630 8002 S42.321K Continue sling and NWB at all times.Cont inue pain management as above.Reha b as above.F/U with ortho. Closed fra cture of patella 68825799 S82.015K With no evidence of healing on xray from 05/20, but per ortho ok for WBAT.Rick nue knee immobilize r when OOB.Needs PT/OT for strengthen ing, balance, gait training, safety and function.C ontinue fall precaution s.Monitor for safety.Con tinue APAP 975 mg TID and oxy 5 mg qhs and 2.5 mg q 6 hrs prn.Contin ue Lovenox 40 mg qd for DVT prophylaxi sMonitor pain control.F/ U with ortho as planned. Essential hypertension 48935307 I10 BP remains in good control off lisinopril .Monitor for need to restart a different antihypert ensive. Type 2 alberto betes mellitus 87128903 E11.22 Metformin stopped inpt due to CKD.Sugars variable since here, but all <300Last HgA1C I can find is 7.4 in 08/2023.Con tinue Lantus 16U qd, glipizide 5 mg BID and SSI.Monito r fingerstic ks TID and HgA1C as outpt.May need to increase Lantus or glipizide now that pt is off metformin. Anemia 924639603 D64.89 With marked drop since 02/2024.Li marilee due to fxs.Has been stable since hydration inpt.Rick nue FeSO4 325 mg qd (Had iron of 123 in 02/2024).M onitor labs. Monoclonal gammopathy of uncertain significance 764462839 D47.[address] Ballard at [facility].Last note states: At this time I discussed again the diagnosis of MGUS based on his presentati on. Faint IgG kappa monoclonal band present with unremarkab le serum free light chain analysis. No anemia, hypercalce sacha or abnormal creatinine . CT scan chest abdomen and pelvis did not reveal bone lesions. I recommend repeat SPEP and serum free light chain analysis in 6 months. If still normal, will then stop testing. No immediate need for bone marrow examinatio n. Chronic ob structive pulmonary disease 48667662 J43.8 No current sxs.On admission here spiriva was left off his meds.Will restart spiriva respimat 2 puffs qd.Monitor for need for rescue inhaler.Mo nitor resp status. Nicotine dependence 5629 4008 F17.213 Had requested nicotine gum, but doesn't look like it was ordered.Wi ll start Chronic ki dney disease stage 3A 444725103 N18.31 Back to baseline.C ontinue to avoid nephrotoxi c meds as able.Monit or labs.Renal consult prn. 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 Chronic diarrhea 0740903 09 K52.9 Lifelong problem.Ta kes imodium if he is going out to the store or other out of home activities .Then takes him 2 days to start going again. [id number] ABDI Germainsanti at [facility] on [address] [address] 05/30/2024 09:30:23 06/01/2024 14:31:02 Closed fracture of patella 26330837 S82.015K Continue WBAT with PTContinue knee immobilize r when OOB- SKIN CHECKS DAILYConti nue fall precaution s.Continue APAP 975 mg TID and oxy 5 mg qhs and 2.5 mg q 6 hrs prn.Contin ue Lovenox 40 mg qd for DVT prophylaxi sF/U with ortho as planned. Fracture of humerus 6630 8002 S42.321K Continue sling and NWB at all times.Cont inue pain management as above.Reha b as above.F/U with ortho. Essential hypertension 85400576 I10 123/54Moni tor for need to restart a different antihypert ensive. Type 2 alberto betes mellitus 48680875 E11.22 sugar today 133Last HgA1C I can find is 7.4 in 08/2023.Con tinue Lantus 16U qd, glipizide 5 mg BID and SSI.Monito r fingerstic ks TID and HgA1C as outpt.May need to increase Lantus or glipizide now that pt is off metformin. Anemia 562411016 D64.89 Continue FeS04 325 mg qd (Had iron of 123 in 02/2024).l abs tomorrow Chronic ki dney disease stage 3A 576444534 N18.31 labs tomorrow [id number] ABDI Moody at [facility] on [address] [place] [address] 06/02/2024 09:31:20 06/03/2024 13:38:17 Closed fracture of patella 31065840 S82.015K see HPI, doing well with PTContinue knee immobilize r when OOB- SKIN CHECKS DAILYConti nue fall precaution s.Continue APAP 975 mg TID and oxy 5 mg qhs and 2.5 mg q 6 hrs prn.Contin ue Lovenox 40 mg qd for DVT prophylaxi sF/U with ortho as planned.DC home on 06/07 Fracture of humerus 6630 8002 S42.321K Continue sling and NWB at all times.Cont inue pain management as above.Reha b as above.F/U with ortho. Chronic ki dney disease stage 3A 645309334 N18.31 [id number] .60 [id number] ABDI Moody at [facility] on [address] [place] [address] 06/07/2024 06:30:17 06/08/2024 16:07:34 Closed fracture of patella 57017697 S82.015K see HPI, ok to dc home with VNAContinu e knee immobilize r when OOBContinu e APAP 975 mg TID and oxy 5 mg qhs and 2.5 mg q 6 hrs prn.Contin ue Lovenox 40 mg qd for DVT prophylaxi sF/U with ortho as planned. Fracture of humerus 6630 8002 S42.321K Continue sling and NWB at all times.Cont inue pain management as above. Chronic ki dney disease stage 3A 846455610 N18.31 stable Painful pe nile erection 1978163 N48.39 zoloft cut in half, resolvedca ution increasing dose in future Fracture o f maxillary alveolar bone 775635273 S02.42XD No interventi on needed. Essential hypertension 26255673 I10 BP remains in good control off lisinopril . Type 2 alberto betes mellitus 47888041 E11.22 Metformin stopped inpt due to CKD.Sugars variable since here, but all <300Last HgA1C I can find is 7.4 in 08/2023.Con tinue Lantus 16U qd, glipizide 5 mg BID and SSI. Mixed anxi ety and depressive disorder 949795956 F41.8 F32.89 sertraline 100 mg dailyConti nue buspirone 10 mg TID and melatonin 6 mg qhs prn.Monito r mood.Psych consult prn. Anemia 334504508 D64.89 With marked drop since 02/2024.Li marilee due to fxs.Has been stable since hydration inpt.Rick nue FeSO4 325 mg qd (Had iron of 123 in 02/2024). Chronic ob structive pulmonary disease 73699542 J43.8 spiriva respimat 2 puffs qd Chronic diarrhea 4452840 09 K52.9 Lifelong problem.Ta kes imodium if he is going out to the store or other out of home activities .Then takes him 2 days to start going again. Health Concerns Section Related Observation LastModified by Organization Effie ivory LastModified Time None Recorded Concern Status LastModified by Organization Details LastModified Time None Recorded Advance Directives Directive N: Payers Encounter Date Sequence Insurance Name Policy Number Policy Silva Covered Member ID Silva Member ID Guarantor Name 05/26/2024 1 [facility] (MEDICARE REPLACEMENT/A DVANTAGE - PPO) [id number] Boone E Keyonna [id number] Boone Keyonna 05/27/2024 1 [facility] (MEDICARE REPLACEMENT/A DVANTAGE - PPO) [id number] Boone E Keyonna [id number] [place] Keyonna 05/30/2024 1 [facility] (MEDICARE REPLACEMENT/A DVANTAGE - PPO) [id number] Bo[address] Keyonna [id number] Boone Keyonna 06/02/2024 1 [facility] (MEDICARE REPLACEMENT/A DVANTAGE - PPO) [id number] Bo[address] Keyonna [id number] Boone Keyonna 06/07/2024 1 [facility] (MEDICARE REPLACEMENT/A DVANTAGE - PPO) [id number] Boone E Keyonna [id number] Boone Keyonna Notes Date Note Type Note Provider Name and Address Organization Details Recorded Time 5 text/html Pt is a 73 yo male being seen for acute rounding. He presented to [facility] sp fall. He was found to have right maxillary, right humerus, and left patellar fx. Patient seen today. His arm is in a sling and knee in brace, he is working with therapy and is now WBAT. He has been using low dose oxy every 6 hours, but doesnt feel its enough at night. He is having a hard time getting comfortable in the night. PMH htn, hld, ckd3, anxiety, depression, and diabetes. AWILDA MARIE, DAIRY FEED MIXING OPERATOR-C [address] [facility], [address], [place], [address], [facility] 05/27/2024 07:57:17 5 text/html This is a 73 yo man who is here for rehab after an acute hospitalization for right maxillary sinus fracture, nondisplaced proximal right humerus fracture, and nondisplaced left patella fracture complicated by orthostatic hypotension, NEVILLE and hyperglycemia; and then STR at another facility for 10 days before transfer here due to not liking care at other facility. [facility] fall described as being outside and suddenly his legs getting weak and falling forward. He hit his head, but had no LOC.Eval found stable VS.Labs showed K+5.5, glu-404, BUN/Cr-41/1.28, WBC-12.5.Imaging showed:CT head1. No acute intracranial abnormality. No acute intracranial hemorrhage.2. Mild right periorbital soft tissue swelling with a small rightposterior parietal scalp hematoma. No acute calvarial fracture.CT facial bones1.Age-indeterminate fracture present at the anterior wall of the rightmaxillary sinus. No other fracture or dislocation injuries of the facialbones are identified.2. Mild right periorbital soft tissue swelling.CT cervical spine1. No acute fracture or dislocation injury identified at the cervicalspine.CXR1V1. Findings suggestingpulmonary emphysemawith minimal linearsubsegmental atelectasis versus scarring at the left lung baseXR 3 view shoulder1.Nondisplaced fracture present at the proximal right humerus withinvolvement of the greater tuberosity For hyperkalemia he was txed with lokelma.For orthostatic hypotension was txed with IV fluids and midodrine. He reported chronic lightheadedness which had been worked up by PCP with no findings. He was placed in a sling and knee immobilizer.Ortho did phone consult and said:-continue brace PWB LLE-f/u with orthopedics in 4 weeks for xrays-continue sling RUE-may come out for elbow and wrist ROM-f/u ortho 4 weeks for xrays His metformin and lisinopril were d/c'd due to NEVILLE and hyperkalemia. [facility]Info sent from [facility] include MAR and a note saying he saw ortho on 05/20 and is now WBAT.Xrays from 05/20 found in [facility] system show no callous formation of either humerus or patella. And that humerus had worsened malalignment.He was transferred here on 05/20. Since here he has been working with rehab and progressing, he is supervision for bed mobility, transfers and ambulation. He is mod assist for toilet transfers, bathing and lower body dressing. He was seen by DAIRY FEED MIXING OPERATOR yest due to pain being uncontrolled at night and he was started on a scheduled hs dose of 5 mg oxy, and continues on 2.5 mg q 6 hrs prn.He tells me the night time dose of oxy helps a lot.He feels good about the progress he's making with rehab. His PMH includes HTN, COPD, CKD stage 3B, AODM, HLD, anxiety/depression, AQUILES, and MGUS. Katelynn Bhatti MD [address] [facility], [address], [place], [address], [facility] 05/27/2024 22:14:26 5 text/html This is a 73 year old male being seen for acute rounding. He presented to [facility] sp fall. He was found to have right maxillary, right humerus, and left patellar fx. His oxycodone was increased on 05/26 and tylenol was scheduled, he tells me today his pain is very well controlled. per PT on 05/27: Ambulation with cane and cga , 100 feet and 200 feet good sequencing with cane and able to perform some more step through gait sequencing.Chart and documentation review . Trialed cane this date as he has one at home . Bed mobility mod i. PMH htn, hld, ckd3, anxiety, depression, and diabetes. ABDI VILLEDA [address] [facility], [address], [place], [address], [facility] 05/30/2024 09:52:26 5 text/html This is a 73 year old male being seen for acute rounding. He presented to [facility] sp fall. He was found to have right maxillary, right humerus, and left patellar fx. Per PT: Seated AROM R LE with 4# aw: hip flex, abd, laq and ankle pumps with cues for technique to increase strength and endurance during functional mobility tasksPt ambulated up to 600' per trial, HW, supervision for safety during obstacle navigationTransfer training completed with supervision to cue for hand and foot placement. Script request for HW placed with MD. (I) with bed mobility and supine<>sitConcurrent Treatment: Patient participated in concurrent therapy with 1 other patient to successfully progress towardsindividual treatment plan/goals by addressing patient's Decreased functional capacity and Strength impairments ;skilled interventions included Gait and therex. He tells me he is going home the and he is worried. He said he is doing great with therapy and hitting all his goals but he is just anxious about getting hurt. He will have his dtr come over and put all things at eye level to keep him safe. No new concerns at visit. PMH htn, hld, ckd3, anxiety, depression, and diabetes. ABDI VILLEDA [address] [facility], [address], [place], [address], [facility] 06/02/2024 11:28:45 5 text/html This is a 73 year old male being seen for discharge summary visit. He presented to [facility] sp fall. He was found to have right maxillary, right humerus, and left patellar fx.Last week patient complained of long painful erections, after some review it started after his sertraline was increased, likely the cause. Dose cut back in half, today he reports great improvement. He tested positive for covid on 06/06, he wonders if its false as he feels fine with no sxs. Explained that there is an outbreak on the floor, likely a true positive and its just a mild case. No new questions, ok to DC home with meds and services. PMH htn, hld, ckd3, anxiety, depression, and diabetes. ABDI VILLEDA [address] [facility], [address], [place], [address], [facility] 06/07/2024 06:51:08
--- OUTSIDE RECORDS SUMMARY | 2024-08-02 10:03 | XMS_ITS | Encounter Summary ---
Author Organization [employer] Address [address] [facility] [address] [place] [address] Care Team Providers Care Agricultural Education Instructor Name Role Phone Kath Bose MD Primary Care Provider [phone] Encounter Details Date Type Department Care Team ([facility] Contact Info) Description 05/09/2024 Orders Only [facility] [address] [place], [place] [phone] Kath Bose MD [address] [place], [place] [phone] Social History Tobacco Use Types Packs/Day Years [...] documented as of this encounter Care Teams Agricultural Education Instructor Relationship Specialty Start Date End Date Kath Bose MD [address] [place] [address] PCP - General Family Medicine 09/23/23 Blayne A 06/09/24 documented as of this encounter
--- OUTSIDE RECORDS SUMMARY | 2024-08-02 10:03 | XMS_ITS | Encounter Summary ---
Author Organization [employer] Address [address] [facility] [address] [place] [address] Care Team Providers Care Association Executive Name Role Phone Kath Camacho MD Primary Care Provider [phone] Reason for Visit * Reason Onset Date Comments Appointment Request 06/06/2024 Encounter Details Date Type Department Care Team ([facility] Contact Info) Description 06/06/[address] [facility] [address] [place] [address] Kath Camacho MD [address] [place] [address] Appointment Request Social History Tobacco Use Types [...] 12:32 PM EDT Tc returned to daughter [phone] (Leonardo-on HIPAA) regards to below message. Daughter requested appt to be reschedules to see PCP only. Appt changed to 06/14/24 at 915 am. Daughter informed RN that patient tested positive for Covid on 06/06/24. Daughter advised to notify front office assistant when checkingin for the appt and for [...] camacho if Possible. Contact pt Daughter at [phone] documented in this encounter Plan of Treatment Not on file documented as of this encounter Visit Diagnoses Not on filedocumented in this encounter Additional Health Concerns Assessment Noted Time PHQ-9 Depression Total Score: 12 024 2:19 PM EDT documented as of this encounter Care Teams Association Executive Relationship Specialty Start Date End Date Kath Camacho MD [address] [place] [address] PCP - General Family Medicine 09/23/23 Blayne [facility] 06/09/24 documented as of this encounter
--- OUTSIDE RECORDS SUMMARY | 2024-08-02 10:03 | XMS_ITS | Clinical Summary ---
Author Organization [employer] Address [address] [facility] 7[address] [place] [address] Care Team Providers Care Phlebotomy Tech Name Role Phone Kath Bose MD Primary Care Provider [phone] Allergies Active Allergy Reactions Criticality Noted Date Comments Codeine 05/20/2024 Medications acetaminophen (Tylenol) 500 MG tablet Take 1,000 mg by mouth every 8 (eight) hours if needed. 08/29/19 23 Active ascorbic acid (Vitamin C) 1000 MG tablet Take 1 tablet by mouth Once per day. 02/23/20 13 Active aspirin 81 MG chewable tablet 1 tablet in the morning. 01/28/20 23 Active cholecalciferol (Vitamin D-3) 50 MCG (2000 UT) tablet Take 2,000 Units by mouth Once per day. 02/21/20 22 Active Precision QID Test test strip Use to check blood sugars. [employer] freedom diagnostic strips Dx# E 11.9 04/23/19 23 Active BD Pen Needle Aleena 2nd Gen 32G X 4 MM misc USE ONE EACH BY MISCELLANEOUS ROUTE DAILY 04/03/19 24 Active [facility] Thin Lancets misc 1 each by Other route before breakfast, before lunch, before evening meal, and at bedtime. 04/23/19 23 Active rosuvastatin (Crestor) 20 MG tablet Take 20 mg by mouth Once per day. 09/02/19 24 Active glipiZIDE (Glucotrol) 5 MG tablet TAKE 1 TABLET BY MOUTH TWICE A DAY 180 tablet 3 04/05/19 25 Active albuterol 108 (90 Base) MCG/ACT inhalerIndicatio ns:COPD exacerbation (CMS/HCC) Inhale 2 puffs every 6 (six) hours if needed for wheezing. 18 g 11 04/23/19 25 026 Active FeroSul 325 (65 Fe) MG tablet Take 1 tablet by mouth with breakfast. 03/08/20 24 Active sertraline (Zoloft) 100 MG tablet Take 1 tablet by mouth Once per day. Active psyllium (Metamucil) 0.36 g capsule Take 1 capsule by mouth Once per day. Active Multiple Vitamin (multivitamin) capsule Take 1 capsule by mouth Once per day. Active COVID-19 Antigen Test kitIndications:T ype 2 diabetes mellitus treated with insulin (CMS/HCC) 1 each by In Vitro route if needed (covid symptoms). 2 kit 06/15/19 25 Active nicotine polacrilex (Nicorette) 4 MG gumIndications:T obacco use CHEW 1 GUM IF NEEDED FOR SMOKING CESSATION 100 each 3 06/16/19 25 Active insulin glargine (Lantus) 100 UNIT/ML pen Inject 20 Units under the skin at bedtime. 3 mL 3 06/21/19 25 Active metFORMIN (Glucophage) 500 MG tablet Take 1 tablet (500 mg) by mouth with breakfast and with evening meal. 60 tablet 11 06/29/19 25 026 Active busPIRone (Buspar) 10 MG tablet Take 1 tablet (10 mg) by mouth 2 times daily. 180 tablet 3 06/30/19 25 Active Active Problems Problem Noted Date Diagnosed Date [...] neoplasia 10/2023 F/u every 6 months with [facility] oncology Stage 3b chronic kidney disease 09/25/2023 [...] Type Department Care Team Description 07/05/2024 Telephone [facility] [place] [address] Kath Bose MD Verbal Order 06/28/2024 Orders Only [facility] [place] [address] Kath Bose MD 06/24/2024 Refill [facility] [place] [address] Kath Bose MD 06/14/2024 9:15 AM EDT Office Visit [facility] [place] [address] Kath Bose MD Type 2 diabetes mellitus treated with insulin (CMS/HCC) (Primary Dx); Recurrent major depressive disorder, in partial remission (CMS/HCC); Occlusion of jugular vein, unspecified laterality (CMS/HCC); [...] DEPARTMENT Provider, Generic External Data 06/14/2024 [place]ill [place] [address] Kath Bose MD Tobacco use 06/14/2024 Travel 06/09/2024 Telephone [facility] [place] [address] Kath Bose MD Nurse Triage 06/09/[address] [address] Kath Bose MD Medication Question 06/07/2024 Travel 06/06/[address] [address] Kath Bose MD Appointment Request 06/06/2024 Patient Outreach [facility] [address] [place], [place] [phone] Kath Bose MD Transition Of Care (Tcm) (HDF - Scheduled. ) 05/30/[address] [phone] Kath Bose MD TelephoneCall - Reschedule appt 05/09/2024 Orders Only [address] [address] Kath Bose MD from Last 3 Months [...] AUTO DIFFERENTIAL Routine 06/14/2024 11:25 AM EDT ME REMOVAL IMPACTED CERUMEN IRRIGATION/LVG UNILAT Routine 06/14/2024 10:52 AM EDT Hearing loss of both ears due to cerumen impaction POCT RAPID COVID ANTIGEN Routine 06/14/2024 10:34 AM EDT Type 2 diabetes mellitus treated with insulin ([facility]) POCT GLYCATED HEMOGLOBIN, TOTAL Routine 06/14/2024 9:26 AM EDT Type 2 diabetes mellitus treated with insulin ([facility]) POCT GLUCOSE Routine 06/14/2024 9:26 AM EDT Type 2 diabetes mellitus treated with insulin ([facility]) from Last 3 Months Results * (ABNORMAL) CBC auto differential (06/14/2024 11:25 AM EDT) White Blood Count 8.8 4.8 - 10.8 X10*3/uL [facility] Red Blood Count 4.17(L) 4.60 - 5.80 X10*6/uL [facility] Hemoglobin 13.0(L) 14.0 - 18.0 g/dl [facility] Hematocrit 40.9(L) 42.0 - 52.0 % [facility] Mean Corpuscular Volume 98.1(H) 80.0 - 98.0 fL [facility] Mean Corpuscular Hemoglobin 31.2 27.0 - 33.0 pg [facility] Mean Corpuscular HGB Conc 31.8 31.0 - 36.0 g/dl [facility] Red Cell Distribution Width 12.1 11.0 - 16.0 % [facility] Platelet Count 229 160 - 400 X10*3/uL [facility] Mean Platelet Volume 12.5(H) 9.4 - 12.4 fL [facility] Neutrophils Percent Auto 68.2 45 - 73 % [facility] Imm Gran Pct Auto 0.5(H) 0.0 - 0.4 % [facility] Lymphocytes Percent Auto 18.3(L) 20 - 40 % [facility] Monocytes Percent Auto 9.8 2 - 11 % [facility] Eosinophils Percent Auto 2.6 0 - 4 % [facility] Basophils Percent Auto 0.6 0 - 2 % [facility] NRBC Pct Auto 0.0 0.0 - 0.2 /100WBC [facility] Neutrophils Absolute Auto 6.0 2.0 - 8.3 x10*3/uL [facility] Imm Gran Abs Auto 0.04(H) 0.00 - 0.03 X10*3/uL [facility] Lymphocytes Absolute Auto 1.6 1.2 - 4.9 X10*3/uL [facility] Monocytes Absolute Auto 0.9 0.1 - 1.2 X10*3/uL [facility] Eosinophils Absolute Auto 0.2 0.0 - 0.4 X10*3/uL [facility] Basophils Absolute Auto 0.1 0.0 - 0.2 X10*3/uL [facility] NRBC Abs Auto 0.000 0.0 - 0.012 X10*3/uL [facility] 06/14/2024 11:2 5 AM EDT 06/14/2024 1:38 PM EDT us Generic External Data Provider LAB BLOOD ORDERAB LES Final Result [facility] [address] [place] [address] [phone] * (ABNORMAL) Comprehensive Metabolic Panel (06/14/2024 11:25 AM EDT) Sodium 138 135 - 145 mmol/L [facility] Potassium 4.8 3.3 - 5.1 mmol/L [facility] Chloride 108 96 - 108 mmol/L [facility] Carbon Dioxide 21(L) 22 - 29 mmol/L [facility] Anion Gap 14 12 - 20 [facility] Urea Nitrogen (BUN) 49(H) 9 - 16 mg/dL [facility] Creatinine, Serum 1.53(H) 0.5 - 1.4 mg/dL [facility] Estimated Glomerular Filt Rate 45 [facility] Comment:Chronic Kidney Disea se: Estimated GFR < 60 mL/min/1.06a3Iwquve Kidney Disease: Estimated GFR < 15 mL/min/1.73m2 Glucose 217(H) 60 - 115 mg/dL [facility] Calcium 9.7 8.4 - 10.2 mg/dL [facility] Bilirubin, Total 0.4 0.0 - 1.0 mg/dL [facility] Aspartate Amino Transferase 21 5 - 37 U/L [facility] Alanine Aminotransferase 16 0 - 40 U/L [facility] Total Protein 7.1 6.5 - 8.0 g/dL [facility] Albumin Level 4.0 3.5 - 5.0 g/dL [facility] Alkaline Phosphatase 75 39 - 117 U/L [facility] 06/14/2024 11:2 5 AM EDT 06/14/2024 1:38 PM EDT us Generic External Data Provider LAB BLOOD ORDERAB LES Final Result Performing Organization Address City/[facility]/ZIP Co de Phone Number [facility] [address] [place] [address] [phone] * ME REMOVAL IMPACTED CERUMEN IRRIGATION/LVG UNILAT (06/14/2024 10:52 [...] and TM perforation ??Alternatives discussed: debrox drops. [place] protocol: ??Procedure explained and questions answered to [...] Rapid Covid-19 BinaxNOW (06/14/2024 10:34 AM EDT) [facility] Rapid COVID Ag Negative QC Media Lot # [id number] Lot# Expiration Date [id number] Swab 06/14/2024 10:3 4 AM EDT Kath Bose MD POINT OF CARE TEST ENTER/EDIT ORDERABLES Final Result * (ABNORMAL) POCT HGB A1C (06/14/2024 9:26 AM EDT) Hemoglobin A1C 8.4(A) 4.0 - 6.0 % QC Media Lot # [id number] Lot# Expiration Date [id number] Blood 06/14/2024 9:26 AM EDT Kath Bose MD POINT OF CARE TEST ENTER/EDIT ORDERABLES Final Result * (ABNORMAL) POCT Glucose (06/14/2024 9:26 AM EDT) Pathologist [facility] Glucose Blood, POC 230(A) 60 - 200 mg/dL QC Media Lot # [id number] Lot# Expiration Date 8999,025 Blood Capillary blood specimen / Unknown 06/14/2024 9:26 AM EDT Kath Bose MD POINT OF CARE TEST ENTER/EDIT ORDERABLES Final Result from Last 3 Months Insurance [facility] STANDARD [facility] MEDICARE REPLACEMENT Advance Directives Documents on File Type Date Recorded Patient Hydraulic Lift Driver Expl anation Advance Directives and Living Will 09/23/2023 Health Care Proxy 09/23/23 Advance Directives and Living Will 06/14/2024 2:27 PM MOLST HealthCare Proxy 09/23/2023 Care Teams Phlebotomy Tech Relationship Specialty Start Date End Date Kath Bose MD [address] [place] [address] PCP - General Family Medicine 09/23/23 Blayne ON LICENSE OF [facility] 06/09/24
--- OUTSIDE RECORDS SUMMARY | 2024-08-02 10:03 | XMS_ITS | Patient Health Record ---
Author Organization [facility] Address [address] [facility] [place] [address] Care Team Providers Care Biosolids Management Technician Name Role Phone Yohana Cifuentes Primary Care Provider Yg Thomson Unavailable [phone] Allergies No Known Allergies Results Component Value [...] Problem Acquired hammer toe of right foot (0904936824926 105) Other hammer toe(s) (acquired), right foot (M20.41) Active confirmed Response to treatment,I mprovement Problem Type 2 diabetes mellitus with peripheral angiopathy (873352384) Type 2 diabetes mellitus with diabetic peripheral angiopathy without gangrene (E11.51) Active confirmed Problem Acquired hammer toe of left foot (9613704066313 103) Other hammer toe(s) (acquired), left foot (M20.42) Active confirmed Response to treatment,I mprovement Vital Signs Blood pressure diastolic 70 mm Hg 07/12/2024 Height 5ft 11.5in in 07/12/2024 Blood pressure systolic 120 mm Hg 07/12/2024 Weight 176 lbs 07/12/2024 BMI 24.2 kg/m2 07/12/2024 Procedures Procedure Date Ordered Date Performed Result Body Sit e 64967-NTTUBHW NAIL, 6 OR MORE 11/17/2023 N/A 19699-Rdubluqt Plate 11/17/2023 N/A 14280-WXOV SKIN LESIONS, OVER 4 11/17/2023 N/A 37528-VKEJJBG NAIL, 6 OR MORE 03/11/2024 N/A 92962-YLPO SKIN LESIONS, OVER 4 03/11/2024 N/A 18863-FMWWBSJ NAIL, 6 OR MORE 07/12/2024 N/A 16892-FHMM SKIN LESIONS, OVER 4 07/12/2024 N/A Encounters Encounter Location Date Provider Diagnosis [address] [address] 11/17/2023 Yg Soto Type 2 diabetes mellitus with diabetic peripheral angiopathy without gangrene E11.51 ; Tinea unguium B35.1 ; Pain in right toe(s) M79.674 ; Pain in left toe(s) M79.675 ; Ingrown nail L60.0 and Xerosis of skin L85.[address] [address] 03/11/2024 Yg Soto Type 2 diabetes mellitus with diabetic peripheral angiopathy without gangrene E11.51 ; Tinea unguium B35.1 ; Pain in right toe(s) M79.674 ; Pain in left toe(s) M79.675 and Xerosis of skin L85.[address] [address] 07/12/2024 Yg Soto Type 2 diabetes mellitus with diabetic peripheral angiopathy without gangrene E11.51 ; Tinea unguium B35.1 ; Pain in right toe(s) M79.674 ; Pain in left toe(s) M79.675 ; Other hammer toe(s) (acquired), left foot M20.42 and Other hammer toe(s) (acquired), right foot M20.[address] [address] 07/12/2024 Yg Soto Assessments Encounter Date Diagnosis [...] Treatment Pending Test Test Name Order Date 47956-FQLMXFZ NAIL, 6 OR MORE 03/03/2023 31325-RWHNXET NAIL, 6 OR MORE 07/21/2023 38201-HOVEQYP NAIL, 6 OR MORE 11/17/2023 86462-ODEERHC NAIL, 6 OR MORE 03/11/2024 62341-XEAQGPJ NAIL, 6 OR MORE 07/12/2024 70276-Wsmfgbly Plate 07/21/2023 16408-Bkckouau Plate 11/17/2023 25828-ERSG SKIN LESIONS, OVER 4 11/17/19 24 41930-OACQ SKIN LESIONS, OVER 4 07/21/19 24 48163-NPQN SKIN LESIONS, OVER 4 03/03/20 23 57300-IYGK SKIN LESIONS, OVER 4 07/13/19 25 91031-JVIS SKIN LESIONS, OVER 4 03/11/20 24 Next Appt Details Provider Name:Yg Soto , 11/08/2024 01:00:00 PM, [address] [place], [address], Insurance Providers Payer Name Payer Address Payer Phone Subscriber Number Group Number Insured Name Patient Relationship to Insured Coverage Start Date Coverage End Date [employer] Medicare Complete [address] [address] [place] [address] [id number] Boone Newby Self - patient is the insured Medical (General) History Medical History History ICD Code Back,Hip,and Knee pain Broken bones CAD (Cholesterol) Diabetic High blood pressure Lung disease Surgical History Surgery Date(Month/Year) hernia 2013 Hospitalization History Reason Date(Month/Year) Hospital- Fall - Broken knee and shoulde r 05/17
--- OUTSIDE RECORDS SUMMARY | 2024-08-02 10:03 | XMS_ITS | Encounter Summary ---
Author Organization [employer] Address [address] [facility] [address] [place] [address] Care Team Providers Care Business Development Officer Name Role Phone Kath Bose MD Primary Care Provider [phone] Reason for Visit * Reason Onset Date Comments New Patient 11/05/2022 Encounter Details Date Type Department Care Team ([facility] st Contact Info) Description 11/05/2022 Telephone [facility] [address] [place] [address] Raad Leroy MD [address] [place] [address] New Patient Social History Tobacco Use Types [...] been transfer over to wait list 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 EFFECTIVE SINCE 11/05/2022 documented in this encounter Plan of Treatment Not on file documented as of this encounter Visit Diagnoses Not on filedocumented in this encounter Care Teams Business Development Officer Relationship Specialty Start Date End Date Kath Bose MD [address] [place] [address] PCP - General Family Medicine 09/23/23 [place] 06/09/24 documented as of this encounter
--- OUTSIDE RECORDS SUMMARY | 2024-08-02 10:03 | XMS_ITS ---
Author Organization [facility] Address [address] [place] [address] Care Team Providers Care Box Truck Driver Name Role Phone Yohana Cifuentes Primary Care Provider Yg Thomson Unavailable [phone] Allergies No Known Allergies REASON FOR VISIT [...] Ordered Date Performed Result Body Sit e 57200-RVOCIQC NAIL, 6 OR MORE 03/11/2024 N/A 49935-VATD SKIN LESIONS, OVER 4 03/11/2024 N/A Encounters Encounter Location Date Provider Diagnosis [facility] [place] [address] [place] [address] 03/11/2024 Yg Soto Type 2 diabetes mellitus [...] days Pending Test Test Name Order Date 45993-ITWODPB NAIL, 6 OR MORE 03/11/2024 37847-GAGJ SKIN LESIONS, OVER 4 03/11/20 24 Next Appt Details Follow Up: prn, Reason: Provider Name:Yg Soto , 11/08/2024 01:00:00 PM, [address] [place] [address], [phone], Procedure Notes * Category Sub-Category Detail Notes [...] of a nail nipper and/or dremel-type grinder mill operator, to a more viable healthy nail plate [...] to maintain effectiveness in symptomatic relief - 10801 Keratoma Treatment Parring or Cutting o f [...] instrumentation by the physician of record - 58745, Q8 Progress Notes * Boone JAIME JrDOB:1950 (73 yo M)Acc No.[id number]:03/11/2024 Progress Note Patient:?Boone JAIME Jr Provider:?Yg Soto DPM :1950???Age:73 Y???Sex:Male Juvenal e:03/11/2024 Address:[address] [place] [address] [address], [facility] Pcp:Yohana Cifuentes Subjective: * Chief Complaints: * [...] to recommendations??? Plan: * Treatment: 2.?Tinea unguium?Procedure: 79946-REZYZKK NAIL, 6 OR MORE 3.?Xerosis of skin? [...] of a nail nipper and/or dremel-type grinder mill operator, to a more viable healthy nail plate [...] to maintain effectiveness in symptomatic relief - 92781.?Keratoma Treatment:?Parring or Cutting of Benign Hyperkeratotic Lesion(s)?(-57) [...] instrumentation by the physician of record - 50962, Q8.? * Procedure Codes:?57094 DEBRI DE NAIL, 6 OR MORE, Modifiers: XS 59452 TRIM SKIN LESIONS, OVER 4, Modifiers: XS [...] Soto DPM Date:?2023 Generated for Brayan curtis/Regina/Brittnyitting on:?08/02/2024 10:02 AM EDT History and Physical Notes * HPI [...]
--- OUTSIDE RECORDS SUMMARY | 2024-08-02 10:03 | XMS_ITS | Encounter Summary ---
Author Organization [employer] Address [address] [facility] [address] [place] [address] Care Team Providers Care Shotgun Shell Assembly Machine Adjuster Name Role Phone Kath Bose MD Primary Care Provider [phone] Encounter Details Date Type Department Care Team ([facility] Contact Info) Description 06/28/2024 Orders Only [facility] [address] [place], [place] [phone] Kath Bose MD [address] [place], [place] [phone] Social History Tobacco Use Types Packs/Day Years [...] documented as of this encounter Care Teams Shotgun Shell Assembly Machine Adjuster Relationship Specialty Start Date End Date Kath Bose MD [address] [place] [address] PCP - General Family Medicine 09/23/23 [place] A 06/09/24 documented as of this encounter
--- OUTSIDE RECORDS SUMMARY | 2024-08-02 10:03 | XMS_ITS ---
Author Organization [facility] Address [address] [place] [address] Care Team Providers Care Brim Stiffener Name Role Phone Yohana Cifuentes Primary Care Provider Yg Thomson Unavailable [phone] Allergies No Known Allergies REASON FOR VISIT [...] Ordered Date Performed Result Body Sit e 07288-VKXCPKH NAIL, 6 OR MORE 07/12/2024 N/A 51525-YDXY SKIN LESIONS, OVER 4 07/12/2024 N/A Encounters Encounter Location Date Provider Diagnosis [facility] [address] [address] 07/12/2024 Yg Soto Type 2 diabetes mellitus [...] INSTRUCTIONS.pdf) Pending Test Test Name Order Date 32386-TCRHVFM NAIL, 6 OR MORE 07/12/2024 55952-YWVP SKIN LESIONS, OVER 4 07/13/19 Next Appt Details Follow Up: prn, Reason: Provider Name:Yg Soto , 11/08/2024 01:00:00 PM, [address] [place] [address], [phone], Procedure Notes * Category Sub-Category Detail Notes [...] use of a nail nipper and/or dremel-type cylinder grinder, to a more viable healthy nail [...] to maintain effectiveness in symptomatic relief - 70093 Keratoma Treatment Parring or Cutting o f [...] instrumentation by the physician of record - 82102, Q8 Progress Notes * Boone JAIME JrDOB:1950 (73 yo M)Acc No.[id number]:07/12/2024 Progress Note Patient:?Boone JAIME Jr Provider:?Yg Soto DPM :1950???Age:73 Y???Sex:Male Juvenal e:07/12/2024 Address:[address] [place], [place] [id number] Pcp:Yohana Cifuentes Subjective: * Chief Complaints: * [...] mellitus with diabetic peripheral angiopathy without gangrene?Procedure: 20304-UOCU SKIN LESIONS, OVER 4 3.?Tinea unguium?Procedure: 46692-UMQQRZL NAIL, 6 OR MORE * Procedures:?Debride Nail [...] use of a nail nipper and/or dremel-type cylinder grinder, to a more viable healthy nail [...] to maintain effectiveness in symptomatic relief - 60088.?Keratoma Treatment:?Parring or Cutting of Benign Hyperkeratotic Lesion(s)?(-57) [...] instrumentation by the physician of record - 20957, Q8.? * Procedure Codes:?80299 DEBRI DE NAIL, 6 OR MORE, Modifiers: XS 29789 TRIM SKIN LESIONS, OVER 4, Modifiers: XS [...] Soto DPM Date:?2024 Generated for Brayan curtis/Regina/Brittnyitting on:?08/02/2024 10:02 AM [...]
--- OUTSIDE RECORDS SUMMARY | 2024-08-02 10:03 | XMS_ITS ---
Author Organization [facility] Address [address] [place] [address] Care Team Providers Care Rubber Calender Helper Name Role Phone Yohana Cifuentes Primary Care Provider Yg Thomson Unavailable [phone] REASON FOR VISIT A1C Encounters Encounter Location Date Provider Diagnosis [address] [address] 07/12/2024 Yg Soto Plan Of Treatment Next Appt Details Provider Name:gY Soto , 11/08/2024 01:00:00 PM, [address] [place] [address], [phone], Progress Notes * Boone JAIME JrDOB:1950 (73 yo M)Acc No.[id number]:07/12/2024 Patient:?Boone JAIME Jr :1950???Age:73 Y???Sex:Male Address:[address] [place] [address], [address], [place] [address] * true * Date:? Generated for Printi ng/Faxing/eTransmitting on:?08/02/2024 10:03 AM EDT
--- OUTSIDE RECORDS SUMMARY | 2024-08-02 10:03 | XMS_ITS | Encounter Summary ---
Author Organization [employer] Address [address] [facility] [address], [place] [address] Care Team Providers Care Client Success Manager Name Role Phone Kath Bose MD Primary Care Provider [phone] Reason for Referral * Consultation (Routine) - Closed Specialty Diagnoses / Procedures Referred By Contzonia chase Referred To Contact Hematology and Oncology Diagnoses Deformity of left ankle joint Kath Bose MD [address] [place] [address] Phone: tel: fax: [facility] [address] [place], [place] Phone: tel: fax: Referral ID Status Reason Start Date Expiration Date V isits Requested Visits Authorized [id number] Closed Specialty Services Required 10/14/2023 10/13/2024 1 1 Encounter Details Date Type Department Care Team (Late st Contact Info) Description 10/14/2023 Orders Only [facility] [address] [place] [address] Kath Bose MD [address] [place] [address] Abnormal serum protein electrophoresis (Primary Dx); Deformity [...] Serum (10/22/2023 1:38 PM EDT) IMMUNOGLOBULIN G 354 821 - 6010 mg/dL [facility] IMMUNOGLOBULIN A 123 70 - 320 mg/dL [facility] Immunoglobulin M 57 50 - 300 mg/dL [facility] Comment:THIS TEST WAS PERFOR MED AT:[facility] [place] [id number] CAVAZOS MD Immunofixation Result SEE NOTE [facility] Comment:Faint IgG kappa mono clonal band present. Blood Venous blood specimen / Unknown 10/22/2023 1:38 PM EDT 10/22/2023 3:55 PM EDT us Kath Bose MD LAB BLOOD ORDERABLES Final Res ult [facility] [address] [place] [address] [phone] documented in this encounter Visit Diagnoses Diagnosis Abnormal serum protein electrophoresis- Primary Deformity of left ankle joint documented in this encounter Additional Health Concerns Assessment Noted Time PHQ-9 Depression Total Score: 12 024 2:19 PM EDT documented as of this encounter Care Teams Client Success Manager Relationship Specialty Start Date End Date Kath Bose MD [address] [place] [address] PCP - General Family [facility] documented as of this encounter
== END 2024-07-28 09:27 | disposition home or self-care (01) ==
LOC: HO.HOSX 09:26
PROVIDERS: Visit Provider Physician Assistant
DX: M25.562 Pain in left knee (principal); M25.511 Pain in right shoulder; S82.092A Other fracture of left patella, initial encounter for closed fracture; S42.201A Unspecified fracture of upper end of right humerus, initial encounter for closed fracture; W18.39XA Other fall on same level, initial encounter; Y93.89 Activity, other specified; Y92.007 Garden or yard of unspecified non-institutional (private) residence as the place of occurrence of the external cause; Y99.9 Unspecified external cause status
CPT/HCPCS: 73030; 73562; 99212

== ENCOUNTER 2024-07-28 10:53 | Outpatient (AMB) | payer MEDICARE, MEDICAID, SELFPAY ==
--- NOTE | 2024-07-28 11:00 | MHC.OFFVIS ---
Intake Visit Reasons: OV- Left Patella Fx & Right Humerus Fx 05/03/24 Intake Note: Boone is a 73 year old male who presents today for a follow up of his Left Patella Fracture & Right Humerus Fracture 05/03/24. At patients last visit we did unlock his ACL brace to 45 degrees, we referred him to [facility] physical therapy services to work on unlocking the brace by 10 degrees each week as he is able to progress. He states doing well, however he notice a lump on the lateral aspect of his thigh from a couple weeks ago. Patient also noticed a burning sensation behind his calf around the same time. Patient notices that his pain is worse at night. He has informed me that he has been having numbness in his right pinky finger. Allergies codeine Adverse Reaction (Unknown, Verified 07/28/24 11:00) upset stomach HPI HPI OV- Left Patella Fx & Right Humerus Fx 05/03/24: Details: The patient is a 73-year-old male presenting for a routine follow-up for a right proximal humerus fracture and a left patellar fracture. These injuries occurred on May 03, 2024. The patient was last seen in the office on 06/17/2024 what was recommended that the ACL brace be unlocked to 45 degrees and then each week working with physical therapy be unlocked by 10 degrees until full range of motion is achieved. Patient had stopped using the sling at that time and was working with physical therapy on range of motion. His range of motion of the right shoulder has drastically increased. He denies any pain in regards to the left knee or the right shoulder. [facility] Medical History Diabetes Surgical History History of intestinal surgery H/O colonoscopy Social History Household Members: None Housing: Apartment Do you presently have visiting nurse or other home services: No Alcohol intake: former Comment: nwb left leg, 2 max assist with transfer Patient Tobacco Use Status: Current everyday Tobacco user Tobacco use type: Cigarette Cigarette Packs Per Day: 0.5 Cigarettes Per Day: 10.0 Years Smoked: 63 Second Hand Smoke Exposure: No Advance Directives Date on File: 05/05/24 service: No Review of Systems Const All systems reviewed & are unremarkable except as noted in HPI and below Physical Exam Const General: cooperative, healthy appearing and no acute distress Resp Effort & Inspection: normal respiratory effort and able to speak in complete sentences Cardio Rate: regular rate Peripheral pulses: Peripheral pulses 2+ throughout Skin Lesions: no lesions Rashes: no rashes Extrem Other: Right shoulder: 90 degrees of forward flexion and abduction. External rotation to neutral. Able to reach the top of his head comfortably. Able to reach T12. Right wrist able to flex and extend. Able to perform full finger extension, make a closed fist, abduct and adduct all digits, perform thumbs up and okay sign without any deficits. He reports numbness and tingling in the ring and little finger. Capillary refill is brisk. Left knee: Range of motion 0-110 degrees. NVI. Assessment & Plan Assessment & Plan (1) Closed patellar sleeve fracture of right knee: Code(s): S82.091A - Other fracture of right patella, initial encounter for closed fracture Category: Medical (2) Fracture of proximal humerus: Code(s): S42.209A - Unspecified fracture of upper end of unspecified humerus, initial encounter for closed fracture Category: Medical Qualifiers: Encounter type: initial encounter Fracture alignment: nondisplaced Fracture type: closed Laterality: right Plan Mr. Newby is a 73-year-old male presenting for a routine follow-up for a right proximal humerus fracture and a left patellar fracture. These injuries occurred on May 03, 2024. The patient was last seen in the office on 06/17/2024 what was recommended that the ACL brace be unlocked to 45 degrees and then each week working with physical therapy be unlocked by 10 degrees until full range of motion is achieved. Patient had stopped using the sling at that time and was working with physical therapy on range of motion. His range of motion of the right shoulder has drastically increased. He denies any pain in regards to the left knee or the right shoulder. While in the office today, the patient is able to demonstrate good quad control and full range of motion of the left knee. I have recommended discontinuing the brace at this time. He will continue to work with physical therapy until all sessions are complete. In regards to his right shoulder, he will continue to work with physical therapy until all home sessions are completed to maximize range of motion and will continue a home exercise program. He has met his range of motion goals. There is no additional orthopedic intervention required at this time. He will follow up PRN, sooner if needed. X-rays of the left knee which were obtained while in the office today and were reviewed by Gayatri aguilera PA-C, revealed routine healing of the left patellar fracture. X-rays of the right shoulder which were obtained while in the office today and were reviewed by me, Gayatri Shin PA-C, revealed routine healing proximal humerus fracture. Orders: Orders XR knee LT 3V Today M25.569 - Pain in unspecified knee XR shoulder RT min 2V Today M25.519 - Pain in unspecified shoulder Coding Level of Care Code Est Pt Level 3 (75902) Diagnoses Closed patellar sleeve fracture of right knee S82.091A Fracture of proximal humerus S42.209A Encounter type: initial encounter Fracture alignment: nondisplaced Fracture type: closed Laterality: right
--- OUTSIDE RECORDS SUMMARY | 2024-07-28 12:25 | XMS_ITS ---
Author Organization [facility] Address [address] [facility] [address] Care Team Providers Care Technical Instructor Course Developer Name Role Phone Yohana Cifuentes Primary Care Provider Yg Thomson Unavailable [phone] Allergies No Known Allergies REASON FOR VISIT [...] V ape Vital Signs Height 5ft11.5in in 03/11/2024 Weight 165 lbs 03/11/2024 BMI 22.69 kg/m2 03/11/2024 Blood pressure systolic 120 mm Hg 03/11/20 24 Blood pressure diastolic 80 mm Hg 024 Procedures Procedure Date Ordered Date Performed Result Body Sit e 11178-VEPYWNY NAIL, 6 OR MORE 03/11/2024 N/A 99624-EUEN SKIN LESIONS, OVER 4 03/11/2024 N/A Encounters Encounter Location Date Provider Diagnosis [facility] [place] [address] [place] [address] 03/11/2024 Yg Soto Type 2 diabetes mellitus [...] days Pending Test Test Name Order Date 24780-LNBPFJU NAIL, 6 OR MORE 03/11/2024 72394-SGXX SKIN LESIONS, OVER 4 03/11/20 24 Next Appt Details Follow Up: prn, Reason: Provider Name:Yg Soto , 11/08/2024 01:00:00 PM, [address] [place] [address], [phone], Procedure Notes * Category Sub-Category Detail Notes [...] use of a nail nipper and/or dremel-type burr grinder, to a more viable healthy nail [...] to maintain effectiveness in symptomatic relief - 68233 Keratoma Treatment Parring or Cutting o f [...] instrumentation by the physician of record - 72886, Q8 Progress Notes * Boone JAIME JrDOB:1950 (73 yo M)Acc No.[id number]:03/11/2024 Progress Note Patient:?Boone JAIME Jr Provider:?Yg Soto DPM :1950???Age:73 Y???Sex:Male Juvenal e:03/11/2024 Address:[address] [place] [address] [address], [facility] Pcp:Yohana Cifuentes Subjective: * Chief Complaints: * [...] patient * Allergies:?N.K.D.A.yes[Aller kalia Verified] Objective: * Vitals:?Ht:5ft11.5in, Wt:165 , BMI:22.69, [...] to recommendations??? Plan: * Treatment: 2.?Tinea unguium?Procedure: 13922-IVDFWYW NAIL, 6 OR MORE 3.?Xerosis of skin? [...] use of a nail nipper and/or dremel-type burr grinder, to a more viable healthy nail [...] to maintain effectiveness in symptomatic relief - 01387.?Keratoma Treatment:?Parring or Cutting of Benign Hyperkeratotic Lesion(s)?(-57) [...] instrumentation by the physician of record - 01080, Q8.? * Procedure Codes:?07393 DEBRI DE NAIL, 6 OR MORE, Modifiers: XS 08318 TRIM SKIN LESIONS, OVER 4, Modifiers: XS [...] Soto DPM Date:?2023 Generated for Brayan curtis/Regina/Mirella on:?07/28/2024 12:25 PM EDT History and Physical Notes * HPI (History [...]
--- OUTSIDE RECORDS SUMMARY | 2024-07-28 12:25 | XMS_ITS | Encounter Summary ---
Author Organization [employer] Address [address] [facility] [address] [place] [address] Care Team Providers Care Visually Impaired Teacher Name Role Phone Kath Bose MD Primary Care Provider [phone] Encounter Details Date Type Department Care Team ([facility] Contact Info) Description 05/09/2024 Orders Only [facility]INE [address] [place], [place] [phone] Kath Bose MD [address] [place], [place] [phone] Social History Tobacco Use Types Packs/Day Years [...] documented as of this encounter Care Teams Visually Impaired Teacher Relationship Specialty Start Date End Date Kath Bose MD [address] [place] [phone] PCP - General Family Medicine 09/23/23 [place] A 06/09/24 documented as of this encounter
--- OUTSIDE RECORDS SUMMARY | 2024-07-28 12:25 | XMS_ITS ---
Author Organization [facility] Address [address] Care Team Providers Care Platemaker Name Role Phone Yohana Cifuentes Primary Care Provider Yg Thomson Unavailable [phone] Allergies No Known Allergies REASON FOR VISIT At Risk Footcare, Painful Nail(s) aggrevated by shoes and causing difficulty standing/walking, Toe Irritation Medications Medication SIG (Take, Route, Frequency, Duration) [...] a day for 30 day(s) 01/27/2023 Active busPIRone HCl 10 MG 1 tablet Orally Twic e a day 01/27/2023 Active Aspirin 81 MG 1 tablet Orally Once a day for 30 day(s) 01/27/2023 Active Multi Vitamin Active Rosuvastatin Calcium 10 MG Oral for 90 Days Active Vitamin D Active Psyllium Active Vitamin C Active Insulin Active Extra Depth Orthopedic Shoes, (1) Pair With (3) Pair Custom Heat Molded Multidensity Innersoles Dx: NIDDM/PVD(E11.51), Hammertoe Foot Deformity(M20.41,M20.42), Preulcerative Skin Lesion(s)(L85.1) Wear Daily for 365 days Active Social History Tobacco Use: Social History Observation Description Date Details (start date - stop date) Current Smoker NA - NA Tobacco use other than smoking: Question Answer Notes Are you an other tobacco user? Yes n icotine gum Tobacco Control (Standard) Question Answer Notes Tobacco use: Current smoker How often do you smoke cigarettes? Every day How many cigarettes a day do you smoke? 11-20 How soon after you wake up d o you smoke your first cigarette? After 60 minutes Are you interested in quitting? Not ready to karina t Additional Findings: Tobacco user Modera te cigarette smoker (10-19 cigs/day) AUDIT-C (Standard) Question Answer Notes Did you have a drink containing alcohol in the p ast year? No Points 0 Interpretation Negative Vital Signs Height 5ft 11.5in in 07/12/2024 Weight 176 lbs 07/12/2024 BMI 24.2 kg/m2 07/12/2024 Blood pressure systolic 120 mm Hg 07/13/19 25 Blood pressure diastolic 70 mm Hg 025 Procedures Procedure Date Ordered Date Performed Result Body Sit e 96641-PRQIIPQ NAIL, 6 OR MORE 07/12/2024 N/A 43236-EUEA SKIN LESIONS, OVER 4 07/12/2024 N/A Encounters Encounter Location Date Provider Diagnosis [facility] [address] [address] 07/12/2024 Yg Soto Type 2 diabetes mellitus with diabetic peripheral angiopathy without gangrene E11.51 ; Tinea unguium B35.1 ; Pain in right toe(s) M79.674 ; Pain in left toe(s) M79.675 ; Other hammer toe(s) (acquired), left foot M20.42 and Other hammer toe(s) (acquired), right foot M20.41 Assessments Encounter Date Diagnosis (ICD Code) Assessment Notes Treatment Notes Treatment Clinical Notes Section Notes 07/12/2024 Type 2 diabetes mellitus with diabetic peripheral angiopathy without gangrene (ICD-10 - E11.51) 07/12/2024 Tinea unguium (ICD-10 - B35.1) 07/12/2024 Pain in right toe(s) (ICD-10 - M79.674) 07/12/2024 Pain in left toe(s) (ICD-10 - M79.675) 07/12/2024 Other hammer toe(s) (acquired), left foot (ICD-10 - M20.42) 07/12/2024 Other hammer toe(s) (acquired), right foot (ICD-10 - M20.41) Patient Educated with: DIABETIC FOOT CARE INSTRUCTIONS.p df (DIABETIC FOOT CARE INSTRUCTIONS.p df) Plan Of Treatment Medication Medication Name Sig Start Date Stop Date Notes Extra Depth Orthopedic Shoes , (1) Pair With (3) Pair Custom Heat Molded Multidensity Innersoles Dx: NIDDM/PVD(E11.51), Hammertoe Foot Deformity(M20.41,M20.42), Preulcerative Skin Lesion(s)(L85.1) Wear Daily for 365 days Treatment Notes Assessment Notes Other hammer toe(s) (acquired), right fo ot Patient Educated with: DIABETIC FOOT CARE INSTRUCTIONS.pdf (DIABETIC FOOT CARE INSTRUCTIONS.pdf) Pending Test Test Name Order Date 94854-NOFOHXY NAIL, 6 OR MORE 07/12/2024 79583-YRLX SKIN LESIONS, OVER 4 07/13/19 Next Appt Details Follow Up: prn, Reason: Provider Name:Yg Soto , 11/08/2024 01:00:00 PM, [address] [place] [address], [id number], Procedure Notes * Category Sub-Category Detail Notes [...] T3, T4, T5, T6, T7, T8, T9 ), was performed exclusively by the physician of record to reduce/remove overall nail length, girth, thickness, subungual debris, and necrotic tissue, by manual and/or electrical means through the use of a nail nipper and/or dremel-type wood grinder, to a more viable healthy nail [...] to maintain effectiveness in symptomatic relief - 12813 Keratoma Treatment Parring or Cutting o f Benign Hyperkeratotic Lesion(s) (-57) More than 4 Lesions - Due to the at risk nature of the patients medical condition as documented in the exam findings, performance of this keratoderma treatment is medically necessary as its management by an unskilled/untrained nonprofessional would put this patients foot and overall health at risk. Therefore, the benign hyperkeratotic lesions, (10) in total, locations as stated and described in the exam ( Medial plantar , IPJ , TA , Medial plantar , IPJ , T5 , SUB MTH (s) , 1 , B/L , SUB MTH (s) , 5 , B/L , SUB 5th MTBase , B/L , Plantar, Heel(s) , B/L ), were pared, and/or cut utilizing a sterile 15 blade, tissue nippers, and/or power dremel instrumentation by the physician of record - 33923, Q8 Progress Notes * Boone JAIME JrDOB:1950 (73 yo M)Acc No.[id number]:07/12/2024 Progress Note Patient:?Boone JAIME Jr Provider:?Yg Soto DPM :1950???Age:73 Y???Sex:Male Juvenal e:07/12/2024 Address:[address] [place], [place] [id number] Pcp:Yohana Cifuentes Subjective: * Chief Complaints: * ???At Risk FootcarePainful N ail(s) aggrevated by shoes and causing difficulty standing/walkingToe Irritation * HPI: ???At Risk footcare:?Pt States Last PCP Visit:?Date?06/08/2024 ???Toe pain:?Location:?B/L feet.?Duration:?several years.?Course:?worse.?Aggravated by:?shoes, any pressure.?Treatments:?change in shoes.? * ROS:?General/Constitutional:?Nausea?denies.?Vomiting?denies.?Hunger Thirst?denies.?Loss appetite?denies.?Chills?denies.?Fatigue?denies.?Fever?denies.?Night Sweats?denies.?Unexplained weight loss?denies.?Unexplained [...] History:?hernia 201 3 * Hospitalization/Major Diagno stic Procedure:?Hospital- Fall - Broken knee and shoulder 05/17 * Family History:?Mother: dece ased, diagnosed with Diabetic - NIDDM.?Father: , diagnosed with Other malignant neoplasm of unspecified site.?Paternal Grand Mother: unknown, diagnosed with Family history of arthritis.?Maternal aunt: unknown, diagnosed with Diabetic - NIDDM.?Siblings: unknown, diagnosed with Diabetic - NIDDM.? Uncle from Paternal Father had history of cancer. * Social History:?Tobacco Use:?Tobacco use other than smoking?Are you an other tobacco user??Yes nicotine gum ?Tobacco Control (Standard)?Tobacco use:?Current smoker ?How often do you smoke cigarettes??Every day ?How many cigarettes a day do you smoke??11-20 ?How soon after you wake up do you smoke your first cigarette??After 60 minutes ?Are you interested in quitting??Not ready to quit ?Additional Findings: Tobacco user?Moderate cigarette smoker (10-19 cigs/day) ???Drugs/Alcohol:?Drugs?Have you used drugs other than those for medical reasons in the past 12 months??No ???Miscellaneous:?Caffeine: yes, 2 cups. ?Children: yes. ?Exercise: yes, walking, Physical therapy. ?Marital status: . ?Occupation: Retired [employer]. ???Drug/Alcohol:?AUDIT-C (Standard)?Did you have a drink containing alcohol in the past year??No ?Points?0 ?Interpretation?Negative * Medications:?TakingVitamin C Insulin Vitamin D Psyllium [...] * Allergies:?N.K.D.A.yes[Aller gies Verified] Objective: * Vitals:?Ht: 5ft 11.5in, Wt:1 76, BMI:24.2, Shoe size: 11, BP:120/70mm Hg, BS: not taken, Ht-cm: 181.61 cm, Wt-k.83 kg. * ???Past Orders: ???Lab:HEMOGLOBIN A1C (GLYCO HEMOGLOBIN) (Order Date - 06/07/2024) (Collection Date & Time - 07/12/2024 01:23 PM) ? Value Reference Range ?HEMOGLOBIN A1C % (HH) 8.4 * Examination: ???Ophthalmology Referral: ?DIABETES EYE EXAM?Procedure Performed:?Yes ?Date of Exam Performed?04/02/2023 ?Diabetic Retinopathy Screening:?Yes ?Retinal Screening Performed:?Yes ?Findings of Diabetic Eye Exam:?no retinopathy?Vascular: ?DP PULSES (B):? 0/4, B/L.?PT PULSES (B):?0/4 [...] MTBase , B/L , Plantar, Heel(s) , B/L.?Orthopedic: ?MUSCLE STRENGTH:?5/5 all groups in a symmetrical fashion, B/L.?FOOT MORPHOLOGY:?Pes Cavus structure , (-) Charcot collapse/destruction noted at MTJ.?DIGITAL DEFORMITIES:?Digital contracture, PIPJ, 2-5 B/L, incompl-reducible to push-up test, no over, nor underlapping, with evidence of shoe producing skin irritation.?FOOTWEAR EVALUATION:?worn, non-supportive, shoe gear properties exacerbate patient's foot/toe deformity , shoe gear properties exacerbate patients foot/toe deformity.?Neurological: ?SENSORY:?Neurological exam reveals intact sensorium, pain sensation normal, vibration sensation intact, pinprick sensation is normal in the lower extremities, 5.07 monofilament test performed at plantar aspects of 5 varied sites per foot shows sensation, normal, B/L, Pt denies, anesthesia, burning, paresthesia, tingling, B/L.?General Examination: ?GENERAL APPEARANCE:?Reveals a pleasant, alert, well nourished, well- developed, well hydrated individual, who demonstrates proper attention to hygiene/body habitus, and is in no acute distress, Pt serves as own historian for office visit today.?ORIENTED:?person, place, and time.?FOOT EXAM:?Lower Extremity Neurological Exam performed:?Yes ?Visual exam of foot performed:?Yes ?Date?07/12/2024 ?Footwear Evaluation?Footwear Evaluation performed:?Yes??? Assessment: * Assessment: 1.?Type 2 diabetes mellitus with diabetic peripheral angiopathy without gangrene - E11.51???Specify :Q8???2.?Tinea unguium - B35.1???3.?Pain in right toe(s) - M79.674???4.?Pain in left toe(s) - M79.675???5.?Other hammer toe(s) (acquired), left foot - M20.42???Specify :Chronic problem, Worse (4),Rx Management (4)???6.?Other hammer toe(s) (acquired), right foot - M20.41 (Primary)???Specify :Chronic problem, Worse (4),Rx Management (4)??? Plan: * Treatment: 2.?Type 2 diabetes mellitus with diabetic peripheral angiopathy without gangrene?Procedure: 14902-MCSC SKIN LESIONS, OVER 4 3.?Tinea unguium?Procedure: 65560-JWSMYNW NAIL, 6 OR MORE * Procedures:?Debride Nail 6-10:?Nail debridement?Due to the clinical pathology outlined in the exam findings, performance of this nail treatment is medically necessary as its management by an unskilled/untrained nonprofessional would put this patients foot and overall health at risk. Therefore, debridement to affected nail(s), as described in exam (?TA, T1, T2, T3, T4, T5, T6, T7, T8, T9?), was performed exclusively by the physician of record to reduce/remove overall nail length, girth, thickness, subungual debris, and necrotic tissue, by manual and/or electrical means through the use of a nail nipper and/or dremel-type wood grinder, to a more viable healthy nail [...] to maintain effectiveness in symptomatic relief - 52520.?Keratoma Treatment:?Parring or Cutting of Benign Hyperkeratotic Lesion(s)?(-57) More than 4 Lesions - Due to the at risk nature of the patients medical condition as documented in the exam findings, performance of this keratoderma treatment is medically necessary as its management by an unskilled/untrained nonprofessional would put this patients foot and overall health at risk. Therefore, the benign hyperkeratotic lesions, (10) in total, locations as stated and described in the exam (?Medial plantar?,?IPJ?,?TA?,?Medial plantar?,?IPJ?,?T5?,?SUB MTH (s)?,?1?,?B/L?,?SUB MTH (s)?,?5?,?B/L?,?SUB 5th MTBase?,?B/L?,?Plantar,?Heel(s)?,?B/L?), were pared, and/or cut utilizing a sterile 15 blade, tissue nippers, and/or power dremel instrumentation by the physician of record - 12970, Q8.? * Procedure Codes:?69596 DEBRI DE NAIL, 6 OR MORE, Modifiers: XS 42997 TRIM SKIN LESIONS, OVER 4, Modifiers: XS , Q8 * Preventive Medicine:? ??Counseling:?Tobacco use:?Type of Tobacco Use Cessation Counseling provided?Smoking effects education ?Patient counseled on the dangers of smoking and urged to quit:?07/12/2024 ?Discussion:?-14: Office or other outpatient visit for the evaluation and management of an established patient, which required a medically appropriate history and/or examination and MODERATE level of DECISION MAKING for: 1 OR MORE CHRONIC PROBLEM(S) THATS WORSENING, 2 STABLE CHRONIC PROBLEMS, A NEWLY DIAGNOSED PROBLEM WITH UNCERTAIN PROGNOSIS, AN ACUTE COMPLICATED INJURY WITH MULTIPLE TREATMENT OPTIONS, OR AN ACUTE PROBLEM WITH ACCOMPANYING SYSTEMIC SYMPTOMS, THAT POSE(S) A MODERATE RISK OF MORBIDITY. THIS CONDITION MAY ALSO INCLUDE RX DRUG MANAGEMENT, OR A DECISON FOR MINOR SURGERY. The visit on the day of the [...] have encouraged the patient to call the office.?Diabetic Footcare:?The patient was advised against future self nail/callus care due to inherent risks for infection, loss of limb/life given diabetes, peripheral vascular disease.?Digital Surgery:?Digital surgery was discussed with the patient, We elected to try conservative treatment at the present time, due to the patients medical history and increased asssociated post-operative risks.?Digital Treatment:?HT- I explained to the patient the possible etiologies of Hammertoes, including genetics/foot type/shoegear/activity level/exercise routine and the risks/benefits of all the different treatment options for their pain including: No treatment at all, Rest, Ice, New/supportive/wider/deeper Shoegear, Digital Padding/Strapping/Taping/Bracing/Gel protective sleeves, Foot/Ankle AFO Bracing, Stretching exercises, Deep Tissue Massage, Arch support/shoe inserts with splay metatarsal padding, and Custom orthoses. I insisted that any digital devices be removed daily and not worn overnight for safety. The patient is to carefully examine the toes daily for any skin irritation while using any splinting or padding device. The advantages and disadvantages of each option were discussed and the patients questions re: shoegear, padding, custom vs prefabricated inserts, activity level, and consistency in home treatment regimens for optimal success were answered to their verbally confirmed satisfaction.?Shoe Gear Counseling:?SHOE Rx - The patient was counseled in great detail on their muscoloskeletal foot and toe deformities which coincided with the dermatological presentations visualized on exam. We discussed how their deformities put the integrity of their feet at risk for potential pedal complications which makes the accomidative diabetic shoes and cutomizable inserts medically necessary. We discussed the different shoe and insert treatment types and options, as well as the important advantages for adhering to regularly wearing these accomidative devices daily. The patient was made aware of the fact that a failure to abide by these recommedations may be deleterious to their foot health as they are able to prevent many pedal complications such as skin irritation, skin ulceration, infection, and even loss of toe/foot/leg/or life. Time was also spent with the patient dispensing and discussing proper diabetic footcare techniques including daily skin moisturization, daily foot inspection for any interruption in skin integrity including open lesions, or sign of infection such as redness/malodor/drainage/swelling. Also discussed and recommended were procedures regarding daily shoe inspection for the presence of internal foreign bodies as well as any visualized irregular shoe or insert wear. Patient questions re: shoes, inserts, and self foot inspections were answered to their satisfaction as the patient verbally confirmed a full understanding of the above information. A Rx for Extra Depth Orthopedic Shoes with 3 pair of custom heat-molded inserts was dispensed.? ??Screening/Special Tests:?Fall Risk?Assessment:?Performed ?Plan of Care:?Documented ?Type of fall plan of care:?Balance, strength and gait training or instruction provided ?Screening:?One fall with injury in the past year ?FALLS: Screening for Future Fall Risk?Have you had two or more falls in the past year??No ?Have you had any falls with injury in the past year??Yes * Follow Up:?prn * Images: * Sign off status: Completed true * Provider:?Yg Soto DPM Date:?2024 Generated for Brayan curtis/Regina/Brittnyitting on:?07/28/2024 12:25 PM EDT History and Physical Notes * HPI (History of Present Illness) Category Sub-Category Detail Notes Category Not es Toe pain Location: B/L feet Duration: several years Course: worse Aggravated by: shoes, any pressure Treatments: change in shoes At Risk footcare Pt States Last PCP Visit: Date: 5 Examination Category Sub-Category Detail Notes Category Not es Neurological SENSORY: Neurological exa m reveals intact sensorium, pain sensation normal, vibration sensation intact, pinprick sensation is normal in the lower extremities, 5.07 monofilament test performed at plantar aspects of 5 varied sites per foot shows sensation, normal, B/L, Pt denies, anesthesia, burning, paresthesia, tingling, B/L Dermatologic SKIN FINDINGS: Skin exam reveal s Keratotic lesion(s) located at , Medial plantar , IPJ , TA , Medial plantar , IPJ , T5 , SUB MTH (s) , 1 , B/L , SUB MTH (s) , 5 , B/L , SUB 5th MTBase , B/L , Plantar, Heel(s) , B/L Orthopedic FOOT MORPHOLOGY: Pes Cavus struc ture , (-) Charcot collapse/destruction noted at MTJ FOOTWEAR EVALUATION: worn, non-supportiv e, shoe gear properties exacerbate patient's foot/toe deformity , shoe gear properties exacerbate patients foot/toe deformity DIGITAL DEFORMITIES: Digital contracture , PIPJ, 2-5 B/L, incompl-reducible to push-up test, no over, nor underlapping, with evidence of shoe producing skin irritation MUSCLE STRENGTH: 5/5 all groups in a symmetrical fashion, B/L General Examination GENERAL APPEARANCE: Reveals a pleasant, alert, well nourished, well-developed, well hydrated individual, who demonstrates proper attention to hygiene/body habitus, and is in no acute distress, Pt serves as own historian for office visit today FOOT EXAM: Lower Extremity Neurological Exa m performed:: Yes Visual exam of foot performed:: Yes Date: 07/12/2024 ORIENTED: person, place, and t bony Footwear Evaluation Footwear Evaluation performe d:: Yes Ophthalmology Referral DIABETES EYE EXAM Procedure Perform ed:: Yes ?Date of Exam Performed: 04/02/2023 Diabetic Retinopathy Screening:: Yes Retinal Screening Performed:: Yes Findings of Diabetic Eye Exam:: no retin opathy Vascular DP PULSES (B): 0/4, B/L PT [...]
--- OUTSIDE RECORDS SUMMARY | 2024-07-28 12:25 | XMS_ITS ---
Author Organization [facility] Address [address] [place] [id number] Care Team Providers Care Pulmonology Physician Name Role Phone Yohana Cifuentes Primary Care Provider Yg Thomson Unavailable [phone] REASON FOR VISIT A1C Encounters Encounter Location Date Provider Diagnosis [address] [address] 07/12/2024 Yg Soto Plan Of Treatment Next Appt Details Provider Name:Yg Soto , 11/08/2024 01:00:00 PM, [address] [place] [address], [phone], Progress Notes * Boone JAIME JrDOB:1950 (73 yo M)Acc No.[id number]:07/12/2024 Patient:?Boone JAIME Jr :1950???Age:73 Y???Sex:Male Address:[address] [place] [address], [address], [place] [address] * true * Date:? Generated for Printi ng/Faxing/eTransmitting on:?07/28/2024 12:25 PM EDT
--- OUTSIDE RECORDS SUMMARY | 2024-07-28 12:26 | XMS_ITS | Encounter Summary ---
Author Organization [employer] Address [address] [facility] [address], [place] [address] Care Team Providers Care Cardiology Coordinator Name Role Phone Kath Bose MD Primary Care Provider [phone] Reason for Referral * Consultation (Routine) - Closed Specialty Diagnoses / Procedures Referred By Contzonia chase Referred To Contact Hematology and Oncology Diagnoses Deformity of left ankle joint Kath Bose MD [address] [place] [address] Phone: tel: fax: [facility] [address] [place], [place] Phone: tel: fax: Referral ID Status Reason Start Date Expiration Date V isits Requested Visits Authorized [id number] Closed Specialty Services Required 10/14/2023 10/13/2024 1 1 Encounter Details Date Type Department Care Team (Late st Contact Info) Description 10/14/2023 Orders Only [facility] [address] [place] [address] Kath Bose MD [address] [place] [address] Abnormal serum protein electrophoresis (Primary Dx); Deformity [...] Serum (10/22/2023 1:38 PM EDT) IMMUNOGLOBULIN G 922 584 - 3410 mg/dL [facility] IMMUNOGLOBULIN A 123 70 - 320 mg/dL [facility] Immunoglobulin M 57 50 - 300 mg/dL [facility] Comment:THIS TEST WAS PERFOR MED AT:[email or web address] [place] [id number] CAVAZOS MD Immunofixation Result SEE NOTE [facility] Comment:Faint IgG kappa mono clonal band present. Blood Venous blood specimen / Unknown 10/22/2023 1:38 PM EDT 10/22/2023 3:55 PM EDT us Kath Bose MD LAB BLOOD ORDERABLES Final Res ult [facility] [address] [place] [address] [phone] documented in this encounter Visit Diagnoses Diagnosis Abnormal serum protein electrophoresis- Primary Deformity of left ankle joint documented in this encounter Additional Health Concerns Assessment Noted Time PHQ-9 Depression Total Score: 12 024 2:19 PM EDT documented as of this encounter Care Teams Cardiology Coordinator Relationship Specialty Start Date End Date Kath Bose MD [address] [place] [address] PCP - [facility] documented as of this encounter
--- OUTSIDE RECORDS SUMMARY | 2024-07-28 12:26 | XMS_ITS | Clinical Summary ---
Author Organization [employer] Address [address] [facility] 7[address] [place] [address] Care Team Providers Care Hand Laminator Name Role Phone Kath Bose MD Primary Care Provider [phone] Allergies Active Allergy Reactions Criticality Noted Date Comments Codeine 05/20/2024 Medications acetaminophen (Tylenol) 500 MG tablet Take 1,000 mg by mouth every 8 (eight) hours if needed. 023 Active ascorbic acid (Vitamin C) 1000 MG tablet Take 1 tablet by mouth Once per day. 013 Active aspirin 81 MG chewable tablet 1 tablet in the morning. 023 Active cholecalciferol (Vitamin D-3) 50 MCG (2000 UT) tablet Take 2,000 Units by mouth Once per day. 022 Active Precision QID Test test strip Use to check blood sugars. Jedox AGstyle freedom diagnostic strips Dx# E 11.9 023 Active BD Pen Needle Aleena 2nd Gen 32G X 4 MM misc USE ONE EACH BY MISCELLANEOUS ROUTE DAILY 024 Active [facility] Thin Lancets misc 1 each by Other route before breakfast, before lunch, before evening meal, and at bedtime. 023 Active rosuvastatin (Crestor) 20 MG tablet Take 20 mg by mouth Once per day. 024 Active glipiZIDE (Glucotrol) 5 MG tablet TAKE 1 TABLET BY MOUTH TWICE A DAY 180 tablet 3 025 Active albuterol 108 (90 Base) MCG/ACT inhalerIndicati ons:COPD exacerbation (CMS/HCC) Inhale 2 puffs every 6 (six) hours if needed for wheezing. 18 g 11 025 2025 Active FeroSul 325 (65 Fe) MG tablet Take 1 tablet by mouth with breakfast. Active sertraline (Zoloft) 100 MG tablet Take 1 tablet by mouth Once per day. Active psyllium (Metamucil) 0.36 g capsule Take 1 capsule by mouth Once per day. Active Multiple Vitamin (multivitamin) capsule Take 1 capsule by mouth Once per day. Active COVID-19 Antigen Test kitIndications: Type 2 diabetes mellitus treated with insulin ([facility]) 1 each by In Vitro route if needed (covid symptoms). 2 kit Active nicotine polacrilex (Nicorette) 4 MG gumIndications: Tobacco use CHEW 1 GUM IF NEEDED FOR SMOKING CESSATION 100 each 3 Active insulin glargine (Lantus) 100 UNIT/ML pen Inject 20 Units under the skin at bedtime. 3 mL 3 Active metFORMIN (Glucophage) 500 MG tablet Take 1 tablet (500 mg) by mouth with breakfast and with evening meal. 60 tablet 11 025 2025 Active busPIRone (Buspar) 10 MG tablet Take 1 tablet (10 mg) by mouth 2 times daily. 180 tablet 3 Active busPIRone (Buspar) 10 MG tablet Take 10 mg by mouth 3 times daily. 024 2024 Discontinued(R eorder (will not trigger notification to Pharmacy)) gabapentin (Neurontin) 100 MG capsule Take 1 capsule (100 mg) by mouth if needed at bedtime (shoulder pain). 60 capsule 3 025 2024 Discontinued(S ana effects) Active Problems Problem Noted Date Diagnosed Date Counseling regarding end of life decision making 06/20/2024 Assessment & Plan (06/20/2024 10:14 AM EDT): MOLST form completed in the hospital Form was signed by myself as his PCP and uploaded into patient's chart He is DNR Diabetes due to underlying condition w oth circu latory comp 06/14/2024 Orthostatic hypotension 05/20/2024 Oral phase dysphagia 05/20/2024 Muscle weakness 05/20/2024 Fracture of shaft of humerus 05/20/2024 Assessment & Plan (06/20/2024 10:11 AM EDT): Followup with ortho Mobility should improve when he is cleared to remove his sling Fracture of maxilla 05/20/2024 Congestive heart failure 05/20/2024 Closed fracture of patella 05/20/2024 Assessment & Plan (06/20/2024 10:12 AM EDT): Followup with ortho as scheduled Discuss issues with skin breakdown and tightness of knee brace Carotid artery obstruction 05/20/2024 Anemia 05/20/2024 Recurrent major depression 05/20/2024 Nodule of lower lobe of right lung 04/06/2024 Postural dizziness with presyncope 11/24/2023 Assessment & [...] neoplasia 10/2023 F/u every 6 months with [facility] oncology Stage 3b chronic kidney disease 09/25/2023 Assessment & Plan (11/24/2023 4:18 PM [...] mellitus treated with insulin Assessment & Plan (06/20/2024 10:11 AM EDT): Current A1c: 8.4. Increase Lantus to 20 units at night. Can continue Metformin 500mg BID, will close monitoring of kidney function BMP: eGFR 45, BUN 49 Microalbumin: 235.8 Foot Exam: with podiatry Eye Exam: Discuss at follow up Lipid panel: ASCVD: The ASCVD Risk score (Brii LEWIS, et al., 2019) failed to calculate for the following reasons: Cannot find a previous HDL lab Cannot find a previous total cholesterol lab Statin: Yes ASA: Yes JE/ARB: Yes Encouraged regular aerobic exercise for improved glycemic control Encouraged daily foot checks Encouraged lean protein snacks and to avoid foods high in sugar and simple carbohydrates Treatment Goals: A1c goal: <7% FBG goal: <130 2 hour post prandial goal: <180 Assessment & Plan (09/25/2023 6:49 AM EDT): [...] coronary heart disease, stroke and heart attack. Iron deficiency anemia 03/24/2018 Overview (09/21/2023): Last Assessment & Plan: Recently restarted on ferrous sulfate, will recheck CBC on next lab work Denies worsening SOB and CP Assessment & Plan (06/20/2024 10:15 AM EDT): His Hg is slowly uptrending from hospital admission form 11 to 13 today Continue to drink Boost once a day, eat multiple small meals Vitamin B12 deficiency anemi a due to [...] veins of both lower extrem ities 03/18/2011 Resolved Problems Problem Noted Date Diagnosed Date Resolved Date Hypertension 04/27/2018 06/20/2024 Assessment & Plan (09/25/2023 6:51 AM EDT): Monitor BP at home and followup in 2 weeks If BP consistently < 120/80, will decrease Lisinopril to 2.5mg daily Encounters Date Type Department Care Team Description 07/05/2024 Telephone [facility] [address] [place] [address] Kath Bose MD Verbal Order 06/28/2024 Orders Only [facility] [address] [place] [address] Kath Bose MD 06/24/2024 Refill [facility] [address] [place] [address] Kath Bose MD 06/14/2024 9:15 AM EDT Office Visit [facility] [address] [place] [address] Kath Bose MD Type 2 diabetes mellitus treated with insulin ([facility]) (Primary Dx); Recurrent major depressive disorder, in partial remission ([facility]); Occlusion of jugular vein, unspecified laterality (CMS/HCC); Closed fracture of right side of maxilla, sequela (CMS/HCC); Stage 3b chronic kidney disease (CMS/HCC); Hearing loss of both ears due to cerumen impaction; Closed fracture of maxilla, unspecified laterality, sequela (CMS/HCC); Postural dizziness with presyncope; Closed nondisplaced fracture of left patella, unspecified fracture morphology, sequela; Closed fracture of shaft of right humerus, unspecified fracture morphology, sequela; Counseling regarding end of life decision making; MGUS (monoclonal gammopathy of unknown significance); Other iron deficiency anemia 06/14/2024 Orders Only GENERIC EXTERNAL DATA DEPARTMENT Provider, Generic External Data 06/14/[address] [address] Kath Bose MD Tobacco use 06/14/2024 Travel 06/09/[address] [address] Kath Bose MD Nurse Triage 06/09/[address] [address] Kath Bose MD Medication Question 06/07/2024 Travel 06/06/[address] [address] Kath Bose MD Appointment Request 06/06/2024 Patient Outreach [facility] [address] [place], [place] [phone] Kath Bose MD Transition Of Care (Tcm) (HDF - Scheduled. ) 05/30/[address] [address] Kath Bose MD TelephoneCall - Reschedule appt 05/09/2024 Orders Only [address] [address] Kath Bose MD from Last 3 Months Immunizations Name Administration Dates Next Due Influenza High-dose Quadriva lent Preservative Free 01/27/2022,12/06/2020 Influenza Quadrivalent Adjuvanted 12/19/2022 Influenza, High Dose Seasona l, Preservative Free 03/19/2018 Influenza, IIV3, injectable 03/28/2014, 2 Influenza, Split (incl. pierre fied surface antigen) 02/08/2008 Mary SARS-CoV-2 Vaccination 09/05/2020 Moderna Covid-19 Vaccine 12+ 01/14/2023,07/17/19 23,02/21/2021 Pneumococcal Conjugate PCV 13 05/27/2016 Pneumococcal Conjugate PCV 20 12/25/2023 Pneumococcal Polysaccharide PPSV23 12/24/2010 RSV Adjuvant 02/10/2023 RSV Bivalent 02/10/2023 SARS-CoV-2, Unspecified 09/05/2020,06/15/2020 Tdap 12/25/2023,11/03/2012,08/05/2011 Zoster, Recombinant 02/03/2019,03/19/2018 Social History Tobacco Use Types Packs/Day Years Used Date Smoking Tobacco: Every Day Cigarettes Smokeless Tobacco: Never Tobacco Cessation:Ready to Q uit: Not Asked; Counseling Given: Not Answered Alcohol Use Standard Drinks/Week Comments Never 0 [...] Sign Reading Time Taken Comments Blood Pressure 109/66 06/14/2024 9:23 AM EDT Pulse 75 06/14/2024 9:23 AM EDT Temperature 36 ??C (96.8 ??F) 06/14/2024 9:23 AM EDT Respiratory Rate 16 06/14/2024 9:23 AM EDT Oxygen Saturation 96% 06/14/2024 9:23 AM EDT Inhaled Oxygen Concentration - - Weight 77 kg (169 lb 12.8 oz) 06/14/2024 9:23 AM EDT Height 180.3 cm (5' 11 ) 06/14/2024 9:23 AM EDT Body Mass Index 23.68 06/14/2024 9:23 AM EDT Plan of Treatment Health Maintenance Due Date Last Done Comments CT Colonography 1950 Colonoscopy 1950 FIT DNA/Cologuard 1950 Lipid Panel 1950 Sigmoidoscopy 1950 Eye Exam 1960 Hepatitis C Screening 1968 Diabetes: Urine Protein Screening 1969 Colorectal Cancer Screening 11/05/2021 FIT 11/05/2021 11/05/2020 FOBT 11/05/2021 11/05/2020 COVID-19 Vaccine ( season) 2023 01/14/2023, 07/16/2022, 2021, Additional history exists Influenza Vaccine (#1) 2023 , 01/27/2022, 12/06/2020, Additional history exists Diabetes: Hemoglobin A1C 09/14/2024 025, 12/25/2023, 09/23/2023, Additional history exists Alcohol/Substance Use Screening 09/22/2024 09/23/2023 Depression Screening 09/22/2024 09/23/2023, 09/23/19 24 SDOH Screening 09/22/2024 09/23/2023 Diabetes: Foot Exam 09/24/2024 09/25/2023 Tobacco Screening 06/14/2025 06/14/2024 DTaP/Tdap/Td Vaccines (4 - Td or Tdap) 12/24/2033 12/25/2023, 11/03/2012, 08/05/2011 Zoster Vaccines Completed 02/03/2019, 03/19/2018 RSV Patients and Patients Aged 60 years or older Completed 02/10/2023, 02/10/2023 Pneumococcal Vaccine: 50+ Years Completed 12/25/2023, 05/27/2016, 12/24/2010 HIB Vaccines Aged Out No longer eligi ble based on patient's age to complete this topic HPV Vaccines Aged Out No longer eligi ble based on patient's age to complete this topic Hepatitis A Vaccines Aged Out No long er eligible [...] Procedure Name Priority Date/Time Associated Diagnosis Comments COMPREHENSIVE METABOLIC PANEL Routine 06/14/2024 11:25 AM EDT CBC WITH AUTO DIFFERENTIAL Routine 06/14/2024 11:25 AM EDT SD REMOVAL IMPACTED CERUMEN IRRIGATION/LVG UNILAT Routine 06/14/2024 10:52 AM EDT Hearing loss of both ears due to cerumen impaction POCT RAPID COVID ANTIGEN Routine 06/14/2024 10:34 AM EDT Type 2 diabetes mellitus treated with insulin ([facility]) POCT GLYCATED HEMOGLOBIN, TOTAL Routine 06/14/2024 9:26 AM EDT Type 2 diabetes mellitus treated with insulin ([facility]) POCT GLUCOSE Routine 06/14/2024 9:26 AM EDT Type 2 diabetes mellitus treated with insulin ([facility]) from Last 3 Months Results * (ABNORMAL) CBC auto differential (06/14/2024 11:25 AM EDT) Pathologist [facility] White Blood Count 8.8 4.8 - 10.8 X10*3/uL [facility] Red Blood Count 4.17(L) 4.60 - 5.80 X10*6/uL [facility] Hemoglobin 13.0(L) 14.0 - 18.0 g/dl [facility] Hematocrit 40.9(L) 42.0 - 52.0 % [facility] Mean Corpuscular Volume 98.1(H) 80.0 - 98.0 fL [facility] Mean Corpuscular Hemoglobin 31.2 27.0 - 33.0 pg [facility] Mean Corpuscular HGB Conc 31.8 31.0 - 36.0 g/dl [facility] Red Cell Distribution Width 12.1 11.0 - 16.0 % [facility] Platelet Count 229 160 - 400 X10*3/uL [facility] Mean Platelet Volume 12.5(H) 9.4 - 12.4 fL [facility] Neutrophils Percent Auto 68.2 45 - 73 % [facility] Imm Gran Pct Auto 0.5(H) 0.0 - 0.4 % [facility] Lymphocytes Percent Auto 18.3(L) 20 - 40 % [facility] Monocytes Percent Auto 9.8 2 - 11 % [facility] Eosinophils Percent Auto 2.6 0 - 4 % [facility] Basophils Percent Auto 0.6 0 - 2 % [facility] NRBC Pct Auto 0.0 0.0 - 0.2 /100WBC [facility] Neutrophils Absolute Auto 6.0 2.0 - 8.3 x10*3/uL [facility] Imm Gran Abs Auto 0.04(H) 0.00 - 0.03 X10*3/uL [facility] Lymphocytes Absolute Auto 1.6 1.2 - 4.9 X10*3/uL [facility] Monocytes Absolute Auto 0.9 0.1 - 1.2 X10*3/uL [facility] Eosinophils Absolute Auto 0.2 0.0 - 0.4 X10*3/uL [facility] Basophils Absolute Auto 0.1 0.0 - 0.2 X10*3/uL [facility] NRBC Abs Auto 0.000 0.0 - 0.012 X10*3/uL [facility] 06/14/2024 11:2 5 AM EDT 06/14/2024 1:38 PM EDT us Generic External Data Provider LAB BLOOD ORDERAB LES Final Result [facility] [address] [place] [phone] * (ABNORMAL) Comprehensive Metabolic Panel (06/14/2024 11:25 AM EDT) Sodium 138 135 - 145 mmol/L [facility] Potassium 4.8 3.3 - 5.1 mmol/L [facility] Chloride 108 96 - 108 mmol/L [facility] Carbon Dioxide 21(L) 22 - 29 mmol/L [facility] Anion Gap 14 12 - 20 [facility] Urea Nitrogen (BUN) 49(H) 9 - 16 mg/dL [facility] Creatinine, Serum 1.53(H) 0.5 - 1.4 mg/dL [facility] Estimated Glomerular Filt Rate 45 [facility] Comment:Chronic Kidney Disea se: Estimated GFR < 60 mL/min/[id number] Kidney Disease: Estimated GFR < 15 mL/min/1.73m2 Glucose 217(H) 60 - 115 mg/dL [facility] Calcium 9.7 8.4 - 10.2 mg/dL [facility] Bilirubin, Total 0.4 0.0 - 1.0 mg/dL [facility] Aspartate Amino Transferase 21 5 - 37 U/L [facility] Alanine Aminotransferase 16 0 - 40 U/L [facility] Total Protein 7.1 6.5 - 8.0 g/dL [facility] Albumin Level 4.0 3.5 - 5.0 g/dL [facility] Alkaline Phosphatase 75 39 - 117 U/L [facility] 06/14/2024 11:2 5 AM EDT 06/14/2024 1:38 PM EDT us Generic External Data Provider LAB BLOOD ORDERAB LES Final Result [facility] [address] [place] [phone] * SD REMOVAL IMPACTED CERUMEN IRRIGATION/LVG UNILAT (06/14/2024 10:52 AM EDT) Narrative Marychuy Mulligan RN - 06/14/2024 10:52 AM EDT Marychuy Mulligan RN ? 06/20/2024 10:16 AM Ear Cerumen Removal Date/Time: 06/14/2024 10:52 AM Performed by: Marychuy Mulligan RN Authorized by: Kath Bose MD ?? Consent: ??Consent obtained: ??Verbal ??Consent given by: ??Patient ??Risks, benefits, and alternatives were discussed: yes ?Risks discussed: ??Bleeding, dizziness, pain and TM perforation ??Alternatives discussed: debrox drops. [place] protocol: ??Procedure explained and questions answered to patient or proxy's satisfaction: yes ?Required blood products, implants, devices, and special equipment available: yes (curette) ?Site/side marked: yes (bilateral ears) ?Immediately prior to procedure, a time out was called: yes ?Patient identity confirmed: ??Verbally with patient Procedure details: ??Location: ??L ear and R ear ??Procedure type: irrigation ?Procedure outcomes: unable to remove cerumen ?? Post-procedure details: ??Inspection: ??Some cerumen remaining ??Procedure completion: ??Tolerated well, no immediate complications Comments: ?? Left ear remains with cerumen, RN unable to remove. Right ear also remains with some cerumen, however RN was able to successfully remove some. PCP will RX Debrox gtts BID x1 week. Pt will call for RN nurse visit for re-attempt. us Kath Bose MD IN CLINIC/BEDSIDE ORDERABLES F inal Result * POCT Rapid Covid-19 BinaxNOW (06/14/2024 10:34 AM EDT) Rapid COVID Ag Negative QC Media Lot # [id number] Lot# Expiration Date Swab 06/14/2024 10:3 4 AM EDT Kath Bose MD POINT OF CARE TEST ENTER/EDIT ORDERABLES Final Result * (ABNORMAL) POCT HGB A1C (06/14/2024 9:26 AM EDT) Pathologist [facility] Hemoglobin A1C 8.4(A) 4.0 - 6.0 % QC Media Lot # [id number] Lot# Expiration Date Blood 06/14/2024 9:26 AM EDT Kath Bose MD POINT OF CARE TEST ENTER/EDIT ORDERABLES Final Result * (ABNORMAL) POCT Glucose (06/14/2024 9:26 AM EDT) Pathologist [facility] Glucose Blood, POC 230(A) 60 - 200 mg/dL QC Media Lot # [id number] Lot# Expiration Date Blood Capillary blood specimen / Unknown 06/14/2024 9:26 AM EDT Kath Bose MD POINT OF CARE TEST ENTER/EDIT ORDERABLES Final Result from Last 3 Months Insurance [facility] MEDICARE REPLACEMENT Advance Directives Documents on File Type Date Recorded Patient Finance Controller Expl anation Advance Directives and Living Will 09/23/2023 Health Care Proxy 09/23/23 Advance Directives and Living Will 06/14/2024 2:27 PM MOLST HealthCare Proxy 09/23/2023 Care Teams Hand Laminator Relationship Specialty Start Date End Date Kath Bose MD [address] [place] [address] PCP - [facility]
--- OUTSIDE RECORDS SUMMARY | 2024-07-28 12:26 | XMS_ITS | Encounter Summary ---
Author Organization [employer] Address [address] [facility] [address] [place] [address] Care Team Providers Care Safety Trainer Name Role Phone Kath Camacho MD Primary Care Provider [phone] Reason for Visit * Reason Onset Date Comments Appointment Request 06/06/2024 Encounter Details Date Type Department Care Team ([facility] Contact Info) Description 06/06/2024 Telephone [facility] [address] [place] [address] Kath Camacho MD [address] [place] [address] Appointment Request Social History Tobacco Use Types Packs/Day Years [...] encounter Miscellaneous Notes * Telephone Encounter - Marychuy Mulligan RN - 06/06/2024 12:32 PM EDT Tc returned to daughter [phone] (Leonardo-on HIPAA) regards to below message. Daughter requested appt to be reschedules to see PCP only. Appt changed to 06/14/24 at 915 am. Daughter informed RN that patient tested positive for Covid on 06/06/24. Daughter advised to notify front end specialist when checkingin for the appt and for pt to wear a mask to the appt. Daughter also reported pt has Right humerus fx (not femur fx) and left patella fx, Daughter verbalized understanding, no questions or concerns. Pt to F/U PRN. * Telephone Encounter - Timoteo Goyal - 06/06/2024 11:28 AM EDT Tc from pt daughter requesting to R/s Apt from 06/14/24. Pt prefers to see Dr camacho if Possible. Contact pt Daughter at [phone] documented in this encounter Plan of Treatment Not on file documented as of this encounter Visit Diagnoses Not on filedocumented in this encounter Additional Health Concerns Assessment Noted Time PHQ-9 Depression Total Score: 12 024 2:19 PM EDT documented as of this encounter Care Teams Safety Trainer Relationship Specialty Start Date End Date Kath Camacho MD [address] [place] [address] PCP - General Family Medicine 09/23/23 [place] [facility] 06/09/24 documented as of this encounter
--- OUTSIDE RECORDS SUMMARY | 2024-07-28 12:26 | XMS_ITS | Encounter Summary ---
Author Organization [employer] Address [address] [facility] 7[address] [place] [address] Care Team Providers Care Fertilizing Machine Operator Name Role Phone Kath Bose MD Primary Care Provider Encounter Details Date Type Department Care Team ([facility] Contact Info) Description 06/28/2024 Orders Only [facility] [address] [place], [place] [phone] Kath Bose MD [address] [place], [place] [phone] Social History Tobacco Use Types Packs/Day Years [...] documented as of this encounter Care Teams Fertilizing Machine Operator Relationship Specialty Start Date End Date Kath Bose MD [address] [place] [phone] PCP - General Family Medicine 09/23/23 [place] [facility] 06/09/24 documented as of this encounter
--- OUTSIDE RECORDS SUMMARY | 2024-07-28 12:26 | XMS_ITS | Encounter Summary ---
Author Organization [employer] Address [address] [facility] [address] [place] [address] Care Team Providers Care Engineering Design Supervisor Name Role Phone Kath Bose MD Primary Care Provider [phone] Reason for Visit * Reason Onset Date Comments New Patient 11/05/2022 Encounter Details Date Type Department Care Team ([facility] st Contact Info) Description 11/05/2022 Telephone [facility] [address] [place] [address] Raad Leroy MD [address] [place] [address] New Patient Social History Tobacco Use Types [...] been transfer over to wait list for WEB SERVICES PROFESSIONAL. EFFECTIVE SINCE 11/05/2022 documented in this encounter Plan of Treatment Not on file documented as of this encounter Visit Diagnoses Not on filedocumented in this encounter Care Teams Engineering Design Supervisor Relationship Specialty Start Date End Date Kath Bose MD [address] [facility] [place] [address] PCP - General Family Medicine 09/23/23 [place] [facility] 06/09/24 documented as of this encounter
--- OUTSIDE RECORDS SUMMARY | 2024-07-28 12:26 | XMS_ITS | Patient Health Record ---
[facility] Address [address] [address] Care Team Providers [facility] Name Role Phone Yohana Cifuentes Primary Care Provider Yg Thomson Unavailable [phone] Allergies No Known Allergies Results Component Value Reference Range Notes HEMOGLOBIN A1C (GLYCOHEMOGLO BIN) Reviewed date:07/12/2024 01:24:04 PM Interpretation: Performing Lab: Notes/Report: HEMOGLOBIN A1C % (HH) 8.4 Reason For Referral No Information Medications Medication SIG (Take, Route, Frequency, Duration) Notes Start Date End Date Status metFORMIN HCl 1000 MG 1 tablet with a me al Orally Once a day for 90 days Active Aspirin 81 MG 1 tablet Orally Once a day for 30 day(s) 01/27/2023 Active glipiZIDE 5 MG Oral for 90 Days Active Multi Vitamin Active Rosuvastatin Calcium 10 MG Oral for 90 Days Active Vitamin D Active Psyllium Active Vitamin C Active Insulin Active Ammonium Lactate 12 % 1 application [...] Lesion(s)(L85.1) Wear Daily for 365 days Active Immunizations Vaccine Route Administration Date Status [...] ast year? No Points 0 Interpretation Negative Problems Problem Type SNOMED Code ICD Code Onset Dates Problem Status W/U Status Risk Notes Problem Acquired hammer toe of right foot (7974701978212 105) Other hammer toe(s) (acquired), right foot (M20.41) Active confirmed Response to treatment,I mprovement Problem Type 2 diabetes mellitus with peripheral angiopathy (227966852) Type 2 diabetes mellitus with diabetic peripheral angiopathy without gangrene (E11.51) Active confirmed Problem Acquired hammer toe of left foot (9633272140508 103) Other hammer toe(s) (acquired), left foot (M20.42) Active confirmed Response to treatment,I mprovement Vital Signs Blood pressure diastolic 70 mm Hg 07/12/2024 Height 5ft 11.5in in 07/12/2024 Blood pressure systolic 120 mm Hg 07/12/2024 Weight 176 lbs 07/12/2024 BMI 24.2 kg/m2 07/12/2024 Procedures Procedure Date Ordered Date Performed Result Body Sit e 99239-WUGYFWB NAIL, 6 OR MORE 11/17/2023 N/A 38585-Flomhvlj Plate 11/17/2023 N/A 75142-MFXB SKIN LESIONS, OVER 4 11/17/2023 N/A 21995-GQXPRNH NAIL, 6 OR MORE 03/11/2024 N/A 39642-MZGA SKIN LESIONS, OVER 4 03/11/2024 N/A 45495-ZRLNVIU NAIL, 6 OR MORE 07/12/2024 N/A 54985-MRJL SKIN LESIONS, OVER 4 07/12/2024 N/A Encounters Encounter Location Date Provider Diagnosis [address] [address] 11/17/2023 Yg Soto Type 2 diabetes mellitus with diabetic peripheral angiopathy without gangrene E11.51 ; Tinea unguium B35.1 ; Pain in right toe(s) M79.674 ; Pain in left toe(s) M79.675 ; Ingrown nail L60.0 and Xerosis of skin L85.[address] [address] 03/11/2024 Yg Soto Type 2 diabetes mellitus with diabetic peripheral angiopathy without gangrene E11.51 ; Tinea unguium B35.1 ; Pain in right toe(s) M79.674 ; Pain in left toe(s) M79.675 and Xerosis of skin L85.[address] [address] 07/12/2024 Yg Soto Type 2 diabetes mellitus with diabetic peripheral angiopathy without gangrene E11.51 ; Tinea unguium B35.1 ; Pain in right toe(s) M79.674 ; Pain in left toe(s) M79.675 ; Other hammer toe(s) (acquired), left foot M20.42 and Other hammer toe(s) (acquired), right foot M20.[address] [address] 07/12/2024 Yg Soto Assessments Encounter Date Diagnosis (ICD Code) Assessment Notes Treatment Notes Treatment Clinical Notes Section Notes 11/17/2023 Type 2 diabetes mellitus with diabetic peripheral angiopathy without gangrene (ICD-10 - E11.51) 11/17/2023 Tinea unguium (ICD-10 - B35.1) 03/11/2024 Type 2 diabetes mellitus with diabetic peripheral angiopathy without gangrene (ICD-10 - E11.51) 03/11/2024 Tinea unguium (ICD-10 - B35.1) 07/12/2024 Type 2 diabetes mellitus with diabetic peripheral angiopathy without gangrene (ICD-10 - E11.51) 07/12/2024 Tinea unguium (ICD-10 - B35.1) 03/11/2024 Pain in right toe(s) (ICD-10 - M79.674) 11/17/2023 Pain in right toe(s) (ICD-10 - M79.674) 11/17/2023 Pain in left toe(s) (ICD-10 - M79.675) 03/11/2024 Pain in left toe(s) (ICD-10 - M79.675) 07/12/2024 Pain in right toe(s) (ICD-10 - M79.674) 03/11/2024 Xerosis of skin (ICD-10 - L85.3) 07/12/2024 Pain in left toe(s) (ICD-10 - M79.675) 11/17/2023 Ingrown nail (ICD-10 - L60.0) 11/17/2023 Xerosis of skin (ICD-10 - L85.3) 07/12/2024 Other hammer toe(s) (acquired), left foot (ICD-10 - M20.42) 07/12/2024 Other hammer toe(s) (acquired), right foot (ICD-10 - M20.41) Patient Educated with: DIABETIC FOOT CARE INSTRUCTIONS.p df (DIABETIC FOOT CARE INSTRUCTIONS.p df) Plan Of Treatment Pending Test Test Name Order Date 96208-TFTYJQE NAIL, 6 OR MORE 03/03/2023 10481-ARWAKWS NAIL, 6 OR MORE 07/21/2023 79669-QZOOLEM NAIL, 6 OR MORE 11/17/2023 72449-XSMUDUS NAIL, 6 OR MORE 03/11/2024 87126-RSTIHVZ NAIL, 6 OR MORE 07/12/2024 03816-Eufjayuz Plate 07/21/2023 89131-Warpkcoz Plate 11/17/2023 96481-EEQD SKIN LESIONS, OVER 4 11/17/19 24 25969-KNIY SKIN LESIONS, OVER 4 07/21/19 24 15944-DHUA SKIN LESIONS, OVER 4 03/03/20 23 27851-BHOF SKIN LESIONS, OVER 4 07/13/19 25 02577-CAGR SKIN LESIONS, OVER 4 03/11/20 24 Next Appt Details Provider Name:Yg Soto , 11/08/2024 01:00:00 PM, [address] [place], [address], Insurance Providers Payer Name Payer Address Payer Phone Subscriber Number Group Number Insured Name Patient Relationship to Insured Coverage Start Date Coverage End Date [employer] Medicare Complete [address] [address] [place] [address] [id number] [place] Self - patient is the insured Medical (General) History Medical History History ICD Code Back,Hip,and Knee pain Broken bones CAD (Cholesterol) Diabetic High blood pressure Lung disease Surgical History Surgery Date(Month/Year) hernia 2013 Hospitalization History Reason Date(Month/Year) Hospital- Fall - Broken knee and shoulde r 05/17
== END 2024-07-28 11:32 | disposition home or self-care (01) ==
LOC: HO.HOS 10:54
PROVIDERS: Visit Provider Physician Assistant
DX: S82.091A Other fracture of right patella, initial encounter for closed fracture (principal); S42.291A Other displaced fracture of upper end of right humerus, initial encounter for closed fracture
CPT/HCPCS: 99213

== ENCOUNTER → 2024-07-28 10:56 | Outpatient (BNV) | payer MEDICARE, MEDICAID, SELFPAY | PROVIDERS: Visit Provider Radiology Diagnostic Radiology | DX: M22.2X2 Patellofemoral disorders, left knee (principal); M22.2X1 Patellofemoral disorders, right knee | CPT/HCPCS: 73030; 73562 ==

== ENCOUNTER 2024-12-27 12:04 | Outpatient (REF) | payer MEDICARE, MEDICAID, SELFPAY ==
--- OUTSIDE RECORDS SUMMARY | 2024-12-27 11:15 | XMS_ITS | Encounter Summary ---
Author Organization [employer] Address [address] [facility] [address] [place] [address] Care Team Providers Care Law Librarian Name Role Phone Kath Bose MD Primary Care Provider [phone] Reason for Referral * Consultation (Routine) - Closed Specialty Diagnoses / Procedures Referred By Zack chase Referred To Contact Physical Therapy Diagnoses Foot drop, left Kath Bose MD [address] [place] [address] Phone: tel: fax: [facility] [address] [place] [address] Phone: tel: fax: Referral ID Status Reason Start Date Expiration Date V isits Requested Visits Authorized [id number] Closed Specialty Services Required 12/27/2024 12/27/2025 1 1 * Imaging (Routine) - Authorized Specialty Diagnoses / Procedures Referred By Zack chase Referred To Contact Radiology Diagnoses Abnormal MRI Procedures BD DEXA Axial Kath Bose MD [address] [place] [address] Phone: tel: fax: [address] Phone: tel: fax: Referral ID Status Reason Start Date Expiration Date V isits Requested Visits Authorized [id number] Authorized 12/27/2024 12/27/2025 1 1 Reason for Visit * Reason Comments sick visit Encounter Details Date Type Department Care Team (Late st Contact Info) Description 12/27/2024 11:15 AM EDT Office Visit [facility] [address] [facility] [place] [address] Kath Bose MD [address] [place] [address] Pain of left calf (Primary Dx); Congestive heart failure, unspecified HF chronicity, unspecified heart failure type (HCC); 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); Dietary counseling; Exercise counseling; Overweight; Abnormal MRI; Foot drop, left Social History Tobacco Use Types Packs/Day Years [...] Sign Reading Time Taken Comments Blood Pressure 138/80 12/27/2024 11:23 AM EDT Pulse 71 12/27/2024 11:23 AM EDT Temperature 36.4 C (97.6 F) 12/27/2024 11:23 AM EDT Respiratory Rate 20 12/27/2024 11:23 AM EDT Oxygen Saturation - - Inhaled Oxygen Concentration - - Weight 84.6 kg (186 lb 6.4 oz) 12/27/2024 11:23 AM EDT Height 180.3 cm (5' 11 ) 12/27/2024 11:23 AM EDT Body Mass Index 26 12/27/2024 11:23 AM EDT documented in this encounter Progress Notes * Kath Bose MD - 12/27/2024 11:15 AM EDT SUBJECTIVE: Boone Newby is a 73 y.o. male who presents for acute visit. Denies recent illness, ER visit, or hospitalization. Accompanied by Leonardo, daughter. Acute Concerns: Pt with pain and swelling of left calf x 3 weeks. No spread of the swelling above the knee. Relatedpossibly to nocturnal cramps. Also with pain in calf after few minutes of walking and inability to flex L foot upwards. L foot is also turning inwards. Patient denies redness, severe swelling, chest pain, sob, recent travel, fevers, or other associated symptoms. Chronic Conditions and Plans: 05/06/24 admit to [facility] for Orthostatic hypotension, Fracture of proximal humerus, Hyperkalemia, Maxillary sinus fracture, Closed patellar sleeve fracture of left knee Residual R 4th and 5th finger numbness after proximal humerus fracture Dizziness and pre-syncope when looking up x 2 years presyncope when looking up is becoming more frequent with a lesser degree of angulation (ie he doesnot need to look up that much). Brain MRA to evaluate brain vasculature more extensively completed 12/07/23 at [facility], normal - consider vascular vs neuro consult in [place] depending on the results - has had carotid US in 03/2022 that showed 50% stenosis R carotid, 40% stenosis L carotid and smallL internal jugular filling defect - consider carotid sinus syncope? Orthostatic hypotension? - CT FINDINGS: 10/2023 There is no intracranial hemorrhage, hydrocephalus, extra-axial surface collection, midline shift, or other herniation pattern. Torres to white matter differentiation is diffusely maintained without evidence of an evolved acute territorial infarct. The basilar cisterns are preserved. Right parietal scalp swelling that can be clinically correlated. IMPRESSION: No acute intracranial abnormality. There is global cerebral volume loss and there is moderate chronic microangiopathy. Right parietal scalp swelling that can be clinically correlated. MGUS Diagnosed 10/2023 Oncology dx is MGUS with faint M protein spike CT abd/chest negative for neoplasia or kenisha lesions, but did show 7mm R lung nodule. Encouraged smoking cessation with nicotine gum. 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 podiatry, toenail trimming 11/09/24 podiatry, toenail trimming Was on Lisinopril 2.5mg for renal protection Depression Sertraline 200mg daily Buspar 10mg daily Patient Health Questionnaire-9 Score: 12 (09/23/2023 2:19 PM) His suddenly three years ago, which affected him strongly HLD On Rosuvastatin 20mg daily COPD/tobacco use Not on meds See acute issues Iron deficiency anemia Take ferrous sulfate intermittently Last H/H 05/2023 Patient Active Problem List Diagnosis Date Noted Acquired hammer toe of left foot 12/27/2024 Acquired hammer toe of right foot 12/27/2024 Occlusion and stenosis of bilateral carotid arteries 12/27/2024 Type 2 diabetes mellitus with diabetic peripheral angiopathy without gangrene ([facility]) 12/27/2024 Pain of left calf 12/27/2024 Counseling regarding end of life decision making 06/20/2024 Diabetes due to underlying condition w h circulatory comp ([facility]) 06/14/2024 Orthostatic hypotension 05/20/2024 Oral phase dysphagia 05/20/2024 Muscle weakness 05/20/2024 Fracture of shaft of humerus 05/20/2024 Fracture of maxilla ([facility]) ([facility]) 05/20/2024 Congestive heart failure ([facility]) 05/20/2024 Closed fracture of patella 05/20/2024 Carotid artery obstruction 05/20/2024 Anemia 05/20/2024 Recurrent major depression ([facility]) 05/20/2024 Nodule of lower lobe of right lung 04/06/2024 Postural dizziness with presyncope 11/24/2023 MGUS (monoclonal gammopathy of unknown significance) 11/09/2023 Stage 3b chronic kidney disease ([facility]) ([facility]) 09/25/2023 Deformity of left ankle joint 09/25/2023 Anxiety and depression 05/20/2023 Iron deficiency 05/20/2023 Type 2 diabetes mellitus treated with insulin ([facility]) 05/20/2023 Hearing loss of both ears due to cerumen impaction 10/09/2022 Financial insecurity 03/02/2022 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[facility]) ([facility]) 03/02/2022 Nocturia 01/27/2022 Bereavement 11/01/2020 Insomnia 11/01/2020 Chronic obstructive pulmonary disease ([facility]) 09/27/[address] 09/14/2020 Weight loss 09/09/2019 Dyslipidemia 04/27/2018 Iron deficiency anemia 03/24/2018 Vitamin B12 deficiency anemia due to intrinsic factor deficiency 04/11/2015 Family history of diabetes mellitus 06/27/2014 Inguinal hernia, left 03/28/2014 Vitamin D deficiency 03/28/2014 Internal hemorrhoids 04/18/2013 Polyp of colon 02/22/2013 Cigarette smoker 02/26/2012 Asymptomatic varicose veins of both lower extremities 03/18/2011 Surgical History[1] Social History Social History Narrative 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 Respiratory: Negative. Cardiovascular: Negative. Gastrointestinal: Negative. Musculoskeletal: Positive for arthralgias and myalgias. OBJECTIVE: Vitals: 12/27/24 1123 BP: 138/80 BP Location: Left arm Patient Position: Sitting BP Cuff Size: Large adult Pulse: 71 Resp: 20 Temp: 97.6 ??F (36.4 ??C) TempSrc: Oral Weight: 186 lb 6.4 oz (84.6 kg) Height: 5' 11 (1.803 m) Physical Exam Vitals reviewed. Constitutional: Appearance: Normal appearance. He is well-developed and normal weight. HENT: Head: Normocephalic and atraumatic. Nose: Nose normal. Eyes: Pupils: Pupils are equal, round, and reactive to light. Cardiovascular: Rate and Rhythm: Normal rate and regular rhythm. Pulses: Normal pulses. Heart sounds: Normal heart sounds. Pulmonary: Effort: Pulmonary effort is normal. Breath sounds: Normal breath sounds. Musculoskeletal: General: Tenderness and deformity present. Cervical back: Normal range of motion and neck supple. Right lower leg: No edema. Left lower leg: No edema. Comments: Decreased flexion of L ankle Walks with L foot drop (steppage gait) Skin: Findings: No lesion or rash. Neurological: General: No focal deficit present. Mental Status: He is alert and oriented to person, place, and time. Mental status is at baseline. Psychiatric: Mood and Affect: Mood normal. ASSESSMENT/PLAN Problem List Items Addressed This Visit Congestive heart failure (HCC) Relevant Orders B Type Natriuretic Peptide (BNP) Comprehensive Metabolic Panel 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) Relevant Orders POCT Hgb A1c (Completed) POCT Glucose (Completed) Pain of left calf - Primary Current Assessment & Plan On the differential: PAD-- order arterial US D dimer to rule out DVT, venous duple US if positive Foot drop- PT referral Relevant Orders D Dimer High Sensitivity Other Visit Diagnoses Dietary counseling Exercise counseling Overweight Abnormal MRI Relevant Orders BD DEXA Axial Foot drop, left Relevant Orders Referral to Physical Therapy Follow Up: 4 months or sooner prn Allergies[2] Current Medications[3] [1] Past Surgical History: Procedure Laterality Date MRA HEAD W AND WO CONTRAST 2023 MRA HEAD W AND WO CONTRAST [2] Allergies Allergen Reactions Codeine [3] Current Outpatient Medications: acetaminophen (Tylenol) 500 MG tablet, Take 1,000 mg by mouth every 8 (eight) hours if needed., Disp: , Rfl: albuterol 108 (90 Base) MCG/ACT inhaler, Inhale 2 puffs every 6 (six) hours if needed for wheezing., Disp: 18 g, Rfl: 11 ammonium lactate (Amlactin) 12 % cream, 1 Application 2 times daily., Disp: , Rfl: ascorbic acid (Vitamin C) 1000 MG tablet, Take 1 tablet by mouth Once per day., Disp: , Rfl: aspirin 81 MG chewable tablet, 1 tablet in the morning., Disp: , Rfl: BD Pen Needle Aleena 2nd Gen 32G X 4 MM misc, USE ONE EACH BY MISCELLANEOUS ROUTE DAILY, Disp: , Rfl: busPIRone (Buspar) 10 MG tablet, Take 1 tablet (10 mg) by mouth 2 times daily., Disp: 180 tablet, Rfl: 3 cholecalciferol (Vitamin D-3) 50 MCG (2000 UT) tablet, Take 2,000 Units by mouth Once per day., Disp: , Rfl: COVID-19 Antigen Test kit, 1 each by In Vitro route if needed (covid symptoms)., Disp: 2 kit, Rfl: 0 FeroSul 325 (65 Fe) MG tablet, Take 1 tablet by mouth with breakfast., Disp: , Rfl: glipiZIDE (Glucotrol) 5 MG tablet, TAKE 1 TABLET BY MOUTH TWICE A DAY, Disp: 180 tablet, Rfl: 3 Lantus SoloStar 100 UNIT/ML pen, INJECT 20 UNITS UNDER THE SKIN EVERY NIGHT AT BEDTIME, Disp: 15 mL, Rfl: 3 metFORMIN (Glucophage) 500 MG tablet, Take 1 tablet (500 mg) by mouth with breakfast and with evening meal., Disp: 60 tablet, Rfl: 11 Multiple Vitamin (multivitamin) capsule, Take 1 capsule by mouth Once per day., Disp: , Rfl: nicotine polacrilex (Nicorette) 4 MG gum, CHEW 1 GUM IF NEEDED FOR SMOKING CESSATION, Disp: 100 each, Rfl: 3 Precision QID Test test strip, Use to check blood sugars. Freestyle freedom diagnostic strips Dx# E11.9, Disp: , Rfl: psyllium (Metamucil) 0.36 g capsule, Take 1 capsule by mouth Once per day., Disp: , Rfl: rosuvastatin (Crestor) 20 MG tablet, Take 1 tablet (20 mg) by mouth Once per day., Disp: 90 tablet,Rfl: 3 sertraline (Zoloft) 100 MG tablet, Take 1 tablet by mouth Once per day., Disp: , Rfl: [facility] Thin Lancets misc, 1 each by Other route before breakfast, before lunch, before evening meal, and at bedtime., Disp: , Rfl: documented in this encounter Miscellaneous Notes * Assessment & Plan Note - Kath Bose MD - 12/27/2024 12:41 PM EDT Associated Problem(s): Pain of left calf On the differential: PAD-- order arterial US D dimer to rule out DVT, venous duple US if positive Foot drop- PT referral documented in this encounter Plan of Treatment Scheduled Orders Name Type Priority Associated Diagnoses Orde r Schedule D Dimer High Sensitivity Lab Routine Pain of left calf Expected: 12/27/2024, Expires: 12/27/2025 B Type Natriuretic Peptide (BNP) Lab Routine Congestive heart failure, unspecified HF chronicity, unspecified heart failure type (HCC) Expected: 12/27/2024, Expires: 12/27/2025 BD DEXA Axial Imaging Routine Abnormal MRI Expected: 12/27/2024, Expires: 12/27/2025 Scheduled Referrals Name Type Priority Associated Diagnoses Orde r Schedule Referral to Physical Therapy Outpatient Referral Routine Foot drop, left Expected: 12/27/2024 (Approximate), Expires: 12/27/2025 documented as of this encounter Procedures Procedure Name Priority Date/Time Associated Diagnosis Comments COMPREHENSIVE METABOLIC PANEL Routine 12/27/2024 12:15 PM EDT Congestive heart failure, unspecified HF chronicity, unspecified heart failure type (HCC) POCT GLYCATED HEMOGLOBIN, TOTAL Routine 12/27/2024 11:42 AM EDT 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) POCT GLUCOSE Routine 12/27/2024 11:24 AM EDT 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) documented in this encounter Results * (ABNORMAL) Comprehensive Metabolic Panel (12/27/2024 12:15 PM EDT) Sodium 139 135 - 145 mmol/L [facility] Potassium 4.9 3.3 - 5.1 mmol/L [facility] Chloride 103 96 - 108 mmol/L [facility] Carbon Dioxide 27 22 - 29 mmol/L [facility] Anion Gap 14 12 - 20 [facility] Urea Nitrogen (BUN) 29(H) 9 - 16 mg/dL [facility] Creatinine, Serum 1.87(H) 0.5 - 1.4 mg/dL [facility] Estimated Glomerular Filt Rate 36 [facility] Comment:Chronic Kidney Disea se: Estimated GFR < 60 mL/min/[id number] Kidney Disease: Estimated GFR < 15 mL/min/1.73m2 Glucose 251(H) 60 - 115 mg/dL [facility] Calcium 9.7 8.4 - 10.2 mg/dL [facility] Bilirubin, Total 0.6 0.0 - 1.0 mg/dL [facility] Aspartate Amino Transferase 36 5 - 37 U/L [facility] Alanine Aminotransferase 34 0 - 40 U/L [facility] Total Protein 7.2 6.5 - 8.0 g/dL [facility] Albumin Level 4.5 3.5 - 5.0 g/dL [facility] Alkaline Phosphatase 67 39 - 117 U/L [facility] Blood Venous blood specimen / Unknown 12/27/2024 12:15 PM EDT 12/27/2024 1:28 PM EDT us Kath Bose MD LAB BLOOD ORDERABLES Final Res ult [facility] [address] [place] [address] [phone] * (ABNORMAL) POCT Hgb A1c (12/27/2024 11:42 AM EDT) Hemoglobin A1C 10.9(A) 4.0 - 5.7 % QC Media Lot # [id number] Lot# Expiration Date Blood 12/27/2024 11:4 2 AM EDT Kath Bose MD POINT OF CARE TEST ENTER/EDIT ORDERABLES Final Result * (ABNORMAL) POCT Glucose (12/27/2024 11:24 AM EDT) Glucose Blood, POC 278(A) 60 - 200 mg/dL [employer] Media Lot # [id number] Lot# Expiration Date 72 Blood Capillary blood specimen / Unknown 12/27/2024 11:24 AM EDT Kath Bose MD POINT OF CARE TEST ENTER/EDIT ORDERABLES Final Result documented in this encounter Visit Diagnoses Diagnosis Pain of left calf- Primary Congestive heart failure, unspecified HF chronicity, unspecified heart failure type (HCC) 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) Dietary counseling Dietary surveillance and counseling Exercise counseling Overweight Abnormal MRI Other nonspecific (abnormal) findings on radiological and other examinations of body structure Foot drop, left Other acquired deformity of ankle and foot documented in this encounter Additional Health Concerns Assessment Noted Time PHQ-9 Depression Total Score: 12 024 2:19 PM EDT documented as of this encounter Care Teams Law Librarian Relationship Specialty Start Date End Date Kath Bose MD [address] [place] [address] PCP - [facility] documented as of this encounter
[2024-12-27 13:35] LABS: MANUAL DIFF FLAG NO
[2024-12-27 14:12] LABS: Hematocrit 45.4 % (42.0-52.0); Hemoglobin 15.4 g/dl (14.0-18.0); Imm Gran Abs Auto 0.05 X10*3/uL (0.00-0.03); Imm Gran Pct Auto 0.6 % (0.0-0.4); Lymphocytes Absolute Auto 1.9 X10*3/uL (1.2-4.9); Mean Corpuscular HGB Conc 33.9 g/dl (31.0-36.0); Mean Corpuscular Hemoglobin 32.4 pg (27.0-33.0); Mean Corpuscular Volume 95.6 fL (80.0-98.0); NRBC Abs Auto 0.000 X10*3/uL (0.0-0.012); NRBC Pct Auto 0.0 /100WBC (0.0-0.2); Platelet Count 183 X10*3/uL (160-400); Red Blood Count 4.75 X10*6/uL (4.60-5.80); White Blood Count 8.2 X10*3/uL (4.8-10.8)
[2024-12-27 14:44] LABS: Albumin Level 4.5 g/dL (3.5-5.0); Alkaline Phosphatase 67 U/L (39-117); Anion Gap 14 (12-20); Aspartate Amino Transferase 36 U/L (5-37); Blood Urea Nitrogen 29 mg/dL (9-16); Calcium 9.7 mg/dL (8.4-10.2); Carbon Dioxide 27 mmol/L (22-29); Chloride 103 mmol/L (96-108); Cholesterol 151 mg/dL (<200); Estimated Glomerular Filt Rate 36; HDL Cholesterol 39 mg/dL (>40); Potassium 4.9 mmol/L (3.3-5.1); Sodium 139 mmol/L (135-145); Total Protein 7.2 g/dL (6.5-8.0); Triglycerides 165 mg/dL (<150)
[2024-12-27 14:54] LABS: Alanine Aminotransferase 34 U/L (0-40)
--- OUTSIDE RECORDS SUMMARY | 2024-12-27 15:05 | XMS_ITS | Clinical Summary ---
Author Organization [employer] Address [address] [facility] [address] [place] [address] Care Team Providers Care Solar Energy Systems Designer Name Role Phone Kath Bose MD Primary Care Provider [phone] Allergies Active Allergy Reactions Criticality Noted Date [...] test strip Use to check blood sugars. [employer] freedom diagnostic strips Dx# E 11.9 04/23/19 23 Active BD Pen Needle Aleena 2nd Gen 32G X 4 MM misc USE ONE EACH BY MISCELLANEOUS ROUTE DAILY 04/03/19 24 Active [facility] Thin Lancets misc 1 each by Other route before breakfast, before lunch, before evening meal, and at bedtime. 04/23/19 23 Active glipiZIDE (Glucotrol) 5 MG tablet TAKE 1 TABLET BY MOUTH TWICE A DAY 180 tablet 3 04/05/19 25 Active albuterol 108 (90 Base) MCG/ACT inhalerIndicatio ns:COPD exacerbation (CMS/HCC) (HCC) Inhale 2 puffs every 6 (six) hours [...] ype 2 diabetes mellitus treated with insulin (HCC) 1 each by In Vitro route if needed (covid symptoms). 2 kit 06/15/19 25 Active nicotine polacrilex (Nicorette) 4 MG gumIndications:T obacco use CHEW 1 GUM IF NEEDED FOR SMOKING CESSATION 100 each 3 06/16/19 25 Active metFORMIN (Glucophage) 500 MG tablet Take 1 tablet (500 mg) by mouth with breakfast and with evening meal. 60 tablet 11 06/29/19 25 026 Active busPIRone (Buspar) 10 MG tablet Take 1 tablet (10 mg) by mouth 2 times daily. 180 tablet 3 06/30/19 25 Active rosuvastatin (Crestor) 20 MG tablet Take 1 tablet (20 mg) by mouth Once per day. 90 tablet 3 09/06/19 25 Active Lantus SoloStar 100 UNIT/ML pen INJECT 20 UNITS UNDER THE SKIN EVERY NIGHT AT BEDTIME 15 mL 3 11/01/19 25 Active ammonium lactate (Amlactin) 12 % cream 1 Application 2 times daily. 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 12/27/2024 Type 2 diabetes mellitus wit h diabetic peripheral angiopathy without gangrene 12/27/2024 Pain of left calf 12/27/2024 Assessment & Plan (12/27/2024 12:41 PM EDT): On the differential: PAD-- order arterial US D dimer to rule out DVT, venous duple US if positive Foot drop- PT referral Counseling regarding end of life decision making [...] to remove his sling Fracture of maxilla ([facility]) 05/20/2024 Congestive heart failure 05/20/2024 Closed fracture [...] neoplasia 10/2023 F/u every 6 months with [facility] oncology Stage 3b chronic kidney disease ([facility]/HCC) 2023 Assessment & Plan (11/24/2023 4:18 PM EDT): [...] treatments and medications 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[facility]) 03/02/2022 Overview (09/21/2023): Last Assessment & Plan: [...] Encounters Date Type Department Care Team Description 12/27/2024 11:15 AM EDT Office Visit [facility] [address] [place] [id number] Kath Bose MD Pain of left calf (Primary Dx); Congestive heart failure, unspecified HF chronicity, unspecified heart failure type (HCC); 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); Dietary counseling; Exercise counseling; Overweight; Abnormal MRI; Foot drop, left 12/27/2024 Orders Only [facility] [address] [place], [place] [phone] Kath Bose MD 12/27/2024 Travel 12/27/2024 Telephone [facility] [address] [place] [address] Kath Bose MD Nurse Triage 10/30/2024 Refill [facility] [address] [place], [place] [phone] Kath Bose MD from Last 3 Months Immunizations Immunization Administration Dates Next Due Influenza High-dose Quadriva [...] 20 12/27/2024 11:23 AM EDT Oxygen Saturation 96% 06/14/2024 9:23 AM EDT Inhaled Oxygen Concentration - - Weight 84.6 kg (186 lb 6.4 oz) 12/27/2024 11:23 AM EDT Height 180.3 cm (5' 11 ) 12/27/2024 11:23 AM EDT Body Mass Index 26 12/27/2024 11:23 AM EDT Plan of Treatment Health Maintenance Due Date Last Done Comments CT Colonography 1950 Colonoscopy 1950 FIT DNA/Cologuard 1950 FOBT 1950 Sigmoidoscopy 1950 Eye Exam 1960 Alcohol/Substance Use Screening 1962 Hepatitis C Screening 1968 Diabetes: Urine Protein Screening 1969 Colorectal Cancer Screening 11/05/2021 FIT 11/05/2021 11/05/2020 Depression Monitoring 03/25/2024 09/23/2023, 024 SDOH Screening 09/22/2024 09/23/2023 Diabetes: Foot Exam 09/24/2024 09/25/2023 Influenza Vaccine (#1) 2024 , 01/27/2022, 12/06/2020, Additional history exists Diabetes: Hemoglobin A1C 03/29/2025 025, 06/14/2024, 12/25/2023, Additional history exists COVID-19 Vaccine ( season) 2025 12/09/2024, 01/14/2023, 07/16/2022, Additional history exists Lipid Panel 12/27/2025 12/27/2024, 05/27/2023 Tobacco Screening 12/27/2025 12/27/2024 DTaP/Tdap/Td Vaccines (4 - Td or Tdap) [...] patient's age to complete this topic Meningococcal B Vaccine Aged Out No l onger eligible based on patient's age to complete [...] Procedure Name Priority Date/Time Associated Diagnosis Comments CBC WITH AUTO DIFFERENTIAL Routine 12/27/2024 12:15 PM EDT COMPREHENSIVE METABOLIC PANEL Routine 12/27/2024 12:15 PM EDT Congestive heart failure, unspecified HF chronicity, unspecified heart failure type (HCC) LIPID PANEL, STANDARD Routine 12/27/2024 12:15 PM EDT Type 2 diabetes mellitus treated with insulin (HCC) POCT GLYCATED HEMOGLOBIN, TOTAL Routine 12/27/2024 11:42 AM EDT 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) POCT GLUCOSE Routine 12/27/2024 11:24 AM EDT 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) from Last 3 Months Results * (ABNORMAL) CBC auto differential (12/27/2024 12:15 PM EDT) White Blood Count 8.2 4.8 - 10.8 X10*3/uL [facility] Red Blood Count 4.75 4.60 - 5.80 X10*6/uL [facility] Hemoglobin 15.4 14.0 - 18.0 g/dl [facility] Hematocrit 45.4 42.0 - 52.0 % [facility] Mean Corpuscular Volume 95.6 80.0 - 98.0 fL [facility] Mean Corpuscular Hemoglobin 32.4 27.0 - 33.0 pg [facility] Mean Corpuscular HGB Conc 33.9 31.0 - 36.0 g/dl [facility] Red Cell Distribution Width 12.2 11.0 - 16.0 % [facility] Platelet Count 183 160 - 400 X10*3/uL [facility] Mean Platelet Volume 13.1(H) 9.4 - 12.4 fL [facility] Neutrophils Percent Auto 66.1 45 - 73 % [facility] Imm Gran Pct Auto 0.6(H) 0.0 - 0.4 % [facility] Lymphocytes Percent Auto 22.7 20 - 40 % [facility] Monocytes Percent Auto 7.9 2 - 11 % [facility] Eosinophils Percent Auto 2.2 0 - 4 % [facility] Basophils Percent Auto 0.5 0 - 2 % [facility] NRBC Pct Auto 0.0 0.0 - 0.2 /100WBC [facility] Neutrophils Absolute Auto 5.4 2.0 - 8.3 x10*3/uL [facility] Imm Gran Abs Auto 0.05(H) 0.00 - 0.03 X10*3/uL [facility] Lymphocytes Absolute Auto 1.9 1.2 - 4.9 X10*3/uL [facility] Monocytes Absolute Auto 0.7 0.1 - 1.2 X10*3/uL [facility] Eosinophils Absolute Auto 0.2 0.0 - 0.4 X10*3/uL [facility] Basophils Absolute Auto 0.0 0.0 - 0.2 X10*3/uL [facility] NRBC Abs Auto 0.000 0.0 - 0.012 X10*3/uL [facility] 12/27/2024 12:1 5 PM EDT 12/27/2024 1:30 PM EDT us Kath Bose MD LAB BLOOD ORDERABLES Final Res ult [facility] [address] [place] [phone] * (ABNORMAL) Lipid Panel, Standard (12/27/2024 12:15 PM EDT) Triglycerides 165(H) <150 mg/dL [facility] Comment:Desirable Triglyceri de: less than 150 mg/dLBorderline High Triglyceride 150-199 mg/dLHigh Triglyceride: 200-499 mg/dLVery High Triglyceride: greater than or equal to 5OO mg/dL Cholesterol 151 <200 mg/dL [facility] Comment:Desirable Cholestero l: less than 200 mg/dLBorderline High Cholesterol: 200-239 mg/dLHigh Cholesterol: greater than 239 mg/dL LDL Cholesterol Calculated 79 <100 mg/dL [facility] Comment:Desirable LDL: less than 100 mg/dLNear Optimal/Above Optimal LDL: 110- 129 mg/dLBorderline High LDL: 130-159 mg/dLHigh LDL: 160-189 mg/dLVery High LDL: greater than or equal to 190 mg/dL HDL Cholesterol 39(L) >40 mg/dL [facility] Comment:Desirable HDL: great er than 40 mg/dL Note: This HDL assay may give artificially low results in patients with liver disease. Blood Venous blood specimen / Unknown 12/27/2024 12:15 PM EDT 12/27/2024 1:28 PM EDT us Kath Bose MD LAB BLOOD ORDERABLES Final Res ult [facility] [address] [place] [phone] * (ABNORMAL) Comprehensive Metabolic Panel (12/27/2024 12:15 PM EDT) Sodium 139 135 - 145 mmol/L [facility] Potassium 4.9 3.3 - 5.1 mmol/L [facility] Chloride 103 96 - 108 mmol/L [facility] Carbon Dioxide 27 22 - 29 mmol/L [facility] Anion Gap 14 12 - 20 [facility] Urea Nitrogen (BUN) 29(H) 9 - 16 mg/dL [facility] Creatinine, Serum 1.87(H) 0.5 - 1.4 mg/dL [facility] Estimated Glomerular Filt Rate 36 [facility] Comment:Chronic Kidney Disea se: Estimated GFR < 60 mL/min/1.79a2Pvmztm Kidney Disease: Estimated GFR < 15 mL/min/1.73m2 Glucose 251(H) 60 - 115 mg/dL [facility] Calcium 9.7 8.4 - 10.2 mg/dL [facility] Bilirubin, Total 0.6 0.0 - 1.0 mg/dL [facility] Aspartate Amino Transferase 36 5 - 37 U/L [facility] Alanine Aminotransferase 34 0 - 40 U/L [facility] Total Protein 7.2 6.5 - 8.0 g/dL [facility] Albumin Level 4.5 3.5 - 5.0 g/dL [facility] Alkaline Phosphatase 67 39 - 117 U/L [facility] Blood Venous blood specimen / Unknown 12/27/2024 12:15 PM EDT 12/27/2024 1:28 PM EDT Kath Bose MD LAB BLOOD ORDERABLES Final Res ult [facility] [address] [place] [phone] * (ABNORMAL) POCT Hgb A1c (12/27/2024 [...] Media Lot # [id number] Lot# Expiration Date Blood Capillary blood specimen / Unknown 12/27/2024 11:24 AM EDT Kath Bose MD POINT OF CARE TEST ENTER/EDIT ORDERABLES Final Result from Last [address] [place] [id number] [facility] STANDARD [facility] MEDICARE REPLACEMENT HS FULL Advance Directives Documents on File Type Date Recorded Patient Tank Maker Wood Expl anation Advance Directives and Living Will 09/23/2023 Health Care Proxy 09/23/23 Advance Directives and Living Will 06/14/2024 2:27 PM [facility] HealthCare Proxy 09/23/2023 Care Teams Solar Energy Systems Designer Relationship Specialty Start Date End Date Kath Bose MD [address] [place] [phone] PCP - General Family Medicine 09/23/23 [facility] 06/09/24
--- OUTSIDE RECORDS SUMMARY | 2024-12-27 15:05 | XMS_ITS | Encounter Summary ---
Author Organization [employer] Address [address] [facility] [address] [place] [address] Care Team Providers Care Cardiac Rehabilitation Program Director Name Role Phone Kath Bose MD Primary Care Provider [phone] Encounter Details Date Type Department Care Team (Latest Contact Info) Description 12/27/2024 Travel Social History Tobacco Use Types Packs/Day [...] documented as of this encounter Care Teams Cardiac Rehabilitation Program Director Relationship Specialty Start Date End Date Kath Bose MD [address] [place] [address] PCP - General Family Medicine 09/23/23 [place] [facility] 06/09/24 documented as of this encounter
--- OUTSIDE RECORDS SUMMARY | 2024-12-27 15:05 | XMS_ITS | Patient Health Record ---
Author Organization [facility] Address [address] [address] Care Team Providers Care Veterinary Anatomist Name Role Phone Darlyn Velasquez DO Primary Care Provider Mich Padilla Unavailable [phone] Allergies No Known Allergies Reason For Referral No Information Medications Medication SIG (Take, Route, Frequency, Duration) Notes Start Date End Date Status Aspirin 81 81 MG 1 tablet Orally Once a day; Duration: 30 day(s) Active Rosuvastatin Calcium 10 MG 1 tablet Oral ly Once a day; Duration: 30 day(s) Active glipiZIDE 5 MG 1 tablet 30 minutes before breakfast Orally Once a day; Duration: 30 day(s) Active metFORMIN HCl 500 MG 1 tablet with a ze l Orally Once a day; Duration: 30 day(s) Active Vitamin D3 50 MCG (2000 UT) 1 capsule Orally Once a day; Duration: 30 day(s) Active Lantus 100 UNIT/ML as directed Subcutaneous Active busPIRone HCl 10 MG 1 tablet Orally Twic e a day Active Social History Tobacco Use: Social History Observation Description Date Details (start date - stop date) Current Smoker NA - NA Tobacco Use Question Answer Notes Do you smoke? current smoker 2PPD - Started @ 10 yrs old Patient counseled on the mely gers of tobacco use and advised to quit. 04/08/2022 Problems Problem Type SNOMED Code ICD Code Onset Dates Problem Status W/U Status Risk Notes Problem Occlusion and stenosis of multiple and bilateral cerebral arteries (021009295) Occlusion and stenosis of bilateral carotid arteries (I65.23) Active confirmed Plan Of Treatment No Information Insurance Providers Payer Name Payer Address Payer Phone Subscriber Number Group Number Insured Name Patient Relationship to Insured Coverage Start Date Coverage End Date [employer] Medicare Complete [address] [address] [place] [address] [phone] [id number] [place] Self - patient is the insured Medical (General) History Medical History History ICD Code 1. Hypercholesterolemia 2. Carotid Stenosis 3. Diabetes Mellitus 4. Hypercholesterolemia 5. Chronic Obstructive Pulmonary Disease 6. Active Smoker
--- OUTSIDE RECORDS SUMMARY | 2024-12-27 15:05 | XMS_ITS | Data Portability ---
Author Organization [facility], Main Office Address [address] [place] [address] [address] [place] [address] Care Team Providers Care Novelty Worker Name Role Phone CAREONE (NONO UNIT) OTHER Assessment Encounter Date Assessment Date Assessment LastModified by Organization Details LastModified Time 05/26/2024 05/26/202405/23-BUN 32, Glucose 270, albumin 3.7, total protein 5.6, EGFR 58 [email or web address] Not available 05/26/2024 11:54:25 05/27/2024 05/27/202405/23-BUN 32, Glucose 270, albumin 3.7, total protein 5.6, EGFR 58 [email or web address] Not available 05/27/2024 15:43:57 05/30/2024 05/30/202405/23-BUN 32, Glucose 270, albumin 3.7, total protein 5.6, EGFR 58 Labs -WBC-7.74, H/H-/35.1, plts-285, BUN/Cr-32/1.3 , GFR-58, Na+139, K+4.6, glu-270, [...] Name and Address Organization Details Recorded Time Fracture of shaft of humerus 08062239 Active 2024 Katelynn Bhatti MD [address] [place] [address], [facility] [address], [place], [address] , [facility] 5 16:49:26 Fracture of maxilla 684104964 Active 2024 Katelynn Bhatti MD [address] [place] [address], [address], [place], [address] , [facility] 5 16:48:19 Muscle weakness 19264847 Active 2024 Not Available [facility] 5 16:46:48 Oral phase dysphagia 234593394 Active 2024 Not Available [facility] 5 16:47:17 Chronic obstructive pulmonary disease 11645353 Active 2024 Not Available [facility] 5 16:48:16 Monoclonal gammopathy (clinical) 315491129 Active 2024 Katelynn Bhatti MD [address], [address], [place], [address] , [facility] 5 16:49:39 Congestive heart failure 53303308 Active 2024 Not Available [facility] 5 16:49:17 Anemia 674747993 Active 2024 Not Available [facility] 5 16:50:16 Recurrent major depression 81149963 Active 2024 Not Available [facility] 5 16:52:16 Anxiety disorder 940441489 Active 2024 Not Available [facility] 5 16:51:45 Carotid artery obstruction 55880127 Active 2024 Not Available [facility] 5 16:51:46 Acute kidney injury 00956618 Active 2024 FELISA VERA [address], [address], [place], [address] , [facility] 5 09:47:17 Orthostatic hypotension 72244918 Active 2024 FELISA VERA [address], [address], [place], [address] , [facility] 5 09:47:25 Hyperkalemia 76583530 Active 2024 FELISA VERA [address], [address], [place], [address] , [facility] 5 09:47:34 Fall Active 2024 FELISA VERA [address], [address], [place], [address] , [facility] 5 09:47:41 Fracture of maxillary alveolar bone 497648600 Active [address], [address], [place], [address] , [facility] 5 09:48:04 Closed fracture of patella 28146892 Active [address], [place], [address] , [facility] 5 09:48:32 Essential hypertension 16217037 Active 2024 FELISA VERA [address] [facility], [address], [place], [address] , [facility] 5 09:54:31 Hyperlipidemi a 17392463 Active 2024 FELISA VERA [address] [facility], [address], [place], [address] , [facility] 5 09:55:46 Type 2 diabetes mellitus 01815414 Active 2024 Katelynn Bhatti MD [address], [place], [address] , [facility] 5 16:49:45 Mood disorder 20372442 Active 2024 FELISA VERA [address] [facility], [address], [place], [address] , [facility] 5 09:58:22 Closed fracture of patella 13078004 Active 2024 Katelynn Bhatti MD [address] [place] [address], [address], [place], [address] , [facility] 5 16:49:01 Fracture of humerus 08227134 Active 2024 Katelynn Bhatti MD [address] [place] [address], [address], [place], [address] , [facility] 5 16:47:23 Chronic kidney disease stage 3A 361277919 Active 2024 Katelynn Bhatti MD [address] [facility], [address], [place], [address] , [facility] 5 16:26:56 Problem Notes None recorded. Procedures Surgical History Date Name Laterality Status Provider Name and Address Organization Details Recorded Time colonoscopy completed FELISA VERA [address] [facility], [address], [place], [address], [facility] 05/23/2024 07:33:17 Imaging Results None recorded. Procedure Notes None recorded. Medical Equipment None Reported. Allergies Allergen ID Allergen Name Allergen Category Reaction Reaction Severity Criticality Documentation Date Start Date Code Code System Note Provider Name and Address Organization Details Recorded Time 20124 codeine medicatio n Not available Not available [...] in Arterial blood by Pulse oximetry Systolic And Diastolic Provider Name and Address Organization Details Last Updated DateTime 5 74891.9 3 g 23.3 kg/m2 180.34 cm 68 /min 18 /min 97.2 [degF] 95 % 95 % 138/69 mm[Hg] Katelynn Bhatti MD [address] [facility], [facility] [address], [place], [address], [facility] 5 14:25:54 Date Recorded Body height Systolic And Diastolic Provider Name and Address Organization Details Last Updated DateTime 05/30/2024 180.34 cm 123/54 mm[Hg] ABDI VILLEDA [address] [place] [address], [facility] [address], [place], [address], [facility] 05/30/2024 09:48:01 Date Recorded Body height Systolic And Diastolic Provider Name and Address Organization Details Last Updated DateTime 06/02/2024 180.34 cm 113/61 mm[Hg] ABDI VILLEDA [address] [place] [address], [facility] [address], [place], [address], [facility] 06/02/2024 09:46:08 Social History Question Answer Notes LastModified by Organizat ion Details LastModified Time Tobacco Smoking Status Current Every Day Smoker FELISA VERA [address] [facility], [facility] [address], [place], [address], [facility] 05/23/2024 07:32:36 Do You Have An Advance Directive? No Information not available 05/23/2024 What Is Your Code Status? Full Code Information not available 05/27/2024 Where Do You Live? Apartment In Elderly Complex With Elevator Information not available 05/27/2024 Legal Guardian? No Informati on not available 05/27/2024 Do You Have A Medical Power Of Chemist Helper? Yes Information not available 05/27/2024 What Was The Date Of Your Most Recent Tobacco Screening? 05/27/2024 Information not available 05/27/2024 Do You Have An Out Of Hospital DNR? No Information not available 05/27/2024 What Is Your Relationship Status? Lost 3 Yrs Ago, Very Hard, Had Been Together Since He Was 19 Information not available 05/27/2024 How Much Tobacco Do You Smoke? 0.25 PPD [email or web address] Information not available 05/23/2024 Has Tobacco Cessation Counseling Been Provided? Yes [email or web address] Information not available 05/23/2024 On What Date Was Tobacco Cessation Counseling Provided? 05/27/2024 Plans On Staying Quit, Doesn't Want Patch Or Gum At This Time Information not available 05/27/2024 How Many Years Have You Smoked Tobacco? 68 Information not available 05/23/2024 Sex: Unknown Functional Status Question Answer Note LastModified by Organizat ion Details LastModified Time Do you use any illicit or recreational drugs? No [email or web address] Information not available 05/23/2024 Do you or have you ever used any other forms of tobacco or nicotine? No [email or web address] Information not available 05/23/2024 What is your level of alcohol consumption? None [email or web address] Information not available 05/23/2024 Mental Status None recorded. Family History Nothing Reported. Medical History No medical history recorded. Immunizations Vaccine Type Date Status Note Provider Nam e and Address Organization Details Recorded Time Respiratory syncytial virus (RSV) MAB, unspecified 3 completed Partha agudelo, [facility] 05/23/2024 14:04:35 Td(adult) unspecified formulation 4 completed Partha Jacks-Whitten null, [facility] 05/23/2024 14:04:46 Pneumococcal conjugate PCV 13 4 completed Partha Jacks-Whitten null, [facility] 05/23/2024 14:05:03 influenza, unspecified formulation 1 completed Partha Jacks-Whitten null, [facility] 05/23/2024 14:05:14 influenza, unspecified formulation 2 completed Partha Jacks-Whitten null, [facility] 05/23/2024 14:05:20 influenza, unspecified formulation 3 completed Partha Jacks-Whitten null, [facility] 05/23/2024 14:05:24 SARS-COV-2 (COVID-19) vaccine, UNSPECIFIED 1 completed Partha Jacks-Whitten null, [facility] 05/23/2024 14:05:37 SARS-COV-2 (COVID-19) vaccine, UNSPECIFIED 1 completed Partha Jacks-Whitten null, [facility] 05/23/2024 14:05:41 SARS-COV-2 (COVID-19) vaccine, UNSPECIFIED 1 completed Partha Jacks-Whitten null, [facility] 05/23/2024 14:05:45 SARS-COV-2 (COVID-19) vaccine, UNSPECIFIED 2 completed Partha Jacks-Whitten null, [facility] 05/23/2024 14:05:49 SARS-COV-2 (COVID-19) vaccine, UNSPECIFIED 2 completed Partha Jacks-Whitten null, [facility] 05/23/2024 14:05:53 SARS-COV-2 (COVID-19) vaccine, UNSPECIFIED 3 completed Partha Jacks-Whitten null, [facility] 05/23/2024 14:05:58 SARS-COV-2 (COVID-19) vaccine, UNSPECIFIED 3 completed Partha Jacks-Hwitten null, [facility] 05/23/2024 14:06:02 zoster, unspecified formulation 9 completed Partha Jacks-Whitten null, [facility] 05/23/2024 14:06:19 Past Encounters Encounter ID Performer Location Encounter Start Date Encounter Closed Date Diagnosis/Indication Diagnosis SNOMED-CT Code Diagnosis ICD10 Code Diagnosis IMO Codes Diagnosis Note [id number] [facility] [address] [place] [address] 05/21/2024 09:42:09 05/23/2024 10:45:05 Fall 7775058 W19.XXXD fell outside with injuriesli marilee dt orthostasi s with dehydratio nmonitor falls risk Fracture of humerus 6630 8002 S42.301A sp fallright arm in sling Fracture o f maxillary alveolar bone 583929180 S02.42XD sp fallmonito r painno surgical interventi on Closed fra cture of patella 20590194 S82.002A sp fallknee in braceadmit to PT OTnon weight bearingf/u p with ortho ?monitor pain Acute kidney injury 1466 9001 N17.9 [place] on ckdin the setting of dehydratio nimproved with IVFmonitor bmp Hyperkalemia 07922230 E8 7.5 k 5.5resolve d with lokelma inptmonito r bmp Orthostati c hypotension 20715586 I95.1 lisinopril stopped, given IVF and midodrine with improvemen tremains off lisinopril setting of dehydratio nencourage oral hydrationm onitor bp Essential hypertension 10867215 I10 now with low BPsremains off lisinopril monitor bp and labs Hyperlipidemia 42764996 E78.5 on asa and statinlipi ds outpt Type 2 alberto betes mellitus 35906304 E11.9 metformin stopped inptlantus 16 units dailymonit or accuchecks Mood disorder 49366157 F 39 anxiety and depression buspirone 10 mg tidsertral ine 100 mg bid (odd dosing?) Cigarette smoker 7774156 7 F17.210 has nicotine patchstart gum prnproduct matheus loose coughmonit or [id number] MD [facility] [address] [place] [address] 05/24/2024 11:23:12 06/10/2024 09:51:22 Fracture of humerus 67271757 S42.301A sp fallright arm in slingc/o pain-will start low dose of Oxycodone 2.5 mg po q 6 hours prn Fracture o f maxillary alveolar bone 496545782 S02.42XD sp fallmonito r painno surgical interventi on Closed fra cture of patella 63538529 S82.002A sp fallknee in braceBrace being removed and monitored dailyConti nue PT OTweight bearing as toleratedf /up with orthomonit or pain Acute kidney injury 1466 9001 N17.9 [place] on ckdin the setting of dehydratio nimproved with IVFmonitor bmp, see above labs Hyperkalemia 46493679 E8 7.5 k 5.5resolve d with lokelma inptmonito r bmp , 4.6 today Essential hypertension 20572070 I10 now with low BPsremains off lisinopril monitor bp and labs Type 2 alberto betes mellitus 45024659 E11.9 metformin stopped inptlantus 16 units dailymonit or accuchecks glucose 270 with lab, monitor Mood disorder 73208251 F 39 anxiety and depression buspirone 10 mg tid [id number] FELISA [facility] [address] [place] [address] 05/26/2024 11:52:46 05/30/2024 10:43:37 Fracture of maxillary alveolar bone 658313858 S02.42XD sp fallmonito r painno surgical interventi on Fracture of humerus 6630 8002 S42.301A uncontroll ed painright arm in slingstart tylenol 975 mg tidstart oxy 5 mg qhs and continue oxy 2.5 mg q6h prnmonitor pain and wean as tolerated Closed fra cture of patella 33197937 S82.002A sp fallknee in braceBrace being removed and monitored dailyConti nue PT OTweight bearing as toleratedf /up with orthomonit or pain Essential hypertension 83562978 I10 now with low BPsremains off lisinopril monitor bp and labs Type 2 alberto betes mellitus 70161951 E11.9 metformin stopped inptlantus 16 units dailymonit or accuchecks tid with ss insulinblo od sugars variable Mood disorder 42002373 F 39 mood stableh/o anxiety and depression continue buspirone 10 mg tid [id number] Katelynn Bhatti MD [facility] [address] [facility] [place] [address] 05/27/2024 14:01:22 05/30/2024 11:15:45 Fracture of maxillary alveolar bone 234100326 S02.42XD No interventi on needed.Michele n control as above.Bronwyn tor Fracture of humerus 6630 8002 S42.321K Continue sling and NWB at all times.Cont inue pain management as above.Reha b as above.F/U with ortho. Closed fra cture of patella 79145931 S82.015K With no evidence of healing on [...] U with ortho as planned. Essential hypertension 06457259 I10 BP remains in good control off lisinopril .Monitor for need to restart a different antihypert ensive. Type 2 alberto betes mellitus 90658265 E11.22 Metformin stopped inpt due to CKD.Sugars variable since here, but all <300Last HgA1C I can find is 7.4 in 08/2023.Con tinue Lantus 16U qd, glipizide 5 mg BID and SSI.Monito r fingerstic ks TID and HgA1C as outpt.May need to increase Lantus or glipizide now that pt is off metformin. Anemia 445868563 D64.89 With marked drop since 02/2024.Li marilee due to fxs.Has been stable since hydration inpt.Rick nue FeSO4 325 mg qd (Had iron of 123 in 02/2024).M onitor labs. Monoclonal gammopathy of uncertain significance 613720008 D47.[address] Ballard at [facility].Last note states: At this time I [...] examinatio n. Chronic ob structive pulmonary disease 13355650 J43.8 No current sxs.On admission here spiriva was left off his meds.Will restart spiriva respimat 2 puffs qd.Monitor for need for rescue inhaler.Mo nitor resp status. Nicotine dependence 5629 4008 F17.213 Had requested nicotine gum, but doesn't look like it was ordered.Wi ll start Chronic ki dney disease stage 3A 236099024 N18.31 Back to baseline.C ontinue to avoid nephrotoxi c meds as able.Monit or labs.Renal consult prn. 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 Chronic diarrhea 2770310 09 K52.9 Lifelong problem.Ta kes imodium if he is going out to the store or other out of home activities .Then takes him 2 days to start going again. [id number] ABDI [facility] on [address] [facility] [place] [address] 05/30/2024 09:30:23 06/01/2024 14:31:02 Closed fracture of patella 57437448 S82.015K Continue WBAT with PTContinue knee immobilize [...] b as above.F/U with ortho. Essential hypertension 39666117 I10 123/54Moni tor for need to restart a different antihypert ensive. Type 2 alberto betes mellitus 61711426 E11.22 sugar today 133Last HgA1C I can find is 7.4 in 08/2023.Con tinue Lantus 16U qd, glipizide 5 mg BID and SSI.Monito r fingerstic ks TID and HgA1C as outpt.May need to increase Lantus or glipizide now that pt is off metformin. Anemia 934866862 D64.89 Continue FeS04 325 mg qd (Had iron of 123 in 02/2024).l abs tomorrow Chronic ki dney disease stage 3A 503223167 N18.31 labs tomorrow [id number] ABDI Moody at [facility] on [address] [place] [address] 06/02/2024 09:31:20 06/03/2024 13:38:17 Closed fracture of patella 95810780 S82.015K see HPI, doing well with PTContinue [...] ortho. Chronic ki dney disease stage 3A 280856274 N18.31 zgyqbs28/1 .60 [id number] ABDI Moody at [facility] on [address] [place] [address] 06/07/2024 06:30:17 06/08/2024 16:07:34 Closed fracture of patella 30348376 S82.015K see HPI, ok to dc home [...] above. Chronic ki dney disease stage 3A 320742158 N18.31 stable Painful pe nile erection 3402871 N48.39 zoloft cut in half, resolvedca ution increasing dose in future Fracture o f maxillary alveolar bone 358969282 S02.42XD No interventi on needed. Essential hypertension 04759300 I10 BP remains in good control off lisinopril . Type 2 alberto betes mellitus 19795513 E11.22 Metformin stopped inpt due to CKD.Sugars variable since here, but all <300Last HgA1C I can find is 7.4 in 08/2023.Con tinue Lantus 16U qd, glipizide 5 mg BID and SSI. Mixed anxi ety and depressive disorder 071722102 F41.8 F32.89 sertraline 100 mg dailyConti nue buspirone 10 mg TID and melatonin 6 mg qhs prn.Monito r mood.Psych consult prn. Anemia 464797836 D64.89 With marked drop since 02/2024.Li marilee due to fxs.Has been stable since hydration inpt.Rick nue FeSO4 325 mg qd (Had iron of 123 in 02/2024). Chronic ob structive pulmonary disease 50344561 J43.8 spiriva respimat 2 puffs qd Chronic diarrhea 1704979 09 K52.9 Lifelong problem.Ta kes imodium if he is going out to the store or other out of home activities .Then takes him 2 days to start going again. Health Concerns Section Related Observation LastModified by Organization Detai ls LastModified Time None Recorded Concern Status LastModified by Organization Details LastModified Time None Recorded Advance Directives Directive N: Payers Insurance Date Sequence Insurance Name Policy Number Policy Silva Covered Member ID Silva Member ID Guarantor Name 06/05/2024 1 [facility] (MEDICARE REPLACEMENT/A DVANTAGE - PPO) [id number] Boone Newby [id number] Boone Newby 05/24/2024 1 MEDICARE B-[place]: [facility] Boone Newby Jr [id number] Boone Newby Notes Date Note Type Note Provider Name and Address Organization Details Recorded Time 5 text/html Pt is a 73 yo male being seen for acute rounding. He presented to [facility] sp fall. He was found to have [...] htn, hld, ckd3, anxiety, depression, and diabetes. LEENA VERAC [address] [place] [address], [address], [place], [address], [facility] 05/27/2024 07:57:17 5 text/html This is a [...] care at other facility. He presented to [facility] ED on fter a fall described as [...] NEVILLE and hyperkalemia. He was transferred to [facility] on 05/10.Info sent from [facility] include MAR and a note saying he saw ortho on 05/20 and is now WBAT.Xrays from 05/[address] [facility] system show no callous formation of either humerus or patella. And that humerus had worsened malalignment.He was transferred here on 05/20. Since here he has been working with rehab and progressing, he is supervision for bed mobility, transfers and ambulation. He is mod assist for toilet transfers, bathing and lower body dressing. He was seen by [facility] y[facility] due to pain being uncontrolled at [...] AQUILES, and MGUS. Katelynn Bhatti MD [address] [facility], [address], [place], [address], [facility] 05/27/2024 22:14:26 5 text/html This is a 73 year old male being seen for acute rounding. He presented to [facility] sp fall. He was found to have [...] hld, ckd3, anxiety, depression, and diabetes. ABDI Farley [facility], [address], [place], [address], [facility] 05/30/2024 09:52:26 5 text/html This is a 73 year old male being seen for acute rounding. He presented to [facility] sp fall. He was found to have [...] ckd3, anxiety, depression, and diabetes. ABDI VILLEDA [address] [place] [address], [address], [place], [address], [facility] 06/02/2024 11:28:45 5 text/html This is a 73 year old male being seen for discharge summary visit. He presented to [facility] sp fall. He was found to have [...] ckd3, anxiety, depression, and diabetes. ABDI VILLEDA [address] [place] [address], [address], [place], [address], [facility] 06/07/2024 06:51:08
--- OUTSIDE RECORDS SUMMARY | 2024-12-27 15:05 | XMS_ITS | Encounter Summary ---
Author Organization [facility] Address [address] [place] [address] Phone Care Team Providers Care Patient Advocate Name Role Phone Darlyn Velasquez DO Primary Care Provider [phone] Nikole Johnson PA-C Unavailable Darlyn Velasquez DO Unavailable Iwona Torre RD Unavailable [phone] Marina Caldera DO Primary Care Provider Aida Fabian MD Primary Care Provider [phone] Kath Bose MD Primary Care Provider + Lizzie Ballard Unavailable Encounter Details Date Type Department Care Team (Late st Contact Info) Description 07/25/2022 Procedure Pass [facility] - Endoscopy - [place] [address] [place] [address] Social History Tobacco Use Types Packs/Day Years Used Date Smoking Tobacco: Every Day Cigarettes Passive Smoke Exposure: Current Smokeless Tobacco: Current Alcohol Use Standard Drinks/Week Comments Not Currently 0 (1 standard drink = 0.6 oz pur e alcohol) Education Answer Date Recorded Are you interested in more education? Not on walt e 07/18/2022 Are you concerned about learning? Not on file 07/18/2022 No 07/18/2022 No 07/18/2022 Sex and Gender Information Value Date Recorded Sex Assigned at Not on file Legal Sex Male 6:39 PM EST Gender Identity Not on file Sexual Orientation Not on file documented as of this encounter Plan of Treatment Not on file documented as of this encounter Visit Diagnoses Not on filedocumented in this encounter Additional Health Concerns Assessment Noted Time PHQ-2 Depression Total Score: 0 07/17/19 1:51 PM EDT documented as of this encounter Care Teams Patient Advocate Relationship Specialty Start Date End Date Darlyn Velasquez DO [address] [address] [email or web address] PCP - General 04/15/18 08/10/22 Marina Caldera DO [address] [place] [address] PCP - General Family Medicine 08/11/22 08/11/22 Aida Fabian MD [address] [place] [address] PCP - General Internal Medicine 08/12/22 11/08/23 Kath Bose MD [address] [place] [address] PCP - General Family Medicine 11/09/23 Nikole Johnson, EMELYC [address] [place] [phone] Historical LMR Provider 04/22/18 Darlyn Velasquez DO [address] [place] [address] [email or web address] Historical LMR Provider 04/22/[address] [place] [address] [email or web address] Historical LMR Provider 04/22/18 Lizzie Ballard MBBS [address] [place] [address] [email or web address] Primary Oncologist Medical Oncology 03/02/24 documented as of this encounter Additional Source Comments The information contained in this document represents components of the legal health record. It is not the complete legal health record.[facility]
--- OUTSIDE RECORDS SUMMARY | 2024-12-27 15:05 | XMS_ITS | Encounter Summary ---
Author Organization [employer] Address [address] [facility] 7t [place] [address] Care Team Providers Care Rate Examiner Name Role Phone Kath Bose MD Primary Care Provider [phone] Encounter Details Date Type Department Care Team ([facility] Contact Info) Description 12/27/2024 Orders Only [facility] [address] [place], [place] [phone] Kath Bose MD [address] [place], [place] [phone] Social History Tobacco Use Types Packs/Day Years [...] AUTO DIFFERENTIAL Routine 12/27/2024 12:15 PM EDT documented in this encounter Results * (ABNORMAL) CBC auto differential (12/27/2024 12:15 PM EDT) White Blood Count 8.2 4.8 - 10.8 X10*3/uL [facility] Red Blood Count 4.75 4.60 - 5.80 X10*6/uL [facility] Hemoglobin 15.4 14.0 - 18.0 g/dl [facility] Hematocrit 45.4 42.0 - 52.0 % [facility] Mean Corpuscular Volume 95.6 80.0 - 98.0 fL [facility] Mean Corpuscular Hemoglobin 32.4 27.0 - 33.0 pg [facility] Mean Corpuscular HGB Conc 33.9 31.0 - 36.0 g/dl [facility] Red Cell Distribution Width 12.2 11.0 - 16.0 % [facility] Platelet Count 183 160 - 400 X10*3/uL [facility] Mean Platelet Volume 13.1(H) 9.4 - 12.4 fL [facility] Neutrophils Percent Auto 66.1 45 - 73 % [facility] Imm Gran Pct Auto 0.6(H) 0.0 - 0.4 % [facility] Lymphocytes Percent Auto 22.7 20 - 40 % [facility] Monocytes Percent Auto 7.9 2 - 11 % [facility] Eosinophils Percent Auto 2.2 0 - 4 % [facility] Basophils Percent Auto 0.5 0 - 2 % [facility] NRBC Pct Auto 0.0 0.0 - 0.2 /100WBC [facility] Neutrophils Absolute Auto 5.4 2.0 - 8.3 x10*3/uL [facility] Imm Gran Abs Auto 0.05(H) 0.00 - 0.03 X10*3/uL [facility] Lymphocytes Absolute Auto 1.9 1.2 - 4.9 X10*3/uL [facility] Monocytes Absolute Auto 0.7 0.1 - 1.2 X10*3/uL [facility] Eosinophils Absolute Auto 0.2 0.0 - 0.4 X10*3/uL [facility] Basophils Absolute Auto 0.0 0.0 - 0.2 X10*3/uL [facility] NRBC Abs Auto 0.000 0.0 - 0.012 X10*3/uL [facility] 12/27/2024 12:1 5 PM EDT 12/27/2024 1:30 PM EDT us Kath Bose MD LAB BLOOD ORDERABLES Final Res ult [facility] [address] [place] [phone] documented in this encounter Visit Diagnoses Not on filedocumented in this encounter Additional Health Concerns Assessment Noted Time PHQ-9 Depression Total Score: 12 024 2:19 PM EDT documented as of this encounter Care Teams Rate Examiner Relationship Specialty Start Date End Date Kath Bose MD [address] [place] [id number] PCP - General Family Medicine 09/23/23 [place]INE 06/09/24 documented as of this encounter
--- OUTSIDE RECORDS SUMMARY | 2024-12-27 15:06 | XMS_ITS | Encounter Summary ---
Author Organization [facility] Address [address] [place] [phone] Phone Care Team Providers Care Property And Casualty Insurance Agent Name Role Phone Darlyn Velasquez DO Primary Care Provider [phone] Nikole Johnson PA-C Unavailable [phone] Darlyn Velasquez DO Unavailable Iwona Torre [address] Unavailable [phone] Jeannette Morales GUM COOK Unavailable Marina Caldera DO Primary Care Provider [phone] Aida Fabian MD Primary Care Provider [phone] Kath Bose MD Primary Care Provider + Lizzie Ballard Unavailable Encounter Details Date Type Department Care Team (Late st Contact Info) Description 06/26/2020 Procedure Pass [facility] Physicians - Radiology - [place] [address] [place] [address] Social History Tobacco Use Types Packs/Day Years Used Date Smoking Tobacco: Every Day Cigarettes Smokeless Tobacco: Current Alcohol Use Standard Drinks/Week Comments Not Currently 0 (1 standard drink = 0.6 oz pur e alcohol) Sex and Gender Information Value Date Recorded Sex Assigned at Not on file Legal Sex Male 6:39 PM EST Gender Identity Not on file Sexual Orientation Not on file documented as of this encounter Plan of Treatment Not on file documented as of this encounter Visit Diagnoses Not on filedocumented in this encounter Additional Health Concerns Infection Onset Date Last Indicated 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 08/01/2014 08/01/2014 05/07/2022 1:[address] Assessment Noted Time PHQ-2 Depression Total Score: 1 06/27/19 21 10:50 AM EDT documented as of this encounter Care Teams Property And Casualty Insurance Agent Relationship Specialty Start Date End Date Darlyn Velasquez DO [address] [facility] [address] [place] [address] [email or web address] PCP - General 04/15/18 08/10/22 Marina Caldera DO [address] [place] [address] PCP - General Family Medicine 08/11/22 08/11/22 Aida Fabian MD 1 [place] [address] PCP - General Internal Medicine 08/12/22 11/08/23 Kath Bose MD 1 [place] [address] PCP - General Family Medicine 11/09/23 Nikole Johnson, EMELYC [address] [phone] Historical LMR Provider 04/22/18 Darlyn Velasquez DO [address] [phone] [email or web address] Historical LMR Provider 04/22/[address] [place] [phone] [email or web address] Historical LMR Provider 04/22/18 Jeannette Morales NP [address] [place] [address] [email or web address] LMR Provider 04/22/1803/30/21 Lizzie Ballard MBBS [address] [place] [address] [email or web address] Primary Oncologist Medical Oncology 03/02/24 documented as of this encounter Additional Source Comments The information contained in this document represents components of the legal health record. It is not the complete legal health record.[facility]
--- OUTSIDE RECORDS SUMMARY | 2024-12-27 15:06 | XMS_ITS | Encounter Summary ---
Author Organization [employer] Address [address] [facility] 7t [place] [address] Care Team Providers Care Community Service Officer Coordinator Name Role Phone Kath Bose MD Primary Care Provider [phone] Encounter Details Date Type Department Care Team ([facility] Contact Info) Description 06/28/2024 Orders Only [facility] MEDICINE [address] [place], [place] [phone] Kath Bose MD [address] [place], [place] [phone] Social History Tobacco Use Types Packs/Day Years [...] documented as of this encounter Care Teams Community Service Officer Coordinator Relationship Specialty Start Date End Date Kath Bose MD [address] [place] [phone] PCP - General Family Medicine 09/23/23 [place] A 06/09/24 documented as of this encounter
--- OUTSIDE RECORDS SUMMARY | 2024-12-27 15:06 | XMS_ITS | Encounter Summary ---
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 EFFECTIVE SINCE 11/05/2022 documented in this encounter Plan of Treatment Not on file documented as of this encounter Visit Diagnoses Not on filedocumented in this encounter Care Teams Chip Person Relationship Specialty Start Date End Date Kath Bose MD [address] [place] [address] PCP - General Family Medicine 09/23/23 [place] SHINE 06/09/24 documented as of this encounter
--- OUTSIDE RECORDS SUMMARY | 2024-12-27 15:06 | XMS_ITS | Encounter Summary ---
Author Organization [facility] Address [address] [place] [phone] Phone Care Team Providers Care Leather Goods Sales Representative Name Role Phone Nikole Johnson PA-C Unavailable Darlyn Velasquez DO Unavailable [phone] Unavailable [phone] Kath Bose MD Primary Care Provider + Lizzie Ballard Unavailable [phone] Encounter Details Date Type Department Care Team (Late st Contact Info) Description 11/09/2023 Procedure Pass [facility], Ct Scan - [facility] [address] [place] [address] Social History Tobacco Use Types Packs/Day Years Used Date Smoking Tobacco: Every Day Cigarettes Passive Smoke Exposure: Current Smokeless Tobacco: Current Alcohol Use Standard Drinks/Week Comments Not Currently 0 (1 standard drink = 0.6 oz pur e alcohol) Home Health Assessment: Transportation Answer Date Recorded Lack of Transportation (Medical) No 10/09/2022 Lack of Transportation (Non-Medical) No 10/09/2022 Patient Unable or Declines to Respond No 10/09/2022 Education Answer Date Recorded Are you interested in more education? Not on walt e 07/18/2022 Are you concerned about learning? Not on file 07/18/2022 No 07/18/2022 No 07/18/2022 Digital Access Answer Date Recorded No 08/12/2022 No 08/12/2022 Reliable internet access at home? Not on file 08/12/2022 Device with a working camera? Not on file Sex and Gender Information Value Date Recorded [...] documented as of this encounter Care Teams Leather Goods Sales Representative Relationship Specialty Start Date End Date Kath Bose MD [address] [place] [address] PCP - General Family Medicine 11/09/23 Nikole Johnson, PAYazminC [address] [place] [phone] [email or web address] Historical LMR Provider 04/22/18 Darlyn Velasquez DO [address] [place] [phone] [email or web address] Historical LMR Provider 04/22/[address] [place] [address] Historical LMR Provider 04/22/18 Lizzie Ballard MBBS [address] [place] [phone] Primary Oncologist Medical Oncology 03/02/24 documented as of this encounter Additional Source Comments The information contained in this document represents components of the legal health record. It is not the complete legal health record.[facility]
--- OUTSIDE RECORDS SUMMARY | 2024-12-27 15:06 | XMS_ITS | Clinical Summary ---
Author Organization [facility] Address [address] [place] [id number] Phone Care Team Providers Care Produce Buyer Name Role Phone Nikole Johnson-Rainer Unavailable [phone] Darlyn Velasquez DO Unavailable Iwona Torre RD Unavailable [phone] Kath Bose MD Primary Care Provider + Lizzie Ballard Unavailable [phone] Allergies No known active allergies Medications aspirin 81 MG EC tablet Take 1 tablet by mouth daily. 03/18/20 11 Active ascorbic acid, vitamin C, (VITAMIN C) 1000 MG tablet Take one pill by mouth once daily 02/23/20 13 Active blood-glucose meter kitIndications:T ype 2 diabetes mellitus without complication, without long-term current use of insulin Use as instructed E11.9 1 each 02/18/20 22 Active multivitamin/iro n/folic acid (SENTRY ORAL) Take 1 tablet by mouth daily. 02/21/20 22 Active cholecalciferol (VITAMIN D3) 2,000 unit tablet Take 2,000 Units by mouth daily. 02/21/20 22 Active blood sugar diagnostic Strp stripsIndication s:Type 2 diabetes mellitus without complication, without long-term current use of insulin Use to check blood sugars. Freestyle freedom diagnostic strips Dx# E 11.9 200 strip 6 04/23/19 Active lancets (LANCETS,THIN) Misc 1 each by Miscellaneous route 4 (four) times a day before meals and nightly. Freestyle freedom light lancets 200 each 6 04/23/19 Active ONETOUCH ULTRA TEST Strp stripsIndication s:Type 2 diabetes mellitus with ketoacidosis without coma, with long-term current use of insulin,Diabetic ketoacidosis without coma associated with diabetes mellitus due to underlying condition 1 each by Miscellaneous route 2 (two) times a day. Dx E 11.9 100 strip 3 05/15/19 Active ONETOUCH UKTRA2 meter kitIndications:T ype 2 diabetes mellitus with ketoacidosis without coma, with long-term current use of insulin,Diabetic ketoacidosis without coma associated with diabetes mellitus due to underlying condition DX E 11.9 Use as instructed 1 each 05/15/19 Active psyllium (METAMUCIL) 0.4 gram capsule Take 0.4 g by mouth daily. may take up to 5 per day to control diarrhea 06/12/19 Active FEROSUL 325 mg (65 mg iron) tablet TAKE 1 TABLET BY MOUTH DAILY WITH BREAKFAST 90 tablet 3 06/14/19 Active Additional Information Patient not taking.Reported on 05/20/2023 acetaminophen (TYLENOL) 500 MG tablet Take 1,000 mg by mouth every 8 (eight) hours as needed for pain (specific location in comments) (mouth). 08/29/19 Active metFORMIN (GLUCOPHAGE) 500 MG tablet TAKE 2 TABLETS(1000 MG) BY MOUTH TWICE DAILY WITH MEALS FOR DIABETES 360 tablet 3 12/11/19 Active glipiZIDE (GLUCOTROL) 5 MG tabletIndication s:Type 2 diabetes mellitus with ketoacidosis, with long-term current use of insulin TAKE 1 TABLET(5 MG) BY MOUTH TWICE DAILY WITH MEALS AND WITH A MEAL 180 tablet 3 03/24/19 Active sertraline (ZOLOFT) 100 MG tabletIndication s:Depression Take 2 tablets (200 mg total) by mouth daily. 180 tablet 3 03/27/19 Active lisinopril (PRINIVIL,ZESTRI L) 5 MG tabletIndication s:Hypertension Take 1 tablet (5 mg total) by mouth daily. 90 tablet 07/13/19 24 Active busPIRone (BUSPAR) 10 MG tablet Take 1 tablet (10 mg total) by mouth 3 (three) times a day. 270 tablet 3 07/13/19 24 Active insulin glargine 100 unit/mL (3 mL) InPn injection penIndications:T ype 2 diabetes mellitus with stage 3b chronic kidney disease, with long-term current use of insulin Inject 16 Units under the skin nightly at bedtime. BRAND NAME LANTUS PEREZOSTAR ONLY PLEASE 15 mL 3 08/27/19 24 Active rosuvastatin (CRESTOR) 20 MG tabletIndication s:Dyslipidemia take 1 tablet by mouth daily 90 tablet 3 09/02/19 24 Active BD ULTRA-FINE SARAH PEN NEEDLE 32 gauge x 5/32 Ndle 1 each by Miscellaneous route 2 (two) times a day. E11.10, Z79.4 100 each 3 09/22/19 24 Active FEROSUL 325 mg (65 mg iron) tabletIndication s:Iron deficiency TAKE 1 TABLET BY MOUTH DAILY WITH BREAKFAST 90 tablet 1 06/16/19 25 Active Active Problems Problem Noted Date Diagnosed Date Nodule of lower lobe of right lung 04/06/2024 Monoclonal gammopathy presen t on serum protein electrophoresis 11/09/2023 Assessment & Plan (04/06/2024 4:51 PM EST): At this time I discussed again the diagnosis of MGUS based on his presentation. Faint IgG kappa monoclonal band present with unremarkable serum free light chain analysis. No anemia, hypercalcemia or abnormal creatinine. CT scan chest abdomen and pelvis did not reveal bone lesions. I recommend repeat SPEP and serum free light chain analysis in 6 months. If still normal, will then stop testing. No immediate need for bone marrow examination. He is a heavy smoker with a prior hx of a 7 mm solid nodule in the right lower lobe. Follow-up CT chest 02/2024 was unremarkable. He will now follow up with his PCP. Assessment & Plan (11/27/2023 8:21 AM EDT): At this time I discussed again the diagnosis of MGUS based on his presentation. Faint IgG kappa monoclonal band present with unremarkable serum free light chain analysis. No anemia, hypercalcemia or abnormal creatinine. CT scan chest abdomen and pelvis did not reveal bone lesions. I recommend repeat SPEP and serum free light chain analysis in 6 months. No immediate need for bone marrow examination. He is a heavy smoker with a 7 mm solid nodule in the right lower lobe. Follow-up CT chest in 3 to 6 months was recommended and I have discussed this need with the patient and his family. He will follow-up in approximately 3-[address] scan prior. Assessment & Plan (11/09/2023 11:13 AM EDT): At this time I discussed the differential diagnosis of the presence of an M protein on serum evaluation. If confirmed, the patient has a plasma cell disorder which is most likely MGUS based on his presentation. However there are concerns raised due to fatigue, weight loss and abnormal creatinine. He is also a heavy smoker with no recent CT chest imaging. I have recommended CT chest abdomen pelvis to evaluate for lung masses, bone lesions and plasmacytomas. Repeat lab work will be performed today to evaluate patient's fatigue and to confirm the presence of an M protein. All questions were answered. Printed information was given regarding MGUS. Patient and daughter understand a bone marrow biopsy may be required if results are concerning. Follow-up in 2 weeks. Uncontrolled hypertension 05/20/2023 Assessment & Plan (05/20/2023 6:31 PM EST): Blood pressures as per patient are running above 130/80 He gained 25 pounds. Follow low-salt diet. He is not on any medications for hypertension. He will benefit from an JE or ARB. Will first check labs. Iron deficiency 05/20/2023 Type 2 diabetes mellitus wit h stage 3b chronic kidney disease, with long-term current use of insulin 05/20/2023 Assessment & Plan (05/20/2023 6:30 PM EST): Seen ophthalmology recently. Good control of hypertension and diabetes advised. Will check BMP UA and urine microalbumin. Patient is on statin. He is not on JE or ARB. Uncontrolled type 2 diabetes mellitus with hyperglycemia, with long-term current use of insulin 05/20/2023 Assessment & Plan (05/20/2023 6:31 PM EST): Gained weight recently. Blood sugars are running above 150. He is taking 13 units of Lantus. He is also on metformin and glipizide. Will check lab work. Hyperlipidemia 05/20/2023 Assessment & Plan (05/20/2023 6:29 PM EST): He is on statinHis last CT scan of the chest showed moderate coronary calcifications. Follow low-salt diet and continue statin. Check lipid profile. Anxiety and depression 05/20/2023 Assessment & Plan (05/20/2023 6:28 PM EST): Patient states Zoloft and buspirone are helping with his anxiety and depression and he denies any symptoms appetite has improved and he gained weight Hearing loss of both ears due to cerumen impacti on 10/09/2022 Assessment & Plan (10/09/2022 5:13 PM EDT): After informed consent , ear canal was flushed with warm water to which hydrogen peroxide is added. Ear(s) were flushed and curette was used till all the cerumen came out . TM visualized after irrigation is completed .TM - clear with normal light reflex. patient tolerated the procedure well. Hematuria, gross 04/09/2022 Assessment & Plan (04/09/2022 5:42 PM EST): He states that he has urinated bloody 3 times. The Last time was 3 days ago. No pain, no h/o kidney stones. No frequency. No dysuria. Discussed that I will check his urine study today, and if they are non diagnostic, he must see an Urologist. Discussed risk of bladder tumors on smokers. 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 Assessment & Plan (03/02/2022 12:47 AM EST): He will need to follow up to Vascular surgeon for recommendations regarding L IJ vein filling defect consider non-occlusive thrombus Financial insecurity 03/02/2022 Assessment & Plan (04/09/2022 12:35 PM EST): This has been very difficult for him to have his treatments and medications Assessment & Plan (03/02/2022 12:48 AM EST): It will be very difficult to control his diabetes due to him not able to afford the medications Nocturia 01/27/2022 Syncope and collapse 01/27/2022 Assessment & Plan (04/09/2022 5:44 PM EST): He still felling light headed when he looks up. He almost has passed out a few times. His pulse sometimes is very low. Discussed to recheck the ZIO patch again (the first time it fail off). Discussed hydration. Assessment & Plan (03/02/2022 12:45 AM EST): He needs follow up with Cardiology for recommendations regarding syncope and the zio patch Assessment & Plan (01/27/2022 12:43 PM EST): Patient presents with multiple episodes of syncope and collapse without any significant injuries or head strike. He reports prior history of right buttocks injury which is now healed and declines needing any further intervention. He is not on any anticoagulation. He is in no acute acute distress. His EKG today shows sinus rhythm with no acute changes. His symptoms are likely related to poor p.o. intake, likely as not caring for himself well at home. He has symptoms of failure to thrive. We will follow-up on lab results that were drawn today. Advise if symptoms happen again he needs to be evaluated at the ER for further evaluation. Ultrasound of the carotids ordered, referral to cardiology placed for follow-up. Recommend follow- up with PCP in 2 to 3 weeks or sooner if needed. Anxiety state 05/17/2021 Assessment & Plan (10/09/2022 5:14 PM EDT): Daughter and patient inquiring as to cutting back on anxiety medication feels is well controlled. Questioning if the buspirone can be stopped. Advised can stop the buspirone and if anxiety remains stable can remain off the medication however for anxiety return should presume taking the BuSpar. Discussed with recommended that they did not trial this until establish with a new PCP. Patient and daughter verbalized and agreement Assessment & Plan (05/17/2021 9:15 PM EST): Discussed to try Buspar PRN All side effects of the new medication was discussed with the patient today. Side effects including rashes, allergic reaction, anaphylaxis, and opposite reaction to what the medication is prescribed for the problem. Bereavement 11/01/2020 Assessment & Plan (12/06/2020 2:50 PM EDT): Pt's recently in September. He is experiencing grief and sadness. No SI. I referred the pt to a counselor, but he has not called him back. His dog and guinea pig also have recently Assessment & Plan (11/01/2020 12:04 PM EDT): Pt's recently . He is experiencing grief and sadness. No SI. I referred the pt to a counselor. Insomnia 11/01/2020 Assessment & Plan (05/17/2021 9:14 PM EST): He may try to take a Buspar tab before sleeping PRN Assessment & Plan (12/08/2020 8:44 PM EDT): Discussed trial of Trazodone. All side effects of the new medication was discussed with the patient today. Side effects including rashes, allergic reaction, anaphylaxis, and opposite reaction to what the medication is prescribed for the problem. Assessment & Plan (11/01/2020 12:07 PM EDT): Pt has difficulty sleeping. I recommended that he try Melatonin supplements at night to improve his sleep. Will continue to monitor. Diarrhea 11/01/2020 Assessment & Plan (11/01/2020 12:10 PM EDT): Pt complains of diarrhea. I stopped the pt's Metformin and started him on Januvia. Will reevaluate in one month. Chronic obstructive pulmonary disease 09/27/2020 Overview (12/27/2020): Mild features of centrilobular emphysema on CT [...] sec 19.80/ 64% Last Resulted: 12/27/20 11:39 Assessment & Plan (05/20/2023 6:28 PM EST): Denies cough and wheezing. He is not on inhalers Assessment & Plan (04/09/2022 12:31 PM EST): Discussed smoking cessation Assessment & Plan (03/02/2022 12:43 AM EST): Discussed that he must stop smoking. The importance of smoking cessation was emphasized to this patient because of the marked increase risk of vascular disease, specifically stroke and myocardial infarction, COPD, increased risk of cancers and . Assessment & Plan (01/27/2022 12:35 PM EST): Followed by pulmonology, advised smoking cessation[place] [facility] [place] Assessment & Plan (05/17/2021 9:12 PM EST): Must stop smoking. He has the risk of respiratory failure. The importance of smoking cessation was emphasized to this patient because of the marked increase risk of vascular disease, specifically stroke and myocardial infarction, COPD, increased risk of cancers and . Strategies for initiiation and success including choosing a quit date were reviewed and encouraged. Multiple therapies were discussed, including Nicotine products. Assessment & Plan (12/27/2020 1:58 PM EDT): I think this patient could benefit from maintenance regimen of long-acting bronchodilator therapy He started on a combination of soft mist inhaler Inhaler technique was demonstrated and reviewed with the patient He also accepts a referral for outpatient pulmonary rehab Assessment & Plan (09/27/2020 10:02 AM EDT): The patient is referred for pulmonary function testing He would like to qualify to have a regular maintenance long-acting bronchodilator inhaler Influenza vaccination in the fall Abnormal chest CT 09/14/2020 Overview (09/14/2020): CT Scan Lung Cancer Screening: Clinical History: 1. Cigarette smoker 2. Please evaluate for occult neoplasia. Date of Study: 07/17/20 Clinical information: LDCT [...] S): Yes, moderate to severe coronary calcifications. Other incidental findings as above. Performed at [facility] Assessment & Plan (09/27/2020 10:03 AM EDT): This can be followed with yearly low-dose chest CT Wheezes 05/24/2020 Overview (09/14/2020): Features of bronchial wall thickening on CT chest imaging Assessment & Plan (05/24/2020 7:38 PM EST): Chronic wheezes, heavy smoker-not ready to quit, declines intervention Advised patient to contact the office if symptoms do not improve, or become worse. Encouraged patient to contact the office if there are any questions or concerns. Weight loss 09/09/2019 Assessment & Plan (01/27/2022 12:40 PM EST): Patient continues to lose weight due to poor PO intake. Due for LDCT. May consider nutrition referral. Advised small frequent meals throughout the day. Assessment & Plan (11/03/2020 11:22 PM EDT): Pt is currently drinking Boost with no issues. He has no appetite and does not have regular meals. The Pt complains of stomach pain. I recommended that he continue to drink Boost three times a day. In one month I will reevaluate the pt's weight. I also discussed to increase PPI x I month to help with his stomach pain. Side effects were reviewed and questions were answered. Encounter for Medicare annual wellness exam 01/21 Assessment & Plan (07/20/2022 10:57 AM EDT): Physical exam done today. Labs, preventive care protocols, and immunizations reviewed followup 1 year. Preventive Health Counseling/Education: 1) Healthy diet 2) Regular exercise 3) Regular dental/eye exams Assessment & Plan (11/01/2020 11:59 AM EDT): Physical exam done today. Labs, preventive care protocols, and immunizations reviewed followup 1 year. Preventive Health Counseling/Education: 1) Healthy diet 2) Regular exercise 3) Regular dental/eye exams 4) Regular use of seat belt 5) sunscreen and skin checks Given the COVID-19 outbreak, I recommend this: Maintain 6 feet social distance at all times. Wear a mask when outside of your home. Wash your hands with soap and water frequently or use alcohol based gel to clean hands. Clean your home, kitchen and bathroom surfaces with Clorox wipes. Assessment & Plan (02/05/2019 1:20 PM EST): Physical exam done today. Labs, preventive care protocols, and immunizations reviewed followup 1 year. Preventive Health Counseling/Education: 1) Healthy diet 2) Regular exercise 3) Regular dental/eye exams 4) Regular use of seat belt 5) sunscreen and skin checks Hypertension 04/27/2018 Assessment & Plan (07/20/2022 10:58 AM EDT): BP is well controlled DISCUSSED DIET LOW IN FAT AND CALORIES. DISCUSSED TO LIMIT AMOUNT OF SALT TO 2 G DAILY. REVIEWED ALL CARDIAC MEDICATION. DISCUSSED BLOOD PRESSURE GOALS. DISCUSSED EXERCISE DAILY. Discussed 2017 guideline for the prevention, detection, evaluation and management of high blood pressure in adults: Elevated BP: SBP 120-129 and DBP < 80 Hypertension stage I: SBP 130-139 and DBP 80-89. Hypertension stage II: SBP 140 or greater AND/OR DBP 90 or greater. Hypertensive urgency: SBP 180 or greater AND/OR DBP 120 or greater. Assessment & Plan (01/27/2022 12:44 PM EST): Hypertension, stable according to the 2017 guideline for the prevention, detection, evaluation and management of high blood pressure in adults: Elevated BP: SBP 120-129 and DBP < 80 Hypertension stage I: SBP 130-139 and DBP 80-89. Hypertension stage II: SBP 140 or greater AND/OR DBP 90 or greater. Hypertensive urgency: SBP 180 or greater AND/OR DBP 120 or greater. Hypertensive emergency: hypertensive urgency with target organ damage. He has no orthostatic hypotension today Discussed healthy low salt diet and exercise as tolerated Assessment & Plan (05/17/2021 9:11 PM EST): BP is controlled. DISCUSSED DIET LOW IN FAT AND CALORIES. DISCUSSED TO LIMIT AMOUNT OF SALT TO 2 G DAILY. REVIEWED ALL CARDIAC MEDICATION. DISCUSSED BLOOD PRESSURE GOALS. DISCUSSED EXERCISE DAILY. Discussed 2017 guideline for the prevention, detection, evaluation and management of high blood pressure in adults: Elevated BP: SBP 120-129 and DBP < 80 Hypertension stage I: SBP 130-139 and DBP 80-89. Hypertension stage II: SBP 140 or greater AND/OR DBP 90 or greater. Hypertensive urgency: SBP 180 or greater AND/OR DBP 120 or greater. Assessment & Plan (12/06/2020 2:50 PM EDT): BP is well controlled. DISCUSSED DIET LOW IN FAT AND CALORIES. DISCUSSED TO LIMIT AMOUNT OF SALT TO 2 G DAILY. REVIEWED ALL CARDIAC MEDICATION. DISCUSSED BLOOD PRESSURE GOALS. DISCUSSED EXERCISE DAILY. Discussed 2017 guideline for the prevention, detection, evaluation and management of high blood pressure in adults: Elevated BP: SBP 120-129 and DBP < 80 Hypertension stage I: SBP 130-139 and DBP 80-89. Hypertension stage II: SBP 140 or greater AND/OR DBP 90 or greater. Hypertensive urgency: SBP 180 or greater AND/OR DBP 120 or greater. Assessment & Plan (11/01/2020 12:00 PM EDT): Well controlled. Continue current regimen. DISCUSSED DIET LOW IN FAT AND CALORIES. DISCUSSED TO LIMIT AMOUNT OF SALT TO 2 G DAILY. REVIEWED ALL CARDIAC MEDICATION. DISCUSSED BLOOD PRESSURE GOALS. DISCUSSED EXERCISE DAILY. Discussed 2017 guideline for the prevention, detection, evaluation and management of high blood pressure in adults: Elevated BP: SBP 120-129 and DBP < 80 Hypertension stage I: SBP 130-139 and DBP 80-89. Hypertension stage II: SBP 140 or greater AND/OR DBP 90 or greater. Hypertensive urgency: SBP 180 or greater AND/OR DBP 120 or greater. Assessment & Plan (07/31/2020 11:48 AM EDT): Well treated on current regimen. No changes warranted. Assessment & Plan (06/26/2020 11:15 AM EDT): Hypertension,stable according to the 2017 guideline for the prevention, detection, evaluation and management of high blood pressure in adults: Elevated BP: SBP 120-129 and DBP < 80 Hypertension stage I: SBP 130-139 and DBP 80-89. Hypertension stage II: SBP 140 or greater AND/OR DBP 90 or greater. Hypertensive urgency: SBP 180 or greater AND/OR DBP 120 or greater. Hypertensive emergency: hypertensive urgency with target organ damage. Discussed healthy low salt diet and exercise as tolerated Assessment & Plan (08/04/2019 9:55 AM EDT): DISCUSSED DIET LOW IN FAT AND CALORIES. DISCUSSED TO LIMIT AMOUNT OF SALT TO 2 G DAILY. REVIEWED ALL CARDIAC MEDICATION. DISCUSSED BLOOD PRESSURE GOALS. DISCUSSED EXERCISE DAILY. Discussed 2017 guideline for the prevention, detection, evaluation and management of high blood pressure in adults: Elevated BP: SBP 120-129 and DBP < 80 Hypertension stage I: SBP 130-139 and DBP 80-89. Hypertension stage II: SBP 140 or greater AND/OR DBP 90 or greater. Hypertensive urgency: SBP 180 or greater AND/OR DBP 120 or greater. Assessment & Plan (02/05/2019 1:18 PM EST): DISCUSSED DIET LOW IN FAT AND CALORIES. DISCUSSED TO LIMIT AMOUNT OF SALT TO 2 G DAILY. REVIEWED ALL CARDIAC MEDICATION. DISCUSSED BLOOD PRESSURE GOALS. DISCUSSED EXERCISE DAILY. Discussed 2017 guideline for the prevention, detection, evaluation and management of high blood pressure in adults: Elevated BP: SBP 120-129 and DBP < 80 Hypertension stage I: SBP 130-139 and DBP 80-89. Hypertension stage II: SBP 140 or greater AND/OR DBP 90 or greater. Hypertensive urgency: SBP 180 or greater AND/OR DBP 120 or greater. Assessment & Plan (07/24/2018 1:31 PM EDT): DISCUSSED DIET LOW IN FAT AND CALORIES. DISCUSSED TO LIMIT AMOUNT OF SALT TO 2 G DAILY. REVIEWED ALL CARDIAC MEDICATION. DISCUSSED BLOOD PRESSURE GOALS. DISCUSSED EXERCISE DAILY. Dyslipidemia 04/27/2018 Assessment & Plan (07/20/2022 10:58 AM EDT): He is taking Crestor. Will check LDL Discussed cholesterol goals. I recommend a diet low in fats and cholesterol, and to exercise daily. The main goal of the treatment of high blood cholesterol is to lower the LDL, lower the total cholesterol level to reduce the risk of coronary heart disease, stroke and heart attack. Assessment & Plan (05/17/2021 9:13 PM EST): Discussed with the patient to continue taking the Crestor as prescribed. Assessment & Plan (11/01/2020 12:01 PM EDT): Discussed cholesterol goals. I recommend a diet low in fats and cholesterol, and to exercise daily. The main goal of the treatment of high blood cholesterol is to lower the LDL, lower the total cholesterol level to reduce the risk of coronary heart disease, stroke and heart attack. Assessment & Plan (07/31/2020 11:53 AM EDT): LDL not at goal for someone with DM. Talked about this at length. Therapeutic lifestyle changes were reviewed and were recommended. I would also recommend statin therapy. Will defer to his PCP as I won't be following the patient longitudinally Assessment & Plan (08/04/2019 9:55 AM EDT): Discussed cholesterol goals. I recommend a diet low in fats and cholesterol, and to exercise daily. The main goal of the treatment of high blood cholesterol is to lower the LDL, lower the total cholesterol level to reduce the risk of coronary heart disease, stroke and heart attack. Assessment & Plan (02/05/2019 1:20 PM EST): Discussed cholesterol goals. I recommend a diet low in fats and cholesterol, and to exercise daily. The main goal of the treatment of high blood cholesterol is to lower the LDL, lower the total cholesterol level to reduce the risk of coronary heart disease, stroke and heart attack. Assessment & Plan (07/24/2018 1:32 PM EDT): increase daily exercises and to eat a diet low in fats and cholesterol. Iron deficiency 03/24/2018 Assessment & Plan (11/27/2023 8:22 AM EDT): Patient currently has iron deficiency without anemia. GI referral for evaluation; may have occult blood loss. Patient will restart oral iron. Assessment & Plan (06/26/2020 11:15 AM EDT): Recently restarted on ferrous sulfate, will recheck CBC on next lab work Denies worsening SOB and CP Vitamin B12 deficiency anemi a due to intrinsic factor deficiency 04/11/2015 Assessment & Plan (07/24/2018 1:31 PM EDT): Will recheck levels Family history of diabetes mellitus 06/27/2014 Inguinal hernia, left 03/28/2014 Vitamin D deficiency 03/28/2014 Internal hemorrhoids 04/18/2013 Polyp of colon 02/22/2013 Cigarette smoker 02/26/2012 Assessment & Plan (07/20/2022 10:56 AM EDT): He is smoking less and trying to quit Assessment & Plan (04/09/2022 12:34 PM EST): The importance of smoking cessation was emphasized to this patient because of the marked increase risk of vascular disease, specifically stroke and myocardial infarction, COPD, increased risk of cancers and . Assessment & Plan (03/02/2022 12:45 AM EST): He has high risk of cancer. The importance of smoking cessation was emphasized to this patient because of the marked increase risk of vascular disease, specifically stroke and myocardial infarction, COPD, increased risk of cancers and . Assessment & Plan (01/27/2022 12:40 PM EST): The importance of smoking cessation was emphasized to this patient because of the marked increase risk of vascular disease, specifically stroke and myocardial infarction, COPD, increased risk of cancers and . Strategies for initiation and success including choosing a quit date were reviewed and encouraged. Multiple therapies were discussed, including Nicotine products. Not ready to quit LDCT ordered Assessment & Plan (12/27/2020 1:58 PM EDT): He does not appear to be motivated to make smoking cessation attempt Assessment & Plan (11/03/2020 11:23 PM EDT): Pt continues to smoke cigarettes regularly. The importance of smoking cessation was emphasized to this patient because of the marked increase risk of vascular disease, specifically stroke and myocardial infarction, COPD, increased risk of cancers and . Strategies for initiiation and success including choosing a quit date were reviewed and encouraged. Multiple therapies were discussed, including Nicotine products. Assessment & Plan (09/27/2020 10:02 AM EDT): Patient has been counseled about the cardiovascular respiratory and cancer risks of smoking and offered pharmacological and behavioral support if and when ready to make a quitting attempt Assessment & Plan (07/27/2020 1:34 PM EDT): The issue and importance of smoking cessation was emphasized to this patient because of the marked increase risk of vascular disease, specifically stroke and myocardial infarction. Strategies for initiation and success including choosing a quit date were reviewed and encouraged. Approximately 5 mintues was spent discussing the matter Assessment & Plan (06/26/2020 11:16 AM EDT): The importance of smoking cessation was emphasized to this patient because of the marked increase risk of vascular disease, specifically stroke and myocardial infarction, COPD, increased risk of cancers and . Strategies for initiation and success including choosing a quit date were reviewed and encouraged. Multiple therapies were discussed, including Nicotine products. LDCT and AAA screening ordered Assessment & Plan (05/24/2020 7:26 PM EST): The importance of smoking cessation was emphasized to this patient because of the marked increase risk of vascular disease, specifically stroke and myocardial infarction, COPD, increased risk of cancers and . Strategies for initiation and success including choosing a quit date were reviewed and encouraged. Multiple therapies were discussed, including Nicotine products. Assessment & Plan (02/05/2019 1:20 PM EST): The importance of smoking cessation was emphasized to this patient because of the marked increase risk of vascular disease, specifically stroke and myocardial infarction, COPD, increased risk of cancers and . Strategies for initiiation and success including choosing a quit date were reviewed and encouraged. Multiple therapies were discussed, including Nicotine products. Assessment & Plan (07/24/2018 1:31 PM EDT): The importance of smoking cessation was emphasized to this patient because of the marked increase risk of vascular disease, specifically stroke and myocardial infarction, COPD, increased risk of cancers and . Strategies for initiiation and success including choosing a quit date were reviewed and encouraged. Multiple therapies were discussed, including Nicotine products. Varicose veins 03/18/2011 Resolved Problems Problem Noted Date Diagnosed Date Resolved Date Normocytic anemia 11/09/2023 11/09/2023 Abnormal finding in urine 04/09/2022 Diabetic ketoacidosis withou t coma associated with diabetes mellitus due to underlying condition 02/26/2022 05/20/2023 Assessment & Plan (04/09/2022 5:43 PM EST): He is receiving care from [facility] for Diabetic checks. He cannot afford the aguedlo of regular insulin for sliding scale. The maximum he can afford is to take Lantus once daily. He is not taking Lantus daily according to [facility] nurse. Patient thought he was supposed not to take it if his blood sugar was below 200. I explained in great detail that he needs to take it daily to help with his diabetes. Assessment & Plan (03/02/2022 12:44 AM EST): Will check his lab today. Plan to give him Metformin and Glipizide as the only medications he can afford NEVILLE (acute kidney injury) 02/26/2022 Assessment & Plan (03/02/2022 12:44 AM EST): Will check Creatinine today. Discussed hydration Abdominal pain, epigastric 05/24/2020 0 05/17/2021 Assessment & Plan (11/03/2020 11:25 PM EDT): Increase Omeprazole to BID Assessment & Plan (06/26/2020 11:16 AM EDT): Resolved at this time Assessment & Plan (05/24/2020 7:28 PM EST): Advised to stop all NSAIDs, likely cause of epigastric pain Discussed to start omeprazole 20 mg daily Labs ordered-will follow up with results Dietary changes to follow gastritis/GERD diet Follow up in 1 month or sooner if needed Loose stools 05/24/2020 05/17/2021 Assessment & Plan (06/26/2020 11:16 AM EDT): Loose stools x 2 months Stool cultures ordered Denies watery stools Advised patient to contact the office if symptoms do not improve, or become worse. Encouraged patient to contact the office if there are any questions or concerns. Assessment & Plan (05/24/2020 7:31 PM EST): Reports stools loose but not watery. Discussed modification of diet, advised to wean down/quit smoking, will follow up with labs. Follow up in 1 month, if symptoms worsen prior can order stool tests Body aches 09/09/2019 05/24/2020 Assessment & Plan (09/09/2019 4:16 PM EDT): Discussed labs ordered today. Drink plenty of fluids. Gurgle with warm salt water 3 x daily, if you have a sore throat. You may drink warm honey with lemon juice for sore throat. You may take Tylenol 500 mg 2 tablets every 8 hours as needed for pain or fever. Maximum amount of Tylenol is 3 gm in 24 hours (or 6 tablets in 24 hour). You also may take Robutussin for cough. Rest plenty. Wash your hands with soap and water anytime you cough or sneeze. Clean your kitchen and bathroom surfaces with Clorox wipes. Malaise and fatigue 09/09/2019 05/25/19 21 Educated about COVID-19 virus infection 08/04/2019 05/20/2023 Assessment & Plan (08/04/2019 9:56 AM EDT): This appointment was done via telephone because of social distancing due to COVID-19. Advised patient to practice proper hand washing technique. Practice social distancing. I had a discussion with patient on Covid 19 pandemic. Advised patient to avoid large crowds. Encouraged patient to stay active by exercising outside and going for walks.Instructed patient to stay safe. Encouraged patient to contact the office if there are any questions or concerns. Please give the office a call if feeling sick. Type 2 diabetes mellitus wit h ketoacidosis, with long-term current use of insulin 04/27/2018 Assessment & Plan (10/09/2022 5:12 PM EDT): A1c 6.5. Patient is currently on 13 units of insulin check sugars 2 times a day morning before breakfast and at night before bed. Following diabetic diet does have medication to treat. Continue current medications. Daughter reports patient will be moving and will be transitioning to another primary care office. If something changes patient should follow-up with us in 6 months. Assessment & Plan (07/20/2022 10:57 AM EDT): His blood sugars at home are all below 200. Will check labs today. Discussed medications and side effects. Discussed low fat, low sugar diet. Discussed exercises daily, such as walking. Discussed yearly eye exam. Discussed HgA1c and labs Discussed Foot care . Assessment & Plan (04/09/2022 5:44 PM EST): Discussed lantus insulin daily, not as needed Discussed medications and side effects. Discussed low fat, low sugar diet. Discussed exercises daily, such as walking. Discussed yearly eye exam. Discussed HgA1c and labs Discussed Foot care HEMOGLOBIN A1C Date Value Ref Range Status 04/08/2022 9.8 (H) <5.7 % Final Comment: PreDiabetic >5.7% - <=6.5% Diabetic >6.5% Hemoglobin A1C improved from January 2022 which was 12.5% Assessment & Plan (01/27/2022 12:37 PM EST): T2DM well controlled on last labs, will recheck labs. Labs drawn and pending, none to review during the visit. Advised eating small frequent meals throughout the day, stay hydrated, yearly eye exams, daily foot exams. Assessment & Plan (05/17/2021 9:12 PM EST): Discussed to stop Glipizide. This is not a good medication for someone that is diabetic and is not eating. Discussed trial of Januvia. All side effects of the new medication was discussed with the patient today. Side effects including rashes, allergic reaction, anaphylaxis, and opposite reaction to what the medication is prescribed for the problem. Assessment & Plan (11/03/2020 11:21 PM EDT): Not at goal. Reviewed last A1C of 7.5 on 10/30/20. Plan today is to discontinue the Metformin (due to possible diarrhea) and start Januvia. Side effects were reviewed and questions were answered. Will continue to monitor. Discussed medications and side effects. Discussed low fat, low sugar diet. Discussed exercises daily, such as walking. Discussed yearly eye exam. Discussed vitamin supplements. Discussed HgA1c and labs Discussed Foot care Assessment & Plan (06/26/2020 11:15 AM EDT): Self Management: Diabetes Treatment Goal: A1C <7% at goal rx for metformin given, rx changed from glyburide to glipizide due to renal function Patient Stated Goal: Lose weight Self Management Plan: Monitor your blood sugar at home and keep a record of readings. Exercise 30 minutes per day as able. Check your feet for cuts and blisters daily. Care plan and goals discussed with patient/caregiver. Patient/caregiver verbalizes understanding. Follow up: 3 months Assessment & Plan (05/24/2020 7:26 PM EST): Overdue for labs, he is not checking BS at all No routine exercise or healthy diet, advised lifestyle changes, will follow up with lab results Assessment & Plan (08/04/2019 9:55 AM EDT): Discussed medications and side effects. Discussed low fat, low sugar diet. Discussed exercises daily, such as walking. Discussed yearly eye exam. Discussed vitamin supplements. Discussed HgA1c and labs Discussed Foot care Assessment & Plan (02/05/2019 1:18 PM EST): Discussed medications and side effects. Discussed low fat, low sugar diet. Discussed exercises daily, such as walking. Discussed yearly eye exam. Discussed vitamin supplements. Discussed HgA1c and labs Discussed Foot care Assessment & Plan (07/24/2018 1:31 PM EDT): Discussed medications and side effects. Discussed low fat, low sugar diet. Discussed exercises daily, such as walking. Discussed yearly eye exam. Discussed vitamin supplements. Discussed HgA1c and labs Discussed Foot care Hyperkalemia 04/27/2017 05/24/2020 Leukocytosis 06/29/2014 05/24/2020 Assessment & Plan (02/05/2019 1:17 PM EST): Will check CBC Rib pain 06/27/2014 05/24/2020 Hypercalcemia 03/31/2014 05/24/2020 Assessment & Plan (08/04/2019 9:56 AM EDT): Will recheck Calcium Rash and other nonspecific skin eruption 08/22/2013 05/24/2020 Closed fracture of multiple ribs 03/04/2013 05/24/2020 Pneumonia 03/04/2013 05/24/2020 Skin ulcer due to diabetes mellitus 07/20/2012 08/04/2019 Encounter for screening for malignant neoplasm of colon 05/26/2012 05/17/2021 Abdominal wall hernia 11/26/20102020 Depression 08/13/2010 05/20/2023 Assessment & Plan (01/27/2022 12:41 PM EST): Depression not optimally controlled. Recommend medication compliance. Declines counseling. Denies SI Assessment & Plan (05/17/2021 9:13 PM EST): He denies SI. Discussed to consult iCMP for more resources for him. Encounters Date Type Department Care Team Description 10/03/2024 Telephone [facility] [address] [place] [address] Lizzie Ballard MBBS 09/29/2024 9:17 AM EDT - 09/29/2024 11:59 PM EDT Hospital Encounter [facility] [address] [place] [address] Lizzie Ballard MBBS Discharge Disposition: Home or Self Care from Last 3 Months Immunizations Immunization Administration Dates Next Due COVID-19 (Pre-01/12) Mary Vaccine, rS-Ad26, PF 09/05/2020 COVID-19 (Pre-01/12) Moderna Vaccine, Bivalent 6mo+ 2021 COVID-19 (Pre-01/12) Moderna Vaccine, mRNA, PF 10/03/2021 INFLUENZA, SPLIT VIRUS, TRIV ALENT W/ PRESERVATIVE IM 03/28/2014,02/26/2012 Influenza High-Dose Quadriva lent Preservative Free IM 01/27/2022,12/06/2020 Influenza High-Dose Trivalen t Preservative Free IM 03/19/2018 Influenza Quadrivalent Adjuv anted Preservative Free IM 12/19/2022 Influenza Split (Incl. Purif ied Surface Antigen) 02/08/2008 Pneumococcal conjugate PCV13 05/27/2016 Pneumococcal polysaccharide PPSV23 12/24/2010 RSV Vaccine (bivalent) 02/10/2023 Tdap 12/25/2023,11/03/2012,08/05/2011 Zoster recombinant 02/03/2019,03/19/2018 Family History Medical History Relation Comments Heart disease Father Lung cancer Father Diabetes mellitus Mother FH: Diabetes m ellitus Lung cancer Paternal Uncle Relation Status Comments Father Mother Paternal Uncle Social History Tobacco Use Types Packs/Day Years Used Date Smoking Tobacco: Every Day Cigarettes Passive Smoke Exposure: Current Smokeless Tobacco: Current Tobacco Cessation:Ready to Q uit: Not Asked; Counseling Given: Not Answered Alcohol Use Standard Drinks/Week Comments Not Currently [...] on file Sexual Orientation Not on file Last Filed Vital Signs Vital Sign Reading Time Taken Comments Blood Pressure 128/68 04/06/2024 10:33 AM EST Pulse 87 04/06/2024 10:33 AM EST Temperature 36.2 C (97.2 F) 04/06/2024 10:33 AM EST Respiratory Rate 20 10/09/2022 12:21 PM EDT Oxygen Saturation 97% 04/06/2024 10:33 AM EST Inhaled Oxygen Concentration - - Weight 77.6 kg (171 lb) 04/06/2024 10:30 AM EST Height 181.6 cm (5' 11.5 ) 04/06/2024 10:[address] Body Mass Index 23.52 04/06/2024 10:30 AM EST Plan of Treatment Health Maintenance Due Date Last Done Comments SMOKING Hx and SMOKELESS TOBACCO SCREENING 01/01/1964 HEPATITIS C SCREENING 1968 COLOGUARD 01/01/1996 COLONOSCOPY 01/01/1996 FOBT 01/01/1996 SIGMOIDOSCOPY 01/01/1996 VIRTUAL COLONOSCOPY 01/01/1996 COLORECTAL CANCER SCREENING 11/06/2020 PNEUMOCOCCAL VACCINES (50+ years) (3 of 3 - PCV20 or PCV21) 05/27/2021 05/27/2016, 12/24/2010 FIT TEST 11/05/2021 11/05/2020, 06/28/2020 DEPRESSION SCREENING 07/17/2023 07/16/2022 DIABETIC EYE EXAM 05/13/2024 05/13/2023 HEMOGLOBIN A1C 06/24/2024 12/25/2023, 07/0 05/2023, 09/02/2023, Additional history exists BLOOD PRESSURE 10/04/2024 04/06/2024 INFLUENZA VACCINE (#1) 2024 , 01/27/2022, 12/06/2020, Additional history exists COVID-19 VACCINE ( season) 2024 01/14/2023, 07/16/2022, 2021, Additional history exists CREATININE LEVEL 09/29/2025 09/29/2024, , 05/31/2024, Additional history exists POTASSIUM LEVEL 09/29/2025 09/29/2024, 05/21, 05/31/2024, Additional history exists Adult Td,Tdap Booster 12/24/2033 12/25/2023 , 11/03/2012, 08/05/2011 ZOSTER VACCINES Completed 02/03/2019, 03/19/2018 RSV VACCINE Completed 02/10/2023 ABDOMINAL AORTIC ANEURYSM (AAA) SCREENING Completed 11/19/2023, 07/17/2020 HEPATITIS A VACCINES Aged Out No long er eligible based on patient's age to complete this topic HIB VACCINES Aged Out No longer eligi ble based on patient's age to complete this topic MENINGOCOCCAL VACCINES (ACWY) Aged Out No longer eligible based on patient's age to complete this topic MENINGOCOCCAL VACCINES (B) Aged Out N o longer eligible based on patient's age to complete this topic Medical Devices Not on file Procedures Procedure Name Priority Date/Time Associated Diagnosis Comments CBC AND DIFFERENTIAL Routine 09/29/2024 9:26 AM EDT Monoclonal gammopathy present on serum protein electrophoresis COMPREHENSIVE METABOLIC PANEL Routine 09/29/2024 9:26 AM EDT Monoclonal gammopathy present on serum protein electrophoresis MONOCLONAL PROTEIN STUDY, SERUM Routine 09/29/2024 9:26 AM EDT Monoclonal gammopathy present on serum protein electrophoresis FREE LIGHT CHAINS, SERUM Routine 09/29/2024 9:26 AM EDT Monoclonal gammopathy present on serum protein electrophoresis CT ABDOMEN/PELVIS WITH CONTRAST Routine 11/19/2023 6:01 PM EDT Monoclonal gammopathy present on serum protein electrophoresis Personal history of smoking Weight loss HEMOGLOBIN A1C Routine 09/02/2023 11:28 AM EDT Uncontrolled type 2 diabetes mellitus with hyperglycemia, with long-term current use of insulin DIABETES EYE EXAM FOR RESULT ENTRY ONLY Routine 05/13/2023 CHG BLOOD,OCCULT,FECAL HGB,FECES,1-3 SIMULT Routine 11/05/2020 10:43 AM EDT Screen for colon cancer from Last 3 Months or Most Recently Relevant to Health Maintenance Results * (ABNORMAL) Monoclonal protein study, serum (09/29/2024 9:26 AM EDT) M-protein GK Test component not applicable or not reported. g/dL [facility] M-protein GL Test component not applicable or not reported. g/dL [facility] DR M-protein AK Test component not applicable or not reported. g/dL [facility] DR M-protein AL Test component not applicable or not reported. g/dL [facility] DR M-protein MK Test component not applicable or not reported. g/dL [facility] DR M-protein ML Test component not applicable or not reported. g/dL [facility] DR Glycosylation Test component not applicable or not reported. [facility] Flag, M-protein Isotype Negative Negative [facility] QMPTS Interpretation No monoclonal protein detected. [facility] Comment: (NOTE) ADDITIONAL INFORMATION The submitted sample was assayed by five separate immunopurifications for IgG, IgA, IgM, kappa and lambda. The result reflects the findings of either no monoclonal protein detected or those monoclonal immunoglobulins that were detected. This test was developed and its performance characteristics determined by [facility] in a manner consistent with CLIA requirements. This test has not been cleared or approved by the U.S. Food and Drug Administration. IgA 182 61 - 356 mg/dL [facility] IgM 87 37 - 286 mg/dL [facility] IgG 757(L) 767 - 1,590 mg/dL [facility] Therapeutic Antibody Administered? No [facility] Comment:Corrected on 10/03 A T 1656: previously reported as NO Blood 09/29/2024 9:26 AM EDT 09/29/2024 9:28 AM EDT Lizzie COHN LAB BLOOD ORDERABLES Edited Result - Final [facility] [place] [address] * (ABNORMAL) Comprehensive metabolic panel (09/29/2024 9:26 AM EDT) SODIUM 140 133 - 146 mmol/L [facility] POTASSIUM 5.0 3.3 - 5.1 mmol/L [facility] CHLORIDE 102 96 - 108 mmol/L [facility] CO2 24 21 - 35 mmol/L [facility] BUN 26(H) 6 - 19 mg/dL [facility] CREATININE 1.50 0.5 - 1.5 mg/dL [facility] GLUCOSE 176(H) 70 - 99 mg/dL [facility] ALBUMIN 4.3 3.9 - 4.8 g/dL [facility] TOTAL PROTEIN 7.3 6.5 - 8.0 g/dL [facility] CALCIUM 9.9 8.4 - 10.3 mg/dL [facility] ALKALINE PHOSPHATASE 75 39 - 117 U/L [facility] TOTAL BILIRUBIN 0.7 0.0 - 1.2 mg/dL [facility] AST 30 0 - 37 U/L [facility] ALT 27 0 - 40 U/L [facility] GLOBULIN 3.0 1 - 4.8 g/dL [facility] EGFR 49(L) >59 mL/min/1.7 3m2 [facility] Comment:Estimated glomerular filtration rate calculated using the CKD-EPI refit equation. ANION GAP 19 10 - 20 mmol/L [facility] Blood 09/29/2024 9:26 AM EDT 09/29/2024 9:28 AM EDT us Lizzie LUGO LAB BLOOD ORDERABLES Final R esult [facility] [address] [place] [address] * (ABNORMAL) Free light chains, serum (09/29/2024 9:26 AM EDT) [place] Free Light Chain 3.97(H) 0.3300 - 1.94 mg/dL [facility] [address] Lambda Free Light Chain 3.28(H) 0.5700 - 2.63 mg/dL [facility] Estill/Lambda FLC Ratio 1.21 0.2600 - 1.65 [facility] [address] Blood 09/29/2024 9:26 AM EDT 09/29/2024 9:28 AM EDT us Lizzie COHNBS LAB BLOOD ORDERABLES Final R esult [facility] [address] [place] [address] * (ABNORMAL) CBC and differential (09/29/2024 9:26 AM EDT) WBC 7.85 4.00 - 11.00 K/uL [facility] RBC 5.16 4.50 - 5.90 M/uL [facility] HGB 16.1 13.5 - 17.5 g/dL [facility] HCT 49.6 41.0 - 53.0 % [facility] PLT 169 150 - 450 K/uL [facility] MCV 96.1 80.0 - 100.0 fL [facility] MCH 31.2(H) 27.0 - 31.0 pg [facility] MCHC 32.5 32.0 - 36.0 g/dL [facility] RDW 13.0 11.5 - 14.5 % [facility] MPV 13.2(H) 8.4 - 12.0 fL [facility] NRBC 0.00 0.00 /100 WBCs [facility] ABSOLUTE NRBC 0.00 0.00 K/uL [facility] DIFF METHOD Auto [facility] NEUTS 57.4 48.0 - 76.0 % [facility] LYMPHS 27.5 18.0 - 41.0 % [facility] MONOS 9.7 4.0 - 11.0 % [facility] EOS 4.1 0.0 - 5.0 % [facility] BASOS 0.5 0.0 - 1.5 % [facility] Granulocytes, immature (%) 0.8 0.0 - 0.9 % [facility] ABSOLUTE NEUTS 4.51 1.92 - 7.60 K/uL [facility] ABSOLUTE LYMPHS 2.16 0.72 - 4.10 K/uL [facility] ABSOLUTE MONOS 0.76 0.16 - 1.10 K/uL [facility] ABSOLUTE EOS 0.32 0.00 - 0.50 K/uL [facility] ABSOLUTE BASOS 0.04 0.00 - 0.15 K/uL [facility] Granulocytes, immature 0.06 0.00 - 0.09 K/uL [facility] Blood 09/29/2024 9:26 AM EDT 09/29/2024 9:28 AM EDT us Lizzie COHN LAB BLOOD ORDERABLES Final R esult Performing Organization Address City/State/[facility] Co de Phone Number [facility] [address] [place] [address] * CT ABDOMEN/PELVIS WITH CONTRAST (11/19/2023 6:01 PM EDT) Anatomical Region Laterality Modality Abdomen, Pelvis Computed Tomogra phy 11/25/2023 9:23 AM EDT Impressions 11/25/2023 9:31 AM EDT 1. No CT evidence of acute pathology in the abdomen and pelvis. 2. Mildly enlarged prostate, correlation with PSA is recommended. 3. Moderate stool burden throughout the large bowel, limiting evaluation, correlation with colonoscopy is recommended if clinically warranted. Narrative 11/25/2023 9:[address] ABDOMEN/PELVIS WITH CONTRAST Referring clinician's provided indication for this examination in Epic: Abnormal imaging; pt with M protein, also > 60 pack yrs smoking with weight loss assess for lung masses, bone lesions, plasmcytoma TECHNIQUE: Multidetector-row CT of the abdomen and pelvis was performed after administration of intravenous contrast using tailored dose modulation techniques. Images were reconstructed in the axial, coronal, and sagittal planes. COMPARISON: None FINDINGS: Lower Chest: CT chest from the same day is reported separately. Liver: No focal lesions. Biliary: No biliary ductal dilatation. Spleen: No splenomegaly or focal lesions. Pancreas: No masses or ductal dilatation. Adrenal Glands: No nodules. Kidneys/Ureters: No solid masses, stones, or hydronephrosis. Subcentimeter hypodensities, too small to characterize. Nonspecific mild perinephric edema/stranding. Bowel: Limited evaluation due to lack of oral contrast. Moderate stool burden throughout the large bowel, limiting evaluation. Mild distal colonic diverticulosis, no definite acute diverticulitis. Normal appendix. No evidence small bowel obstruction. Peritoneum/Retroperitoneum: No masses, pneumoperitoneum, or fluid. Lymph Nodes: No lymphadenopathy. Pelvic Organs/Bladder: Prostate is markedly enlarged, measuring approximately 4.9 x 3.5 x 5.1 cm, with probable minimal protrusion into the urinary bladder. Urinary bladder is underdistended wall thickening, likely due to underdistention. Vessels: No abdominal aortic aneurysm. Bones/Soft Tissues: No destructive osseous lesions. Procedure Note Wojciech Arreaga MD, PhD - 11/25/2023 CT ABDOMEN/PELVIS WITH CONTRAST Referring clinician's provided indication for this examination in Epic:Abnormal imaging; pt with M protein, also > 60 pack yrs smoking withweight loss assess for lung masses, bone lesions, plasmcytoma TECHNIQUE: Multidetector-row CT of the abdomen and pelvis was performedafter administration of intravenous contrast using tailored dosemodulation techniques. Images were reconstructed in the axial, coronal,and sagittal planes. COMPARISON: None FINDINGS: Lower Chest: CT chest from the same day is reported separately. Liver: No focal lesions. Biliary: No biliary ductal dilatation. Spleen: No splenomegaly or focal lesions. Pancreas: No masses or ductal dilatation. Adrenal Glands: No nodules. Kidneys/Ureters: No solid masses, stones, or hydronephrosis. Subcentimeterhypodensities, too small to characterize. Nonspecific mild perinephricedema/stranding. Bowel: Limited evaluation due to lack of oral contrast. Moderate stoolburden throughout the large bowel, limiting evaluation. Mild distalcolonic diverticulosis, no definite acute diverticulitis. Normal appendix.No evidence small bowel obstruction. Peritoneum/Retroperitoneum: No masses, pneumoperitoneum, or fluid. Lymph Nodes: No lymphadenopathy. Pelvic Organs/Bladder: Prostate is markedly enlarged, measuringapproximately 4.9 x 3.5 x 5.1 cm, with probable minimal protrusion intothe urinary bladder. Urinary bladder is underdistended wall thickening,likely due to underdistention. Vessels: No abdominal aortic aneurysm. Bones/Soft Tissues: No destructive osseous lesions. IMPRESSION: 1. No CT evidence of acute pathology in the abdomen and pelvis. 2. Mildly enlarged prostate, correlation with PSA is recommended. 3. Moderate stool burden throughout the large bowel, limiting evaluation,correlation with colonoscopy is recommended if clinically warranted. Lizzie LUGO IMG CT ABD/PELVIS Final Resu lt * (ABNORMAL) Hemoglobin A1c (09/02/2023 11:28 AM EDT) HEMOGLOBIN A1C 7.4(H) 4.3 - 5.8 % [facility] Blood 09/02/2023 11:2 8 AM EDT 09/02/2023 11:30 AM EDT Aida Fabian MD LAB BLOOD ORDERABLES Final Result [address] [address] * DIABETES EYE EXAM FOR RESULT ENTRY ONLY (05/13/2023) EYE EXAM Normal Brennan Mccauley MD HEALTH MAINTENANCE Final Result * (ABNORMAL) Fecal immunochemical test x1 (FIT) (11/05/2020 10:43 AM EDT) IFOBT Positive(A ) Negative [facility] Stool (Stool) 11/05/2020 10: 43 AM EDT 11/05/2020 10:48 AM EDT Darlyn Velasquez DO BODY FLUIDS AND STOOLS ORD ERABLES Final Result [facility] ORG-ONE [facility] [address] [address], [facility] from Last 3 Months or Most Recently Relevant to Health Maintenance Insurance [facility] MEDICARE REPLACEMENT Member Subscriber Plan / Payer (Ef fective 2020-Present) Name:Boone Newby Relation to Subscriber:Self Name:Boone Newby Payer ID:[id number] (NAIC) Type:Medicare Address: [place] [id number] [facility] MEDICARE REPLACEMENT [place] [id number] HEALTH SAFETY NET FULL [address] [place], [place] [address] MEDICARE REPLACEMENT [facility] MEDICARE REPLACEMENT MEDICARE REPLACEMENT HEALTH SAFETY NET FULL Member Subscriber Plan / Payer (Ef fective 2023-Present) Name:Boone Newby Chicho Relation to Subscriber:Self Name:Boone Newby Payer ID:Not on file Group ID:Not on file Type:Medicaid [address] [facility] MEDICARE REPLACEMENT HEALTH SAFETY NET FULL Member Subscriber Plan / Payer (Ef fective 2023-Present) Name:Boone Newby Relation to Subscriber:Self Name:Boone Newby Payer ID:Not on file Group ID:Not on file Type:Medicaid Address: [address] [place] [address] MEDICARE REPLACEMENT HEALTH SAFETY NET F[facility] MEDICARE REPLACEMENT Member Subscriber Plan / Payer (Ef fective 2020-Present) Name:Boone Newby Relation to Subscriber:Self Name:Boone Newby Payer ID:[id number] (NAIC) Type:Medicare Address: [place] [id number] [facility] MEDICARE REPLACEMENT [place] [id number] HEALTH SAFETY NET FULL [employer] Care Teams Produce Buyer Relationship Specialty Start Date End Date Kath Bose MD [address] [place] [address] PCP - General Family Medicine 11/09/23 Nikole Johnson, PAYazminC [address] [place] [phone] [email or web address] Historical LMR Provider 04/22/18 Darlyn Velasquez DO [address] [place] [phone] [email or web address] Historical LMR Provider 04/22/[address] [place] [address] [email or web address] Historical LMR Provider 04/22/18 Lizzie Ballard MBBS [address] [place] [address] [email or web address] Primary Oncologist Medical Oncology 03/02/24 Additional Source Comments The information contained in this document represents components of the legal health record. It is not the complete legal health record.[facility]
--- OUTSIDE RECORDS SUMMARY | 2024-12-27 15:06 | XMS_ITS | Encounter Summary ---
Author Organization [facility] Address [address] [place] [address] Phone Care Team Providers Care Paint Technician Name Role Phone Nikole Johnson PA-C Unavailable Darlyn Velasquez DO Unavailable Iwona Torre RD Unavailable [phone] Kath Bose MD Primary Care Provider + Lizzie Ballard Unavailable [phone] Encounter Details Date Type Department Care Team (Late st Contact Info) Description 11/26/2023 Procedure Pass [facility], Ct Scan - [address] [address] Social History Tobacco Use Types Packs/Day Years [...] documented as of this encounter Care Teams Paint Technician Relationship Specialty Start Date End Date Kath Bose MD [address] [place] [address] PCP - General Family Medicine 11/09/23 Nikole Johnson, PAYazminC [address] [place] [phone] [email or web address] Historical LMR Provider 04/22/18 Darlyn Velasquez DO [address] [place] [address] [email or web address] Historical LMR Provider 04/22/[address] [place] [address] Historical LMR Provider 04/22/18 Lizzie Ballard MBBS [address] [place] [address] Primary Oncologist Medical Oncology 03/02/24 documented as of this encounter Additional Source Comments The information contained in this document represents components of the legal health record. It is not the complete legal health record.[facility]
--- OUTSIDE RECORDS SUMMARY | 2024-12-27 15:06 | XMS_ITS | Encounter Summary ---
Author Organization [employer] Address [address] [facility] 7t [place] [address] Care Team Providers Care Banking Management Consulting Manager Name Role Phone Kath Camacho MD Primary Care Provider [phone] Reason for Visit * Reason Onset Date Comments Appointment Request 06/06/2024 Encounter Details Date Type Department Care Team ([facility] Contact Info) Description 06/06/2024 Telephone [facility] MEDICINE [address] [place] [address] Kath Camacho MD [address] [place] [address] Appointment Request Social History Tobacco Use Types [...] 12:32 PM EDT Tc returned to daughter [phone] (Leonardo-on HIPAA) regards to below message. Daughter requested appt to be reschedules to see PCP only. Appt changed to 06/14/24 at 915 am. Daughter informed RN that patient tested positive for Covid on 06/06/24. Daughter advised to notify front desk admin when checkingin for the appt and for [...] camacho if Possible. Contact pt Daughter at [phone] documented in this encounter Plan of Treatment Not on file documented as of this encounter Visit Diagnoses Not on filedocumented in this encounter Additional Health Concerns Assessment Noted Time PHQ-9 Depression Total Score: 12 024 2:19 PM EDT documented as of this encounter Care Teams Banking Management Consulting Manager Relationship Specialty Start Date End Date Kath Camacho MD [address] [place] [address] PCP - General Family Medicine 09/23/23 Blayne [facility] 06/09/24 documented as of this encounter
--- OUTSIDE RECORDS SUMMARY | 2024-12-27 15:06 | XMS_ITS | Encounter Summary ---
Author Organization [employer] Address [address] [facility] 7t [place] [address] Care Team Providers Care Pricing Supervisor Name Role Phone Kath Bose MD Primary Care Provider [phone] Encounter Details Date Type Department Care Team ([facility] Contact Info) Description 05/09/2024 Orders Only [facility] MEDICINE [address] [place], [place] [phone] Kath Bose MD [address] [place], [place] [phone] Social History Tobacco Use Types Packs/Day Years [...] documented as of this encounter Care Teams Pricing Supervisor Relationship Specialty Start Date End Date Kath Bose MD [address] [place] [address] PCP - General Family Medicine 09/23/23 Blayne A 06/09/24 documented as of this encounter
--- OUTSIDE RECORDS SUMMARY | 2024-12-27 15:06 | XMS_ITS | Encounter Summary ---
Author Organization [employer] Address [address] [facility] 7t [place] [address] Care Team Providers Care Sand Hauler Name Role Phone Kath Bose MD Primary Care Provider [phone] Reason for Visit * Reason Onset Date Comments Nurse Triage 12/27/2024 Encounter Details Date Type Department Care Team ([facility] Contact Info) Description 12/27/2024 Telephone [facility] MEDICINE [address] [place] [address] Kath Bose MD [address] [place] [address] Nurse Triage Social History Tobacco Use Types Packs/Day Years [...] encounter Miscellaneous Notes * Telephone Encounter - Marina Madden RN - 12/27/2024 8:56 AM EDT called pt to triage, spoke to daughter. daughter states pt started with pain and swelling of left calf. daughter stated no spread of the swelling above the knee. daughter denies redness, severe swelling, chest pain, sob, recent travel, fevers, or other associated symptoms. given appt today with PCPat 11:15 for exam. advised home care: rest, elevate, ice, heat, OTC as needed, and call back if worsening or other concerns. daughter understands and agrees with plan. insurance verified. Protocol Used: Leg Pain (Adult) Protocol-Based Disposition: See in Office or Video Visit Today or Tomorrow Video visit offer not recorded Positive Triage Question: * Patient wants to be seen * All higher-acuity triage questions were negative Care Advice Discussed: * Reassurance and Education - Leg Pain * Pain Medicines * Reasons To Call Back - Moderate pain (such as limping) lasts more than 3 days - Mild pain lasts more than 7 days - Signs of infection occur (such as spreading redness, warmth, fever) - You become worse * Telephone Encounter - Jahaira Tillman - 12/27/2024 8:33 AM EDT Symptoms: Leg Swelling - Not From Injury, Leg Pain - Not From Injury Outcome: Schedule an urgent appointment (within 1 hour) or talk to a nurse or provider soon Reason: Trouble walking The caller accepted this outcome. Contact pt Daughter at [phone] documented in this encounter Plan of Treatment Not on file documented as of this encounter Visit Diagnoses Not on filedocumented in this encounter Additional Health Concerns Assessment Noted Time PHQ-9 Depression Total Score: 12 024 2:19 PM EDT documented as of this encounter Care Teams Sand Hauler Relationship Specialty Start Date End Date Kath Bose MD [address] [place] [address] PCP - General Family Medicine 09/23/23 Blayne [facility] 06/09/24 documented as of this encounter
--- OUTSIDE RECORDS SUMMARY | 2024-12-27 15:06 | XMS_ITS | Encounter Summary ---
Author Organization [employer] Address [address] [facility] [address], [place] [address] Care Team Providers Care Clinical Psychologist Private Practice Name Role Phone Kath Bose MD Primary Care Provider [phone] Reason for Referral * Consultation (Routine) - Closed Specialty Diagnoses / Procedures Referred By Contzonia chase Referred To Contact Hematology and Oncology Diagnoses Deformity of left ankle joint Kath Bose MD [address] [place] [address] Phone: tel: fax: [facility] [address] [place], [place] Phone: tel: fax: Referral ID Status Reason Start Date Expiration Date V isits Requested Visits Authorized [id number] Closed Specialty Services Required 10/14/2023 10/13/2024 1 1 Encounter Details Date Type Department Care Team (Late st Contact Info) Description 10/14/2023 Orders Only [facility] MEDICINE [address] [place] [address] Kath Bose MD [address] [place] [address] Abnormal serum protein electrophoresis (Primary Dx); Deformity [...] Serum (10/22/2023 1:38 PM EDT) IMMUNOGLOBULIN G 749 830 - 9660 mg/dL [facility] IMMUNOGLOBULIN A 123 70 - 320 mg/dL [facility] Immunoglobulin M 57 50 - 300 mg/dL [facility] Comment:THIS TEST WAS PERFOR MED AT:[facility] [place] [phone] CAVAZOS MD Immunofixation Result SEE NOTE [facility] Comment:Faint IgG kappa mono clonal band present. Blood Venous blood specimen / Unknown 10/22/2023 1:38 PM EDT 10/22/2023 3:55 PM EDT us Kath Bose MD LAB BLOOD ORDERABLES Final Res ult [facility] [address] [place] [address] [phone] documented in this encounter Visit Diagnoses Diagnosis Abnormal serum protein electrophoresis- Primary Deformity of left ankle joint documented in this encounter Additional Health Concerns Assessment Noted Time PHQ-9 Depression Total Score: 12 024 2:19 PM EDT documented as of this encounter Care Teams Clinical Psychologist Private Practice Relationship Specialty Start Date End Date Kath Bose MD [address] [place] [address] PCP - General Family Medicine 09[facility]23 [facility] documented as of this encounter
--- OUTSIDE RECORDS SUMMARY | 2024-12-27 15:06 | XMS_ITS | Patient Health Record ---
Author [facility] Address [address] [facility] [place] [address] Care Team Providers Care Fitness Management Director Name Role Phone Yohana Cifuentes Primary Care Provider Yg Thomson Unavailable [phone] Allergies No Known Allergies Results Component Value Reference Range Notes HEMOGLOBIN A1C (GLYCOHEMOGLO BIN) Reviewed date:07/12/2024 01:24:04 PM Interpretation: Performing Lab: Notes/Report: HEMOGLOBIN A1C % (HH) 8.4 Reason For Referral No Information Medications Medication SIG (Take, Route, Frequency, Duration) Notes Start Date End Date Status Extra Depth Orthopedic Shoes, (1) Pair With (3) Pair Custom Heat Molded Multidensity Innersoles Dx: NIDDM/PVD(E11.51), Hammertoe Foot Deformity(M20.41,M20.42), Preulcerative Skin Lesion(s)(L85.1) Wear Daily; Duration: 365 days Active Ammonium Lactate 12 % 1 application Exte rnally to feet except for between the toes Twice a day; Duration: 30 days Active busPIRone HCl 10 MG 1 tablet Orally 01/27/2023 Active Sertraline HCl 100 MG 1 tablet Orally On a day; Duration: 30 days 01/27/2023 Active metFORMIN HCl 1000 MG 1 tablet with a me al Orally Once a day; Duration: 90 days Active glipiZIDE 5 MG Oral; Duration: 90 Days Active Aspirin 81 MG 1 tablet Orally Once a day; Duration: 30 day(s) 01/27/2023 Active Rosuvastatin Calcium 10 MG Oral; Duration: 90 Days Active Multi Vitamin Active Psyllium Active Vitamin D Active Insulin Active Vitamin C Active Immunizations Vaccine Route Administration Date Status Comme nts Influenza Unknown 11/21/2022 Administered Influenza Unknown 11/22/2023 Administered Social History Tobacco Use: Social History [...] Problem Acquired hammer toe of right foot (5154070536395 105) Other hammer toe(s) (acquired), right foot (M20.41) Active confirmed Response to treatment,I mprovement Problem Type 2 diabetes mellitus with peripheral angiopathy (339818841) Type 2 diabetes mellitus with diabetic peripheral angiopathy without gangrene (E11.51) Active confirmed Problem Acquired hammer toe of left foot (3428296241623 103) Other hammer toe(s) (acquired), left foot (M20.42) Active confirmed Response to treatment,I mprovement Vital Signs Blood pressure diastolic 74 mm Hg 11/08/2024 Height 5ft11.5in in 11/08/2024 Blood pressure systolic 122 mm Hg 11/08/2024 Weight 184 lbs 11/08/2024 BMI 25.3 kg/m2 11/08/2024 Procedures Procedure Date Ordered Date Performed Result Body Sit e 42693-LTGBMBA NAIL, 6 OR MORE 03/11/2024 N/A 86086-IURZ SKIN LESIONS, OVER 4 03/11/2024 N/A 99414-SUSIJRR NAIL, 6 OR MORE 07/12/2024 N/A 49226-OCLS SKIN LESIONS, OVER 4 07/12/2024 N/A 34771-GZMHEVT NAIL, 6 OR MORE 11/08/2024 N/A 26343-CAAX SKIN LESIONS, OVER 4 11/08/2024 N/A Encounters Encounter Location Date Provider Diagnosis [address] [address] 03/11/2024 Yg Soto Type 2 diabetes mellitus with diabetic peripheral angiopathy without gangrene E11.51 ; Tinea unguium B35.1 ; Pain in right toe(s) M79.674 ; Pain in left toe(s) M79.675 and Xerosis of skin L85.[address] [address] 07/12/2024 Yg Soto Type 2 diabetes mellitus with diabetic peripheral angiopathy without gangrene E11.51 ; Tinea unguium B35.1 ; Pain in right toe(s) M79.674 ; Pain in left toe(s) M79.675 ; Other hammer toe(s) (acquired), left foot M20.42 and Other hammer toe(s) (acquired), right foot M20.[address] [address] 11/08/2024 Yg Soto Type 2 diabetes mellitus with diabetic peripheral angiopathy without gangrene E11.51 ; Other hammer toe(s) (acquired), right foot M20.41 ; Tinea unguium B35.1 ; Pain in right toe(s) M79.674 ; Pain in left toe(s) M79.675 and Other hammer toe(s) (acquired), left foot M20.[address] [address] 07/12/2024 Yg Soto Assessments Encounter Date Diagnosis (ICD Code) Assessment Notes Treatment Notes Treatment Clinical Notes Section Notes 07/12/2024 Type 2 diabetes mellitus with diabetic peripheral angiopathy without gangrene (ICD-10 - E11.51) 11/08/2024 Other hammer toe(s) (acquired), right foot (ICD-10 - M20.41) 11/08/2024 Type 2 diabetes mellitus with diabetic peripheral angiopathy without gangrene (ICD-10 - E11.51) 03/11/2024 Type 2 diabetes mellitus with diabetic peripheral angiopathy without gangrene (ICD-10 - E11.51) 03/11/2024 Tinea unguium (ICD-10 - B35.1) 03/11/2024 Pain in right toe(s) (ICD-10 - M79.674) 11/08/2024 Tinea unguium (ICD-10 - B35.1) 07/12/2024 Tinea unguium (ICD-10 - B35.1) 03/11/2024 Pain in left toe(s) (ICD-10 - M79.675) 07/12/2024 Pain in right toe(s) (ICD-10 - M79.674) 11/08/2024 Pain in right toe(s) (ICD-10 - M79.674) 03/11/2024 Xerosis of skin (ICD-10 - L85.3) 11/08/2024 Pain in left toe(s) (ICD-10 - M79.675) 07/12/2024 Pain in left toe(s) (ICD-10 - M79.675) 07/12/2024 Other hammer toe(s) (acquired), left foot (ICD-10 - M20.42) 11/08/2024 Other hammer toe(s) (acquired), left foot (ICD-10 - M20.42) 07/12/2024 Other hammer toe(s) (acquired), right foot (ICD-10 - M20.41) Patient Educated with: DIABETIC FOOT CARE INSTRUCTIONS.p df (DIABETIC FOOT CARE INSTRUCTIONS.p df) Plan Of Treatment Pending Test Test Name Order Date 66916-HOKAFVZ NAIL, 6 OR MORE 03/03/2023 36497-MYEWCUP NAIL, 6 OR MORE 07/21/2023 18745-CSILWBF NAIL, 6 OR MORE 11/17/2023 39662-HXIPVEQ NAIL, 6 OR MORE 03/11/2024 17404-YVFGXWN NAIL, 6 OR MORE 07/12/2024 88046-HKGCLQH NAIL, 6 OR MORE 11/08/2024 29830-Lsttidmj Plate 07/21/2023 34589-Kwzjtica Plate 11/17/2023 71455-IQED SKIN LESIONS, OVER 4 11/17/19 24 18942-VNKV SKIN LESIONS, OVER 4 07/21/19 24 21966-ICYY SKIN LESIONS, OVER 4 03/03/20 23 85079-GLAZ SKIN LESIONS, OVER 4 11/09/19 25 72446-GXSP SKIN LESIONS, OVER 4 07/13/19 25 79885-UWMG SKIN LESIONS, OVER 4 03/11/20 Next Appt Details Provider Name:Yg Ray Charles , 03/07/2025 01:30:00 PM, [address] [place] [address], [phone], Insurance Providers Payer Name Payer Address Payer Phone Subscriber Number Group Number Insured Name Patient Relationship to Insured Coverage Start Date Coverage End Date AARP Medicare Complete [address] [address] [place] [address] [id number] Boone Newby Self - patient is the insured Medical (General) History Medical History History ICD Code Back,Hip,and Knee pain Broken bones CAD (Cholesterol) Diabetic High blood pressure Lung disease Surgical History Surgery Date(Month/Year) hernia 2013 Hospitalization History Reason Date(Month/Year) Hospital- Fall - Broken knee and shoulde r 05/17
--- OUTSIDE RECORDS SUMMARY | 2024-12-27 15:06 | XMS_ITS | Encounter Summary ---
Author Organization [facility] Address [address] [place] [address] Phone Care Team Providers Care Oyster Buyer Name Role Phone Nikole Johnson PA-C Unavailable [phone] Darlyn Velasquez DO Unavailable Iwona Torre RD Unavailable [phone] Kath Bose MD Primary Care Provider + Lizzie Ballard Unavailable [phone] Encounter Details Date Type Department Care Team (Late st Contact Info) Description 11/09/2023 Procedure Pass [facility], Ct Scan - [facility] [address] [place] [address] Social History Tobacco Use Types Packs/Day Years [...] documented as of this encounter Care Teams Oyster Buyer Relationship Specialty Start Date End Date Kath Bose MD 1 [place] [address] PCP - General Family Medicine 11/09/23 Nikole Johnson, PAYazminC [address] [place] [phone] [email or web address] Historical LMR Provider 04/22/18 Darlyn Velasquez DO [address] [place] [phone] [email or web address] Historical LMR Provider 04/22/[address] [place] [address] Historical LMR Provider 04/22/18 Lizzie Ballard MBBS [address] [place] [address] Primary Oncologist Medical Oncology 03/02/24 documented as of this encounter Additional Source Comments The information contained in this document represents components of the legal health record. It is not the complete legal health record.[facility]
[2024-12-27 15:12] LABS: D Dimer High Sensitivity < 150 NG/ML
[2024-12-28 08:07] LABS: ~HepC Num1 0.05 S/CO (0.00-0.79); ~Hepatitis C Antibody Nonreactive (Nonreactive)
== END 2024-12-27 12:05 | disposition home or self-care (01) ==
LOC: HO.HHCL 12:04
PROVIDERS: PCP General Practice; Visit Provider General Practice
DX: E11.9 Type 2 diabetes mellitus without complications (principal); I50.9 Heart failure, unspecified; M79.662 Pain in left lower leg; I11.0 Hypertensive heart disease with heart failure; Z79.4 Long term (current) use of insulin; Z11.59 Encounter for screening for other viral diseases
CPT/HCPCS: 36415; 80053; 80061; 85025; 85379; 86803

== ENCOUNTER 2025-03-02 10:53 | Outpatient (REF) | payer MEDICARE, MEDICAID, SELFPAY ==
--- NOTE | ~2025-03-02 | US_ITS ---
EXAMINATION: Noninvasive assessment of the bilateral lower extremities with ARTERIAL DUPLEX, ANKLE BRACHIAL INDICES (ABIs), and PULSE VOLUME RECORDINGS (PVRs). CLINICAL INFORMATION: Left calf pain. TECHNIQUE: Duplex Doppler techniques with waveform analysis and measurement of velocities in the bilateral common femoral, profunda femoris, superficial femoral, popliteal and tibial arteries were performed. Additionally, ankle pulse volume recordings, ankle pressure measurements and ankle brachial indices were obtained of the lower extremity arterial system bilaterally. The study was performed only at rest. COMPARISON: None FINDINGS: DIRECT DUPLEX DOPPLER FINDINGS: RIGHT LEG: Common femoral artery: 139 cm/s, phasicity: Triphasic. Spectral broadening. Profunda femoris artery: 122 cm/s, phasicity: Triphasic. Spectral broadening. Superficial femoral artery (proximal): 110 cm/s, phasicity: Triphasic. Spectral broadening. Superficial femoral artery (mid): 115 cm/s, phasicity: Triphasic. Spectral broadening. Superficial femoral artery (distal): 126 cm/s, phasicity: Triphasic. Popliteal artery: 79 cm/s, phasicity: Biphasic. Spectral broadening. Posterior tibial artery: 43 cm/s, phasicity: Biphasic. Spectral broadening. Peroneal artery: 37 cm/s, phasicity: Biphasic. Spectral broadening. Anterior tibial artery: 35 cm/s, phasicity: Biphasic. Spectral broadening. Dorsalis pedis artery: 21 cm/s, phasicity:Biphasic. Spectral broadening. LEFT LEG: Common femoral artery: 282 cm/s, phasicity: Triphasic. Spectral broadening. Profunda femoris artery: 125 cm/s, phasicity: Triphasic. Spectral broadening. Superficial femoral artery (proximal): 326 cm/s, phasicity: Monophasic. Spectral broadening. Superficial femoral artery (mid): 184 cm/s, phasicity: Monophasic. Spectral broadening. Superficial femoral artery (distal): 62 cm/s, phasicity: Monophasic. Spectral broadening. Popliteal artery: 34 cm/s, phasicity: Monophasic. Spectral broadening. Posterior tibial artery: 20 cm/s, phasicity: Monophasic. Spectral broadening. Peroneal artery: 19 cm/s, phasicity: Monophasic. Spectral broadening. Anterior tibial artery: 15 cm/s, phasicity: Monophasic. Spectral broadening. Dorsalis pedis artery: 11 cm/s, phasicity: Monophasic. Spectral broadening. BRACHIAL PRESSURES: Right: 112 Left: 117 ANKLE PRESSURES: Right: PT 128, DP 128 Left: PT 78, DP 80 ANKLE-BRACHIAL INDEX: Right: 1.09 Left: 0.68 ANKLE PVR WAVEFORMS: Right: Normal Left: Abnormal US/US arterial duplex BI w/ PRANAY IMPRESSION: Right leg: Mild to moderate inflow disease involving the arteries below the knee. Left leg: Severe inflow disease throughout the interrogated arteries with likely high degree stenosis and the common femoral artery and proximal superficial femoral artery. PRANAY Reference: - >1.4 = calcified vessels - 0.9 - 1.4 = normal - no significant arterial disease - 0.7 - 0.89 = mild peripheral arterial disease - 0.51 - 0.69 = moderate peripheral arterial disease - 0.50 = severe peripheral arterial disease - < .30 = critical arterial disease Electronically signed by: Steven Hurley MD 03/02/2025 12:51 PM SAMMI
== END 2025-03-02 10:54 ==
LOC: HO.US 10:53
PROVIDERS: PCP General Practice; Visit Provider General Practice
DX: M79.662 Pain in left lower leg (principal)
CPT/HCPCS: 93922; 93925

== ENCOUNTER → 2025-03-02 11:19 | Outpatient (BNV) | payer MEDICARE, MEDICAID, SELFPAY | PROVIDERS: PCP General Practice; Visit Provider Radiology Diagnostic Radiology | DX: M79.662 Pain in left lower leg (principal) | CPT/HCPCS: 93925 ==

== ENCOUNTER 2025-03-13 15:54 | Outpatient (REF) | payer MEDICARE, MEDICAID, SELFPAY ==
--- OUTSIDE RECORDS SUMMARY | 2025-02-28 08:00 | XMS_ITS ---
Author Organization [facility] Address [address] [place] [address] Care Team Providers Care Command Center Analyst Name Role Phone Yohana Cifuentes Primary Care Provider Unavailabl Yg Malik Unavailable [phone] Encounters Encounter Location Date Provider Diagnosis [address] [address] 02/28/2025 Yg Soto Plan Of Treatment Next Appt Details Provider Name:Yg Soto , 06/27/2025 01:30:00 PM, [address] [place] [address], [phone], Progress Notes * ADDISONNakulBoone JrDOB:1950 (74 yo M)Acc No.[id number]:02/28/2025 Progress Note Patient: Boone MORENO Provider: Chicho Soto DPM :1950 A ge:74 Y S ex:Male Date:02/28/2025 Address:[address] [place] [address], [address], [place], [place] Pcp:Yohana Cifuentes Subjective: * Chief Complaints: * * Medical History: Objective: * Vitals: Assessment: Plan: * Treatment: * Images: * The named appointment provid er may or may not be the originator of this progress note, and it is not deemed complete until electronically signed by the appointment provider. Sign off status: Pending * Provider: Chicho Soto DPM Date: 05/01/2024 Generated for Brayan Viera on: 05/14/2024 06:42 PM EST
--- NOTE | ~2025-03-13 | XR_ITS ---
EXAMINATION: XR CHEST CLINICAL INFORMATION: cough and SOB COMPARISON: Chest x-ray 05/03/2024 TECHNIQUE: 2 views of the chest were obtained. FINDINGS: The lungs are hyperinflated linear atelectasis or scarring both lung bases. No acute consolidation or pleural effusion. Heart size and pulmonary vascularity is normal. No gross bony abnormality seen. XR/XR chest 2V IMPRESSION: Emphysema without acute pneumonic process. Electronically signed by: Hero Dickson MD 03/13/2025 04:30 PM EST
--- OUTSIDE RECORDS SUMMARY | 2025-03-13 15:30 | XMS_ITS | Encounter Summary ---
Author Organization [employer] Address [address] [facility] 7[address] [place] [address] Care Team Providers Care Ramp Lead Name Role Phone Kath Bose MD Primary Care Provider [phone] Encounter Details Date Type Department Care Team ([facility] Contact Info) Description 03/13/2025 3:30 PM EST Office Visit [facility] [address] [place] [address] Kath Bose MD [address] [place] [address] Shortness of breath; Cough, unspecified type; COPD exacerbation (CMS/HCC) ([facility]) Social History Tobacco Use Types Packs/Day Years [...] Sign Reading Time Taken Comments Blood Pressure 162/80 03/13/2025 3:28 PM EST Pulse 98 03/13/2025 3:28 PM EST Temperature 37.1 C (98.7 F) 03/13/2025 3:28 PM EST Respiratory Rate 16 03/13/2025 3:28 PM EST Oxygen Saturation 95% 03/13/2025 4:42 PM EST Inhaled Oxygen Concentration - - Weight 83.2 kg (183 lb 6.4 oz) 03/13/2025 3:28 P M EST Height 181.6 cm (5' 11.5 ) 03/13/2025 3:28 PM ES T Body Mass Index 25.22 03/13/2025 3:28 PM EST documented in this encounter Progress Notes * Kath Bose MD - 03/13/2025 3:30 PM EST SUBJECTIVE: Boone Newby is a 74 y.o. male who presents for acute visit. Denies recent illness, ER visit, or hospitalization. Accompanied by his daughter Leonardo. Acute respiratory symptoms - Three days of not feeling well - Reports increased work of breathing - Reports increased cough - Not able to eat or drink very much - Reports muscle soreness - Decreased ability and energy to move around - Reached out to daughter today due to not feeling well - Does not have a pulse oximeter at home and is unaware of home oxygen saturation COPD management - Does not usually take Spiriva, but resumed use while not feeling well - Needs albuterol refills Flu, COVID negative in clinic Xray: FINDINGS: The lungs are hyperinflated linear atelectasis or scarring both lung bases. No acute consolidation or pleural effusion. Heart size and pulmonary vascularity is normal. No gross bony abnormality seen. XR/XR chest 2V IMPRESSION: Emphysema without acute pneumonic process. Chronic Conditions and Plans: 05/06/24 [place] [facility] [place] Orthostatic hypotension, Fracture of proximal humerus, [...] brain vasculature more extensively completed 12/07/23 at [facility] normal - consider vascular vs neuro consult in [place] depending on the results - has had [...] Pulm nodule resolved 02/2024 Continue f/u at [facility] every 6 months, plan for repeat SPEP and free light chain analysis Last visit 09/2024 no sign of MGUS DM2 A1C 10.9 History of admission for DKA 01/2022 On Metformin 1000mg BID, Glipizide 5mg BID, and Lantus 20 units at bedtime ASA 81mg On Crestor 20mg daily Has dental scheduler-- 07/13/24 podiatry, toenail trimming 11/09/24 podiatry, toenail [...] Patient Active Problem List Diagnosis Date Noted Bilateral carotid artery stenosis 03/13/2025 Fall 03/13/2025 Hyperkalemia 03/13/2025 Pre-op examination 03/13/2025 Tubular adenoma of colon 03/13/2025 Varicose veins of both lower extremities 03/13/2025 COPD exacerbation ([facility]) ([facility]) 03/13/2025 Acquired hammer toe of left foot 12/27/2024 Acquired hammer toe of right foot 12/27/2024 Occlusion and stenosis of bilateral carotid arteries 12/27/2024 Type 2 diabetes mellitus with diabetic peripheral angiopathy without gangrene ([facility]) 12/27/2024 Pain of left calf 12/27/2024 Counseling regarding end of life decision making 06/20/2024 Diabetes due to underlying condition w oth circulatory comp ([facility]) 06/14/2024 Orthostatic hypotension 05/20/2024 Oral phase dysphagia 05/20/2024 Muscle weakness 05/20/2024 Fracture of shaft of humerus 05/20/2024 Fracture of maxilla ([facility]/HCC) (HCC) 05/20/2024 Congestive heart failure ([facility]) 05/20/2024 Closed fracture of patella 05/20/2024 Carotid artery obstruction 05/20/2024 Anemia 05/20/2024 Recurrent major depression ([facility]) 05/20/2024 Nodule of lower lobe of right lung 04/06/2024 Postural dizziness with presyncope 11/24/2023 MGUS (monoclonal gammopathy of unknown significance) 11/09/2023 Stage 3b chronic kidney disease ([facility]/HCC) (HCC) 09/25/2023 Deformity of left ankle joint 09/25/2023 Anxiety and depression 05/20/2023 Iron deficiency 05/20/2023 Type 2 diabetes mellitus treated with insulin ([facility]) 05/20/2023 Hearing loss of both ears due to cerumen impaction 10/09/2022 Financial insecurity 03/02/2022 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CMS/HCC) ([facility]) 03/02/2022 Nocturia 01/27/2022 Bereavement 11/01/2020 Insomnia 11/01/2020 Chronic obstructive pulmonary disease ([facility]) 09/27/[address] 09/14/2020 Weight loss [...] Social History Social History Narrative Lives in [facility] in [place] on his own, responsible for ADLs 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 Negative for chills, diaphoresis and fever. HENT: Negative for congestion and sore throat. Respiratory: Positive for cough. Cardiovascular: Negative. Gastrointestinal: Negative. Musculoskeletal: Negative. Skin: Negative. OBJECTIVE: Vitals: 03/13/25 1528 03/13/25 1642 BP: (!) 162/80 BP Location: Left arm Patient Position: Sitting BP Cuff Size: Adult Pulse: 98 Resp: 16 Temp: 98.7 ??F (37.1 ??C) TempSrc: Oral SpO2: 95% Weight: 183 lb 6.4 oz (83.2 kg) Height: 5' 11.5 (1.816 m) Physical Exam Vitals reviewed. Constitutional: Appearance: Normal appearance. HENT: Head: Normocephalic and atraumatic. Right Ear: Tympanic membrane, ear canal and external ear normal. Left Ear: Tympanic membrane, ear canal and external ear normal. Nose: Nose normal. Mouth/Throat: Mouth: Mucous membranes are moist. Pharynx: Oropharynx is clear. Eyes: Extraocular Movements: Extraocular movements intact. Conjunctiva/sclera: Conjunctivae normal. Pupils: Pupils are equal, round, and reactive to light. Cardiovascular: Rate and Rhythm: Normal rate and regular rhythm. Pulses: Normal pulses. Heart sounds: Normal heart sounds. Pulmonary: Effort: Pulmonary effort is normal. No respiratory distress. Breath sounds: No stridor. Wheezing present. Chest: Chest wall: No tenderness. Musculoskeletal: General: Normal range of motion. Cervical back: Normal range of motion and neck supple. Skin: General: Skin is warm and dry. Capillary Refill: Capillary refill takes less than 2 seconds. Neurological: General: No focal deficit present. Mental Status: He is alert and oriented to person, place, and time. Psychiatric: Mood and Affect: Mood normal. Behavior: Behavior normal. ASSESSMENT/PLAN Assessment & Plan COPD exacerbation ([facility]) ([facility]): - COPD exacerbation noted, with increased work of breathing, cough, decreased oral intake, muscle soreness, and decreased energy. Resumed Spiriva during episode. - Albuterol refills needed. Prescription - Albuterol inhaler, refill prescribed Problem List Items Addressed This Visit COPD exacerbation ([facility]) ([facility]) Current Assessment & Plan -Acute exacerbation of COPD -Start prednisone 40mg daily x 5 days and Azithromycin 500mg x 1, then 250mg x 4 days -Continue maintenance inhaler: Sprivia 1puff daily -Albuterol PRN every 2-4 hours -Reviewed med safety and SE Follow up with any worsening or lack of improvement in 48-72 hours Relevant Medications albuterol 108 (90 Base) MCG/ACT inhaler predniSONE (Deltasone) 20 MG tablet Other Visit Diagnoses Shortness of breath Relevant Medications albuterol 108 (90 Base) MCG/ACT inhaler predniSONE (Deltasone) 20 MG tablet Other Relevant Orders POCT Rapid Covid-19 BinaxNOW (Completed) POCT Rapid Influenza A SAENZ ID NOW (Completed) POCT Rapid Influenza B SAENZ ID NOW (Completed) XR Chest 2 Views (Completed) Cough, unspecified type Relevant Medications albuterol 108 (90 Base) MCG/ACT inhaler predniSONE (Deltasone) 20 MG tablet azithromycin (Zithromax) 250 MG tablet Other Relevant Orders POCT Rapid Covid-19 BinaxNOW (Completed) POCT Rapid Influenza A SAENZ ID NOW (Completed) POCT Rapid Influenza B SAENZ ID NOW (Completed) XR Chest 2 Views (Completed) Follow Up: per recall or sooner prn Allergies[2] Current Medications[3] [1] Past Surgical History: Procedure Laterality Date MRA HEAD W AND WO CONTRAST 2023 MRA HEAD W AND WO CONTRAST [2] Allergies Allergen Reactions Codeine [3] Current Outpatient Medications: acetaminophen (Tylenol) 500 MG tablet, Take 1,000 mg by mouth every 8 (eight) hours if needed., Disp: , Rfl: ammonium lactate (Amlactin) 12 % cream, 1 Application 2 times daily., Disp: , Rfl: ascorbic acid (Vitamin C) 1000 MG tablet, Take 1 tablet by mouth Once per day., Disp: , Rfl: aspirin 81 MG chewable tablet, 1 tablet in the morning., Disp: , Rfl: busPIRone (Buspar) 10 MG [...] A DAY, Disp: 180 tablet, Rfl: 3 insulin pen needle (BD Pen Needle Aleena 2nd Gen) 32G x 4 mm misc, USE ONE EACH BY MISCELLANEOUS ROUTE DAILY, Disp: 100 each, Rfl: 3 Lantus SoloStar 100 UNIT/ML pen, [...] SMOKING CESSATION, Disp: 100 each, Rfl: 3 oxyCODONE (Roxicodone) 5 MG immediate release tablet, Take 5 mg by mouth., Disp: , Rfl: Precision QID Test test strip, Use to check blood sugars. [employer] freedom diagnostic strips Dx# E11.9, Disp: , [...] meal, and at bedtime., Disp: , Rfl: albuterol 108 (90 Base) MCG/ACT inhaler, Inhale 2 puffs every 6 (six) hours if needed for wheezing., Disp: 18 g, Rfl: 11 azithromycin (Zithromax) 250 MG tablet, Take 1 tablet (250 mg) by mouth Once per day for 5 days. Onthe first day take 500mg, Disp: 6 tablet, Rfl: 0 predniSONE (Deltasone) 20 MG tablet, Take 2 tablets (40 mg) by mouth Once per day for 5 days., Disp: 10 tablet, Rfl: 0 Tiotropium [place] (Spiriva HandiHaler) 18 MCG capsule, Place 1 Inhalation into inhaler and inhale Once per day., Disp: 30 capsule, Rfl: 11 documented in this encounter Miscellaneous Notes * Assessment & Plan Note - Kath Bose MD - 03/13/2025 4:49 PM ESTAssociated Problem(s): COPD exacerbation (CMS/HCC) (HCC) -Acute exacerbation of COPD -Start prednisone 40mg daily x 5 days and Azithromycin 500mg x 1, then 250mg x 4 days -Continue maintenance inhaler: Sprivia 1puff daily -Albuterol PRN every 2-4 hours -Reviewed med safety and SE Follow up with any worsening or lack of improvement in 48-72 hours documented in this encounter Plan of Treatment Upcoming Encounters Date Type Department Care Team (Late st Contact Info) Description 05/19/2025 11:15 AM EST Office Visit [facility] [address] [place] [address] Kath Bose MD [address] [place] [address] documented as of this encounter Goals Goal Patient Goal Type Associated Problems Recent Progress Patient-Stated? Author Help patients manage their type 2 diabetes Care Plan Help patients manage their type 2 diabetes No Iman Teresa OD Patient has chronic kidney disease Care Plan Patient has chronic kidney disease No Iman Teresa OD Patient has chronic kidney disease Care Plan Patient has chronic kidney disease No Meredith Pantoja RN Patient has chronic kidney disease Care Plan Patient has chronic kidney disease No Meredith Pantoja RN Patient has chronic kidney disease Care Plan Patient has chronic kidney disease No Kath Bose MD Patient has chronic kidney disease Care Plan Patient has chronic kidney disease No Kath Bose MD Patient has chronic kidney disease Care Plan Patient has chronic kidney disease No Jessica Jarquin Patient has chronic kidney disease Care Plan Patient has chronic kidney disease No Kwasi Anaya Patient has chronic kidney disease Care Plan Patient has chronic kidney disease No Kath Bose MD documented as of this encounter Procedures Procedure Name Priority Date/Time Associated Diagnosis Comments XR CHEST 2 VIEWS Routine 03/13/2025 4:22 PM EST Shortness of breath Cough, unspecified type POCT INFLUENZA A (ID NOW RAPID MOLECULAR) Routine 03/13/2025 3:41 PM EST Shortness of breath Cough, unspecified type POCT INFLUENZA B (ID NOW RAPID MOLECULAR) Routine 03/13/2025 3:40 PM EST Shortness of breath Cough, unspecified type POCT RAPID COVID ANTIGEN Routine 03/13/2025 3:40 PM EST Shortness of breath Cough, unspecified type documented in this encounter Results * XR Chest 2 Views (03/13/2025 4:22 PM EST) Anatomical Region Laterality Modality Chest Radiographic Terri ging 03/13/2025 4:22 PM EST Narrative 03/13/2025 4:32 PM EST [address] [address] XRay Report Signed Patient: Boone Newby Jr MR#: [id number] : 1950 Acct:[id number] Age/Sex: 74 / M ADM Date: 03/13/25 Loc: HO.[facility] Attending Dr: Kath Bose MD Ordering Physician: Kath Bose Date of Service: 03/13/25 Procedure(s): XR chest 2V Accession Number(s): [id number] cc: Kath Bose Reason for Exam: cough and SOB EXAMINATION: XR CHEST CLINICAL INFORMATION: cough and SOB COMPARISON: Chest x-ray 05/03/2024 TECHNIQUE: 2 views of the chest were obtained. FINDINGS: The lungs are hyperinflated linear atelectasis or scarring both lung bases. No acute consolidation or pleural effusion. Heart size and pulmonary vascularity is normal. No gross bony abnormality seen. XR/XR chest 2V IMPRESSION: Emphysema without acute pneumonic process. Electronically signed by: Hero Dickson MD 03/13/2025 04:30 PM EST Dictated By: Hero Dickson MD Signed By: <Electronically signed by Hero Dickson MD in OV> 03/13/25 1630 DD/ 1622 TD/TT: 03/13/25 1612 Automation Consultant: [facility] Procedure Note Donotuseinterpreter, Image - 03/13/[address] [address] XRay Report Signed Patient: Boone Newby JrMR#: [id number] : 1950cct:[id number] Age/Sex: 74 / MADM Date: 03/13/25 Loc: HO.[facility]HCX Attending Dr: Kath Bose MD Ordering Physician: Kath Bose Date of Service: 03/13/25 Procedure(s): XR chest 2V Accession Number(s): [id number] cc: Kath Bose Reason for Exam: cough and SOB EXAMINATION: XR CHEST CLINICAL INFORMATION: cough and SOB COMPARISON: Chest x-ray 05/03/2024 TECHNIQUE: 2 views of the chest were obtained. FINDINGS: The lungs are hyperinflated linear atelectasis or scarring both lung bases. No acute consolidation or pleural effusion. Heart size and pulmonary vascularity is normal. No gross bony abnormality seen. XR/XR chest 2V IMPRESSION: Emphysema without acute pneumonic process. Electronically signed by: Heor Dickson MD 03/13/2025 04:30 PM EST RP Dictated By: Hero Dickson MD Signed By: <Electronically signed by Hero Dickson MD in OV> 03/13/25 1630 DD/ 1622 TD/TT: 03/13/25 1612 Automation Consultant: MSM Kath Bose MD IMG XR PROCEDURES Final Result * POCT Rapid Influenza A SAENZ ID NOW (03/13/2025 3:41 PM EST) Influenza A Negative Negative, Indeterminate [facility] QC Media Lot # [id number] [facility] Lot# Expiration Date [id number] [facility] Swab 03/13/2025 3:41 PM EST Kath Bose MD POINT OF CARE TEST ENTER/EDIT ORDERABLES Final Result [facility] [address] [place] [phone] * POCT Rapid Influenza B SAENZ ID NOW (03/13/2025 3:40 PM EST) Influenza B Negative Negative, Indeterminate [facility] QC Media Lot # [id number] [facility] Lot# Expiration Date 436, [facility] Swab 03/13/2025 3:40 PM EST Kath Bose MD POINT OF CARE TEST ENTER/EDIT ORDERABLES Final Result [facility] [address] [place] [phone] * POCT Rapid Covid-19 BinaxNOW (03/13/2025 3:40 PM EST) Pathologist [facility] Rapid COVID Ag Negative QC Media Lot # [id number] Lot# Expiration Date Swab 03/13/2025 3:40 PM EST Kath Bose MD POINT OF CARE TEST ENTER/EDIT ORDERABLES Final Result documented in this encounter Visit Diagnoses Diagnosis Shortness of breath Cough, unspecified type COPD exacerbation (CMS/HCC) (HCC) Obstructive chronic bronchitis with exacerbation documented in this encounter Additional Health Concerns Active Problems Noted Date Diagnosed Date Help patients manage their type 2 diabetes 02/03 Patient has chronic kidney disease 02/03/2025 Patient has chronic kidney disease 02/27/2025 Patient has chronic kidney disease 02/27/2025 Patient has chronic kidney disease 03/03/2025 Patient has chronic kidney disease 03/03/2025 Patient has chronic kidney disease 03/03/2025 Patient has chronic kidney disease 03/13/2025 Patient has chronic kidney disease 03/13/2025 Assessment Noted Time PHQ-9 Depression Total Score: 12 024 2:19 PM EDT documented as of this encounter Care Teams Ramp Lead Relationship Specialty Start Date End Date Kath Bose MD [address] [place] [id number] PCP - General Family Medicine 09/23/23 [facility] 06/09/24 documented as of this encounter
--- OUTSIDE RECORDS SUMMARY | 2025-03-13 18:42 | XMS_ITS | Encounter Summary ---
Author Organization [employer] Address [address] [facility] [address] [place] [address] Care Team Providers Care Electrical Plumbing Supervisor Name Role Phone Kath Bose MD Primary Care Provider [phone] Reason for Referral * Imaging (Routine) - Authorized Specialty Diagnoses / Procedures Referred By Contac t Referred To Contact Radiology Diagnoses Osteopenia of left ankle Procedures BD DEXA Axial Kath Bose MD [address] [place] [address] Phone: tel: fax: [facility] [address] [place] [address] Phone: tel: fax: Referral ID Status Reason Start Date Expiration Date V isits Requested Visits Authorized [id number] Authorized 01/09/2025 01/09/2026 1 1 Encounter Details Date Type Department Care Team (Late st Contact Info) Description 01/09/2025 Orders Only [facility] [address] [place] [address] Kath Bose MD [address] [place], [place] [phone] Osteopenia of left ankle (Primary Dx) Social History Tobacco Use Types Packs/Day Years [...] Description 05/19/2025 11:15 AM EST Office Visit [facility] [address] [place] [address] Kath Bose MD [address] [place] [address] Scheduled Orders Name Type Priority Associated Diagnoses Orde r Schedule BD DEXA Axial Imaging Routine Osteopenia of left ankle Expected: 01/09/2025, Expires: 01/09/2026 documented as of this encounter Visit Diagnoses Diagnosis Osteopenia of left ankle- Primary documented in this encounter Additional Health Concerns Assessment Noted Time PHQ-9 Depression Total Score: 12 024 2:19 PM EDT documented as of this encounter Care Teams Electrical Plumbing Supervisor Relationship Specialty Start Date End Date Kath Bose MD [address] [place] [address] PCP - General Family Medicine 09/23/23 [place] 06/09/24 documented as of this encounter
--- OUTSIDE RECORDS SUMMARY | 2025-03-13 18:42 | XMS_ITS | Encounter Summary ---
Author Organization [facility] Address [address] [place] [phone] Phone Care Team Providers Care Vendor Representatives Name Role Phone Nikole Johnson PA-C Unavailable [phone] Darlyn Velasquez DO Unavailable [phone] Unavailable [phone] Kath Bose MD Primary Care Provider + Lizzie Ballard Unavailable [phone] Encounter Details Date Type Department Care Team (Late st Contact Info) Description 11/26/2023 Procedure [facility], Ct Scan - [address] [address] Social History Tobacco Use Types Packs/Day Years [...] documented as of this encounter Care Teams Vendor Representatives Relationship Specialty Start Date End Date Kath Bose MD [address] [place] [address] PCP - General Family Medicine 11/09/23 Nikole Johnson, PAYazminC [address] [place] [phone] Historical LMR Provider 04/22/18 Darlyn Velasquez DO [address] [place] [address] [address] [place] [address] [email or web address] Historical LMR Provider 04/22/[address] [place] [phone] Historical LMR Provider 04/22/18 Lizzie Ballard MBBS [address] [place] [address] Primary Oncologist Medical Oncology 03/02/24 documented as of this encounter Additional Source Comments The information contained in this document represents components of the legal health record. It is not the complete legal health record.[facility]
--- OUTSIDE RECORDS SUMMARY | 2025-03-13 18:42 | XMS_ITS | Encounter Summary ---
Author Organization [facility] Address [address] [place] [address] Phone Care Team Providers Care Buff Wheel Fabricator Name Role Phone Darlyn Velasquez DO Primary Care Provider [phone] Nikole Johnson PA-C Unavailable [phone] Darlyn Velasquez DO Unavailable Iwona Torre RD Unavailable [phone] Jeannette Morales PENCILLER Unavailable Marina Caldera DO Primary Care Provider [phone] Aida Fabian MD Primary Care Provider Kath Bose MD Primary Care Provider + Lizzie Ballard Unavailable Encounter Details Date Type Department Care Team (Late st Contact Info) Description 06/26/[address] [facility] Physicians - Radiology - [place] [address] [place] [address] Social History Tobacco Use Types Packs/Day Years [...] Onset Date Last Indicated Resolved Time MRSA Comment:[facility] Legacy Conversion 04/17/16 08/01/2014 08/01/2014 05/07/2022 1:[address] Assessment Noted Time PHQ-2 Depression Total Score: 1 06/27/19 21 10:50 AM EDT documented as of this encounter Care Teams Buff Wheel Fabricator Relationship Specialty Start Date End Date Darlyn Velasquez DO 22 [facility] [address] [place] [address] [email or web address] PCP - General 04/15/18 08/10/22 Marina Caldera DO [address] [place] [address] PCP - General Family Medicine 08/11/22 08/11/22 Aida Fabian MD 1 [place] [address] PCP - General Internal Medicine 08/12/22 11/08/23 Kath Bose MD 1 [place] [address] PCP - General Family Medicine 11/09/23 Nikole Johnson, EMELYC [address] [phone] Historical LMR Provider 04/22/18 Darlyn Velasquez DO [address] [address] [email or web address] Historical LMR Provider 04/22/[address] [place] [address] [email or web address] Historical LMR Provider 04/22/18 Jeannette Morales NP [address] [place] [address] [email or web address] Historical LMR Provider 04/22/1803/30/21 Lizzie Ballard MBBS [address] [place] [address] Primary Oncologist Medical Oncology 03/02/24 documented as of this encounter Additional Source Comments The information contained in this document represents components of the legal health record. It is not the complete legal health record.[facility]
--- OUTSIDE RECORDS SUMMARY | 2025-03-13 18:42 | XMS_ITS | Encounter Summary ---
Author Organization [employer] Address [address] [facility] 7[address] [place] [address] Care Team Providers Care Tax Evaluator Name Role Phone Kath Bose MD Primary Care Provider [phone] Encounter Details Date Type Department Care Team ([facility] Contact Info) Description 06/28/2024 Orders Only [facility] [address] [place], [place] [phone] Kath Bose MD [address] [place], [place] [phone] Social History Tobacco Use Types Packs/Day Years [...] Description 05/19/2025 11:15 AM EST Office Visit [facility] [address] [place] [address] Kath Bose MD [address] [place] [address] documented as of this encounter Visit Diagnoses Not on filedocumented in this encounter Additional Health Concerns Assessment Noted Time PHQ-9 Depression Total Score: 12 024 2:19 PM EDT documented as of this encounter Care Teams Tax Evaluator Relationship Specialty Start Date End Date Kath Bose MD [address] [place] [address] PCP - General Family Medicine 09/23/23 [place] [facility] 06/09/24 documented as of this encounter
--- OUTSIDE RECORDS SUMMARY | 2025-03-13 18:42 | XMS_ITS | Encounter Summary ---
Author Organization [employer] Address [address] [facility] [address] [address] Care Team Providers Care Echocardiographer Name Role Phone Kath Bose MD Primary Care Provider [phone] Reason for Referral * Consultation (Routine) - Closed Specialty Diagnoses / Procedures Referred By [employer] chase Referred To Contact Hematology and Oncology Diagnoses Deformity of left ankle joint Kath Bose MD [address] [place] [address] Phone: tel: fax: [facility] [address] [place], [place] Phone: tel: fax: Referral ID Status Reason Start Date Expiration Date V isits Requested Visits Authorized [id number] Closed Specialty Services Required 10/14/2023 10/13/2024 1 1 Encounter Details Date Type Department Care Team (Late st Contact Info) Description 10/14/2023 Orders Only [facility] [address] [place] [address] Ktah Bose MD [address] [place] [address] Abnormal serum protein electrophoresis (Primary Dx); Deformity [...] PM EDT Sexual Orientation Don't know 09/23/2023 1 :47 PM EDT documented as of this encounter Plan of Treatment Upcoming Encounters Date Type Department Care Team (Late st Contact Info) Description 05/19/2025 11:15 AM EST Office Visit [facility] [address] [place] [address] Kath Bose MD [address] [place] [address] Scheduled Referrals Name Type Priority Associated Diagnoses [...] IMMUNOGLOBULIN G 679 600 - 1540 mg/dL [facility] IMMUNOGLOBULIN A 123 70 - 320 mg/dL [facility] Immunoglobulin M 57 50 - 300 mg/dL [facility] Comment:THIS TEST WAS PERFOR MED AT:[employer] [place] [phone] CAVAZOS MD Immunofixation Result SEE NOTE [facility] Comment:Faint IgG kappa mono clonal band present. Blood Venous blood specimen / Unknown 10/22/2023 1:38 PM EDT 10/22/2023 3:55 PM EDT us Kath Bose MD LAB BLOOD ORDERABLES Final Res ult [facility] [address] [place] [phone] documented in this encounter Visit Diagnoses Diagnosis Abnormal serum protein electrophoresis- Primary Deformity of left ankle joint documented in this encounter Additional Health Concerns Assessment Noted Time PHQ-9 Depression Total Score: 12 09/22/ 024 2:19 PM EDT documented as of this encounter Care Teams Echocardiographer Relationship Specialty Start Date End Date Kath Bose MD [address] [place] [address] PCP - General Family Medicine [facility] documented as of this encounter
--- OUTSIDE RECORDS SUMMARY | 2025-03-13 18:42 | XMS_ITS | Encounter Summary ---
Author Organization [employer] Address [address] [facility] 7t [place] [address] Care Team Providers Care Director Energy Name Role Phone Kath Bose MD Primary Care Provider [phone] Encounter Details Date Type Department Care Team ([facility] Contact Info) Description 05/09/2024 Orders Only [facility] [address] [place], [place] [phone] Kath Bose MD [address] [place], [place] [phone] Social History Tobacco Use Types Packs/Day Years [...] Description 05/19/2025 11:15 AM EST Office Visit [facility] [address] [place] [address] Kath Bose MD [address] [place] [address] documented as of this encounter Visit Diagnoses Not on filedocumented in this encounter Additional Health Concerns Assessment Noted Time PHQ-9 Depression Total Score: 12 024 2:19 PM EDT documented as of this encounter Care Teams Director Energy Relationship Specialty Start Date End Date Kath Bose MD [address] [place] [address] PCP - General Family Medicine 09/23/23 [place] [facility] 06/09/24 documented as of this encounter
--- OUTSIDE RECORDS SUMMARY | 2025-03-13 18:42 | XMS_ITS | Encounter Summary ---
Author Organization [facility] Address [address] [place] [address] Phone Care Team Providers Care Can Filler Name Role Phone Darlyn Velasquez DO Primary Care Provider [phone] Nikole Johnson PA-C Unavailable [phone] Darlyn Velasquez DO Unavailable Iwona Torer [address] Unavailable [phone] Marina Caldera DO Primary Care Provider [phone] Aida Fabian MD Primary Care Provider Kath Bose MD Primary Care Provider + Lizzie Ballard Unavailable [phone] Encounter Details Date Type Department Care Team (Late st Contact Info) Description 07/25/2022 Procedure Pass [facility] Endoscopy [address] [place] [phone] Social History Tobacco Use Types Packs/Day Years [...] documented as of this encounter Care Teams Can Filler Relationship Specialty Start Date End Date Darlyn Velasquez DO [address] [address] [email or web address] PCP - General 04/15/18 08/10/22 Marina Caldera DO [address] [place] [address] PCP - General Family Medicine 08/11/22 08/11/22 Aida Fabian MD 1 [place] [address] PCP - General Internal Medicine 08/12/22 11/08/23 Kath Bose MD 1 [place] [address] PCP - General Family Medicine 11/09/23 Nikole Johnson, EMELYC [address] [place] [phone] Historical LMR Provider 04/22/18 Darlyn Velasquez DO [address] [place] [address] [email or web address] Historical LMR Provider 04/22/[address] [place] [address] [email or web address] Historical LMR Provider 04/22/18 Lizzie Ballard MBBS [address] [place] [address] [email or web address] Primary Oncologist Medical Oncology 03/02/24 documented as of this encounter Additional Source Comments The information contained in this document represents components of the legal health record. It is not the complete legal health record.[facility]
--- OUTSIDE RECORDS SUMMARY | 2025-03-13 18:42 | XMS_ITS | Clinical Summary ---
Author Organization [employer] Address [address] [place] [address] Care Team Providers Care Collision Worker Name Role Phone Kath Bose MD Primary Care Provider [phone] Allergies Active Allergy Reactions Criticality Noted Date [...] test strip Use to check blood sugars. Freestyle freedom diagnostic strips Dx# E 11.9 023 Active [facility] Thin Lancets misc 1 each by Other route before breakfast, before lunch, before evening meal, and at bedtime. 023 Active glipiZIDE (Glucotrol) 5 MG tablet TAKE 1 TABLET BY MOUTH TWICE A DAY 180 tablet 3 025 Active FeroSul 325 (65 Fe) MG tablet Take 1 tablet by mouth with breakfast. 024 Active sertraline (Zoloft) 100 MG tablet Take 1 tablet by mouth Once per day. Active psyllium (Metamucil) 0.36 g capsule Take 1 capsule by mouth Once per day. Active Multiple Vitamin (multivitamin) capsule Take 1 capsule by mouth Once per day. Active COVID-19 Antigen Test kitIndications: Type 2 diabetes mellitus treated with insulin ([facility]) 1 each by In Vitro route if needed (covid symptoms). 2 kit Active nicotine polacrilex (Nicorette) 4 MG gumIndications: Tobacco use CHEW 1 GUM IF NEEDED FOR SMOKING CESSATION 100 each 3 Active metFORMIN (Glucophage) 500 MG tablet Take 1 tablet (500 mg) by mouth with breakfast and with evening meal. 60 tablet 11 025 2025 Active busPIRone (Buspar) 10 MG tablet Take 1 tablet (10 mg) by mouth 2 times daily. 180 tablet 3 Active rosuvastatin (Crestor) 20 MG tablet Take 1 tablet (20 mg) by mouth Once per day. 90 tablet 3 Active Lantus SoloStar 100 UNIT/ML pen INJECT 20 UNITS UNDER THE SKIN EVERY NIGHT AT BEDTIME 15 mL 3 Active ammonium lactate (Amlactin) 12 % cream 1 Application 2 times daily. Active insulin pen needle (BD Pen Needle Aleena 2nd Gen) 32G x 4 mm miscIndications :Type 2 diabetes mellitus treated with insulin ([facility]) USE ONE EACH BY MISCELLANEOUS ROUTE DAILY 100 each 3 Active oxyCODONE (Roxicodone) 5 MG immediate release tablet Take 5 mg by mouth. Active albuterol 108 (90 Base) MCG/ACT inhalerIndicati ons:COPD exacerbation (CMS/HCC) ([facility]) Inhale 2 puffs every 6 (six) hours if needed for wheezing. 18 g 11 025 2025 Active Tiotropium [place] (Spiriva HandiHaler) [address] 1 Inhalation into inhaler and inhale Once per day. 30 capsule 11 Active predniSONE (Deltasone) 20 MG tabletIndicatio ns:COPD exacerbation (CMS/HCC) ([facility]) Take 2 tablets (40 mg) by mouth Once per day for 5 days. 10 tablet 025 2024 Active azithromycin (Zithromax) 250 MG tablet Take 1 tablet (250 mg) by mouth Once per day for 5 days. On the first day take 500mg 6 tablet 025 2024 Active BD Pen Needle Aleena 2nd Gen 32G X 4 MM misc USE ONE EACH BY MISCELLANEOUS ROUTE DAILY 024 2024 Discontinued(R eorder (will not trigger notification to Pharmacy)) albuterol 108 (90 Base) MCG/ACT inhalerIndicati ons:COPD exacerbation (CMS/HCC) (HCC) Inhale 2 puffs every 6 (six) hours if needed for wheezing. 18 g 11 025 2024 Discontinued(R eorder (will not trigger notification to Pharmacy)) Active Problems Problem Noted Date Diagnosed Date Bilateral carotid artery stenosis 03/13/2025 Fall 03/13/2025 Hyperkalemia 03/13/2025 Pre-op examination 03/13/2025 Tubular adenoma of colon 03/13/2025 Overview (03/13/2025): 5-8 yrs ago in [facility] [place] Varicose veins of both lower extremities COPD exacerbation (CMS/HCC) 03/13/2025 Assessment & Plan (03/13/2025 4:49 PM EST): -Acute exacerbation of COPD -Start prednisone 40mg daily x 5 days and Azithromycin 500mg x 1, then 250mg x 4 days -Continue maintenance inhaler: Sprivia 1puff daily -Albuterol PRN every 2-4 hours -Reviewed med safety and SE Follow up with any worsening or lack of improvement in 48-72 hours Acquired hammer toe of left foot 12/27/2024 Acquired hammer toe of right foot 12/27/2024 Occlusion and stenosis of bilateral carotid carrie corbin 12/27/2024 Type 2 diabetes mellitus wit h diabetic peripheral angiopathy without gangrene 12/27/2024 Pain of left calf 12/27/2024 Assessment & Plan (12/27/2024 4:35 PM EDT): On the differential: PAD-- ordered arterial duplex US with PRANAY D dimer to rule out DVT, venous duple US if positive . D dimer returned <150, ruling out need for venous US Foot drop- PT referral Counseling regarding end [...] to remove his sling Fracture of maxilla ([facility]) 05/20/2024 Congestive heart failure 05/20/2024 [...] neoplasia 10/2023 F/u every 6 months with [facility] oncology Stage 3b chronic kidney disease ([facility]/HCC) 2023 Assessment & Plan (11/24/2023 4:18 [...] treatments and medications 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[facility]) 03/02/2022 Overview (09/21/2023): Last Assessment [...] Encounters Date Type Department Care Team Description 03/13/2025 3:30 PM EST Office Visit [facility] [address] [place] [phone] Kath Bose MD Shortness of breath; Cough, unspecified type; COPD exacerbation ([facility]) ([facility]) 03/13/2025 Telephone [facility] [address] [place] [phone] Kath Bose MD Nurse Triage 03/03/2025 Orders Only [facility] [address] [place] [address] Kath Bose MD Pain of left calf (Primary Dx); Cold extremities; Arterial stenosis 03/03/2025 Results Follow-Up [facility] [address] [place] [address] Kath Bose MD Vascular US lower extremity arterial duplex bilateral with PRANAY 02/03/2025 2:30 PM EST Office Visit [facility]ET[facility] [address] [place] [address] Iman Teresa, OD Type 2 diabetes mellitus without ophthalmic manifestations (HCC) (Primary Dx); Combined forms of age-related cataract of both eyes; Presbyopia 02/03/2025 Travel 02/01/2025 Travel 01/09/2025 Orders Only [facility] [address] [place] [address] Kath Bose MD Osteopenia of left ankle (Primary Dx) 01/09/2025 Telephone [facility] [address] [place] [address] Kath Bose MD 12/28/[address] [address] Kath Bose MD Results 12/27/2024 11:15 AM EDT Office Visit [facility] [address] [place] [phone] Kath Bose MD Pain of left calf (Primary Dx); Congestive heart failure, unspecified HF chronicity, unspecified heart failure type (HCC); 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); Dietary counseling; Exercise counseling; Overweight; Abnormal MRI; Foot drop, left 12/27/2024 Orders Only [facility] [address] [place] [phone] Kath Bose MD 12/27/2024 Travel 12/27/[address] [address] Kath Bose MD Nurse Triage from Last 3 Months Immunizations Immunization Administration Dates Next Due Influenza High-dose Quadriva lent Preservative Free 01/27/2022,12/06/2020 Influenza Quadrivalent Adjuvanted 12/19/2022 Influenza, High Dose Seasona l, Preservative Free 03/19/2018 Influenza, IIV3, injectable 03/28/2014, 2 Influenza, Split (incl. pierre fied surface antigen) 02/08/2008 Influenza, seasonal, injecta ble, preservative free 01/23/2025 Mary SARS-CoV-2 Vaccination 09/05/2020 Moderna Covid-19 Vaccine [...] Mass Index 25.22 03/13/2025 3:28 PM EST Plan of Treatment Upcoming Encounters Date Type Department Care Team (Late st Contact Info) Description 05/19/2025 11:15 AM EST Office Visit [facility] [address] [place] [address] Kath Bose MD [address] [place] [address] Health Maintenance Due Date Last Done Comments CT Colonography 1950 Colonoscopy 1950 FIT DNA/Cologuard 1950 FOBT 1950 Sigmoidoscopy 1950 Alcohol/Substance Use Screening 1962 Diabetes: Urine Protein Screening 1969 Colorectal Cancer Screening 11/05/2021 FIT 11/05/2021 11/05/2020 Depression Monitoring 03/25/2024 09/23/2023, 024 SDOH Screening 09/22/2024 09/23/2023 Diabetes: Foot Exam 09/24/2024 09/25/2023 Diabetes: Hemoglobin A1C 03/29/2025 025, 06/14/2024, 12/25/2023, Additional history exists COVID-19 Vaccine ( season) 2025 12/09/2024, 01/14/2023, 07/16/2022, Additional history exists Lipid Panel 12/27/2025 12/27/2024, 05/27/2023 Tobacco Screening 03/13/2026 03/13/2025 Eye Exam 02/03/2027 02/03/2025, 01/21, 02/03/2025, Additional history exists DTaP/Tdap/Td Vaccines (4 - Td or Tdap) 12/24/2033 12/25/2023, 11/03/2012, 08/05/2011 Zoster Vaccines Completed 02/03/2019, 03/19/2018 RSV Patients and Patients Aged 60 years or older Completed 02/10/2023, 02/10/2023 Pneumococcal Vaccine: 50+ Years Completed 12/25/2023, 05/27/2016, 12/24/2010 Hepatitis C Screening Completed 12/27/2024 Influenza Vaccine Completed 01/23/2025, , 01/27/2022, Additional history exists HIB Vaccines Aged Out No longer eligi [...] on patient's age to complete this topic Goals Goal Patient Goal Type Associated Problems Recent Progress Patient-Stated? Author Help patients manage their type 2 diabetes Care Plan Help patients manage their type 2 diabetes No Iman Teresa OD Patient has chronic kidney disease Care Plan Patient has chronic kidney disease Iman Lagos OD Patient has chronic kidney disease Care Plan Patient has chronic kidney disease No Meredith Pantoja, RN Patient has chronic kidney disease Care [...] chronic kidney disease No Kath Bose MD Procedures Procedure Name Priority Date/Time Associated Diagnosis [...] EST Shortness of breath Cough, unspecified type VASC US LOWER EXTREMITY ARTERIAL DUPLEX BILATERAL WITH PRANAY Routine 03/02/2025 11:19 AM EST Pain of left calf CBC WITH AUTO DIFFERENTIAL Routine 12/27/2024 12:15 PM EDT COMPREHENSIVE METABOLIC PANEL Routine 12/27/2024 12:15 PM EDT Congestive heart failure, unspecified HF chronicity, unspecified heart failure type (HCC) D DIMER HIGH SENSITIVITY Routine 12/27/2024 12:15 PM EDT Pain of left calf HEPATITIS C AB W/REFL TO HCV RNA, QN, PCR Routine 12/27/2024 12:15 PM EDT Type 2 diabetes mellitus treated with insulin (HCC) LIPID PANEL, STANDARD Routine 12/27/2024 12:15 PM EDT Type 2 diabetes mellitus treated with insulin (HCC) POCT GLYCATED HEMOGLOBIN, TOTAL Routine 12/27/2024 11:42 AM EDT 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) POCT GLUCOSE (CPT-23521) Routine 12/27/2024 11:24 AM EDT 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) from Last 3 Months Results * XR Chest 2 Views (03/13/2025 4:22 PM EST) Anatomical Region Laterality Modality Chest Radiographic Terri ging 03/13/2025 4:22 PM EST Narrative 03/13/2025 4:32 PM EST [address] [address] XRay Report Signed Patient: Boone Newby Jr MR#: [id number] : 1950 Acct:[id number] Age/Sex: 74 / M ADM Date: 03/13/25 Loc: HO.HHCX Attending Dr: Kath Bose MD Ordering Physician: Kath Bose Date of Service: 03/13/25 Procedure(s): XR chest 2V Accession Number(s): [id number] cc: Kath Bose Reason for Exam: cough [...] 03/13/25 1630 DD/ 1622 TD/TT: 03/13/25 1612 Windows Consultant: [facility] Procedure Note Donotuseinterpreter, Image - 03/13/2025 [facility] [address] [place] [address] XRay Report Signed Patient: Boone Newby JrMR#: [id number] : 1950cct:[id number] Age/Sex: 74 / MADM Date: 03/13/25 [facility]: Kath Bose MD Ordering Physician: Kath Bose Date of Service: 03/13/25 Procedure(s): XR chest 2V Accession Number(s): [id number] cc: Kath Bose Reason for Exam: cough [...] 03/13/25 1630 DD/ 1622 TD/TT: 03/13/25 1612 Windows Consultant: [facility] Kath Bose MD IMG XR PROCEDURES Final Result * POCT Rapid Influenza A SAENZ ID NOW (03/13/2025 3:41 PM EST) Influenza A Negative Negative, Indeterminate [facility] QC Media Lot # [id number] [facility] Lot# Expiration Date [id number] [facility] Swab 03/13/2025 3:41 PM EST Kath Bose MD POINT OF CARE TEST ENTER/EDIT ORDERABLES Final Result Performing Organization Address City/[facility] Co de Phone Number [facility] [address] [place] [phone] * POCT Rapid Influenza B SAENZ ID NOW (03/13/2025 3:40 PM EST) Influenza B Negative Negative, Indeterminate [facility] QC Media Lot # [id number] [facility] Lot# Expiration Date 3510,027 [facility] Swab 03/13/2025 3:40 PM EST Kath Bose MD POINT OF CARE TEST ENTER/EDIT ORDERABLES Final Result Performing Organization Address [facility] Co de Phone Number [facility] [address] [place] [phone] * POCT Rapid Covid-19 BinaxNOW (03/13/2025 3:40 PM EST) Rapid COVID Ag Negative QC Media Lot # [id number] Lot# Expiration Date [id number] Swab 03/13/2025 3:40 PM EST Kath Bose MD POINT OF CARE TEST ENTER/EDIT ORDERABLES Final Result * Vascular US lower extremity arterial duplex bilateral with PRANAY (03/02/2025 11:19 AM EST) 03/02/2025 11:1 9 AM EST Narrative [facility] - 03/02/2025 12:54 PM EST [address] [address] Ultrasound Report Signed Patient: Boone Newby Jr MR#: [id number] : 1950 Acct:[id number] Age/Sex: 74 / M ADM Date: 03/02/25 Loc: .US Attending Dr: Kath Bose MD Ordering Physician: Kath Bose Date of Service: 03/02/25 Procedure(s): US arterial duplex BI w/ PRANAY Accession Number(s): [id number] cc: Kath Bose Reason for Exam: left calf pain EXAMINATION: Noninvasive assessment of the bilateral lower extremities with ARTERIAL DUPLEX, ANKLE BRACHIAL INDICES (ABIs), and PULSE VOLUME RECORDINGS (PVRs). CLINICAL INFORMATION: Left calf pain. TECHNIQUE: Duplex Doppler techniques with waveform analysis and measurement of velocities in the bilateral common femoral, profunda femoris, superficial femoral, popliteal and tibial arteries were performed. Additionally, ankle pulse volume recordings, ankle pressure measurements and ankle brachial indices were obtained of the lower extremity arterial system bilaterally. The study was performed only at rest. COMPARISON: None FINDINGS: DIRECT DUPLEX DOPPLER FINDINGS: RIGHT LEG: Common femoral artery: 139 cm/s, phasicity: Triphasic. Spectral broadening. Profunda femoris artery: 122 cm/s, phasicity: Triphasic. Spectral broadening. Superficial femoral artery (proximal): 110 cm/s, phasicity: Triphasic. Spectral broadening. Superficial femoral artery (mid): 115 cm/s, phasicity: Triphasic. Spectral broadening. Superficial femoral artery (distal): 126 cm/s, phasicity: Triphasic. Popliteal artery: 79 cm/s, phasicity: Biphasic. Spectral broadening. Posterior tibial artery: 43 cm/s, phasicity: Biphasic. Spectral broadening. Peroneal artery: 37 cm/s, phasicity: Biphasic. Spectral broadening. Anterior tibial artery: 35 cm/s, phasicity: Biphasic. Spectral broadening. Dorsalis pedis artery: 21 cm/s, phasicity:Biphasic. Spectral broadening. LEFT LEG: Common femoral artery: 282 cm/s, phasicity: Triphasic. Spectral broadening. Profunda femoris artery: 125 cm/s, phasicity: Triphasic. Spectral broadening. Superficial femoral artery (proximal): 326 cm/s, phasicity: Monophasic. Spectral broadening. Superficial femoral artery (mid): 184 cm/s, phasicity: Monophasic. Spectral broadening. Superficial femoral artery (distal): 62 cm/s, phasicity: Monophasic. Spectral broadening. Popliteal artery: 34 cm/s, phasicity: Monophasic. Spectral broadening. Posterior tibial artery: 20 cm/s, phasicity: Monophasic. Spectral broadening. Peroneal artery: 19 cm/s, phasicity: Monophasic. Spectral broadening. Anterior tibial artery: 15 cm/s, phasicity: Monophasic. Spectral broadening. Dorsalis pedis artery: 11 cm/s, phasicity: Monophasic. Spectral broadening. BRACHIAL PRESSURES: Right: 112 Left: 117 ANKLE PRESSURES: Right: PT 128, DP 128 Left: PT 78, DP 80 ANKLE-BRACHIAL INDEX: Right: 1.09 Left: 0.68 ANKLE PVR WAVEFORMS: Right: Normal Left: Abnormal US/US arterial duplex BI w/ PRANAY IMPRESSION: Right leg: Mild to moderate inflow disease involving the arteries below the knee. Left leg: Severe inflow disease throughout the interrogated arteries with likely high degree stenosis and the common femoral artery and proximal superficial femoral artery. PRANAY Reference: - >1.4 = calcified vessels - 0.9 - 1.4 = normal - no significant arterial disease - 0.7 - 0.89 = mild peripheral arterial disease - 0.51 - 0.69 = moderate peripheral arterial disease - 0.50 = severe peripheral arterial disease - < .30 = critical arterial disease Electronically signed by: Steven Hurley MD 03/02/2025 12:51 PM [facility] Dictated By: Steven Bravo MD Signed By: <Electronically signed by Steven Dumas MD in OV> 03/02/25 1251 DD/ 1119 TD/TT: 03/02/25 1158 Windows Consultant: Procedure Note Donotuseinterpreter, Image - 03/02/2025 [place] [address] Ultrasound Report Signed Patient: Boone Newby [facility]#: [id number] : 1950cct:[id number] Age/Sex: 74 / MADM Date: 03/02/25 Loc: HO.US Attending Dr: Kath Bose MD Ordering Physician: Kath Bose Date of Service: 03/02/25 Procedure(s): US arterial duplex BI w/ PRANAY Accession Number(s): [id number] cc: Kath Bose Reason for Exam: left calf pain EXAMINATION: Noninvasive assessment of the bilateral lower extremities with ARTERIAL DUPLEX, ANKLE BRACHIAL INDICES (ABIs), and PULSE VOLUME RECORDINGS (PVRs). CLINICAL INFORMATION: Left calf pain. TECHNIQUE: Duplex Doppler techniques with waveform analysis and measurement of velocities in the bilateral common femoral, profunda femoris, superficial femoral, popliteal and tibial arteries were performed. Additionally, ankle pulse volume recordings, ankle pressure measurements and ankle brachial indices were obtained of the lower extremity arterial system bilaterally. The study was performed only at rest. COMPARISON: None FINDINGS: DIRECT DUPLEX DOPPLER FINDINGS: RIGHT LEG: Common femoral artery: 139 cm/s, phasicity: Triphasic. Spectral broadening. Profunda femoris artery: 122 cm/s, phasicity: Triphasic. Spectral broadening. Superficial femoral artery (proximal): 110 cm/s, phasicity: Triphasic. Spectral broadening. Superficial femoral artery (mid): 115 cm/s, phasicity: Triphasic. Spectral broadening. Superficial femoral artery (distal): 126 cm/s, phasicity: Triphasic. Popliteal artery: 79 cm/s, phasicity: Biphasic. Spectral broadening. Posterior tibial artery: 43 cm/s, phasicity: Biphasic. Spectral broadening. Peroneal artery: 37 cm/s, phasicity: Biphasic. Spectral broadening. Anterior tibial artery: 35 cm/s, phasicity: Biphasic. Spectral broadening. Dorsalis pedis artery: 21 cm/s, phasicity:Biphasic. Spectral broadening. LEFT LEG: Common femoral artery: 282 cm/s, phasicity: Triphasic. Spectral broadening. Profunda femoris artery: 125 cm/s, phasicity: Triphasic. Spectral broadening. Superficial femoral artery (proximal): 326 cm/s, phasicity: Monophasic. Spectral broadening. Superficial femoral artery (mid): 184 cm/s, phasicity: Monophasic. Spectral broadening. Superficial femoral artery (distal): 62 cm/s, phasicity: Monophasic. Spectral broadening. Popliteal artery: 34 cm/s, phasicity: Monophasic. Spectral broadening. Posterior tibial artery: 20 cm/s, phasicity: Monophasic. Spectral broadening. Peroneal artery: 19 cm/s, phasicity: Monophasic. Spectral broadening. Anterior tibial artery: 15 cm/s, phasicity: Monophasic. Spectral broadening. Dorsalis pedis artery: 11 cm/s, phasicity: Monophasic. Spectral broadening. BRACHIAL PRESSURES: Right: 112 Left: 117 ANKLE PRESSURES: Right: PT 128, DP 128 Left: PT 78, DP 80 ANKLE-BRACHIAL INDEX: Right: 1.09 Left: 0.68 ANKLE PVR WAVEFORMS: Right: Normal Left: Abnormal US/US arterial duplex BI w/ PRANAY IMPRESSION: Right leg: Mild to moderate inflow disease involving the arteries below the knee. Left leg: Severe inflow disease throughout the interrogated arteries with likely high degree stenosis and the common femoral artery and proximal superficial femoral artery. PRANAY Reference: - >1.4 = calcified vessels - 0.9 - 1.4 = normal - no significant arterial disease - 0.7 - 0.89 = mild peripheral arterial disease - 0.51 - 0.69 = moderate peripheral arterial disease - 0.50 = severe peripheral arterial disease - < .30 = critical arterial disease Electronically signed by: Steven Hurley MD 03/02/2025 12:51 PM EST RP Dictated By: Steven Bravo MD Signed By: <Electronically signed by Steven Dumas MDin OV> 03/02/25 1251 DD/ 1119 TD/TT: 03/02/25 1158 Windows Consultant: Kath Bose MD CV VASCULAR PROCEDURES Edited Result - Final [facility] [address] [place] [address] [phone] * D Dimer High Sensitivity (12/27/2024 12:15 PM EDT) D Dimer High Sensitivity <150 NG/ML [facility] Comment:D-DIMER HS REFERENCE RANGENote: Our assay reports D-Dimer Units (D- DU).The cut-off value for venous thromboembolic (VTE) disease is230 ng/mL. This value has a very high negative predictivevalue when the patient has a low to moderate clinicalprobability of VTE.The upper limit of normal is 243 ng/mL. Blood 12/27/2024 12:1 5 PM EDT 12/27/2024 1:30 PM EDT us Kath Bose MD LAB BLOOD ORDERABLES Final Res ult [facility] [address] [place], [place] [phone] * (ABNORMAL) CBC auto differential (12/27/2024 12:15 PM EDT) White Blood Count 8.2 4.8 - 10.8 X10*3/uL [facility] Red Blood Count 4.75 4.60 - 5.80 X10*6/uL [facility] Hemoglobin 15.4 14.0 - 18.0 g/dl [facility] Hematocrit 45.4 42.0 - 52.0 % [facility] Mean Corpuscular Volume 95.6 80.0 - 98.0 fL [facility] Mean Corpuscular Hemoglobin 32.4 27.0 - 33.0 pg [facility] Mean Corpuscular HGB Conc 33.9 31.0 - 36.0 g/dl [facility] Red Cell Distribution Width 12.2 11.0 - 16.0 % [facility] Platelet Count 183 160 - 400 X10*3/uL [facility] Mean Platelet Volume 13.1(H) 9.4 - 12.4 fL [facility] Neutrophils Percent Auto 66.1 45 - 73 % [facility] Imm Gran Pct Auto 0.6(H) 0.0 - 0.4 % [facility] Lymphocytes Percent Auto 22.7 20 - 40 % [facility] Monocytes Percent Auto 7.9 2 - 11 % [facility] Eosinophils Percent Auto 2.2 0 - 4 % [facility] Basophils Percent Auto 0.5 0 - 2 % [facility] NRBC Pct Auto 0.0 0.0 - 0.2 /100WBC [facility] Neutrophils Absolute Auto 5.4 2.0 - 8.3 x10*3/uL [facility] Imm Gran Abs Auto 0.05(H) 0.00 - 0.03 X10*3/uL [facility] Lymphocytes Absolute Auto 1.9 1.2 - 4.9 X10*3/uL [facility] Monocytes Absolute Auto 0.7 0.1 - 1.2 X10*3/uL [facility] Eosinophils Absolute Auto 0.2 0.0 - 0.4 X10*3/uL [facility] Basophils Absolute Auto 0.0 0.0 - 0.2 X10*3/uL [facility] NRBC Abs Auto 0.000 0.0 - 0.012 X10*3/uL [facility] 12/27/2024 12:1 5 PM EDT 12/27/2024 1:30 PM EDT Kath Bose MD LAB BLOOD ORDERABLES Final Res ult Performing Organization Address [facility] Co de Phone Number [facility] [address] [place] [address] [phone] * Hepatitis C Antibody with Reflex to HCV, RNA, Quantitative, Real-Time PCR (12/27/2024 12:15 PM EDT) Hepatitis C Antibody Nonreactive Nonreactive [facility] Comment:Antibodies to HCV no t detected; does not exclude early acuteHCV infection. Blood Venous blood specimen / Unknown 12/27/2024 12:15 PM EDT 12/27/2024 1:28 PM EDT Kath Bose MD LAB BLOOD ORDERABLES Final Res ult Performing Organization Address City/[facility]/ZIP Co de Phone Number [facility] [address] [place] [address] [phone] * (ABNORMAL) Lipid Panel, Standard (12/27/2024 12:15 PM EDT) Triglycerides 165(H) <150 mg/dL [facility] Comment:Desirable Triglyceri de: less than 150 mg/dLBorderline High Triglyceride 150-199 mg/dLHigh Triglyceride: 200-499 mg/dLVery High Triglyceride: greater than or equal to 5OO mg/dL Cholesterol 151 <200 mg/dL [facility] Comment:Desirable Cholestero l: less than 200 mg/dLBorderline High Cholesterol: 200-239 mg/dLHigh Cholesterol: greater than 239 mg/dL LDL Cholesterol Calculated 79 <100 mg/dL [facility] Comment:Desirable LDL: less than 100 mg/dLNear Optimal/Above Optimal LDL: 110- 129 mg/dLBorderline High LDL: 130-159 mg/dLHigh LDL: 160-189 mg/dLVery High LDL: greater than or equal to 190 mg/dL HDL Cholesterol 39(L) >40 mg/dL [facility] Comment:Desirable HDL: grea ter than 40 mg/dL Note: This HDL assay may give artificially low results in patients with liver disease. Blood Venous blood specimen / Unknown 12/27/2024 12:15 PM EDT 12/27/2024 1:28 PM EDT us Kath Bose MD LAB BLOOD ORDERABLES Final Res ult [facility] [address] [place] [phone] * (ABNORMAL) Comprehensive Metabolic Panel (12/27/2024 12:15 PM EDT) Sodium 139 135 - 145 mmol/L [facility] Potassium 4.9 3.3 - 5.1 mmol/L [facility] Chloride 103 96 - 108 mmol/L [facility] Carbon Dioxide 27 22 - 29 mmol/L [facility] Anion Gap 14 12 - 20 [facility] Urea Nitrogen (BUN) 29(H) 9 - 16 mg/dL [facility] Creatinine, Serum 1.87(H) 0.5 - 1.4 mg/dL [facility] Estimated Glomerular Filt Rate 36 [facility] Comment:Chronic Kidney Disea se: Estimated GFR < 60 mL/min/[id number] Kidney Disease: Estimated GFR < 15 mL/min/1.73m2 Glucose 251(H) 60 - 115 mg/dL [facility] Calcium 9.7 8.4 - 10.2 mg/dL [facility] Bilirubin, Total 0.6 0.0 - 1.0 mg/dL [facility] Aspartate Amino Transferase 36 5 - 37 U/L [facility] Alanine Aminotransferase 34 0 - 40 U/L [facility] Total Protein 7.2 6.5 - 8.0 g/dL [facility] Albumin Level 4.5 3.5 - 5.0 g/dL [facility] Alkaline Phosphatase 67 39 - 117 U/L [facility] Blood Venous blood specimen / Unknown 12/27/2024 12:15 PM EDT 12/27/2024 1:28 PM EDT Result [facility] us Kath Bose MD LAB BLOOD ORDERABLES Final Res ult [facility] [address] [place] [phone] * (ABNORMAL) POCT Hgb A1c (12/27/2024 11:42 AM EDT) Hemoglobin A1C 10.9(A) 4.0 - 5.7 % QC Media Lot # [id number] Lot# Expiration Date Blood 12/27/2024 11:4 2 AM EDT us Kath Bose MD POINT OF CARE TEST ENTER/EDIT ORDERABLES Final Result * (ABNORMAL) POCT Glucose (12/27/2024 11:24 AM EDT) Glucose Blood, POC 278(A) 60 - 200 mg/dL [employer] Lot # [id number] Lot# Expiration Date Blood Capillary blood specimen / Unknown 12/27/2024 11:24 AM EDT us Kath Bose MD POINT OF CARE TEST ENTER/EDIT ORDERABLES Final Result from Last 3 Months Additional Health Concerns Active Problems Noted Date [...] 03/13/2025 Patient has chronic kidney disease 03/13/2025 Insurance [facility] MEDICARE REPLACEMENT Advance Directives Documents on File Type Date Recorded Patient [employer] Expl anation Advance Directives and Living Will 09/23/2023 Health Care Proxy 09/23/23 Advance Directives and Living Will 06/14/2024 2:27 PM [facility] HealthCare Proxy 09/23/2023 Care Teams Collision Worker Relationship Specialty Start Date End Date Kath Bose MD [address] [place] [address] PCP - General [facility]
--- OUTSIDE RECORDS SUMMARY | 2025-03-13 18:42 | XMS_ITS | Data Portability ---
Author Organization [facility], Main Office Address [address] [place] [address] [address] [place] [address] Care Team Providers Care Drilling Fluids Specialist Name Role Phone CAREONE (NONO UNIT) OTHER Assessment Encounter Date Assessment Date Assessment LastModified by Organization Details LastModified Time 05/26/2024 05/26/202405/23-BUN 32, Glucose 270, albumin 3.7, total protein 5.6, EGFR 58 [email or web address] Not available 05/26/2024 11:54:25 05/27/2024 05/27/202405/23-BUN 32, [...] Recorded Time Fracture of shaft of humerus 05877236 Active 2024 Katelynn Bhatti MD [address] [place] [address], [facility] [address], [place], [address] , [facility] [place] 5 16:49:26 Fracture of maxilla 460478088 Active 2024 Katelynn Bhatti MD [address] [place] [address], [address], [place], [address] , [facility] 5 16:48:19 Muscle weakness 31854448 Active 2024 Not Available [facility] 5 16:46:48 Oral phase dysphagia 879168403 Active 2024 Not Available [facility] 5 16:47:17 Chronic obstructive pulmonary disease 61744141 Active 2024 Not Available [facility] 5 16:48:16 Monoclonal gammopathy (clinical) 313664158 Active 2024 Katelynn Bhatti MD [address], [address], [place], [address] , [facility] 5 16:49:39 Congestive heart failure 86979661 Active 2024 Not Available [facility] 5 16:49:17 Anemia 879894564 Active 2024 Not Available [facility] 5 16:50:16 Recurrent major depression 61078591 Active 2024 Not Available [facility] 5 16:52:16 Anxiety disorder 683380678 Active 2024 Not Available [facility] 5 16:51:45 Carotid artery obstruction 41051195 Active 2024 Not Available [facility] 5 16:51:46 Acute kidney injury 08773408 Active 2024 FELISA VERA [address], [address], [place], [address] , [facility] 5 09:47:17 Orthostatic hypotension 65986754 Active 2024 FELISA VERA [address], [address], [place], [address] , [facility] 5 09:47:25 Hyperkalemia 68924458 Active 2024 FELISA VERA [address], [address], [place], [address] , [facility] 5 09:47:34 Fall Active 2024 FELISA VERA [address], [address], [place], [address] , [facility] 5 09:47:41 Fracture of maxillary alveolar bone 897740749 Active [address], [place], [address] , [facility] 5 09:48:04 Closed fracture of patella 65993181 Active [address], [place], [address] , [facility] 5 09:48:32 Essential hypertension 09670384 Active 2024 FELISA VERA [address] [facility], [address], [place], [address] , [facility] 5 09:54:31 Hyperlipidemi a 25184304 Active 2024 FELISA VERA [address] [facility], [address], [place], [address] , [facility] 5 09:55:46 Type 2 diabetes mellitus 44180028 Active 2024 Katelynn Bhatti MD [address], [place], [address] , [facility] 5 16:49:45 Mood disorder 84167598 Active 2024 FELISA VERA [address] [facility], [address], [place], [address] , [facility] 5 09:58:22 Closed fracture of patella 76055606 Active 2024 Katelynn Bhatti MD [address] [place] [address], [address], [place], [address] , [facility] 5 16:49:01 Fracture of humerus 96157833 Active 2024 Katelynn Bhatti MD [address] [place] [address], [address], [place], [address] , [facility] 5 16:47:23 Chronic kidney disease stage 3A 904785040 Active 2024 Katelynn Bhatti MD [address] [facility], [address], [place], [address] , [facility] 5 16:26:56 Problem Notes None recorded. Procedures Surgical History Date Name Laterality Status Provider Name and Address Organization Details Recorded Time colonoscopy completed FELISA VERA [address] [facility], [address], [place], [address], [facility] 05/23/2024 07:33:17 Imaging Results None recorded. Procedure Notes None recorded. Medical Equipment None Reported. Allergies Allergen ID Allergen Name Allergen Category Reaction Reaction Severity Criticality Documentation Date Start Date Code Code System Note Provider Name and Address Organization Details Recorded Time 13445 codeine medicatio n Not available Not available [...] rate Respiratory rate Body temperature Oxygen saturation Systolic And Diastolic Provider Name and Address Organization Details Last Updated DateTime 5 28616.9 3 g 23.3 kg/m2 180.34 cm 68 /min 18 /min 97.2 [degF] 95 % 138/69 mm[Hg] Katelynn Bhatti MD [address] , [address], [place], [address], [facility] 5 14:25:54 Date Recorded Body height Systolic And Diastolic Provider Name and Address Organization Details Last Updated DateTime 05/30/2024 180.34 cm 123/54 mm[Hg] ABDI VILLEDA [address], [place], [address], [facility] 05/30/2024 09:48:01 Date Recorded Body height Systolic And Diastolic Provider Name and Address Organization Details Last Updated DateTime 06/02/2024 180.34 cm 113/61 mm[Hg] ABDI VILLEDA [address] , [address], [place], [address], [facility] 06/02/2024 09:46:08 Social History Question Answer Notes LastModified by Organizat ion Details LastModified Time Tobacco Smoking Status Current Every Day Smoker FELISA VERA [address], [address], [place], [address], [facility] 05/23/2024 07:32:36 Do You Have An Advance Directive? No [email or web address] Information not available 05/23/2024 What Is Your Code Status? Full Code Information not available 05/27/2024 Where Do You Live? Apartment In Elderly Complex With Elevator Information not available 05/27/2024 Legal Guardian? No Informati on not available 05/27/2024 Do You Have A Medical Power Of Co Founder & Ceo? Yes Information not available 05/27/2024 What Was The Date Of Your Most Recent Tobacco Screening? 05/27/2024 Information not available 05/27/2024 Do You Have An Out Of Hospital DNR? No Information not available 05/27/2024 What Is Your Relationship Status? Lost 3 Yrs Ago, Very Hard, Had Been Together Since He Was 19 Information not available 05/27/2024 How Much Tobacco Do You Smoke? 0.25 PPD Information not available 05/23/2024 Has Tobacco Cessation Counseling Been Provided? Yes [email or web address] Information not available 05/23/2024 On What Date Was Tobacco Cessation Counseling Provided? 05/27/2024 Plans On Staying Quit, Doesn't Want Patch Or Gum At This Time Information not available 05/27/2024 How Many Years Have You Smoked Tobacco? 68 [email or web address] Information not available 05/23/2024 Sex: Unknown Functional Status Question Answer Note LastModified by Organizat ion Details LastModified Time Do you use any illicit or recreational drugs? No Information not available 05/23/2024 Do you or have you ever used any other forms of tobacco or nicotine? No [email or web address] Information not available 05/23/2024 What is your level of alcohol consumption? None [email or web address] Information not available 05/23/2024 Mental Status None recorded. Family History Nothing Reported. Medical History No medical history recorded. Immunizations Vaccine Type Date Status Note Provider Haroldo dominique and Address Organization Details Recorded Time Respiratory syncytial virus (RSV) MAB, unspecified 3 completed Partha agudelo [employer] [facility] 05/23/2024 14:04:35 Td(adult) unspecified formulation 4 completed Partha agudelo [facility] 05/23/2024 14:04:46 Pneumococcal conjugate PCV 13 4 completed Partha Padillas-Whitten null, [facility] 05/23/2024 14:05:03 influenza, unspecified formulation 1 completed Partha Padillas-Whitten null, [facility] 05/23/2024 14:05:14 influenza, unspecified formulation 2 completed Partha Jacks-Whitten null, [facility] 05/23/2024 14:05:20 influenza, unspecified formulation 3 completed Partha Jacks-Whitten null, [facility] 05/23/2024 14:05:24 SARS-COV-2 (COVID-19) vaccine, UNSPECIFIED 1 completed Partha Padillas-Whitten null, [facility] 05/23/2024 14:05:37 SARS-COV-2 (COVID-19) vaccine, UNSPECIFIED 1 completed Partha Jacks-Whitten null, [facility] 05/23/2024 14:05:41 SARS-COV-2 (COVID-19) vaccine, UNSPECIFIED 1 completed Partha Jacks-Whitten null, [facility] 05/23/2024 14:05:45 SARS-COV-2 (COVID-19) vaccine, UNSPECIFIED 2 completed Partha Jacks-Whitten null, [facility] 05/23/2024 14:05:49 SARS-COV-2 (COVID-19) vaccine, UNSPECIFIED 2 completed Partha Jacks-Whitten null, [facility] 05/23/2024 14:05:53 SARS-COV-2 (COVID-19) vaccine, UNSPECIFIED 3 completed Partha Jacks-Whitten null, [facility] 05/23/2024 14:05:58 SARS-COV-2 (COVID-19) vaccine, UNSPECIFIED 3 completed Partha Jacks-Whitten null, [facility] 05/23/2024 14:06:02 zoster, unspecified formulation 9 completed Partha Jacks-Whitten null, [facility] 05/23/2024 14:06:19 Past Encounters Encounter ID Performer Location Encounter Start Date Encounter Closed Date Diagnosis/Indication Diagnosis SNOMED-CT Code Diagnosis ICD10 Code Diagnosis IMO Codes Diagnosis Note [id number] FELISA VERA at [facility] on [address] [place] [address] 05/21/2024 09:42:09 05/23/2024 10:45:05 Fall 7504608 W19.XXXD fell outside with injuriesli marilee dt orthostasi s with dehydratio nmonitor falls risk Fracture of humerus 6630 8002 S42.301A sp fallright arm in sling Fracture o f maxillary alveolar bone 092457314 S02.42XD sp fallmonito r painno surgical interventi on Closed fra cture of patella 44128520 S82.002A sp fallknee in braceadmit to PT OTnon weight bearingf/u p with ortho ?monitor pain Acute kidney injury 1466 9001 N17.9 [place] on ckdin the setting of dehydratio nimproved with IVFmonitor bmp Hyperkalemia 92532288 E8 7.5 k 5.5resolve d with lokelma inptmonito r bmp Orthostati c hypotension 76268086 I95.1 lisinopril stopped, given IVF and midodrine with improvemen tremains off lisinopril setting of dehydratio nencourage oral hydrationm onitor bp Essential hypertension 74682620 I10 now with low BPsremains off lisinopril monitor bp and labs Hyperlipidemia 21002985 E78.5 on asa and statinlipi ds outpt Type 2 alberto betes mellitus 42416391 E11.9 metformin stopped inptlantus 16 units dailymonit or accuchecks Mood disorder 32193398 F 39 anxiety and depression buspirone 10 mg tidsertral ine 100 mg bid (odd dosing?) Cigarette smoker 7941738 7 F17.210 has nicotine patchstart gum prnproduct matheus loose coughmonit or [id number] MD Heidy Santillan at [facility] on [address] [place] [address] 05/24/2024 11:23:12 06/10/2024 09:51:22 Fracture of humerus 29925820 S42.301A sp fallright arm in slingc/o pain-will start low dose of Oxycodone 2.5 mg po q 6 hours prn Fracture o f maxillary alveolar bone 878113410 S02.42XD sp fallmonito r painno surgical interventi on Closed fra cture of patella 84891340 S82.002A sp fallknee in braceBrace being removed and monitored dailyConti nue PT OTweight bearing as toleratedf /up with orthomonit or pain Acute kidney injury 1466 9001 N17.9 [place] on ckdin the setting of dehydratio nimproved with IVFmonitor bmp, see above labs Hyperkalemia 83349449 E8 7.5 k 5.5resolve d with lokelma inptmonito r bmp , 4.6 today Essential hypertension 74091876 I10 now with low BPsremains off lisinopril monitor bp and labs Type 2 alberto betes mellitus 70498962 E11.9 metformin stopped inptlantus 16 units dailymonit or accuchecks glucose 270 with lab, monitor Mood disorder 26516138 F 39 anxiety and depression buspirone 10 mg tid [id number] FELISA VERA [address] [facility] [address] [place] [address] 05/26/2024 11:52:46 05/30/2024 10:43:37 Fracture of maxillary alveolar bone 079141580 S02.42XD sp fallmonito r painno surgical interventi on Fracture of humerus 6630 8002 S42.301A uncontroll ed painright arm in slingstart tylenol 975 mg tidstart oxy 5 mg qhs and continue oxy 2.5 mg q6h prnmonitor pain and wean as tolerated Closed fra cture of patella 20561679 S82.002A sp fallknee in braceBrace being removed and monitored dailyConti nue PT OTweight bearing as toleratedf /up with orthomonit or pain Essential hypertension 83180734 I10 now with low BPsremains off lisinopril monitor bp and labs Type 2 alberto betes mellitus 99553172 E11.9 metformin stopped inptlantus 16 units dailymonit or accuchecks tid with ss insulinblo od sugars variable Mood disorder 30104362 F 39 mood stableh/o anxiety and depression continue buspirone 10 mg tid [id number] Katelynn Bhatti MD [address] at [facility] on [address] [place] [address] 05/27/2024 14:01:22 05/30/2024 11:15:45 Fracture of maxillary alveolar bone 071308920 S02.42XD No interventi on needed.Michele n control as above.[place] tor Fracture of humerus 6630 8002 S42.321K Continue sling and NWB at all times.Cont inue pain management as above.Reha b as above.F/U with ortho. Closed fra cture of patella 94991752 S82.015K With no evidence of healing on [...] U with ortho as planned. Essential hypertension 82238534 I10 BP remains in good control off lisinopril .Monitor for need to restart a different antihypert ensive. Type 2 alberto betes mellitus 16900764 E11.22 Metformin stopped inpt due to CKD.Sugars variable since here, but all <300Last HgA1C I can find is 7.4 in 08/2023.Con tinue Lantus 16U qd, glipizide 5 mg BID and SSI.Monito r fingerstic ks TID and HgA1C as outpt.May need to increase Lantus or glipizide now that pt is off metformin. Anemia 746196957 D64.89 With marked drop since 02/2024.Li marilee due to fxs.Has been stable since hydration inpt.Rick nue FeSO4 325 mg qd (Had iron of 123 in 02/2024).M onitor labs. Monoclonal gammopathy of uncertain significance 618636611 D47.[address] Ballard at [facility].Last note states: At this time I discussed [...] examinatio n. Chronic ob structive pulmonary disease 72895977 J43.8 No current sxs.On admission here spiriva was left off his meds.Will restart spiriva respimat 2 puffs qd.Monitor for need for rescue inhaler.Mo nitor resp status. Nicotine dependence 5629 4008 F17.213 Had requested nicotine gum, but doesn't look like it was ordered.Wi ll start Chronic ki dney disease stage 3A 760747346 N18.31 Back to baseline.C ontinue to avoid nephrotoxi c meds as able.Monit or labs.Renal consult prn. Mixed anxi ety and depressive disorder 130600845 F41.8 F32.89 Mood ok today.Did make a [...] prn.Monito r mood.Psych consult prn. Chronic diarrhea 6205764 09 K52.9 Lifelong problem.Ta kes imodium if he is going out to the store or other out of home activities .Then takes him 2 days to start going again. [id number] ABDIJEN Moody at [facility] on [address] [facility] [place] [address] 05/30/2024 09:30:23 06/01/2024 14:31:02 Closed fracture of patella 69376687 S82.015K Continue WBAT with PTContinue knee immobilize [...] b as above.F/U with ortho. Essential hypertension 74149262 I10 123/54Moni tor for need to restart a different antihypert ensive. Type 2 alberto betes mellitus 05187352 E11.22 sugar today 133Last HgA1C I can find is 7.4 in 08/2023.Con tinue Lantus 16U qd, glipizide 5 mg BID and SSI.Monito r fingerstic ks TID and HgA1C as outpt.May need to increase Lantus or glipizide now that pt is off metformin. Anemia 571743383 D64.89 Continue FeS04 325 mg qd (Had iron of 123 in 02/2024).l abs tomorrow Chronic ki dney disease stage 3A 853579637 N18.31 labs tomorrow [id number] ABDI Germainsanti at [facility] on [address] [place] [address] 06/02/2024 09:31:20 06/03/2024 13:38:17 Closed fracture of patella 95338356 S82.015K see HPI, doing well with PTContinue [...] ortho. Chronic ki dney disease stage 3A 512740666 N18.31 nvipoz56/1 .60 [id number] ABDI Moody at [facility] on [address] [place] [address] 06/07/2024 06:30:17 06/08/2024 16:07:34 Closed fracture of patella 82989513 S82.015K see HPI, ok to dc home [...] above. Chronic ki dney disease stage 3A 461875461 N18.31 stable Painful pe nile erection 1759453 N48.39 zoloft cut in half, resolvedca ution increasing dose in future Fracture o f maxillary alveolar bone 584670720 S02.42XD No interventi on needed. Essential hypertension 76099823 I10 BP remains in good control off lisinopril . Type 2 alberto betes mellitus 88406152 E11.22 Metformin stopped inpt due to CKD.Sugars variable since here, but all <300Last HgA1C I can find is 7.4 in 08/2023.Con tinue Lantus 16U qd, glipizide 5 mg BID and SSI. Mixed anxi ety and depressive disorder 573833233 F41.8 F32.89 sertraline 100 mg dailyConti nue buspirone 10 mg TID and melatonin 6 mg qhs prn.Monito r mood.Psych consult prn. Anemia 338801247 D64.89 With marked drop since 02/2024.Li marilee due to fxs.Has been stable since hydration inpt.Rick nue FeSO4 325 mg qd (Had iron of 123 in 02/2024). Chronic ob structive pulmonary disease 54903775 J43.8 spiriva respimat 2 puffs qd Chronic diarrhea 2260620 09 K52.9 Lifelong problem.Ta kes imodium if [...] Silva Member ID Guarantor Name 06/05/2024 1 [facility] (MEDICARE REPLACEMENT/A DVANTAGE - PPO) [id number] Boone Newby [id number] Boone Newby 05/24/2024 1 MEDICARE B-[place]: [employer] Boone Newby Jr [id number] Boone Casianouda Notes Date Note Type Note Provider Name and Address Organization Details Recorded Time 5 text/html Pt is a 73 yo male being seen for acute rounding. He presented to [facility] sp fall. He was found to [...] ckd3, anxiety, depression, and diabetes. LEENA VERAC [address] [place] [address], [address], [place], [address], [facility] [employer] 05/27/2024 07:57:17 5 text/html This is a [...] care at other facility. He presented to [facility] ED on fter a fall described as [...] NEVILLE and hyperkalemia. [facility]Info sent from [facility] include MAR and a note saying he saw ortho on 05/20 and is now WBAT.Xrays from 05/20 found in [facility] system show no callous formation of either humerus or patella. And that humerus had worsened malalignment.He was transferred here on 05/20. Since here he has been working with rehab and progressing, he is supervision for bed mobility, transfers and ambulation. He is mod assist for toilet transfers, bathing and lower body dressing. He was seen by [facility] yest due to pain being uncontrolled at night and he was started on a scheduled hs dose of 5 mg oxy, and continues on 2.5 mg q 6 hrs prn.He tells me the night time dose of oxy helps a lot.He feels good about the progress he's making with rehab. His PMH includes HTN, COPD, CKD stage 3B, AODM, HLD, anxiety/depression, AQUILSE, and MGUS. Katelynn Bhatti MD [address] [place] [address], [address], [place], [address], [facility] [employer] 05/27/2024 22:14:26 5 text/html This is a 73 year old male being seen for acute rounding. He presented to [facility] sp fall. He was found to [...] ckd3, anxiety, depression, and diabetes. ABDI Farley [facility], [address], [place], [address], [facility] 05/30/2024 09:52:26 5 text/html This is a 73 year old male being seen for acute rounding. He presented to [facility] sp fall. He was found to [...] ckd3, anxiety, depression, and diabetes. ABDI VILLEDA [address] [place] [address], [address], [place], [address], [facility] 06/02/2024 11:28:45 5 text/html This is a 73 year old male being seen for discharge summary visit. He presented to [facility] sp fall. He was found to [...] ckd3, anxiety, depression, and diabetes. ABDI VILLEDA [address] [place] [address], [address], [place], [address], [facility] 06/07/2024 06:51:08
--- OUTSIDE RECORDS SUMMARY | 2025-03-13 18:42 | XMS_ITS | Encounter Summary ---
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 * Telephone Encounter - Puja Rocha RN - 03/13/2025 3:40 PM EST TC x1 to pt daughter to triage for Nasal Allergies (Hay Fever), Cough, Wheezing, Chest Congestion. No answer, LVM to return call to office and ask for triage nurses. * Telephone Encounter - Kwasi Anaya - 03/13/2025 1:45 PM EST Symptoms: Nasal Allergies (Hay Fever), Cough, Wheezing, Chest Congestion Outcome: Schedule an urgent appointment (within 1 hour) or talk to a nurse or provider soon Reason: Caller denied all higher acuity questions The caller accepted this outcome. Contact daughter at [phone] documented in this encounter Plan of Treatment Upcoming Encounters Date Type Department Care Team (Late st Contact Info) Description 05/19/2025 11:15 AM EST Office Visit [facility] [address] [place] [address] Kath Bose MD [address] [place] [address] documented as of this encounter Goals Goal [...] Bose MD documented as of this encounter Visit Diagnoses Not on filedocumented in this encounter Additional Health Concerns Active [...] documented as of this encounter Care Teams [employer] Helper Relationship Specialty Start Date End Date Kath Bose MD [address] [place] [address] PCP - General Family Medicine 09/23/23 [facility] 06/09/24 documented as of this encounter
--- OUTSIDE RECORDS SUMMARY | 2025-03-13 18:42 | XMS_ITS | Encounter Summary ---
Author Organization [facility] Address [address] [place] [address] Phone Care Team Providers Care Synthetic Plasterer Name Role Phone Nikole Johnson PA-C Unavailable [phone] Darlyn Velasquez DO Unavailable Iwona Torre RD Unavailable [phone] Kath Bose MD Primary Care Provider + Lizzie Ballard Unavailable Encounter Details Date Type Department Care Team (Late st Contact Info) Description 11/09/2023 Procedure Pass [facility], Ct Scan - [facility] [address] [place] [address] Social History Tobacco Use Types Packs/Day Years [...] documented as of this encounter Care Teams Synthetic Plasterer Relationship Specialty Start Date End Date Kath Bose MD [address] [place] [address] PCP - General Family Medicine 11/09/23 Nikole Johnson, PAYazminC [address] [place] [phone] Historical LMR Provider 04/22/18 Darlyn Velasquez DO [address] [place] [address] [address] [place] [address] [email or web address] Historical LMR Provider 04/22/[address] [place] [address] Historical LMR Provider 04/22/18 Lizzie Ballard MBBS [address] [place] [address] Primary Oncologist Medical Oncology 03/02/24 documented as of this encounter Additional Source Comments The information contained in this document represents components of the legal health record. It is not the complete legal health record.[facility]
--- OUTSIDE RECORDS SUMMARY | 2025-03-13 18:42 | XMS_ITS | Encounter Summary ---
Author Organization [employer] Address [address] [facility] 7t [place] [address] Care Team Providers Care Caramel Maker Name Role Phone Kath Camacho MD Primary Care Provider [phone] Reason for Visit * Reason Onset Date Comments Appointment Request 06/06/2024 Encounter Details Date Type Department Care Team ([facility] Contact Info) Description 06/06/2024 Telephone [facility] [address] [place] [address] Kath Camacho MD [address] [place] [address] Appointment Request Social History Tobacco Use Types [...] 12:32 PM EDT Tc returned to daughter [phone] (Leonardo-on HIPAA) regards to below message. Daughter requested appt to be reschedules to see PCP only. Appt changed to 06/14/24 at 915 am. Daughter informed RN that patient tested positive for Covid on 06/06/24. Daughter advised to notify dental front office assistant when checkingin for the [...] camacho if Possible. Contact pt Daughter at [phone] documented in this encounter Plan of Treatment Upcoming Encounters Date Type Department Care Team (Late st Contact Info) Description 05/19/2025 11:15 AM EST Office Visit [facility] [address] [place] [address] Kath Camacho MD [address] [place] [address] documented as of this encounter Visit Diagnoses Not on filedocumented in this encounter Additional Health Concerns Assessment Noted Time PHQ-9 Depression Total Score: 12 024 2:19 PM EDT documented as of this encounter Care Teams Caramel Maker Relationship Specialty Start Date End Date Kath Camacho MD [address] [place], [place] [phone] PCP - General Family Medicine 09/23/23 [facility] 06/09/24 documented as of this encounter
--- OUTSIDE RECORDS SUMMARY | 2025-03-13 18:42 | XMS_ITS | Clinical Summary ---
Author Organization [facility] Address [address] [place] [address] Phone Care Team Providers Care Porcelain Buildup Assistant Name Role Phone Nikole Johnson-Rainer Unavailable Darlyn Velasquez DO Unavailable [phone] Unavailable [phone] Kath Bose MD Primary Care Provider + Lizzie Ballard Unavailable Allergies No known active allergies Medications aspirin [...] MOUTH DAILY WITH BREAKFAST 90 tablet 1 12/29/19 25 Active Active Problems Problem Noted Date [...] EST): Followed by pulmonology, advised smoking cessation. [facility] today Assessment & Plan (05/17/2021 9:12 PM [...] Other incidental findings as above. Performed at [facility] Assessment & Plan (09/27/2020 10:03 AM EDT): [...] PM EST): He is receiving care from [facility] for Diabetic checks. He cannot afford the agudelo of regular insulin for sliding scale. The maximum he can afford is to take Lantus once daily. He is not taking Lantus daily according to [facility] nurse. Patient thought he was supposed not [...] Encounters Date Type Department Care Team Description 02/24/2025 Refill [facility] [address] [place] [phone] Natalie Pederson, TURPENTINE DISTILLER Medication Refill 12/27/2024 Refill [facility] at [address] [address] Joyce Hernandez, ROSA Medication Refill from Last 3 Months Immunizations Immunization Administration [...] 01/27/2022, 12/06/2020, Additional history exists COVID-19 VACCINE (2024- season) 2024 01/14/2023, 07/16/2022, 2021, Additional history [...] Date/Time Associated Diagnosis Comments COMPREHENSIVE METABOLIC PANEL (CMP) Routine 09/29/2024 9:26 AM EDT Monoclonal gammopathy [...] Relevant to Health Maintenance Results * (ABNORMAL) Comprehensive metabolic panel (09/29/2024 9:26 AM EDT) SODIUM 140 133 - 146 mmol/L [facility] POTASSIUM 5.0 3.3 - 5.1 mmol/L [facility] CHLORIDE 102 96 - 108 mmol/L [facility] CO2 24 21 - 35 mmol/L [facility] BUN 26(H) 6 - 19 mg/dL [facility] CREATININE 1.50 0.5 - 1.5 mg/dL [facility] GLUCOSE 176(H) 70 - 99 mg/dL [facility] ALBUMIN 4.3 3.9 - 4.8 g/dL [facility] TOTAL PROTEIN 7.3 6.5 - 8.0 g/dL [facility] CALCIUM 9.9 8.4 - 10.3 mg/dL [facility] ALKALINE PHOSPHATASE 75 39 - 117 U/L [facility] TOTAL BILIRUBIN 0.7 0.0 - 1.2 mg/dL [facility] AST 30 0 - 37 U/L [facility] ALT 27 0 - 40 U/L [facility] GLOBULIN 3.0 1 - 4.8 g/dL [facility] EGFR 49(L) >59 mL/min/1.7 3m2 [facility] Comment:Estimated glomerular filtration rate calculated using the CKD-EPI refit equation. ANION GAP 19 10 - 20 mmol/L [facility] Blood 09/29/2024 9:26 AM EDT 09/29/2024 9:28 AM EDT us Lizzie LUGO LAB BLOOD BKR ORDERABLES Fin al Result Performing Organization Address City/State/[facility] Co de Phone Number [address] [address] * CT ABDOMEN/PELVIS WITH CONTRAST (11/19/2023 6:01 [...] HEMOGLOBIN A1C 7.4(H) 4.3 - 5.8 % [facility] Blood 09/02/2023 11:2 8 AM EDT 09/02/2023 11:30 AM EDT Aida Fabian MD LAB BLOOD BKR ORDERABLES Fi nal Result [address] [address] * DIABETES EYE EXAM FOR RESULT ENTRY ONLY (05/13/2023) EYE EXAM Normal Historical Provider HEALTH MAINTENANCE Final Result * (ABNORMAL) Fecal immunochemical test x1 (FIT) (11/05/2020 10:43 AM EDT) IFOBT Positive(A ) Negative [facility] Stool (Stool) 11/05/2020 10: 43 AM EDT 11/05/2020 10:48 AM EDT Darlyn Velasquez DO LAB BODY FLUIDS AND STOOL ORDERABLES Final Result [facility] One [address] [address], [facility] from Last 3 Months or Most Recently Relevant to Health Maintenance Insurance [facility] MEDICARE REPLACEMENT Member Subscriber Plan / Payer (Ef fective 2020-Present) Name:Boone Newby Relation to Subscriber:Self Name:Boone Newby Payer ID:[id number] (NAIC) Type:Medicare Address: [place] [id number] [facility] FULL Member Subscriber Plan / Payer (Ef fective 2023-Present) Name:Boone Newby Relation to Subscriber:Self Name:Boone Newby Payer ID:Not on file Group ID:Not on file Type:Medicaid Address: [address] [facility] MEDICARE REPLACEMENT HEALTH SAFETY NET FULL B [facility] MEDICARE REPLACEMENT [place] [id number] [facility] MEDICARE REPLACEMENT [facility] MEDICARE REPLACEMENT [place] [id number] HEALTH SAFETY [facility] MEDIC[facility] REPLACEMENT Member Subscriber Plan / Payer (Ef fective 2020-Present) Name:Boone Newby Relation to Subscriber:Self Name:Boone Newby Payer ID:[id number] (NAIC) Type:Medicare Address: [address] FULL Member Subscriber Plan / Payer (Ef fective 2023-Present) Name:Boone Newby Relation to Subscriber:Self Name:Boone Newby Payer ID:Not on file Group ID:Not on file Type:Medicaid Address: [address] [facility] MEDICARE REPLACEMENT HEALTH SAFETY NET FULL B MEDICARE REPLACEMENT [place] [id number] [facility] [place] [address] [facility] NET FULL [facility] Care Teams Porcelain Buildup Assistant Relationship Specialty Start Date End Date Kath Bose MD [address] [place] [address] PCP - General Family Medicine 11/09/23 Nikole Johnson, PAYazminC [address] [place] [phone] [email or web address] Historical LMR Provider 04/22/18 Darlyn Velasquez DO [address] [place] [address] [address] [place] [address] [email or web address] Historical LMR Provider 04/22/[address] [place] [address] [email or web address] Historical LMR Provider 04/22/18 Lizzie Ballard MBBS [address] [place] [address] [email or web address] Primary Oncologist Medical Oncology 03/02/24 Additional Source Comments The information contained in this document represents components of the legal health record. It is not the complete legal health record.[facility]
--- OUTSIDE RECORDS SUMMARY | 2025-03-13 18:42 | XMS_ITS | Patient Health Record ---
Author [facility] Address [address] [facility] [address] Care Team Providers Care Cotton Washer Name Role Phone Yohana Cifuentes Primary Care Provider Yg Thomson Unavailable [phone] Allergies No Known Allergies Results Component Value Reference Range Notes HEMOGLOBIN A1C (GLYCOHEMOGLO BIN) Reviewed date:07/12/2024 01:24:04 PM Interpretation: Performing Lab: Notes/Report: HEMOGLOBIN A1C % (HH) 8.4 HEMOGLOBIN A1C (GLYCOHEMOGLO BIN) Reviewed date:03/07/2025 02:04:31 PM Interpretation: Performing Lab: Notes/Report: HEMOGLOBIN A1C % (HH) 10.9 Reason For Referral No Information Medications Medication SIG (Take, Route, Frequency, Duration) Notes Start Date End Date Status Rosuvastatin Calcium 10 MG Oral; Duration: 90 Days Active Psyllium Active Multi Vitamin Active Ammonium Lactate 12 % 1 application Exte rnally to affected areas of dry skin to feet except for between the toes Twice a day; Duration: 30 days Active Insulin Active Vitamin D Active busPIRone HCl 10 MG 1 tablet Orally Twic e a day 01/27/2023 Active Vitamin C Active Extra Depth Orthopedic Shoes, (1) Pair With (3) Pair Custom Heat Molded Multidensity Innersoles Dx: NIDDM/PVD(E11.51), Hammertoe Foot Deformity(M20.41,M20.42), Preulcerative Skin Lesion(s)(L85.1) Wear Daily; Duration: 365 days Active metFORMIN HCl 1000 MG 1 tablet with a me al Orally Once a day; Duration: 90 days Active Sertraline HCl 100 MG 1 tablet Orally On ce a day; Duration: 30 days 01/27/2023 Active Aspirin 81 MG 1 tablet Orally Once a day; Duration: 30 day(s) 01/27/2023 Active glipiZIDE 5 MG Oral; Duration: 90 Days Active Immunizations Vaccine Route Administration Date Status Comme nts Influenza Unknown 11/21/2022 Administered Influenza Unknown 11/22/2023 Administered Influenza Unknown 01/23/2025 Administered Social History Tobacco Use: Social History [...] Problem Acquired hammer toe of right foot (0713943648064 105) Other hammer toe(s) (acquired), right foot (M20.41) Active confirmed Response to treatment,I mprovement Problem Type 2 diabetes mellitus with peripheral angiopathy (356993778) Type 2 diabetes mellitus with diabetic peripheral angiopathy without gangrene (E11.51) Active confirmed Problem Acquired hammer toe of left foot (6984384757270 103) Other hammer toe(s) (acquired), left foot (M20.42) Active confirmed Response to treatment,I mprovement Vital Signs Blood pressure diastolic 74 mm Hg 03/07/2025 Height 5ft 11.5in in 03/07/2025 Blood pressure systolic 122 mm Hg 03/07/2025 Weight 180 lbs 03/07/2025 BMI 24.75 kg/m2 03/07/2025 Procedures Procedure Date Ordered Date Performed Result Body Sit e 74430-PUXLJZX NAIL, 6 OR MORE 07/12/2024 N/A 26613-QMOJ SKIN LESIONS, OVER 4 07/12/2024 N/A 87598-OMTNSZS NAIL, 6 OR MORE 11/08/2024 N/A 30054-KWNK SKIN LESIONS, OVER 4 11/08/2024 N/A 47860-LJYACPA NAIL, 6 OR MORE 03/07/2025 N/A 13415-MZQC SKIN LESIONS, OVER 4 03/07/2025 N/A Encounters Encounter Location Date Provider Diagnosis [address] [address] 07/12/2024 Yg Soto Type 2 diabetes mellitus with diabetic peripheral angiopathy without gangrene E11.51 ; Tinea unguium B35.1 ; Pain in right toe(s) M79.674 ; Pain in left toe(s) M79.675 ; Other hammer toe(s) (acquired), left foot M20.42 and Other hammer toe(s) (acquired), right foot M20.[address] [address] 11/08/2024 Yg Soto Type 2 diabetes mellitus with diabetic peripheral angiopathy without gangrene E11.51 ; Other hammer toe(s) (acquired), right foot M20.41 ; Tinea unguium B35.1 ; Pain in right toe(s) M79.674 ; Pain in left toe(s) M79.675 and Other hammer toe(s) (acquired), left foot M20.[address] [address] 03/07/2025 Yg Soto Type 2 diabetes mellitus with diabetic peripheral angiopathy without gangrene E11.51 ; Tinea unguium B35.1 ; Pain in right toe(s) M79.674 ; Pain in left toe(s) M79.675 and Xerosis of skin L85.[address] [address] 07/12/2024 Yg Soto Assessments Encounter Date Diagnosis (ICD Code) Assessment Notes Treatment Notes Treatment Clinical Notes Section Notes 07/12/2024 Type 2 diabetes mellitus with diabetic peripheral angiopathy without gangrene (ICD-10 - E11.51) 11/08/2024 Other hammer toe(s) (acquired), right foot (ICD-10 - M20.41) 11/08/2024 Type 2 diabetes mellitus with diabetic peripheral angiopathy without gangrene (ICD-10 - E11.51) 03/07/2025 Type 2 diabetes mellitus with diabetic peripheral angiopathy without gangrene (ICD-10 - E11.51) 03/07/2025 Tinea unguium (ICD-10 - B35.1) 11/08/2024 Tinea unguium (ICD-10 - B35.1) 07/12/2024 Tinea unguium (ICD-10 - B35.1) 03/07/2025 Pain in right toe(s) (ICD-10 - M79.674) 11/08/2024 Pain in right toe(s) (ICD-10 - M79.674) 03/07/2025 Pain in left toe(s) (ICD-10 - M79.675) 07/12/2024 Pain in right toe(s) (ICD-10 - M79.674) 11/08/2024 Pain in left toe(s) (ICD-10 - M79.675) 07/12/2024 Pain in left toe(s) (ICD-10 - M79.675) 07/12/2024 Other hammer toe(s) (acquired), left foot (ICD-10 - M20.42) 11/08/2024 Other hammer toe(s) (acquired), left foot (ICD-10 - M20.42) 03/07/2025 Xerosis of skin (ICD-10 - L85.3) 07/12/2024 Other hammer toe(s) (acquired), right foot (ICD-10 - M20.41) Patient Educated with: DIABETIC FOOT CARE INSTRUCTIONS.p df (DIABETIC FOOT CARE INSTRUCTIONS.p df) Plan Of Treatment Pending Test Test Name Order Date 97531-LOZAPPB NAIL, 6 OR MORE 03/03/2023 89644-WMATBOV NAIL, 6 OR MORE 07/21/2023 84495-LDUQWOC NAIL, 6 OR MORE 11/17/2023 59744-NISEJFE NAIL, 6 OR MORE 03/11/2024 80982-STKRETA NAIL, 6 OR MORE 07/12/2024 24107-SRQPULP NAIL, 6 OR MORE 11/08/2024 54208-NPYPNLS NAIL, 6 OR MORE 03/07/2025 02920-Funhvdfq Plate 07/21/2023 78684-Evyrxany Plate 11/17/2023 26492-GTEX SKIN LESIONS, OVER 4 11/17/19 24 40686-KRSB SKIN LESIONS, OVER 4 07/21/19 39552-TYHX SKIN LESIONS, OVER 4 03/03/20 29170-YOTC SKIN LESIONS, OVER 4 03/07/20 94740-GGZH SKIN LESIONS, OVER 4 11/09/19 45753-BXCU SKIN LESIONS, OVER 4 07/13/19 51200-BQLU SKIN LESIONS, OVER 4 03/11/20 Next Appt Details Provider Name:Yg Cory Soto , 06/27/2025 01:30:00 PM, [address] [place], [address], Insurance Providers Payer Name Payer Address Payer Phone Subscriber Number Group Number Insured Name Patient Relationship to Insured Coverage Start Date Coverage End Date AARP Medicare Complete [address] [address] [place] [address] [id number] Boone Newby Self - patient is the insured Medical (General) History Medical History History ICD Code Back,Hip,and Knee pain Broken bones CAD (Cholesterol) Diabetic High blood pressure Lung disease Surgical History Surgery Date(Month/Year) hernia 2013 Hospitalization History Reason Date(Month/Year) Hospital- Fall - Broken knee and shoulde r 05/17
--- OUTSIDE RECORDS SUMMARY | 2025-03-13 18:42 | XMS_ITS | Encounter Summary ---
Author Organization [facility] Address [address] [place] [address] Phone Care Team Providers Care Business Resiliency Manager Name Role Phone Nikole Johnson PA-C Unavailable Darlyn Velasquez DO Unavailable [phone] Unavailable [phone] Kath Bose MD Primary Care Provider + Lizzie Ballard Unavailable Reason for Visit * Reason Comments Medication Refill Encounter Details Date Type Department Care Team ([facility] Contact Info) Description 02/24/2025 Refill [facility] [address] [place] [address] Natalie Pederson, BRANCH SALES MANAGER [address] [place] [address] [email or web address] Medication Refill Social History Tobacco Use Types Packs/Day Years [...] on file documented as of this encounter Progress Notes * Summer Zavala LPN - 02/24/2025 4:02 PM EST Patient is listed as having other provider no longer a patient at this [facility] location documented in this encounter Plan of Treatment Not on file documented as of this encounter Visit Diagnoses Not on filedocumented in this encounter Additional Health Concerns Assessment Noted Time PHQ-2 Depression Total Score: 0 07/17/19 1:51 PM EDT documented as of this encounter Care Teams Business Resiliency Manager Relationship Specialty Start Date End Date Kath Bose MD [address] [place] [address] PCP - General Family Medicine 11/09/23 Nikole Johnson, PAYazminC [address] [place] [address] [address] [place] [phone] [email or web address] Historical LMR Provider 04/22/18 Darlyn Velasquez DO [address] [place] [address] [address] [place] [address] [email or web address] Historical LMR Provider 04/22/[address] [place] [address] Historical LMR Provider 04/22/18 Lizzie Ballard MBBS [address] [place] [address] [email or web address] Primary Oncologist Medical Oncology 03/02/24 documented as of this encounter Additional Source Comments The information contained in this document represents components of the legal health record. It is not the complete legal health record.[facility]
--- OUTSIDE RECORDS SUMMARY | 2025-03-13 18:42 | XMS_ITS | Encounter Summary ---
Author Organization [facility] Address [address] [place] [address] Phone Care Team Providers Care Patient Financial Coordinator Name Role Phone Nikole Johnson PA-C Unavailable Darlyn Velasquez DO Unavailable Iwona Torre RD Unavailable [phone] Kath Bose MD Primary Care Provider + Lizzie Ballard Unavailable Encounter Details Date Type Department Care Team (Late st Contact Info) Description 11/09/2023 Procedure Pass [facility], [facility] [address] [place] [address] Social History Tobacco Use Types Packs/Day Years [...] as of this encounter Care Teams Patient Financial Coordinator Relationship Specialty Start Date End Date Kath Bose MD [address] [place] [address] PCP - General Family Medicine 11/09/23 Nikole Johnson, PAYazminC [address] [place] [phone] Historical LMR Provider 04/22/18 Darlyn Velasquez DO [address] [place] [address] [address] [place] [address] [email or web address] Historical LMR Provider 04/22/[address] [place] [address] Historical LMR Provider 04/22/18 Lizzie Ballard MBBS [address] [place] [address] Primary Oncologist Medical Oncology 03/02/24 documented as of this encounter Additional Source Comments The information contained in this document represents components of the legal health record. It is not the complete legal health record.[facility]
--- OUTSIDE RECORDS SUMMARY | 2025-03-13 18:42 | XMS_ITS | Encounter Summary ---
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 EFFECTIVE SINCE 11/05/2022 documented in this encounter Plan of Treatment Upcoming Encounters Date Type Department Care Team (Late st Contact Info) Description 05/19/2025 11:15 AM EST Office Visit [facility] [address] [place] [address] Kath Bose MD [address] [place], [place] [phone] documented as of this encounter Visit Diagnoses Not on filedocumented in this encounter Care Teams Keg Header Relationship Specialty Start Date End Date Kath Bose MD [address] [place], [place] [phone] PCP - General Family Medicine 09/23/23 [facility] 06/09/24 documented as of this encounter
--- OUTSIDE RECORDS SUMMARY | 2025-03-13 18:42 | XMS_ITS | Patient Health Record ---
Author Organization [facility] Address [address] [address] Care Team Providers Care Clinical Trial Associate Name Role Phone Darlyn Velasquez DO Primary Care Provider Mich Padilla Unavailable [phone] Allergies No Known Allergies Reason For Referral [...] stenosis of multiple and bilateral cerebral arteries (891461299) Occlusion and stenosis of bilateral carotid arteries (I65.23) Active confirmed Plan Of Treatment No Information Insurance Providers Payer Name Payer Address Payer Phone Subscriber Number Group Number Insured Name Patient Relationship to Insured Coverage Start Date Coverage End Date AARP Medicare Complete [address] [address] [place] [address] [id number] Boone Newby Self - patient is the insured Medical (General) History Medical History History ICD Code 1. Hypercholesterolemia 2. Carotid Stenosis 3. Diabetes Mellitus 4. Hypercholesterolemia 5. Chronic Obstructive Pulmonary Disease 6. Active Smoker
== END 2025-03-13 15:55 | disposition home or self-care (01) ==
LOC: HO.HHCX 15:54
PROVIDERS: PCP General Practice; Visit Provider General Practice
DX: R06.02 Shortness of breath (principal); R05.9 Cough, unspecified
CPT/HCPCS: 71046

== ENCOUNTER → 2025-03-13 15:59 | Outpatient (BNV) | payer MEDICARE, MEDICAID, SELFPAY | PROVIDERS: PCP General Practice; Visit Provider Radiology Diagnostic Radiology | DX: J43.9 Emphysema, unspecified (principal) | CPT/HCPCS: 71046 ==